=== PATIENT | female | born 1965 | race Caucasian/White ===

== ENCOUNTER 2017-05-19 00:23 | Inpatient (IN) | payer MEDICAID, OTHER ==
[~2017-05-19] VITALS: Ht 154.9 cm; Wt 60.0 kg
[2017-05-19 00:31] VITALS: Ht 154.9 cm; Wt 60.0 kg
--- NOTE | 2017-05-19 01:12 | ERA ---
ER Documentation Chief Complaint Date/Time DATE: 05/19/17 TIME: 01:11 Chief Complaint c/o itching, yellowing of sclera, dark urine, abd pain x months. HPI The patient is a 52-year-old female, presenting to the ER because of pruritus more than 6 months, yellowish eyes more than 4 weeks, constipation more than 3 weeks, abdominal pain more than 1 month and painful urination and dark urine for the last 6 months intermittently. She had not seen a physician, denies night sweats, weight loss, neck pain, chest pain. She does not smoke nor drink Past medical history: None Past surgical history left breast lumpectomy ROS All systems reviewed and are negative except as per history of present illness. Medications Home Meds No Active Prescriptions or Reported Meds Allergies Allergies: Coded Allergies: No Known Allergy (Unverified , 05/19/17) Physical Exam Vitals Vital Signs Date Time Temp Pulse Resp B/P Pulse Ox O2 Delivery O2 Flow Rate FiO2 05/19/17 05:56 88 19 121/67 100 Room Air 05/19/17 04:29 82 19 113/67 100 Room Air 05/19/17 01:22 98.4 89 19 159/89 100 Room Air 05/19/17 00:31 98.4 94 18 169/77 98 Physical Exam Const: No acute distress.Jaundice Head: Atraumatic. Eyes: Icteric Conjunctiva. ENT: Normal External Ears, Nose and Mouth. Neck: Full range of motion. No meningismus. Resp: Clear to auscultation bilaterally. Cardio: Regular rate and rhythm. Abd: Soft, non distended, normal bowel sounds, Diffuse abdominal tenderness, more tenderness at the right upper quadrant Skin: No petechiae or rashes. Back: No midline or flank tenderness. Ext: No cyanosis, or edema. Neur: Awake and alert. No focal deficit Psych: Normal Mood and Affect. Result Diagram: 05/19/17 0110 05/19/17 0110 Results 24 hrs Laboratory Tests Test 05/19/17 01:10 05/19/17 01:51 White Blood Count 11.610^3/ul Red Blood Count 4.7010^6/ul Hemoglobin 14.0g/dl Hematocrit 41.2% Mean Corpuscular Volume 87.7fl Mean Corpuscular Hemoglobin 29.8pg Mean Corpuscular Hemoglobin Concent 34.0g/dl Red Cell Distribution Width 14.5% Platelet Count 23036^3/UL Mean Platelet Volume 11.0fl Neutrophils % 65.0% Lymphocytes % 23.5% Monocytes % 9.1% Eosinophils % 1.6% Basophils % 0.4% Nucleated Red Blood Cells % 0.0/100WBC Neutrophils # 7.510^3/ul Lymphocytes # 2.710^3/ul Monocytes # 1.110^3/ul Eosinophils # 0.210^3/ul Basophils # 0.110^3/ul Nucleated Red Blood Cells # 0.010^3/ul Sodium Level 139mmol/L Potassium Level 3.5mmol/L Chloride Level 101mmol/L Carbon Dioxide Level 29mmol/L Anion Gap 13 Blood Urea Nitrogen 11mg/dl Creatinine 0.63mg/dl Glucose Level 121mg/dl Calcium Level 9.5mg/dl Total Bilirubin 7.5mg/dl Direct Bilirubin 5.50mg/dl Indirect Bilirubin 2.0mg/dl Aspartate Amino Transf (AST/SGOT) 67IU/L Alanine Aminotransferase (ALT/SGPT) 130IU/L Alkaline Phosphatase 907IU/L Total Protein 7.7g/dl Albumin 3.9g/dl Globulin 3.80g/dl Albumin/Globulin Ratio 1.02 Lipase 142U/L Bedside Urine pH (LAB) 6.5 Bedside Urine Protein (LAB) Negative Bedside Urine Glucose (UA) 0.1% Bedside Urine Ketones (LAB) Negative Bedside Urine Blood Negative Bedside Urine Nitrite (LAB) Positive Bedside Urine Leukocyte Esterase (L Negative Current Medications Medications (Trade) Dose Ordered Sig/Christy Route PRN Reason Start Time Stop Time Status Last Admin Dose Admin Morphine Sulfate (morphine) 2 mg ONCE ONCE IV 05/19/17 02:00 05/19/17 02:02 DC 05/19/17 02:03 Ondansetron HCl 4 mg 4 mg ONCE STAT IV 05/19/17 01:59 05/19/17 02:02 DC 05/19/17 02:03 Piperacillin Sod/ Tazobactam Sod (Zosyn 3.375gm/ 100 ml (Pmx)) 100 ml @ 200 mls/hr ONCE ONCE IVPB 05/19/17 03:30 05/19/17 03:59 DC 05/19/17 04:18 Procedures/MDM [place] [address] Radiology Main Line: [phone] DIAGNOSTIC IMAGING REPORT Patient: PABLITO MOSS : 1965 Age: 52 Sex: F MR #: [id number] DOS: 05/19/17 0159 Ordering MD: KARRI FORTE MD Location: E/R Room/Bed: PROCEDURE: US abdomen limited right upper quadrant. CLINICAL INDICATION: Abdominal pain TECHNIQUE: Multiple real-time images were acquired of the patient's right upper quadrant of the abdomen utilizing a high resolution transducer. COMPARISON: CT abdomen and pelvis without contrast of 05/19/2017 FINDINGS: The gallbladder appears contracted which limits evaluation. No definite gallstones are identified within the gallbladder. There is the appearance of diffuse gallbladder wall thickening which could be secondary to contraction. The common bile duct measures 2.6 mm in maximal dimension. No free fluid is identified. No definite abnormality is seen in the pancreas. There is the appearance of marked intrahepatic biliary dilatation greater in the left lobe. The length of the right lobe of the liver equals 15.3 cm, within normal limits. There is hepatopedal main portal venous flow. The right kidney measures 10.6 cm in length and is unremarkable. IMPRESSION: Marked intrahepatic biliary dilatation greater in the left lobe. Contracted gallbladder. Appearance of diffuse gallbladder wall thickening which could be secondary to contraction. Please see above. RPTAT: HJES .Manish Garcia MD, MD Date Time Electronically viewed and signed by .Manish Garcia MD, MD on 05/19/2017 03:35 .S/ CC: KARRI FORTE MD [place] [id number] Radiology Main Line: [phone] DIAGNOSTIC IMAGING REPORT Patient: PABLITO MOSS : 1965 Age: 52 Sex: F MR #: [id number] DOS: 05/19/17 0202 Ordering MD: KARRI FORTE MD Location: E/R Room/Bed: PROCEDURE: CT Abdomen and Pelvis without contrast. CLINICAL INDICATION: Abdominal pain, jaundice, hyperbilirubinemia TECHNIQUE: CT scan of the abdomen and pelvis without contrast was performed on a multidetector high-resolution CT scanner. The patient was scanned without intravenous contrast. Coronal and sagittal reformatted images were obtained from the axial source images. Images were reviewed on a high-resolution PACS workstation. The total exam CTDI equals 9.43 mGy and the total exam DLP equals 519.81 mGy-cm. One or more the following dose reduction techniques were utilized: Automated exposure control, adjustment of the mA and / or kV according to patient's size, or use of iterative reconstruction technique. COMPARISON: Right upper quadrant abdominal ultrasound of 05/19/2017 FINDINGS: Mild dependent atelectasis in posterior lower lungs. No pneumoperitoneum is seen. Very small umbilical hernia containing fat only. Marked intrahepatic biliary dilatation greater in the left lobe. Evaluation of the liver is limited without intravenous contrast. There is the suggestion of approximate 3.3 x 2.7 cm hypoattenuating mass in the balaji hepatis region suspicious for malignancy. There is the appearance of likely enlarged periportal lymph node measuring approximately 1.6 cm short axis suspicious for metastasis. There is an approximate 1 cm short axis left periaortic retroperitoneal lymph node with smaller additional left periaortic retroperitoneal lymph nodes. There is an approximate 1 cm short axis left common iliac lymph node. The gallbladder is contracted. No definite dilatation of the extrahepatic bile duct is seen. No definite abnormality of the pancreas is seen. No abnormality is seen in the spleen, adrenals or kidneys. No abdominal aortic aneurysm is seen. No ascites is seen. No abnormality of the bladder is seen. No definite abnormality of the uterus or adnexal regions is seen on CT. No definite abnormality of the colon is seen. There is an unremarkable appendix. No significantly dilated small bowel loops are seen. Small scattered likely bone islands. Degenerative changes in lumbar spine. IMPRESSION: Marked intrahepatic biliary dilatation greater in the left lobe. Evaluation of the liver is limited without intravenous contrast. There is the suggestion of approximate 3.3 x 2.7 cm hypoattenuating mass in the balaji hepatis region suspicious for malignancy. There is the appearance of likely enlarged periportal lymph node measuring approximately 1.6 cm short axis suspicious for metastasis. There is an approximate 1 cm short axis left periaortic retroperitoneal lymph node with smaller additional left periaortic retroperitoneal lymph nodes. There is an approximate 1 cm short axis left common iliac lymph node. These are nonspecific. Contracted gallbladder. Please see above. Discussed with Dr. Forte at 03:48 a.m. on 05/19/2017. RPTAT: HJES .Manish Garcia MD, MD Date Time Electronically viewed and signed by .Manish Garcia MD, MD on 05/19/2017 03:51 .S/ CC: KARRI FORTE MD MEDICAL MAKING DECISION: The patient is a 52-year-old female, presenting with acute jaundice, acute liver mass concerning for hepatic malignancy, acute cystitis. She was treated withZosyn IV, morphine 2 mg IV for pain, Zofran formula IV for nausea with good response The differential diagnoses considered include but are not limited to hepatic malignancy, CBD obstruction, choledocholithiasis, Cholangiocarcinoma, cholangitis, cholelithiasis, cholecystitis, cystitis, pancreatitis, hepatitis, gastritis, peptic ulcer disease, gastric ulcer, appendicitis, diverticulitis, cholangitis, choledocholithiasis, partial small bowel obstruction. Departure Diagnosis: Primary Impression: Jaundice Additional Impressions: Liver mass UTI (urinary tract infection) Condition: Stable Comments I discussed the findings with the patient. I discussed the patient with the on- call hospitalist Dr. Villalobos who was made aware of the lab, the treatment, the patient condition. The patient is admitted to [facility] The patient's blood pressure was elevated (>120/80) but appears stable without evidence of hypertension emergency or urgency. The patient was counseled about the risks of hypertension and urged to pursue outpatient monitoring and therapy within a week with their primary care physician. KARRI FORTE MD May 19, 2017 01:12
[2017-05-19 01:40] LABS: BASOPHIL # 0.1 10^3/ul (0.0-0.1); BASOPHILS % 0.4 % (0.0-2.0); EOSINOPHILS # 0.2 10^3/ul (0.0-0.5); EOSINOPHILS % 1.6 % (0.0-7.0); HEMATOCRIT 41.2 % (37.0-47.0); LYMPHOCYTES # 2.7 10^3/ul (0.8-2.9); LYMPHOCYTES % 23.5 % (15.0-51.0); MEAN CORPUSCULAR HEMOGLOBIN 29.8 pg (29.0-33.0); MEAN CORPUSCULAR VOLUME 87.7 fl (82.0-101.0); MONOCYTE # 1.1 10^3/ul (0.3-0.9); MONOCYTES % 9.1 % (0.0-11.0); NEUTROPHIL # 7.5 10^3/ul (1.6-7.5); PLATELET COUNT 377 10^3/UL (140-415); RED CELL DISTRIBUTION WIDTH 14.5 % (11.5-14.5); WHITE BLOOD COUNT 11.6 10^3/ul (4.8-10.8)
[2017-05-19 01:44] LABS: URINE BLOOD (Dip) POC Negative (NEGATIVE)
[2017-05-19] MEDS ORDERED: ONDANSETRON 4 MG INJ IV STA (01:59)
[2017-05-19] MEDS ORDERED: morphine 2 MG INJ IV ONE (02:00)
[2017-05-19 02:02] LABS: ALBUMIN 3.9 g/dl (3.3-4.9); ALBUMIN/GLOBULIN RATIO 1.02; BILIRUBIN,DIRECT 5.5 mg/dl (0.00-0.20); BILIRUBIN,TOTAL 7.5 mg/dl (0.2-1.3); CALCIUM 9.5 mg/dl (8.4-10.2); CREATININE 0.63 mg/dl (0.44-1.00); POTASSIUM 3.5 mmol/L (3.5-5.1); TOTAL PROTEIN 7.7 g/dl (6.1-8.1)
[2017-05-19] MEDS ORDERED: PIPER-TAZO 3.375 GM IV (PMX) 100 ML IVPB ONE (03:30)
--- NOTE | 2017-05-19 03:36 | RADRPT ---
PROCEDURE: US abdomen limited right upper quadrant. CLINICAL INDICATION: Abdominal pain TECHNIQUE: Multiple real-time images were acquired of the patient's right upper quadrant of the ab domen utilizing a high resolution transducer. COMPARISON: CT abdomen and pelvis without contrast of 05/19/2017 FINDINGS: The gallbladder appears contracted which limits evaluation. No definite gallstones are identified wi thin the gallbladder. There is the appearance of diffuse gallbladder wall thickening which could be secondary to contracti on. The common bile duct measures 2.6 mm in maximal dimension. No free fluid is identified. No definite abnormality is seen in the pancreas. There is the appearanc e of marked intrahepatic biliary dilatation greater in the left lobe. The length of the right lobe o f the liver equals 15.3 cm, within normal limits. There is hepatopedal main portal venous flow. The right kidney measures 10.6 cm in length and is unremarkable. IMPRESSION: Marked intrahepatic biliary dilatation greater in the left lobe. Contracted gallbladder. Appearance of diffuse gallbladder wall thickening which could be secondary to contraction. Please see above. RPTAT: HJES .Manish Garcia MD, MD Date Time Electronically viewed and signed by .Manish Garcia MD, on 05/19/2017 03:35 .S/
--- NOTE | 2017-05-19 03:51 | RADRPT ---
PROCEDURE: CT Abdomen and Pelvis without contrast. CLINICAL INDICATION: Abdominal pain, jaundice, hyperbilirubinemia TECHNIQUE: CT scan of the abdomen and pelvis without contrast was performed on a multidetector hig h-resolution CT scanner. The patient was scanned without intravenous contrast. Coronal and sagittal reformatted images were obtained from the axial source images. Images were reviewed on a high-resol [employer] PACS workstation. The total exam CTDI equals 9.43 mGy and the total exam DLP equals 519.81 mGy -cm. One or more the following dose reduction techniques were utilized: Automated exposure control, adjus tment of the mA and / or kV according to patient's size, or use of iterative reconstruction techniqu e. COMPARISON: Right upper quadrant abdominal ultrasound of 05/19/2017 FINDINGS: Mild dependent atelectasis in posterior lower lungs. No pneumoperitoneum is seen. Very small umbilic al hernia containing fat only. Marked intrahepatic biliary dilatation greater in the left lobe. Eval uation of the liver is limited without intravenous contrast. There is the suggestion of approximate 3.3 x 2.7 cm hypoattenuating mass in the balaji hepatis region suspicious for malignancy. There is th e appearance of likely enlarged periportal lymph node measuring approximately 1.6 cm short axis susp icious for metastasis. There is an approximate 1 cm short axis left periaortic retroperitoneal lymph node with smaller additional left periaortic retroperitoneal lymph nodes. There is an approximate 1 cm short axis left common iliac lymph node. The gallbladder is contracted. No definite dilatation o f the extrahepatic bile duct is seen. No definite abnormality of the pancreas is seen. No abnormalit y is seen in the spleen, adrenals or kidneys. No abdominal aortic aneurysm is seen. No ascites is seen. No abnormality of the bladder is seen. No definite abnormality of the uterus or adnexal region s is seen on CT. No definite abnormality of the colon is seen. There is an unremarkable appendix. No significantly dilated small bowel loops are seen. Small scattered likely bone islands. Degenerative changes in lumbar spine. IMPRESSION: Marked intrahepatic biliary dilatation greater in the left lobe. Evaluation of the liver is limited without intravenous contrast. There is the suggestion of approximate 3.3 x 2.7 cm hypoattenuating ma ss in the balaji hepatis region suspicious for malignancy. There is the appearance of likely enlarged periportal lymph node measuring approximately 1.6 cm short axis suspicious for metastasis. There is an approximate 1 cm short axis left periaortic retroperitoneal lymph node with smaller additional l eft periaortic retroperitoneal lymph nodes. There is an approximate 1 cm short axis left common qian c lymph node. These are nonspecific. Contracted gallbladder. Please see above. Discussed with Dr. Juana swenson at 03:48 a.m. on 05/19/2017. RPTAT: HJES .Manish Garcia MD, MD Date Time Electronically viewed and signed by .Manish Garcia MD, on 05/19/2017 03:51 .S/
--- NOTE | 2017-05-19 07:32 | HP ---
Date/Time of Note Date/Time of Note DATE: 05/19/17 TIME: 07:22 Assessment/Plan VTE Prophylaxis VTE Prophylaxis Intervention: SCD's Assessment/Plan Assessment/Plan 1. Liver mass with enlarged lymph nodes, suspicious for malignancy/metastasis -will place a GI and oncology consult, as well as hepatobiliary surgery consult -will talk to oncology and also radiology to see best approach to perform a biopsy 2. Abnormal liver enzymes, jaundice -See #1 HPI/ROS Admit Date/Time Admit Date/Time Hx of Present Illness The patient is a 52-year-old female with a history of dyslipidemia who presented to the ER coming of abdominal pain, yellowish eyes dark urine and itching. Her symptoms started over 6 months ago with dark urine. About a month or so ago, she started noticing itching, abdominal pain, yellowish eyes and constipation. For the having slightly decreased appetite but denied weight loss. He also denied fever, chills, chest pain, shortness of breath. CT abdomen/pelvis done in the ER showed Marked intrahepatic biliary dilatation greater in the left lobe, 3.3 x 2.7 cm hypoattenuating mass in the balaji hepatis region suspicious for malignancy. Also enlarged lymph nodes, suspicious for metastasis. Labs shows elevated transaminases, as well as total bilirubin of 7.5 and alk phos of about 900. . PMH/Family/Social Social History Smoking Status: Never smoker Exam/Review of Systems Vital Signs Vitals Vital Signs Date Time Temp Pulse Resp B/P Pulse Ox O2 Delivery O2 Flow Rate FiO2 05/19/17 06:43 98.5 70 16 111/64 100 Room Air Labs Result Diagram: 05/19/1710905/19/17109 JOAN WARREN MD May 19, 2017 07:32
[2017-05-19] MEDS ORDERED: DIPHENHYDRAMINE 50 MG INJ IV ONE (08:30)
--- NOTE | 2017-05-19 11:40 | CONS ---
Date/Time of Note Date/Time of Note DATE: 05/19/17 TIME: 11:37 Assessment/Plan Assessment/Plan Additional Assessment/Plan Dear Dr. Vitale: Thank you very much for involving me in the care of this very pleasant lady and her wonderful family. I have done a preliminary review of the available data. I do not see an indication for acute surgical intervention and I have ordered needed workup that included a pancreas protocol triple phase CT scan of the abdomen and pelvis, tumor marker checks and other laboratory checks for a complete hepatobiliary evaluation. I will plan on seeing the patient upon completion of the above workup. Recommend admission to the hospital and agree with your current plan of consulting oncology as well as gastroenterology. Please do not hesitate to call with any questions. Much appreciate the consultation. Consultation Date/Type/Reason Admit Date/Time Social History Smoking Status: Never smoker Exam/Review of Systems Vital Signs Vitals Vital Signs Date Time Temp Pulse Resp B/P Pulse Ox O2 Delivery O2 Flow Rate FiO2 05/19/17 10:42 98.3 82 18 114/77 100 Room Air Results Result Diagram: 05/19/17 0110 05/19/17 0110 Results 24 hrs Laboratory Tests Test 05/19/17 01:10 05/19/17 01:51 White Blood Count 11.6 H Red Blood Count 4.70 Hemoglobin 14.0 Hematocrit 41.2 Mean Corpuscular Volume 87.7 Mean Corpuscular Hemoglobin 29.8 Mean Corpuscular Hemoglobin Concent 34.0 Red Cell Distribution Width 14.5 Platelet Count 377 Mean Platelet Volume 11.0 H Neutrophils % 65.0 Lymphocytes % 23.5 Monocytes % 9.1 Eosinophils % 1.6 Basophils % 0.4 Nucleated Red Blood Cells % 0.0 Neutrophils # 7.5 Lymphocytes # 2.7 Monocytes # 1.1 H Eosinophils # 0.2 Basophils # 0.1 Nucleated Red Blood Cells # 0.0 Sodium Level 139 Potassium Level 3.5 Chloride Level 101 Carbon Dioxide Level 29 Anion Gap 13 Blood Urea Nitrogen 11 Creatinine 0.63 Glucose Level 121 Calcium Level 9.5 Total Bilirubin 7.5 H Direct Bilirubin 5.50 H Indirect Bilirubin 2.0 H Aspartate Amino Transf (AST/SGOT) 67 H Alanine Aminotransferase (ALT/SGPT) 130 H Alkaline Phosphatase 907 H Total Protein 7.7 Albumin 3.9 Globulin 3.80 H Albumin/Globulin Ratio 1.02 Lipase 142 Bedside Urine pH (LAB) 6.5 Bedside Urine Protein (LAB) Negative Bedside Urine Glucose (UA) 0.1% H Bedside Urine Ketones (LAB) Negative Bedside Urine Blood Negative Bedside Urine Nitrite (LAB) Positive H Bedside Urine Leukocyte Esterase (L Negative ABBY ROMAN M.D. May 19, 2017 11:40
[2017-05-19 15:07] VITALS: TEMP 98.3
[2017-05-19 15:29] VITALS: BP 122/70; RESP 16
[2017-05-19] MEDS ORDERED: DIPHENHYDRAMINE 25 MG CAP PO PRN (16:30)
[2017-05-19] MEDS ORDERED: morphine 2 MG INJ IV PRN (16:30)
--- NOTE | 2017-05-19 16:50 | CONS ---
Date/Time of Note Date/Time of Note DATE: 05/19/17 TIME: 16:42 Assessment/Plan Assessment/Plan Chief Complaint/Hosp Course PAINLESS JAUNDICE ASSOCIATED WITH Liver mass with enlarged lymph nodes, suspicious for malignancy R/O NEOPLASIA pancreas protocol triple phase CT scan of the abdomen and pelvis WITH CONTRAST - ORDERED BY DR KOO tumor markers, INCL AFP check coags, HEPATITIS PANEL plan BX- AFTER REVIEW CT AP WITH IV CONTRAST GI EVAL Abnormal liver enzymes, jaundice- 2 TO ABOVE DYSLIPIDEMIA Problems: Consultation Date/Type/Reason Admit Date/Time 05/19/17 Date of Consultation: May 19, 2017 Type of Consultation: [facility] Reason for Consultation LIVER MASS Referring Provider: JOAN WARREN MD Hx of Present Illness The patient is a 52-year-old female with a history of dyslipidemia who presented to the ER coming of abdominal pain, yellowish eyes dark urine and itching. Her symptoms started over 6 months ago with dark urine. About a month or so ago, she started noticing itching, abdominal pain, yellowish eyes and constipation. For the having slightly decreased appetite but denied weight loss. He also denied fever, chills, chest pain, shortness of breath. CT abdomen/pelvis done in the ER showed Marked intrahepatic biliary dilatation greater in the left lobe, 3.3 x 2.7 cm hypoattenuating mass in the balaji hepatis region suspicious for malignancy. Also enlarged lymph nodes, suspicious for metastasis. Labs shows elevated transaminases, as well as total bilirubin of 7.5 and alk phos of about 900. . PMH/Family/Social Social History Smoking Status: Never smoker Social History Smoking Status: Never smoker Exam/Review of Systems Vital Signs Vitals Vital Signs Date Time Temp Pulse Resp B/P Pulse Ox O2 Delivery O2 Flow Rate FiO2 05/19/17 15:29 97.9 80 16 122/70 96 05/19/17 15:07 Room Air Exam Const: No acute distress.+ Jaundice Head: Atraumatic. Eyes: Icteric Conjunctiva. ENT: Normal External Ears, Nose and Mouth. Neck: Full range of motion. No meningismus. Resp: Clear to auscultation bilaterally. Cardio: Regular rate and rhythm. Abd: Soft, non distended, normal bowel sounds, Diffuse abdominal tenderness, more tenderness at the right upper quadrant Skin: No petechiae or rashes. Back: No midline or flank tenderness. Ext: No cyanosis, or edema. Neur: Awake and alert. No focal deficit Psych: Normal Mood and Affect. NO PATH LN- ERIC Results Result Diagram: 05/19/17 0110 05/19/17 0110 Results 24 hrs Laboratory Tests Test 05/19/17 01:10 05/19/17 01:51 White Blood Count 11.6 H Red Blood Count 4.70 Hemoglobin 14.0 Hematocrit 41.2 Mean Corpuscular Volume 87.7 Mean Corpuscular Hemoglobin 29.8 Mean Corpuscular Hemoglobin Concent 34.0 Red Cell Distribution Width 14.5 Platelet Count 377 Mean Platelet Volume 11.0 H Neutrophils % 65.0 Lymphocytes % 23.5 Monocytes % 9.1 Eosinophils % 1.6 Basophils % 0.4 Nucleated Red Blood Cells % 0.0 Neutrophils # 7.5 Lymphocytes # 2.7 Monocytes # 1.1 H Eosinophils # 0.2 Basophils # 0.1 Nucleated Red Blood Cells # 0.0 Sodium Level 139 Potassium Level 3.5 Chloride Level 101 Carbon Dioxide Level 29 Anion Gap 13 Blood Urea Nitrogen 11 Creatinine 0.63 Glucose Level 121 Calcium Level 9.5 Total Bilirubin 7.5 H Direct Bilirubin 5.50 H Indirect Bilirubin 2.0 H Aspartate Amino Transf (AST/SGOT) 67 H Alanine Aminotransferase (ALT/SGPT) 130 H Alkaline Phosphatase 907 H Total Protein 7.7 Albumin 3.9 Globulin 3.80 H Albumin/Globulin Ratio 1.02 Lipase 142 Bedside Urine pH (LAB) 6.5 Bedside Urine Protein (LAB) Negative Bedside Urine Glucose (UA) 0.1% H Bedside Urine Ketones (LAB) Negative Bedside Urine Blood Negative Bedside Urine Nitrite (LAB) Positive H Bedside Urine Leukocyte Esterase (L Negative Medications Medications Current Medications Diphenhydramine HCl (Benadryl) 25 mg Q6H PRN PO ITCHING; Start 05/19/17 at 16: 30 Morphine Sulfate (morphine) 2 mg Q4H PRN IV PAIN; Start 05/19/17 at 16:30 Acetaminophen/ Hydrocodone Bitart ([place] (5/325)) 1 tab Q4H PRN PO PAIN; Start 05/19/17 at 16:30 Ondansetron HCl (Zofran Inj) 4 mg Q6H PRN IV NAUSEA AND/OR VOMITING; Start at 16:30 Procedures Procedures [place] [address] Radiology Main Line: [phone] DIAGNOSTIC IMAGING REPORT Patient: PABILTO MOSS : 1965 Age: 52 Sex: F MR #: [id number] DOS: 05/19/17 0159 Ordering MD: KARRI FORTE MD Location: E/R Room/Bed: PROCEDURE: US abdomen limited right upper quadrant. CLINICAL INDICATION: Abdominal pain TECHNIQUE: Multiple real-time images were acquired of the patient's right upper quadrant of the abdomen utilizing a high resolution transducer. COMPARISON: CT abdomen and pelvis without contrast of 05/19/2017 FINDINGS: The gallbladder appears contracted which limits evaluation. No definite gallstones are identified within the gallbladder. There is the appearance of diffuse gallbladder wall thickening which could be secondary to contraction. The common bile duct measures 2.6 mm in maximal dimension. No free fluid is identified. No definite abnormality is seen in the pancreas. There is the appearance of marked intrahepatic biliary dilatation greater in the left lobe. The length of the right lobe of the liver equals 15.3 cm, within normal limits. There is hepatopedal main portal venous flow. The right kidney measures 10.6 cm in length and is unremarkable. IMPRESSION: Marked intrahepatic biliary dilatation greater in the left lobe. Contracted gallbladder. Appearance of diffuse gallbladder wall thickening which could be secondary to contraction. Please see above. RPTAT: HJES .Manish Garcia MD, MD Date Time Electronically viewed and signed by .Manish Garcia MD, on 05/19/2017 03:35 .S/ CC: KARRI FORTE MD [place] [address] Radiology Main Line: [phone] DIAGNOSTIC IMAGING REPORT Patient: PABLITO MOSS : 1965 Age: 52 Sex: F MR #: [id number] DOS: 05/19/17 0202 Ordering MD: KARRI FORTE MD Location: E/R Room/Bed: PROCEDURE: CT Abdomen and Pelvis without contrast. CLINICAL INDICATION: Abdominal pain, jaundice, hyperbilirubinemia TECHNIQUE: CT scan of the abdomen and pelvis without contrast was performed on a multidetector high-resolution CT scanner. The patient was scanned without intravenous contrast. Coronal and sagittal reformatted images were obtained from the axial source images. Images were reviewed on a high-resolution PACS workstation. The total exam CTDI equals 9.43 mGy and the total exam DLP equals 519.81 mGy-cm. One or more the following dose reduction techniques were utilized: Automated exposure control, adjustment of the mA and / or kV according to patient's size, or use of iterative reconstruction technique. COMPARISON: Right upper quadrant abdominal ultrasound of 05/19/2017 FINDINGS: Mild dependent atelectasis in posterior lower lungs. No pneumoperitoneum is seen. Very small umbilical hernia containing fat only. Marked intrahepatic biliary dilatation greater in the left lobe. Evaluation of the liver is limited without intravenous contrast. There is the suggestion of approximate 3.3 x 2.7 cm hypoattenuating mass in the balaji hepatis region suspicious for malignancy. There is the appearance of likely enlarged periportal lymph node measuring approximately 1.6 cm short axis suspicious for metastasis. There is an approximate 1 cm short axis left periaortic retroperitoneal lymph node with smaller additional left periaortic retroperitoneal lymph nodes. There is an approximate 1 cm short axis left common iliac lymph node. The gallbladder is contracted. No definite dilatation of the extrahepatic bile duct is seen. No definite abnormality of the pancreas is seen. No abnormality is seen in the spleen, adrenals or kidneys. No abdominal aortic aneurysm is seen. No ascites is seen. No abnormality of the bladder is seen. No definite abnormality of the uterus or adnexal regions is seen on CT. No definite abnormality of the colon is seen. There is an unremarkable appendix. No significantly dilated small bowel loops are seen. Small scattered likely bone islands. Degenerative changes in lumbar spine. IMPRESSION: Marked intrahepatic biliary dilatation greater in the left lobe. Evaluation of the liver is limited without intravenous contrast. There is the suggestion of approximate 3.3 x 2.7 cm hypoattenuating mass in the blaaji hepatis region suspicious for malignancy. There is the appearance of likely enlarged periportal lymph node measuring approximately 1.6 cm short axis suspicious for metastasis. There is an approximate 1 cm short axis left periaortic retroperitoneal lymph node with smaller additional left periaortic retroperitoneal lymph nodes. There is an approximate 1 cm short axis left common iliac lymph node. These are nonspecific. Contracted gallbladder. Please see above. Discussed with Dr. Forte at 03:48 a.m. on 05/19/2017. RPTAT: HJES .Manish Garcia MD, MD Date Time Electronically viewed and signed by .Manish Garcia MD, MD on 05/19/2017 03:51 .S/ CC: KARRI FORTE MD, VERA M MD May 19, 2017 16:50
--- NOTE | 2017-05-19 17:02 | CONS ---
Date/Time of Note Date/Time of Note DATE: 05/19/17 TIME: 16:45 Assessment/Plan Assessment/Plan Additional Assessment/Plan Assessment * Jaundice/pruritus Obstructive vs non obstructive T/C malignancy * Intrahepatic dilatation with suspicious mass balaji hepatis by CT scan Plan * will await CT wit pancreatic protocol * control itchiness * hepatitis profile /tumor markers * case discussed with DR Dalal * Further orders will depend on clinical course Consultation Date/Type/Reason Admit Date/Time Date of Consultation: May 19, 2017 Type of Consultation: Gastroenterology Reason for Consultation Jaundice /liver mass Referring Provider: HERMAN MCNULTY Hx of Present Illness 52 year old female presented in the emergency room because of itchiness and jaundice.Present condition started 7 months ago a progressive itchiness with associated jaundice.Family claimed to have consulted several physician diagnosed as having Hepatitis A .Condition persisted until 3 months ago,she noted changes in color of stool,Stool is angelica in color .Patient denies any nausea ,fever ,vomiting nor abdominal pain but claims weight loss of 10%.It is aslo associated with progressive darkening color of urine.Family also noted icteric sclera hence patient was brought to emergency room.CBC showed leukocytosis,hemoglobin 14,hematocrit 41.0,total bilirubin 7.5,direct bilirubin 5.5,AST 67,[id number] ,alkaline phosphatase 917.CT scan abdomen Marked intrahepatic biliary dilatation greater in the left lobe. Evaluation of the liver is limited without intravenous contrast. There is the suggestion of approximate 3.3 x 2.7 cm hypoattenuating mass in the balaji hepatis region suspicious for malignancy. There is the appearance of likely enlarged periportal lymph node measuring approximately 1.6 cm short axis suspicious for metastasis. There is an approximate 1 cm short axis left periaortic retroperitoneal lymph node with smaller additional left periaortic retroperitoneal lymph nodes. There is an approximate 1 cm short axis left common iliac lymph node. These are nonspecific. Contracted gallbladder. I have discussed the patient in the family regarding her illnesses . Constitutional: improved, no complaints ENT: no complaints Respiratory: no complaints Cardiovascular: no complaints Gastrointestinal: no complaints Genitourinary: no complaints Musculoskeletal: no complaints Skin: other (jaundice), pruritis Neurologic: no complaints Endocrine: no complaints Lymphatic: no complaints Psychological: nl mood/affect, no complaints Immunologic: no complaints Past Medical History Medical History: high cholesterol Past Surgical History Past Surgical Hx: other ( section) Family History Significant Family History: no pertinent family hx Social History Alcohol Use: none Smoking Status: Never smoker Drug Use: none Exam/Review of Systems Vital Signs Vitals Vital Signs Date Time Temp Pulse Resp B/P Pulse Ox O2 Delivery O2 Flow Rate FiO2 05/19/17 15:29 97.9 80 16 122/70 96 05/19/17 15:07 Room Air Results Result Diagram: 05/19/17 0110 05/19/17 0110 Results 24 hrs Laboratory Tests Test 05/19/17 01:10 05/19/17 01:51 White Blood Count 11.6 H Red Blood Count 4.70 Hemoglobin 14.0 Hematocrit 41.2 Mean Corpuscular Volume 87.7 Mean Corpuscular Hemoglobin 29.8 Mean Corpuscular Hemoglobin Concent 34.0 Red Cell Distribution Width 14.5 Platelet Count 377 Mean Platelet Volume 11.0 H Neutrophils % 65.0 Lymphocytes % 23.5 Monocytes % 9.1 Eosinophils % 1.6 Basophils % 0.4 Nucleated Red Blood Cells % 0.0 Neutrophils # 7.5 Lymphocytes # 2.7 Monocytes # 1.1 H Eosinophils # 0.2 Basophils # 0.1 Nucleated Red Blood Cells # 0.0 Sodium Level 139 Potassium Level 3.5 Chloride Level 101 Carbon Dioxide Level 29 Anion Gap 13 Blood Urea Nitrogen 11 Creatinine 0.63 Glucose Level 121 Calcium Level 9.5 Total Bilirubin 7.5 H Direct Bilirubin 5.50 H Indirect Bilirubin 2.0 H Aspartate Amino Transf (AST/SGOT) 67 H Alanine Aminotransferase (ALT/SGPT) 130 H Alkaline Phosphatase 907 H Total Protein 7.7 Albumin 3.9 Globulin 3.80 H Albumin/Globulin Ratio 1.02 Lipase 142 Bedside Urine pH (LAB) 6.5 Bedside Urine Protein (LAB) Negative Bedside Urine Glucose (UA) 0.1% H Bedside Urine Ketones (LAB) Negative Bedside Urine Blood Negative Bedside Urine Nitrite (LAB) Positive H Bedside Urine Leukocyte Esterase (L Negative Medications Medications Current Medications Diphenhydramine HCl (Benadryl) 25 mg Q6H PRN PO ITCHING; Start 05/19/17 at 16: 30 Morphine Sulfate (morphine) 2 mg Q4H PRN IV PAIN; Start 05/19/17 at 16:30 Acetaminophen/ Hydrocodone Bitart ([place] (5/325)) 1 tab Q4H PRN PO PAIN; Start 05/19/17 at 16:30 Ondansetron HCl (Zofran Inj) 4 mg Q6H PRN IV NAUSEA AND/OR VOMITING; Start at 16:30 YUE BLACK NP May 19, 2017 16:57
[2017-05-19 18:18] LABS: INR 0.86; PROTIME 11.7 Sec (12.2-14.2); PT RATIO 0.9
[2017-05-19 18:19] LABS: PARTIAL THROMBOPLASTIN TIME 25.7 Sec (25.0-35.0)
[2017-05-19] MEDS ORDERED: IOHEXOL 14.3 MG(I)/ML (ADULT) BTL PO ONE (22:00)
[2017-05-20 02:37] VITALS: BP 113/67; RESP 20
[2017-05-20 06:08] LABS: HAAIG REFLEX REFLEX FILED
[2017-05-20 06:19] LABS: BASOPHILS % 0.4 % (0.0-2.0); EOSINOPHILS # 0.2 10^3/ul (0.0-0.5); EOSINOPHILS % 1.8 % (0.0-7.0); HEMATOCRIT 39.6 % (37.0-47.0); HEMOGLOBIN 13.4 g/dl (12.0-16.0); LYMPHOCYTES % 18.7 % (15.0-51.0); MEAN CORPUSCULAR HEMOGLOBIN 29.4 pg (29.0-33.0); MEAN CORPUSCULAR HGB CONC 33.8 g/dl (32.0-37.0); MEAN CORPUSCULAR VOLUME 86.8 fl (82.0-101.0); MEAN PLATELET VOLUME 11.4 fl (7.4-10.4); MONOCYTES % 9.3 % (0.0-11.0); NEUTROPHIL # 7.2 10^3/ul (1.6-7.5); NEUTROPHILS % 69.2 % (39.0-77.0); PLATELET COUNT 328 10^3/UL (140-415); RED BLOOD COUNT 4.56 10^6/ul (4.20-5.40); RED CELL DISTRIBUTION WIDTH 14.7 % (11.5-14.5); WHITE BLOOD COUNT 10.4 10^3/ul (4.8-10.8)
[2017-05-20 06:34] LABS: INR 0.91; PROTIME 12.3 Sec (12.2-14.2)
[2017-05-20 06:35] LABS: PARTIAL THROMBOPLASTIN TIME 26.5 Sec (25.0-35.0)
[2017-05-20 06:48] LABS: ALBUMIN 3.4 g/dl (3.3-4.9); BILIRUBIN,DIRECT 5.5 mg/dl (0.00-0.20); BILIRUBIN,INDIRECT 1.6 mg/dl (0-1.1); BILIRUBIN,TOTAL 7.1 mg/dl (0.2-1.3); CALCIUM 9.3 mg/dl (8.4-10.2); CREATININE 0.66 mg/dl (0.44-1.00); POTASSIUM 3.6 mmol/L (3.5-5.1); TOTAL PROTEIN 6.8 g/dl (6.1-8.1)
[2017-05-20 07:33] LABS: CALCIUM 9.4 mg/dl (8.4-10.2); MAGNESIUM 2.4 mg/dl (1.7-2.5); PHOSPHORUS 3.8 mg/dl (2.5-4.9)
[2017-05-20 07:41] VITALS: BP 120/80; RESP 20
[2017-05-20 07:45] LABS: HEPATITIS B CORE ANTIBODY NEGATIVE (NEGATIVE)
[2017-05-20 08:11] LABS: CANCER ANTIGEN 125 13.3 U/ml (0.0-35.0)
[2017-05-20] MEDS ORDERED: IOHEXOL 300MG/ML 150 ML BTL ONE (10:18)
[2017-05-20] MEDS ORDERED: SOD CHLORIDE 0.9% 100 ML ONE (10:18)
[2017-05-20] MEDS ORDERED: IOHEXOL 100 ML ONE (11:34)
[2017-05-20] MEDS ORDERED: HEPARIN 5,000 UNIT/0.5 ML VIAL SC SCH (12:30)
[2017-05-20] MEDS ORDERED: TRIMETHOBENZAMIDE 100 MG/ML VIAL IM PRN (12:30)
--- NOTE | 2017-05-20 12:34 | PN ---
Date/Time of Note Date/Time of Note DATE: 05/20/17 TIME: 12:27 Assessment/Plan VTE Prophylaxis VTE Prophylaxis Intervention: heparin Lines/Catheters IV C[facility]ter Type [facility] Peripheral IV Urinary Cath still in place: No Assessment/Plan Chief Complaint/Hosp Course Assessment/Plan: 52-year-old female with a history of dyslipidemia who presented to the ER coming of abdominal pain, yellowish eyes dark urine and itching with findings of liver mass suspicious for malignancy on imaging studies. 1. Liver mass with enlarged lymph nodes, suspicious for malignancy/metastasis. CA-19-9 is also greater than 9000. -Follow-up triple phase CT abdomen pelvis study to further evaluate hepatobiliary structures, and follow-up GI and oncology consult, as well as hepatobiliary surgery consult recommendation -She may also need a biopsy -we will try to discuss with [employer] consultant teams -Continue pain control medications and antiemetics, continue to monitor liver function tests. -Continue Benadryl as needed itching symptoms. 2. Abnormal liver enzymes, jaundice-elevations of both total and direct bilirubins. -See #1 3. GI ppx -H2 regan Problems: Subjective 24 Hr Interval Summary Free Text/Dictation Patient seen by GI, hepatobiliary surgery, and hematology oncology teams. Exam/Review of Systems Vital Signs Vitals Vital Signs Date Time Temp Pulse Resp B/P Pulse Ox O2 Delivery O2 Flow Rate FiO2 05/20/17 07:41 97.4 78 20 120/80 100 05/19/17 15:07 Room Air Intake and Output 05/19/17 05/19/17 05/20/17 15:00 23:00 07:00 Intake Total 960 ml Balance 960 ml Results Result Diagram: 05/20/17 0527 05/20/17 0527 Results 24 hrs Laboratory Tests Test 05/19/17 17:39 05/20/17 05:27 Prothrombin Time 11.7 L 12.3 Prothrombin Time Ratio 0.9 1.0 INR International Normalized Ratio 0.86 0.91 Activated Partial Thromboplast Time 25.7 26.5 Alpha Fetoprotein 1.66 1.74 White Blood Count 10.4 Red Blood Count 4.56 Hemoglobin 13.4 Hematocrit 39.6 Mean Corpuscular Volume 86.8 Mean Corpuscular Hemoglobin 29.4 Mean Corpuscular Hemoglobin Concent 33.8 Red Cell Distribution Width 14.7 H Platelet Count 328 Mean Platelet Volume 11.4 H Neutrophils % 69.2 Lymphocytes % 18.7 Monocytes % 9.3 Eosinophils % 1.8 Basophils % 0.4 Nucleated Red Blood Cells % 0.0 Neutrophils # 7.2 Lymphocytes # 2.0 Monocytes # 1.0 H Eosinophils # 0.2 Basophils # 0.0 Nucleated Red Blood Cells # 0.0 Sodium Level 138 Potassium Level 3.6 Chloride Level 103 Carbon Dioxide Level 30 Anion Gap 9 Blood Urea Nitrogen 9 Creatinine 0.66 Glucose Level 98 Lactic Acid Level 1.0 Calcium Level 9.3 Phosphorus Level 3.8 Magnesium Level 2.4 Total Bilirubin 7.1 H Direct Bilirubin 5.50 H Indirect Bilirubin 1.6 H Aspartate Amino Transf (AST/SGOT) 61 H Alanine Aminotransferase (ALT/SGPT) 105 H Alkaline Phosphatase 814 H Total Protein 6.8 Albumin 3.4 Globulin 3.40 H Albumin/Globulin Ratio 1.00 Amylase Level 69 Lipase 230 Carcinoembryonic Antigen 4.0 CA 19-9 Antigen 9330.0 H CA 125 Antigen 13.3 Hepatitis B Surface Antigen NEGATIVE Hepatitis B Core Total Antibody NEGATIVE Hepatitis C Antibody NEGATIVE Medications Medications Current Medications Diphenhydramine HCl (Benadryl) 25 mg Q6H PRN PO ITCHING; Start 05/19/17 at 16: 30 Morphine Sulfate (morphine) 2 mg Q4H PRN IV PAIN; Start 05/19/17 at 16:30 Acetaminophen/ Hydrocodone Bitart ([place] (5/325)) 1 tab Q4H PRN PO PAIN; Start 05/19/17 at 16:30 Ondansetron HCl (Zofran Inj) 4 mg Q6H PRN IV NAUSEA AND/OR VOMITING; Start at 16:30 HERMAN MCNULTY May 20, 2017 12:34
[2017-05-20 13:04] VITALS: BP 122/79; RESP 20
--- NOTE | 2017-05-20 13:18 | CONS ---
Date/Time of Note Date/Time of Note DATE: 05/20/17 TIME: 13:18 Assessment/Plan Assessment/Plan Additional Assessment/Plan [facility] INPATIENT CONSULTATION NOTE DATE OF SERVICE: 05/20/2017 PLACE OF SERVICE: [facility], sixth floor ASSESSMENT AND PLAN: A very-pleasant but unfortunate 52-year-old lady without significant other major comorbidities, presenting with a central hilar cholangiocarcinoma which unfortunately involves the first and perhaps even the second branches of both the left and right biliary systems, not amenable to surgical resection. There is still many interventions that can be done to improve the patient's quality of life as well as perhaps quantity of life. These include stenting of the biliary system, hopefully internally, to allow bile duct obstruction to resolve. They are also available options for local therapy to the liver in the form of transarterial chemoembolization (TACE), possible radioembolization, and potential for systemic chemotherapy. I explained all of this to the patient, her and her son and answered all of their questions. Patient and family appear to understand and agreed with plans. With above assessment, I've recommended the followin. Agree with hospitalization 2. Multidisciplinary tumor board discussion and multidisciplinary care 3. Gastroenterology evaluation with attempts at internal stenting the left and right biliary systems with metallic stents (much appreciate Dr. Dalal's excellent care) 4. Possible need for liver biopsy if biopsy is not possible endoscopically and if tissue diagnosis is still needed 5. Social work and case management to please get involved with the patient and family quickly and review the several possibly present socioeconomic barriers and assist with both inpatient as well as rather involved outpatient management that is needed to treat this disease process 6. Would also benefit from supportive care consultation 7. Much appreciate ongoing involvement of Dr. Parikh from an oncology standpoint Thank you very much for having me involved in the care of this very pleasant patient and wonderful family. If you have any questions, please feel free to contact me at [phone]. Nature of presenting problem: High severity Please note that, given the extensive number of diagnoses or management options , the extensive amount and/or complexity of data needed to be reviewed, and high risk of complications and/or morbidity or mortality, this qualifies as high complexity type of decision-making. Disclaimer: Inadvertent spelling and grammatical errors are likely due to EHR/ dictation software use and do not reflect on the quality of delivered patient care. Also, please note that the electronic time recorded on this node does not necessarily reflect the actual time of the visit. Updated clinical summary: A very-pleasant but unfortunate 52-year-old lady without significant other major comorbidities, presenting with a central hilar cholangiocarcinoma which unfortunately involves the first and perhaps even the second branches of both the left and right biliary systems, not amenable to surgical resection. Comorbidities: 1. BMI 25 2. Status post left breast biopsy 3. 4. Hypercholesterolemia CONSULTATION REQUESTED BY: Óscar Branch MD Dear Dr. Branch: Thank you very much for the opportunity to get involved in the care of this very pleasant lady in her wonderful family. HISTORY OF PRESENT ILLNESS: The patient is a very pleasant and otherwise seemingly healthy 52-year-old lady without significant comorbidities with the exception of perhaps BMI 25, presenting with 6 month history of progressive worsening of her clinical situation with jaundice which is for the most part painless, significant itching, difficulties with her bowel movements including constipation and change in color of the stool, darkening of her urine, and approximately 10 pound weight loss. She was admitted to [facility] and was found to have a mass in her liver on a CT scan which was done after an ultrasound. Her liver function and injury parameters were also significantly abnormal. I was kindly asked to consult regarding management of the above findings. Prior to seeing her, I had ordered a liver dedicated CT scan which unfortunately shows a large mass, approximately 4 cm in greatest dimension in the central hilar portion with bile duct obstruction of the intrahepatic biliary system involving the radiculitis that are going to essentially all of the segments and involvement of the first and second branches of the right and left biliary systems. Patient herself did not have any other major complaints during my visit. ALLERGIES: NO KNOWN DRUG ALLERGIES MEDICATIONS Documented in the electronic records and reviewed by me. Please see the electronic records for details, as well as details for inpatient medications which were also reviewed by me. SOCIAL HISTORY: The patient lives with family.-Tob;-ETOH;-IVDU FAMILY HISTORY: There are no significant medical, surgical or oncologic issues in the family as reported by the patient or reflected in the chart. REVIEW OF SYSTEMS: Other than mentioned above, there were no other pertinent positives or pertinent negatives in an otherwise complete 14 point review of systems. PHYSICAL EXAMINATION GENERAL: The patient appears to be a very pleasant lady of descent lying in bed, appearing stated age, and otherwise in no acute distress. BMI: 25 VITAL SIGNS: AVSS (please also see auto important data if available as well as the electronic records) HEENT: Normocephalic and atraumatic. Extraocular muscles and hearing are grossly intact bilaterally and symmetrically. Sclerae are nonicteric. Oral cavity is clear; oral mucosa appear to be pink and moist. Dentition: fair. NECK: Supple. There is no lymphadenopathy or JVD. There is no submental, submandibular or supraclavicular lymphadenopathy. CHEST: Rises symmetrically with each breath; patient is breathing comfortably. There are no audible wheezes, rales or rhonchi on the gross exam. HEART: Pulse is regular and palpable on the right wrist. Capillary refill is normal. Carotid pulses are palpable bilaterally and symmetrically in the neck. EXTREMITIES: Lower extremities contain no pitting edema around the ankles bilaterally and symmetrically. ABDOMEN: Abdomen is soft, nontender and nondistended. No evidence of ascites, organomegaly, caput medusae, engorged subcutaneous veins, or other abnormalities. There are no peritoneal signs or guarding. SKIN: Appears to be mildly jaundiced and feels warm to touch. NEUROLOGIC: Awake, alert, and follows commands appropriately. LABORATORY DATA: See below IMAGING: See electronic chart. Please note that I've personally reviewed all pertinent available images and I agree in general with their overall reported findings. CT scan abdomen and pelvis noncontrast [facility] 05/19/2017 IMPRESSION: Marked intrahepatic biliary dilatation greater in the left lobe. Evaluation of the liver is limited without intravenous contrast. There is the suggestion of approximate 3.3 x 2.7 cm hypoattenuating mass in the balaji hepatis region suspicious for malignancy. There is the appearance of likely enlarged periportal lymph node measuring approximately 1.6 cm short axis suspicious for metastasis. There is an approximate 1 cm short axis left periaortic retroperitoneal lymph node with smaller additional left periaortic retroperitoneal lymph nodes. There is an approximate 1 cm short axis left common iliac lymph node. These are nonspecific. Contracted gallbladder. Please see above. Discussed with Dr. Gary at 03:48 a.m. on 05/19/2017. Consultation Date/Type/Reason Admit Date/Time Constitutional: improved, no complaints ENT: no complaints Respiratory: no complaints Cardiovascular: no complaints Gastrointestinal: no complaints Genitourinary: no complaints Musculoskeletal: no complaints Skin: other (jaundice), pruritis Neurologic: no complaints Endocrine: no complaints Lymphatic: no complaints Psychological: nl mood/affect, no complaints Immunologic: no complaints Past Medical History Medical History: high cholesterol Past Surgical History Past Surgical Hx: other ( section) Social History Alcohol Use: none Smoking Status: Never smoker Drug Use: none Exam/Review of Systems Vital Signs Vitals Vital Signs Date Time Temp Pulse Resp B/P Pulse Ox O2 Delivery O2 Flow Rate FiO2 05/20/17 13:04 97.4 91 20 122/79 100 05/19/17 15:07 Room Air Intake and Output 05/19/17 05/19/17 05/20/17 15:00 23:00 07:00 Intake Total 960 ml Balance 960 ml Results Result Diagram: 05/20/17 0527 05/20/17 0527 Results 24 hrs Laboratory Tests Test 05/19/17 17:39 05/20/17 05:27 Prothrombin Time 11.7 L 12.3 Prothrombin Time Ratio 0.9 1.0 INR International Normalized Ratio 0.86 0.91 Activated Partial Thromboplast Time 25.7 26.5 Alpha Fetoprotein 1.66 1.74 White Blood Count 10.4 Red Blood Count 4.56 Hemoglobin 13.4 Hematocrit 39.6 Mean Corpuscular Volume 86.8 Mean Corpuscular Hemoglobin 29.4 Mean Corpuscular Hemoglobin Concent 33.8 Red Cell Distribution Width 14.7 H Platelet Count 328 Mean Platelet Volume 11.4 H Neutrophils % 69.2 Lymphocytes % 18.7 Monocytes % 9.3 Eosinophils % 1.8 Basophils % 0.4 Nucleated Red Blood Cells % 0.0 Neutrophils # 7.2 Lymphocytes # 2.0 Monocytes # 1.0 H Eosinophils # 0.2 Basophils # 0.0 Nucleated Red Blood Cells # 0.0 Sodium Level 138 Potassium Level 3.6 Chloride Level 103 Carbon Dioxide Level 30 Anion Gap 9 Blood Urea Nitrogen 9 Creatinine 0.66 Glucose Level 98 Lactic Acid Level 1.0 Calcium Level 9.3 Phosphorus Level 3.8 Magnesium Level 2.4 Total Bilirubin 7.1 H Direct Bilirubin 5.50 H Indirect Bilirubin 1.6 H Aspartate Amino Transf (AST/SGOT) 61 H Alanine Aminotransferase (ALT/SGPT) 105 H Alkaline Phosphatase 814 H Total Protein 6.8 Albumin 3.4 Globulin 3.40 H Albumin/Globulin Ratio 1.00 Amylase Level 69 Lipase 230 Carcinoembryonic Antigen 4.0 CA 19-9 Antigen 9330.0 H CA 125 Antigen 13.3 Hepatitis B Surface Antigen NEGATIVE Hepatitis B Core Total Antibody NEGATIVE Hepatitis C Antibody NEGATIVE Medications Medications Current Medications Diphenhydramine HCl (Benadryl) 25 mg Q6H PRN PO ITCHING; Start 05/19/17 at 16: 30 Morphine Sulfate (morphine) 2 mg Q4H PRN IV PAIN; Start 05/19/17 at 16:30 Acetaminophen/ Hydrocodone Bitart ([place] (5/325)) 1 tab Q4H PRN PO PAIN; Start 05/19/17 at 16:30 Ondansetron HCl (Zofran Inj) 4 mg Q6H PRN IV NAUSEA AND/OR VOMITING; Start at 16:30 Famotidine (Pepcid) 20 mg DAILY PO ; Start 05/20/17 at 12:30 Trimethobenzamide HCl (Tigan) 200 mg Q6H PRN IM NAUSEA AND/OR VOMITING; Start 05/20/17 at 12:30 Enoxaparin Sodium (Lovenox) 40 mg DAILY SC ; Start 05/20/17 at 13:00 ABBY ROMAN M.D. May 20, 2017 13:18
[2017-05-20] MEDS: FAMOTIDINE 20 MG TAB PO SCH (13:51)
[2017-05-20] MEDS: ENOXAPARIN 40 MG/0.4 ML SYG SC SCH (14:08)
--- NOTE | 2017-05-20 18:00 | PN ---
Date/Time of Note Date/Time of Note DATE: 05/20/17 TIME: 17:58 Assessment/Plan VTE Prophylaxis VTE Prophylaxis Intervention: SCD's Lines/Catheters IV [facility]ter Type (from [facility]): Peripheral IV Urinary Cath still in place: No Assessment/Plan Assessment/Plan Assessment * Jaundice/pruritus Obstructive vs non obstructive T/C malignancy * Intrahepatic dilatation with suspicious mass balaji hepatis by CT scan Plan * will await CT wit pancreatic protocol * control itchiness * hepatitis profile /tumor markers * case discussed with DR Dalal * Further orders will depend on clinical course Subjective 24 Hr Interval Summary Free Text/Dictation * Course reviewed with Rn * Patient seen and examined * No untoward incident overnight Exam/Review of Systems Vital Signs Vitals Vital Signs Date Time Temp Pulse Resp B/P Pulse Ox O2 Delivery O2 Flow Rate FiO2 05/20/17 13:04 97.4 91 20 122/79 100 05/19/17 15:07 Room Air Intake and Output 05/19/17 05/19/17 05/20/17 15:00 23:00 07:00 Intake Total 960 ml Balance 960 ml Exam Constitutional: alert, oriented Neck: non-tender, supple Respiratory: clear to auscultation, normal air movement Cardiovascular: nl pulses, regular rate and rhythm Gastrointestinal: non-tender, soft Musculoskeletal: nl extremities to inspection Extremities: normal pulses Neurological: nl speech, nl strength Skin: nl turgor Lymph: nl lymph nodes Results Result Diagram: 05/20/17 0527 05/20/17 0527 Results 24 hrs Laboratory Tests Test 05/20/17 05:27 White Blood Count 10.4 Red Blood Count 4.56 Hemoglobin 13.4 Hematocrit 39.6 Mean Corpuscular Volume 86.8 Mean Corpuscular Hemoglobin 29.4 Mean Corpuscular Hemoglobin Concent 33.8 Red Cell Distribution Width 14.7 H Platelet Count 328 Mean Platelet Volume 11.4 H Neutrophils % 69.2 Lymphocytes % 18.7 Monocytes % 9.3 Eosinophils % 1.8 Basophils % 0.4 Nucleated Red Blood Cells % 0.0 Neutrophils # 7.2 Lymphocytes # 2.0 Monocytes # 1.0 H Eosinophils # 0.2 Basophils # 0.0 Nucleated Red Blood Cells # 0.0 Prothrombin Time 12.3 Prothrombin Time Ratio 1.0 INR International Normalized Ratio 0.91 Activated Partial Thromboplast Time 26.5 Sodium Level 138 Potassium Level 3.6 Chloride Level 103 Carbon Dioxide Level 30 Anion Gap 9 Blood Urea Nitrogen 9 Creatinine 0.66 Glucose Level 98 Lactic Acid Level 1.0 Calcium Level 9.3 Phosphorus Level 3.8 Magnesium Level 2.4 Total Bilirubin 7.1 H Direct Bilirubin 5.50 H Indirect Bilirubin 1.6 H Aspartate Amino Transf (AST/SGOT) 61 H Alanine Aminotransferase (ALT/SGPT) 105 H Alkaline Phosphatase 814 H Total Protein 6.8 Albumin 3.4 Globulin 3.40 H Albumin/Globulin Ratio 1.00 Amylase Level 69 Lipase 230 Alpha Fetoprotein 1.74 Carcinoembryonic Antigen 4.0 CA 19-9 Antigen 9330.0 H CA 125 Antigen 13.3 Hepatitis B Surface Antigen NEGATIVE Hepatitis B Core Total Antibody NEGATIVE Hepatitis C Antibody NEGATIVE Medications Medications Current Medications Diphenhydramine HCl (Benadryl) 25 mg Q6H PRN PO ITCHING; Start 05/19/17 at 16: 30 Morphine Sulfate (morphine) 2 mg Q4H PRN IV PAIN; Start 05/19/17 at 16:30 Acetaminophen/ Hydrocodone Bitart ([place] (5/325)) 1 tab Q4H PRN PO PAIN; Start 05/19/17 at 16:30 Ondansetron HCl (Zofran Inj) 4 mg Q6H PRN IV NAUSEA AND/OR VOMITING; Start at 16:30 Famotidine (Pepcid) 20 mg DAILY PO Last administered on 05/20/17 13:51; Admin Dose 20 MG; Start 05/20/17 at 12:30 Trimethobenzamide HCl (Tigan) 200 mg Q6H PRN IM NAUSEA AND/OR VOMITING; Start 05/20/17 at 12:30 Enoxaparin Sodium (Lovenox) 40 mg DAILY SC Last administered on 05/20/17 14:08 ; Admin Dose 40 MG; Start 05/20/17 at 13:00 YUE BLACK NP May 20, 2017 18:00
--- NOTE | 2017-05-20 19:08 | CONS ---
Date/Time of Note Date/Time of Note DATE: 05/20/17 TIME: 19:07 Assessment/Plan Assessment/Plan Chief Complaint/Hosp Course PAINLESS JAUNDICE ASSOCIATED WITH Liver mass with enlarged lymph nodes, suspicious for malignancy R/O NEOPLASIA pancreas protocol triple phase CT scan of the abdomen and pelvis WITH CONTRAST - ORDERED BY DR KOO CA -9- 1930 AFP- P coag N, HEPATITIS PANEL- NEG plan BX- AFTER REVIEW CT AP WITH IV CONTRAST GI EVAL- P Abnormal liver enzymes, jaundice- 2 TO ABOVE DYSLIPIDEMIA Problems: Consultation Date/Type/Reason Admit Date/Time May 19, 2017 at 04:18 Initial Consult Date 05/19/17 [facility] Referring Provider: HERMAN MCNULTY 24 HR Interval Summary Free Text/Dictation LL NOTED + ITCHING Exam/Review of Systems Vital Signs Vitals Vital Signs Date Time Temp Pulse Resp B/P Pulse Ox O2 Delivery O2 Flow Rate FiO2 05/20/17 13:04 97.4 91 20 122/79 100 05/19/17 15:07 Room Air Intake and Output 05/19/17 05/19/17 05/20/17 15:00 23:00 07:00 Intake Total 960 ml Balance 960 ml Exam Const: No acute distress.+ Jaundice Head: Atraumatic. Eyes: Icteric Conjunctiva. ENT: Normal External Ears, Nose and Mouth. Neck: Full range of motion. No meningismus. Resp: Clear to auscultation bilaterally. Cardio: Regular rate and rhythm. Abd: Soft, non distended, normal bowel sounds, Diffuse abdominal tenderness, more tenderness at the right upper quadrant Skin: No petechiae or rashes. Back: No midline or flank tenderness. Ext: No cyanosis, or edema. Neur: Awake and alert. No focal deficit Psych: Normal Mood and Affect. NO PATH LN- ERIC Results Result Diagram: 05/20/17 0527 05/20/17 0527 Results 24 hrs Laboratory Tests Test 05/20/17 05:27 White Blood Count 10.4 Red Blood Count 4.56 Hemoglobin 13.4 Hematocrit 39.6 Mean Corpuscular Volume 86.8 Mean Corpuscular Hemoglobin 29.4 Mean Corpuscular Hemoglobin Concent 33.8 Red Cell Distribution Width 14.7 H Platelet Count 328 Mean Platelet Volume 11.4 H Neutrophils % 69.2 Lymphocytes % 18.7 Monocytes % 9.3 Eosinophils % 1.8 Basophils % 0.4 Nucleated Red Blood Cells % 0.0 Neutrophils # 7.2 Lymphocytes # 2.0 Monocytes # 1.0 H Eosinophils # 0.2 Basophils # 0.0 Nucleated Red Blood Cells # 0.0 Prothrombin Time 12.3 Prothrombin Time Ratio 1.0 INR International Normalized Ratio 0.91 Activated Partial Thromboplast Time 26.5 Sodium Level 138 Potassium Level 3.6 Chloride Level 103 Carbon Dioxide Level 30 Anion Gap 9 Blood Urea Nitrogen 9 Creatinine 0.66 Glucose Level 98 Lactic Acid Level 1.0 Calcium Level 9.3 Phosphorus Level 3.8 Magnesium Level 2.4 Total Bilirubin 7.1 H Direct Bilirubin 5.50 H Indirect Bilirubin 1.6 H Aspartate Amino Transf (AST/SGOT) 61 H Alanine Aminotransferase (ALT/SGPT) 105 H Alkaline Phosphatase 814 H Total Protein 6.8 Albumin 3.4 Globulin 3.40 H Albumin/Globulin Ratio 1.00 Amylase Level 69 Lipase 230 Alpha Fetoprotein 1.74 Carcinoembryonic Antigen 4.0 CA 19-9 Antigen 9330.0 H CA 125 Antigen 13.3 Hepatitis B Surface Antigen NEGATIVE Hepatitis B Core Total Antibody NEGATIVE Hepatitis C Antibody NEGATIVE Medications Medications Current Medications Diphenhydramine HCl (Benadryl) 25 mg Q6H PRN PO ITCHING; Start 05/19/17 at 16: 30 Morphine Sulfate (morphine) 2 mg Q4H PRN IV PAIN; Start 05/19/17 at 16:30 Acetaminophen/ Hydrocodone Bitart ([place] (5/325)) 1 tab Q4H PRN PO PAIN; Start 05/19/17 at 16:30 Ondansetron HCl (Zofran Inj) 4 mg Q6H PRN IV NAUSEA AND/OR VOMITING; Start at 16:30 Famotidine (Pepcid) 20 mg DAILY PO Last administered on 05/20/17 13:51; Admin Dose 20 MG; Start 05/20/17 at 12:30 Trimethobenzamide HCl (Tigan) 200 mg Q6H PRN IM NAUSEA AND/OR VOMITING; Start 05/20/17 at 12:30 Enoxaparin Sodium (Lovenox) 40 mg DAILY SC Last administered on 05/20/17 14:08 ; Admin Dose 40 MG; Start 9/16/17 at 13:00 SONA WEEKS MD May 20, 2017 19:08
[2017-05-20 20:00] VITALS: BP 124/72; RESP 18
[2017-05-21 02:30] VITALS: BP 112/64; RESP 20
[2017-05-21 05:40] LABS: BASOPHILS % 0.4 % (0.0-2.0); EOSINOPHILS # 0.1 10^3/ul (0.0-0.5); EOSINOPHILS % 1.3 % (0.0-7.0); HEMATOCRIT 40.4 % (37.0-47.0); HEMOGLOBIN 13.8 g/dl (12.0-16.0); LYMPHOCYTES # 1.9 10^3/ul (0.8-2.9); LYMPHOCYTES % 19.9 % (15.0-51.0); MEAN CORPUSCULAR HEMOGLOBIN 29.3 pg (29.0-33.0); MEAN CORPUSCULAR HGB CONC 34.2 g/dl (32.0-37.0); MEAN CORPUSCULAR VOLUME 85.8 fl (82.0-101.0); MEAN PLATELET VOLUME 11.6 fl (7.4-10.4); MONOCYTE # 1.1 10^3/ul (0.3-0.9); MONOCYTES % 10.8 % (0.0-11.0); NEUTROPHIL # 6.6 10^3/ul (1.6-7.5); NEUTROPHILS % 67.2 % (39.0-77.0); PLATELET COUNT 324 10^3/UL (140-415); RED BLOOD COUNT 4.71 10^6/ul (4.20-5.40); RED CELL DISTRIBUTION WIDTH 14.9 % (11.5-14.5); WHITE BLOOD COUNT 9.8 10^3/ul (4.8-10.8)
[2017-05-21 06:03] LABS: MAGNESIUM 2.3 mg/dl (1.7-2.5); PHOSPHORUS 4.6 mg/dl (2.5-4.9)
[2017-05-21 06:21] LABS: CALCIUM 9.4 mg/dl (8.4-10.2); CREATININE 0.63 mg/dl (0.44-1.00); POTASSIUM 3.3 mmol/L (3.5-5.1)
[2017-05-21 07:55] VITALS: BP 117/66; RESP 18
[2017-05-21] MEDS: FAMOTIDINE 20 MG TAB PO SCH (08:43)
[2017-05-21] MEDS: ENOXAPARIN 40 MG/0.4 ML SYG SC SCH (08:51)
[2017-05-21] MEDS ORDERED: POTASSIUM CHLORIDE (SR) 20 MEQ TAB PO STA (10:01)
--- NOTE | 2017-05-21 10:10 | PN ---
Date/Time of Note Date/Time of Note DATE: 05/21/17 TIME: 10:08 Assessment/Plan VTE Prophylaxis VTE Prophylaxis Intervention: LMWH Lines/Catheters IV Catheter Type (from [facility]): [place] Urinary Cath still in place: No Assessment/Plan Chief Complaint/Hosp Course Assessment/Plan: 52-year-old female with a history of dyslipidemia who presented to the ER coming of abdominal pain, yellowish eyes dark urine and itching with findings of liver mass suspicious for malignancy on imaging studies. 1. Liver mass with enlarged lymph nodes, suspicious for malignancy/metastasis. CA-19-9 is also greater than 9000. -Follow-up triple phase CT abdomen pelvis study to further evaluate hepatobiliary structures, and follow-up GI and oncology consult, as well as hepatobiliary surgery consult recommendations -Considering biopsy as well, and patient may be going for CBD stent by GI team in the next 1-2 days -Continue pain control medications and antiemetics, continue to monitor liver function tests. -Continue Benadryl as needed itching symptoms. 2. Abnormal liver enzymes, jaundice-elevations of both total and direct bilirubins. -See #1 3. GI ppx -H2 regan Problems: Subjective 24 Hr Interval Summary Free Text/Dictation Patient had triple phase CT scan performed yesterday, results still pending. Still complaining of itchiness symptoms. Also having some constipation. Exam/Review of Systems Vital Signs Vitals Vital Signs Date Time Temp Pulse Resp B/P Pulse Ox O2 Delivery O2 Flow Rate FiO2 05/21/17 07:55 98.9 84 18 117/66 98 05/19/17 15:07 Room Air Intake and Output 05/20/17 05/20/17 05/21/17 15:00 23:00 07:00 Intake Total 660 ml 240 ml Output Total 0 ml Balance 660 ml 240 ml Exam Const: Lying in bed, family members at the bedside, no acute distress Head: Atraumatic. Eyes: Icteric Conjunctiva. ENT: Normal External Ears, Nose and Mouth. Neck: Full range of motion. No meningismus. Resp: Clear to auscultation bilaterally. Cardio: Regular rate and rhythm. Abd: Soft, non distended, normal bowel sounds, positive abdominal tenderness, more tenderness at the right upper quadrant Ext: No cyanosis, or edema. Neur: Awake and alert. No focal deficit Results Result Diagram: 05/21/17 0448 05/21/17 0451 Results 24 hrs Laboratory Tests Test 05/21/17 04:48 05/21/17 04:51 White Blood Count 9.8 Red Blood Count 4.71 Hemoglobin 13.8 Hematocrit 40.4 Mean Corpuscular Volume 85.8 Mean Corpuscular Hemoglobin 29.3 Mean Corpuscular Hemoglobin Concent 34.2 Red Cell Distribution Width 14.9 H Platelet Count 324 Mean Platelet Volume 11.6 H Neutrophils % 67.2 Lymphocytes % 19.9 Monocytes % 10.8 Eosinophils % 1.3 Basophils % 0.4 Nucleated Red Blood Cells % 0.0 Neutrophils # 6.6 Lymphocytes # 1.9 Monocytes # 1.1 H Eosinophils # 0.1 Basophils # 0.0 Nucleated Red Blood Cells # 0.0 Sodium Level 140 Potassium Level 3.3 L Chloride Level 103 Carbon Dioxide Level 29 Anion Gap 11 Blood Urea Nitrogen 8 Creatinine 0.63 Glucose Level 114 Calcium Level 9.4 Phosphorus Level 4.6 Magnesium Level 2.3 Medications Medications Current Medications Diphenhydramine HCl (Benadryl) 25 mg Q6H PRN PO ITCHING; Start 05/19/17 at 16: 30 Morphine Sulfate (morphine) 2 mg Q4H PRN IV PAIN; Start 05/19/17 at 16:30 Acetaminophen/ Hydrocodone Bitart ([place] (5/325)) 1 tab Q4H PRN PO PAIN; Start 05/19/17 at 16:30 Ondansetron HCl (Zofran Inj) 4 mg Q6H PRN IV NAUSEA AND/OR VOMITING; Start at 16:30 Famotidine (Pepcid) 20 mg DAILY PO Last administered on 05/21/17 08:43; Admin Dose 20 MG; Start 05/20/17 at 12:30 Trimethobenzamide HCl (Tigan) 200 mg Q6H PRN IM NAUSEA AND/OR VOMITING; Start 05/20/17 at 12:30 Enoxaparin Sodium (Lovenox) 40 mg DAILY SC Last administered on 05/21/17 08:51 ; Admin Dose 40 MG; Start 05/20/17 at 13:00 Polyethylene Glycol (Miralax) 17 gm DAILY PO ; Start 05/21/17 at 10:30; Status HERMAN VELAZQUEZ May 21, 2017 10:10
--- NOTE | 2017-05-21 10:30 | CONS ---
Date/Time of Note Date/Time of Note DATE: 05/21/17 TIME: 10:28 Assessment/Plan Assessment/Plan Chief Complaint/Hosp Course PAINLESS JAUNDICE ASSOCIATED WITH Liver mass with enlarged lymph nodes, suspicious for malignancy R/O NEOPLASIA pancreas protocol triple phase CT scan of the abdomen and pelvis WITH CONTRAST - ORDERED BY DR KOO CA 19-9- 1930 AFP- P coag N, HEPATITIS PANEL- NEG GI EVAL- P WILL TRY TO DO THE BX DURING STENT PLACEMENT FAMILY CONFERENCE CONDUCTED Abnormal liver enzymes, jaundice- 2 TO ABOVE DYSLIPIDEMIA Problems: Consultation Date/Type/Reason Admit Date/Time May 19, 2017 at 04:18 Initial Consult Date 05/19/17 [facility] Referring Provider: HERMAN MCNULTY 24 HR Interval Summary Free Text/Dictation ALL NOTED NO NEW EVENTS + ITCHING + FAMILY CONFERENCE RE DX, TREATMENT OPTIONS Exam/Review of Systems Vital Signs Vitals Vital Signs Date Time Temp Pulse Resp B/P Pulse Ox O2 Delivery O2 Flow Rate FiO2 05/21/17 07:55 98.9 84 18 117/66 98 05/19/17 15:07 Room Air Intake and Output 05/20/17 05/20/17 05/21/17 15:00 23:00 07:00 Intake Total 660 ml 240 ml Output Total 0 ml Balance 660 ml 240 ml Exam Const: No acute distress.+ Jaundice Head: Atraumatic. Eyes: Icteric Conjunctiva. ENT: Normal External Ears, Nose and Mouth. Neck: Full range of motion. No meningismus. Resp: Clear to auscultation bilaterally. Cardio: Regular rate and rhythm. Abd: Soft, non distended, normal bowel sounds, Diffuse abdominal tenderness, more tenderness at the right upper quadrant Skin: No petechiae or rashes. Back: No midline or flank tenderness. Ext: No cyanosis, or edema. Neur: Awake and alert. No focal deficit Psych: Normal Mood and Affect. NO PATH LN- ERIC Results Result Diagram: 05/21/17 0448 05/21/17 0451 Results 24 hrs Laboratory Tests Test 05/21/17 04:48 05/21/17 04:51 White Blood Count 9.8 Red Blood Count 4.71 Hemoglobin 13.8 Hematocrit 40.4 Mean Corpuscular Volume 85.8 Mean Corpuscular Hemoglobin 29.3 Mean Corpuscular Hemoglobin Concent 34.2 Red Cell Distribution Width 14.9 H Platelet Count 324 Mean Platelet Volume 11.6 H Neutrophils % 67.2 Lymphocytes % 19.9 Monocytes % 10.8 Eosinophils % 1.3 Basophils % 0.4 Nucleated Red Blood Cells % 0.0 Neutrophils # 6.6 Lymphocytes # 1.9 Monocytes # 1.1 H Eosinophils # 0.1 Basophils # 0.0 Nucleated Red Blood Cells # 0.0 Sodium Level 140 Potassium Level 3.3 L Chloride Level 103 Carbon Dioxide Level 29 Anion Gap 11 Blood Urea Nitrogen 8 Creatinine 0.63 Glucose Level 114 Calcium Level 9.4 Phosphorus Level 4.6 Magnesium Level 2.3 Medications Medications Current Medications Diphenhydramine HCl (Benadryl) 25 mg Q6H PRN PO ITCHING; Start 05/19/17 at 16: 30 Morphine Sulfate (morphine) 2 mg Q4H PRN IV PAIN; Start 05/19/17 at 16:30 Acetaminophen/ Hydrocodone Bitart ([place] (5/325)) 1 tab Q4H PRN PO PAIN; Start 05/19/17 at 16:30 Ondansetron HCl (Zofran Inj) 4 mg Q6H PRN IV NAUSEA AND/OR VOMITING; Start at 16:30 Famotidine (Pepcid) 20 mg DAILY PO Last administered on 05/21/17 08:43; Admin Dose 20 MG; Start 05/20/17 at 12:30 Trimethobenzamide HCl (Tigan) 200 mg Q6H PRN IM NAUSEA AND/OR VOMITING; Start 05/20/17 at 12:30 Enoxaparin Sodium (Lovenox) 40 mg DAILY SC Last administered on 05/21/17 08:51 ; Admin Dose 40 MG; Start 05/20/17 at 13:00 Polyethylene Glycol (Miralax) 17 gm DAILY PO ; Start 05/21/17 at 10:30 Hydroxyzine HCl (Atarax) 50 mg Q6H PRN PO ITCHING; Start 05/21/17 at 10:30 Ciprofloxacin (Cipro) 250 mg BID@,18 PO ; Start 05/21/17 at 11:00; Stop at 10:59 SONA WEEKS MD May 21, 2017 10:30
[2017-05-21] MEDS: POLYETHYLENE GLYCOL 17 GM PACKET PO SCH (10:40)
[2017-05-21 10:41] LABS: ALBUMIN 3.5 g/dl (3.3-4.9); BILIRUBIN,DIRECT 7.5 mg/dl (0.00-0.20); BILIRUBIN,INDIRECT 2.4 mg/dl (0-1.1); BILIRUBIN,TOTAL 9.9 mg/dl (0.2-1.3); TOTAL PROTEIN 6.7 g/dl (6.1-8.1)
[2017-05-21] MEDS: CIPROFLOXACIN 250 MG TAB PO SCH ×2 (10:41→20:19)
[2017-05-21 13:31] VITALS: BP 111/61; RESP 20
--- NOTE | 2017-05-21 15:49 | RADRPT ---
PROCEDURE: CT Abdomen and Pelvis with and without contrast: Liver Protocol. CLINICAL INDICATION: Liver mass. TECHNIQUE: Volumetric acquisition of the abdomen and pelvis was performed before and following the administration of intravenous contrast and reformatted in the axial, sagittal, and coronal planes. Protocol: Four-phase liver protocol: unenhanced, arterial, portal venous, and delayed. IV contrast: 100 cc of Omnipaque 300. Radiation dose: CTDIvol (mGy) = 7.0, 7.8, 7.9; total DLP mGy-cm = 788. One or more of the following radiation dose techniques were used: -Automated exposure control. -Adjust of the mA and/or kV according to patient size. -Use of iterative reconstruction technque. COMPARISON: None. FINDINGS: There is a poorly defined hypovascular mass occupying the left medial lobe of the liver with extensi on into the caudate, measuring up to 4.4 cm. There is severe upstream left greater than right intrah epatic bile duct dilatation. There is abnormal mural thickening and hyperenhancement of the proximal dilated extrahepatic biliary system. The mid and distal segments of the common bile duct are normal in caliber. There is filling defect identified within the intrahepatic portion of the IVC. Gallbladder is contracted with nonspecific mural thickening. There are multiple small but abnormal appearing retroperitoneal lymph nodes, consistent with partha d isease. Pancreas, adrenal glands, kidneys, and spleen are unremarkable. No abnormal bowel wall thickening or dilatation. There is a simple cyst measuring up to 2.1 cm and the left ovary. Included lung bases are clear. IMPRESSION: Poorly defined hypovascular mass occupying the left medial lobe of the liver and caudate lobe with u pstream severe left greater intrahepatic bile duct dilatation, highly suspicious for cholangiocarcin juventino. Filling defect identified in intrahepatic portal vein, concerning for tumor thrombus. Metastatic retroperitoneal lymphadenopathy. RPTAT: EE .Kevin Moran MD, MD Date Time Electronically viewed and signed by .Kevin Moran MD, MD on 05/21/2017 15:54 .C/
[2017-05-21 19:57] VITALS: BP 132/72; RESP 20
[2017-05-21] MEDS: hydrOXYzine HCL 25 MG TAB PO PRN (20:19)
[2017-05-22 02:03] VITALS: BP 135/60; RESP 20
[2017-05-22] MEDS: hydrOXYzine HCL 25 MG TAB PO PRN ×2 (06:14→19:42)
[2017-05-22] MEDS: CIPROFLOXACIN 250 MG TAB PO SCH ×2 (06:14→18:07)
[2017-05-22 06:19] LABS: BASOPHILS % 0.4 % (0.0-2.0); EOSINOPHILS # 0.2 10^3/ul (0.0-0.5); HEMATOCRIT 38.1 % (37.0-47.0); HEMOGLOBIN 13.3 g/dl (12.0-16.0); LYMPHOCYTES # 1.9 10^3/ul (0.8-2.9); LYMPHOCYTES % 20.3 % (15.0-51.0); MEAN CORPUSCULAR HEMOGLOBIN 30.2 pg (29.0-33.0); MEAN CORPUSCULAR HGB CONC 34.9 g/dl (32.0-37.0); MEAN CORPUSCULAR VOLUME 86.6 fl (82.0-101.0); MEAN PLATELET VOLUME 11.4 fl (7.4-10.4); MONOCYTE # 1.1 10^3/ul (0.3-0.9); MONOCYTES % 11.2 % (0.0-11.0); NEUTROPHIL # 6.1 10^3/ul (1.6-7.5); NEUTROPHILS % 65.5 % (39.0-77.0); PLATELET COUNT 315 10^3/UL (140-415); RED CELL DISTRIBUTION WIDTH 15.5 % (11.5-14.5); WHITE BLOOD COUNT 9.3 10^3/ul (4.8-10.8)
[2017-05-22 06:32] LABS: ALBUMIN 3.3 g/dl (3.3-4.9); BILIRUBIN,DIRECT 10.1 mg/dl (0.00-0.20); BILIRUBIN,INDIRECT 1.9 mg/dl (0-1.1); TOTAL PROTEIN 6.9 g/dl (6.1-8.1)
[2017-05-22 06:50] LABS: CALCIUM 9.6 mg/dl (8.4-10.2); CREATININE 0.61 mg/dl (0.44-1.00); POTASSIUM 4.2 mmol/L (3.5-5.1)
[2017-05-22 07:46] VITALS: BP 107/54; RESP 20
[2017-05-22] MEDS: FAMOTIDINE 20 MG TAB PO SCH (08:44)
[2017-05-22] MEDS: POLYETHYLENE GLYCOL 17 GM PACKET PO SCH (08:44)
[2017-05-22] MEDS: ENOXAPARIN 40 MG/0.4 ML SYG SC SCH (09:20)
--- NOTE | 2017-05-22 14:23 | PN ---
Date/Time of Note Date/Time of Note DATE: 05/22/17 TIME: 14:21 Assessment/Plan VTE Prophylaxis VTE Prophylaxis Intervention: SCD's Lines/Catheters [facility] Saline Lock Urinary Cath still in place: No Assessment/Plan Chief Complaint/Hosp Course Assessment/Plan: 52-year-old female with a history of dyslipidemia who presented to the ER coming of abdominal pain, yellowish eyes dark urine and itching with findings of liver mass suspicious for malignancy on imaging studies. 1. Liver mass with enlarged lymph nodes, suspicious for malignancy/metastasis. CA-19-9 is also greater than 9000. -Follow-up triple phase CT abdomen pelvis study to further evaluate hepatobiliary structures, and follow-up GI and oncology consult, - hepatobiliary surgery consult is been obtained -Considering biopsy as well, and patient may be going for CBD stent by GI team in the next 1-2 days -Continue pain control medications and antiemetics, continue to monitor liver function tests. -Continue Benadryl as needed itching symptoms. 2. Abnormal liver enzymes, jaundice-elevations of both total and direct bilirubins. -See #1 3. GI ppx -H2 regan Problems: Subjective 24 Hr Interval Summary Free Text/Dictation Patient denies of any chest pain or shortness of breath Tolerating full liquid diet Denies of abdominal discomfort at this time Exam/Review of Systems Vital Signs Vitals Vital Signs Date Time Temp Pulse Resp B/P Pulse Ox O2 Delivery O2 Flow Rate FiO2 05/22/17 07:46 97.5 86 20 107/54 98 05/19/17 15:07 Room Air Intake and Output 05/21/17 05/21/17 05/22/17 15:00 23:00 07:00 Intake Total 480 ml Balance 480 ml Exam General: The patient is well-developed, Not in acute distress. HEENT: icteric / jaundice , normocephalic. The pupils are equal and round . Neck: Supple with full range of motion. Chest: Normal expansion of the thorax during inspiration Lungs: Clear to auscultation bilaterally Heart: Normal S1-S2, Regular rhythm and rate. Abdomen: Soft , nontender, nondistended , bowel sounds are present. Extremities: Normal to inspection, no edema no cyanosis Neurologic: Normal mental status,The patient is awake, alert and oriented . Results Result Diagram: 05/22/17 0541 05/22/17 0541 Results 24 hrs Laboratory Tests Test 05/22/17 05:41 White Blood Count 9.3 Red Blood Count 4.40 Hemoglobin 13.3 Hematocrit 38.1 Mean Corpuscular Volume 86.6 Mean Corpuscular Hemoglobin 30.2 Mean Corpuscular Hemoglobin Concent 34.9 Red Cell Distribution Width 15.5 H Platelet Count 315 Mean Platelet Volume 11.4 H Neutrophils % 65.5 Lymphocytes % 20.3 Monocytes % 11.2 H Eosinophils % 2.0 Basophils % 0.4 Nucleated Red Blood Cells % 0.0 Neutrophils # 6.1 Lymphocytes # 1.9 Monocytes # 1.1 H Eosinophils # 0.2 Basophils # 0.0 Nucleated Red Blood Cells # 0.0 Sodium Level 139 Potassium Level 4.2 Chloride Level 105 Carbon Dioxide Level 27 Anion Gap 11 Blood Urea Nitrogen 7 Creatinine 0.61 Glucose Level 90 Calcium Level 9.6 Total Bilirubin 12.0 H Direct Bilirubin 10.10 H Indirect Bilirubin 1.9 H Aspartate Amino Transf (AST/SGOT) 55 H Alanine Aminotransferase (ALT/SGPT) 78 H Alkaline Phosphatase 784 H Total Protein 6.9 Albumin 3.3 Medications Medications Current Medications Diphenhydramine HCl (Benadryl) 25 mg Q6H PRN PO ITCHING; Start 05/19/17 at 16: 30 Morphine Sulfate (morphine) 2 mg Q4H PRN IV PAIN; Start 05/19/17 at 16:30 Acetaminophen/ Hydrocodone Bitart ([place] (5/325)) 1 tab Q4H PRN PO PAIN; Start 05/19/17 at 16:30 Ondansetron HCl (Zofran Inj) 4 mg Q6H PRN IV NAUSEA AND/OR VOMITING; Start at 16:30 Famotidine (Pepcid) 20 mg DAILY PO Last administered on 05/22/17 08:44; Admin Dose 20 MG; Start 05/20/17 at 12:30 Trimethobenzamide HCl (Tigan) 200 mg Q6H PRN IM NAUSEA AND/OR VOMITING; Start 05/20/17 at 12:30 Enoxaparin Sodium (Lovenox) 40 mg DAILY SC Last administered on 05/22/17 09:20 ; Admin Dose 40 MG; Start 05/20/17 at 13:00 Polyethylene Glycol (Miralax) 17 gm DAILY PO Last administered on 05/22/17 08: 44; Admin Dose 17 GM; Start 05/21/17 at 10:30 Hydroxyzine HCl (Atarax) 50 mg Q6H PRN PO ITCHING Last administered on 06:14; Admin Dose 50 MG; Start 05/21/17 at 10:30 Ciprofloxacin (Cipro) 250 mg BID@ PO Last administered on 05/22/17 06:14 ; Admin Dose 250 MG; Start 05/21/17 at 11:00; Stop 05/24/17 at 10:59 MICH ROTH MD May 22, 2017 14:23
--- NOTE | 2017-05-22 16:15 | PN ---
Date/Time of Note Date/Time of Note DATE: 05/22/17 TIME: 16:14 Assessment/Plan Lines/Catheters IV Catheter Type (from [facility]): Saline Lock [place] in Place (from [facility]): No Assessment/Plan Assessment/Plan [facility] Progress Note Date of Service: 05/22/2017 Place of service: [facility] [address] Today's Assessment & Plan: Overall stable and doing relatively well. Abdomen remains benign. No indication for acute surgical intervention. I explained all of this to the patient and her friend in the room and answered all of their questions. Patient and family appear to understand and agreed with plans. Previous assessment that applies today: A very-pleasant but unfortunate 52-year-old lady without significant other major comorbidities, presenting with a central hilar cholangiocarcinoma which unfortunately involves the first and perhaps even the second order branches of both the left and right biliary systems, not amenable to surgical resection. There is still many interventions that can be done to improve the patient's quality of life as well as perhaps quantity of life. These include stenting of the biliary system, hopefully internally, to allow bile duct obstruction to resolve. They are also available options for local therapy to the liver in the form of transarterial chemoembolization (TACE), possible radioembolization, and potential for systemic chemotherapy. With above assessment, I've recommended the followin. Agree with hospitalization 2. Multidisciplinary tumor board discussion and multidisciplinary care 3. Gastroenterology evaluation with attempts at internal stenting the left and right biliary systems with metallic stents (much appreciate Dr. Dalal's excellent care) 4. Possible need for liver biopsy if biopsy is not possible endoscopically and if tissue diagnosis is still needed 5. Social work and case management to please get involved with the patient and family quickly and review the several possibly present socioeconomic barriers and assist with both inpatient as well as rather involved outpatient management that is needed to treat this disease process 6. Would also benefit from supportive care consultation 7. Much appreciate ongoing involvement of Dr. Parikh from an oncology standpoint Thank you very much for having me involved in the care of this very pleasant patient and wonderful family. If you have any questions, please feel free to contact me at [phone]. Nature of presenting problem: High severity Please note that, given the extensive number of diagnoses or management options , the extensive amount and/or complexity of data needed to be reviewed, and high risk of complications and/or morbidity or mortality, this qualifies as high complexity type of decision-making. Disclaimer: Inadvertent spelling and grammatical errors are likely due to EHR/ dictation software use and do not reflect on the quality of delivered patient care. Also, please note that the electronic time recorded on this node does not necessarily reflect the actual time of the visit. Updated clinical summary: A very-pleasant but unfortunate 52-year-old lady without significant other major comorbidities, presenting with a central hilar cholangiocarcinoma which unfortunately involves the first and perhaps even the second branches of both the left and right biliary systems, not amenable to surgical resection. Comorbidities: 1. BMI 25 2. Status post left breast biopsy 3. 4. Hypercholesterolemia Subjective: No major events or complaints; no major abd pain and under control with medications; no n/v/d; no sob or cp; + flatus; + BM and normal; + activity Objective: Vitals: See below I's & O's: See below Exam: GENERAL: On exam, the patient was lying in bed and appeared to be comfortable and in no acute distress. ABDOMEN: Soft, nontender and nondistended. There are no peritoneal signs or guarding. SKIN: Skin appears to be pink and feels warm to touch. NEUROLOGIC: Patient is awake, alert, and follows commands appropriately. Labs: See below Exam/Review of Systems Vital Signs Vitals Vital Signs Date Time Temp Pulse Resp B/P Pulse Ox O2 Delivery O2 Flow Rate FiO2 05/22/17 07:46 97.5 86 20 107/54 98 05/19/17 15:07 Room Air Intake and Output 05/21/17 05/21/17 05/22/17 15:00 23:00 07:00 Intake Total 480 ml Balance 480 ml Results Result Diagram: 05/22/17 0541 05/22/17 0541 ABBY ROMAN M.D. May 22, 2017 16:15
[2017-05-22] MEDS ORDERED: INDOMETHACIN 50 MG SUPP PR ONE (18:30)
--- NOTE | 2017-05-22 19:05 | PN ---
Date/Time of Note Date/Time of Note DATE: 05/22/17 TIME: 19:00 Assessment/Plan VTE Prophylaxis VTE Prophylaxis Intervention: SCD's Lines/Catheters IV Catheter Type (from [facility]): Saline Lock Urinary Cath still in place: No Assessment/Plan Chief Complaint/Hosp Course Assessment: * Obstructive jaundice * Rule out cholangiocarcinoma versus primary liver tumor Plan: * ERCP plus Spyglass cholangioscopy with targeted biopsies and possible stent placement. The procedure was explained to the patient in detail including risks , benefits and alternatives she is agreeable to proceed. Subjective: Course reviewed with nursing staff Patient interviewed and examined All labs, imaging and other results reviewed The patient appears comfortable and reports minimal discomfort Plan for ERCP plus Spyglass plus stenting was discussed in detail with the patient including risks, benefits and alternatives. She appears to comprehend and is agreeable to proceed Procedure is tentatively scheduled tomorrow 05/23/2017 at 5:30 PM Exam: General: well developed, well nourished, alert and oriented x3 , in no acute distress Skin: Jaundiced. No lesions, no stigmata chronic liver disease, no evidence of bleeding diathesis Lymphatic: No palpable lymphadenopathy HEENT: No lesions Cardiovascular: Heart: Regular rate and rhhthm, no murmurs, gallops or rubs. Peripheral pulses present within normal limits, no cyanosis, clubbing or edemas. No pulsatile abdominal mass Respiratory: Lungs clear to auscultation and percussion, no wheezing, no rubs Gastrointestinal and Liver: Abdomen: Soft, mild epigastric tenderness, non- distended, no hernias, no masses, thyromegaly, no ascites, no guarding, no rebound tenderness, normoactive bowel sounds. Extremities: No cyanosis, clubbing, or edema. Diagnostic Studies: Available data and images were reviewed personally. See reports. Significant results and findings are addressed here or in the assessment and plan. Problems: Exam/Review of Systems Vital Signs Vitals Vital Signs Date Time Temp Pulse Resp B/P Pulse Ox O2 Delivery O2 Flow Rate FiO2 05/22/17 07:46 97.5 86 20 107/54 98 05/19/17 15:07 Room Air Intake and Output 05/21/17 05/21/17 05/22/17 15:00 23:00 07:00 Intake Total 480 ml Balance 480 ml Results Result Diagram: 05/22/17 0541 05/22/17 0541 Results 24 hrs Laboratory Tests Test 05/22/17 05:41 White Blood Count 9.3 Red Blood Count 4.40 Hemoglobin 13.3 Hematocrit 38.1 Mean Corpuscular Volume 86.6 Mean Corpuscular Hemoglobin 30.2 Mean Corpuscular Hemoglobin Concent 34.9 Red Cell Distribution Width 15.5 H Platelet Count 315 Mean Platelet Volume 11.4 H Neutrophils % 65.5 Lymphocytes % 20.3 Monocytes % 11.2 H Eosinophils % 2.0 Basophils % 0.4 Nucleated Red Blood Cells % 0.0 Neutrophils # 6.1 Lymphocytes # 1.9 Monocytes # 1.1 H Eosinophils # 0.2 Basophils # 0.0 Nucleated Red Blood Cells # 0.0 Sodium Level 139 Potassium Level 4.2 Chloride Level 105 Carbon Dioxide Level 27 Anion Gap 11 Blood Urea Nitrogen 7 Creatinine 0.61 Glucose Level 90 Calcium Level 9.6 Total Bilirubin 12.0 H Direct Bilirubin 10.10 H Indirect Bilirubin 1.9 H Aspartate Amino Transf (AST/SGOT) 55 H Alanine Aminotransferase (ALT/SGPT) 78 H Alkaline Phosphatase 784 H Total Protein 6.9 Albumin 3.3 Medications Medications Current Medications Diphenhydramine HCl (Benadryl) 25 mg Q6H PRN PO ITCHING; Start 05/19/17 at 16: 30 Morphine Sulfate (morphine) 2 mg Q4H PRN IV PAIN; Start 05/19/17 at 16:30 Acetaminophen/ Hydrocodone Bitart ([place] (5/325)) 1 tab Q4H PRN PO PAIN; Start 05/19/17 at 16:30 Ondansetron HCl (Zofran Inj) 4 mg Q6H PRN IV NAUSEA AND/OR VOMITING; Start at 16:30 Famotidine (Pepcid) 20 mg DAILY PO Last administered on 05/22/17 08:44; Admin Dose 20 MG; Start 05/20/17 at 12:30 Trimethobenzamide HCl (Tigan) 200 mg Q6H PRN IM NAUSEA AND/OR VOMITING; Start 05/20/17 at 12:30 Enoxaparin Sodium (Lovenox) 40 mg DAILY SC Last administered on 05/22/17 09:20 ; Admin Dose 40 MG; Start 05/20/17 at 13:00 Polyethylene Glycol (Miralax) 17 gm DAILY PO Last administered on 05/22/17 08: 44; Admin Dose 17 GM; Start 05/21/17 at 10:30 Hydroxyzine HCl (Atarax) 50 mg Q6H PRN PO ITCHING Last administered on 06:14; Admin Dose 50 MG; Start 05/21/17 at 10:30 Ciprofloxacin (Cipro) 250 mg BID@18 PO Last administered on 05/22/17 18:07 ; Admin Dose 250 MG; Start 05/21/17 at 11:00; Stop 05/24/17 at 10:59 RODERICK JACKSON MD May 22, 2017 19:05
[2017-05-22 19:51] VITALS: BP 137/63; RESP 20
--- NOTE | 2017-05-22 21:57 | CONS ---
Date/Time of Note Date/Time of Note DATE: 05/22/17 TIME: 21:54 Assessment/Plan Assessment/Plan Chief Complaint/Hosp Course PAINLESS JAUNDICE ASSOCIATED WITH Liver mass with enlarged lymph nodes, suspicious for malignancy R/O NEOPLASIA pancreas protocol triple phase CT scan of the abdomen and pelvis WITH CONTRAST - Poorly defined hypovascular mass occupying the left medial lobe of the liver and caudate lobe with upstream severe left greater intrahepatic bile duct dilatation, highly suspicious for cholangiocarcinoma. Filling defect identified in intrahepatic portal vein, concerning for tumor thrombus. Metastatic retroperitoneal lymphadenopathy. CA 19-9- 1930 AFP- P coag N, HEPATITIS PANEL- NEG GI EVAL- ERCP plus Spyglass cholangioscopy with targeted biopsies and possible stent placement. WILL TRY TO DO THE BX DURING STENT PLACEMENT FAMILY CONFERENCE CONDUCTED Abnormal liver enzymes, jaundice- 2 TO ABOVE DYSLIPIDEMIA Problems: Consultation Date/Type/Reason Admit Date/Time May 19, 2017 at 04:18 Initial Consult Date 05/19/17 [facility] Referring Provider: HERMAN MCNULTY 24 HR Interval Summary Free Text/Dictation ALL NOTED SEEN BY GI Exam/Review of Systems Vital Signs Vitals Vital Signs Date Time Temp Pulse Resp B/P Pulse Ox O2 Delivery O2 Flow Rate FiO2 05/22/17 19:51 98.2 83 20 137/63 98 05/19/17 15:07 Room Air Intake and Output 05/21/17 05/21/17 05/22/17 15:00 23:00 07:00 Intake Total 480 ml Balance 480 ml Exam Const: No acute distress.+ Jaundice Head: Atraumatic. Eyes: Icteric Conjunctiva. ENT: Normal External Ears, Nose and Mouth. Neck: Full range of motion. No meningismus. Resp: Clear to auscultation bilaterally. Cardio: Regular rate and rhythm. Abd: Soft, non distended, normal bowel sounds, Diffuse abdominal tenderness, more tenderness at the right upper quadrant Skin: No petechiae or rashes. Back: No midline or flank tenderness. Ext: No cyanosis, or edema. Neur: Awake and alert. No focal deficit Psych: Normal Mood and Affect. NO PATH LN- ERIC Results Result Diagram: 05/22/17 0541 05/22/17 0541 Results 24 hrs Laboratory Tests Test 05/22/17 05:41 White Blood Count 9.3 Red Blood Count 4.40 Hemoglobin 13.3 Hematocrit 38.1 Mean Corpuscular Volume 86.6 Mean Corpuscular Hemoglobin 30.2 Mean Corpuscular Hemoglobin Concent 34.9 Red Cell Distribution Width 15.5 H Platelet Count 315 Mean Platelet Volume 11.4 H Neutrophils % 65.5 Lymphocytes % 20.3 Monocytes % 11.2 H Eosinophils % 2.0 Basophils % 0.4 Nucleated Red Blood Cells % 0.0 Neutrophils # 6.1 Lymphocytes # 1.9 Monocytes # 1.1 H Eosinophils # 0.2 Basophils # 0.0 Nucleated Red Blood Cells # 0.0 Sodium Level 139 Potassium Level 4.2 Chloride Level 105 Carbon Dioxide Level 27 Anion Gap 11 Blood Urea Nitrogen 7 Creatinine 0.61 Glucose Level 90 Calcium Level 9.6 Total Bilirubin 12.0 H Direct Bilirubin 10.10 H Indirect Bilirubin 1.9 H Aspartate Amino Transf (AST/SGOT) 55 H Alanine Aminotransferase (ALT/SGPT) 78 H Alkaline Phosphatase 784 H Total Protein 6.9 Albumin 3.3 Medications Medications Current Medications Diphenhydramine HCl (Benadryl) 25 mg Q6H PRN PO ITCHING; Start 05/19/17 at 16: 30 Morphine Sulfate (morphine) 2 mg Q4H PRN IV PAIN; Start 05/19/17 at 16:30 Acetaminophen/ Hydrocodone Bitart ([place] (5/325)) 1 tab Q4H PRN PO PAIN; Start 05/19/17 at 16:30 Ondansetron HCl (Zofran Inj) 4 mg Q6H PRN IV NAUSEA AND/OR VOMITING; Start at 16:30 Famotidine (Pepcid) 20 mg DAILY PO Last administered on 05/22/17 08:44; Admin Dose 20 MG; Start 05/20/17 at 12:30 Trimethobenzamide HCl (Tigan) 200 mg Q6H PRN IM NAUSEA AND/OR VOMITING; Start 05/20/17 at 12:30 Enoxaparin Sodium (Lovenox) 40 mg DAILY SC Last administered on 05/22/17 09:20 ; Admin Dose 40 MG; Start 05/20/17 at 13:00 Polyethylene Glycol (Miralax) 17 gm DAILY PO Last administered on 05/22/17 08: 44; Admin Dose 17 GM; Start 05/21/17 at 10:30 Hydroxyzine HCl (Atarax) 50 mg Q6H PRN PO ITCHING Last administered on t 19:42; Admin Dose 50 MG; Start 05/21/17 at 10:30 Ciprofloxacin (Cipro) 250 mg BID@06,18 PO Last administered on 05/22/17t 18:07 ; Admin Dose 250 MG; Start 05/21/17 at 11:00; Stop 05/24/17 at 10:59 Procedures Procedures [place] [address] Radiology Main Line: [phone] DIAGNOSTIC IMAGING REPORT Patient: PABLITO MOSS : 1965 Age: 52 Sex: F MR #: [id number] DOS: 05/20/17 0000 Ordering MD: ABBY ROMAN M.D. [place] [facility] [place] [facility]: CT Abdomen and Pelvis with and without contrast: Liver Protocol. CLINICAL INDICATION: Liver mass. TECHNIQUE: Volumetric acquisition of the abdomen and pelvis was performed before and following the administration of intravenous contrast and reformatted in the axial, sagittal, and coronal planes. Protocol: Four-phase liver protocol: unenhanced, arterial, portal venous, and delayed. IV contrast: 100 cc of Omnipaque 300. Radiation dose: CTDIvol (mGy) = 7.0, 7.8, 7.9; total DLP mGy-cm = 788. One or more of the following radiation dose techniques were used: -Automated exposure control. -Adjust of the mA and/or kV according to patient size. -Use of iterative reconstruction technque. COMPARISON: None. FINDINGS: There is a poorly defined hypovascular mass occupying the left medial lobe of the liver with extension into the caudate, measuring up to 4.4 cm. There is severe upstream left greater than right intrahepatic bile duct dilatation. There is abnormal mural thickening and hyperenhancement of the proximal dilated extrahepatic biliary system. The mid and distal segments of the common bile duct are normal in caliber. There is filling defect identified within the intrahepatic portion of the IVC. Gallbladder is contracted with nonspecific mural thickening. There are multiple small but abnormal appearing retroperitoneal lymph nodes, consistent with partha disease. Pancreas, adrenal glands, kidneys, and spleen are unremarkable. No abnormal bowel wall thickening or dilatation. There is a simple cyst measuring up to 2.1 cm and the left ovary. Included lung bases are clear. IMPRESSION: Poorly defined hypovascular mass occupying the left medial lobe of the liver and caudate lobe with upstream severe left greater intrahepatic bile duct dilatation, highly suspicious for cholangiocarcinoma. Filling defect identified in intrahepatic portal vein, concerning for tumor thrombus. Metastatic retroperitoneal lymphadenopathy. RPTAT: EE .Kevin Moran MD, MD Date Time Electronically viewed and signed by .Kevin Moran MD, on 05/21/2017 15:54 .C/ CC: ABBY ROMAN M.D., VERA M MD May 22, 2017 21:57
[2017-05-23] VITALS (13 sets, daily range): BP systolic 116–149; BP diastolic 60–84; PULSE 96–116; RESP 18–28
[2017-05-23] MEDS: hydrOXYzine HCL 25 MG TAB PO PRN ×2 (02:16→10:08)
[2017-05-23] MEDS: CIPROFLOXACIN 250 MG TAB PO SCH ×2 (05:59→18:00)
[2017-05-23 06:20] LABS: BASOPHILS % 0.4 % (0.0-2.0); EOSINOPHILS # 0.2 10^3/ul (0.0-0.5); EOSINOPHILS % 2.2 % (0.0-7.0); HEMATOCRIT 36.3 % (37.0-47.0); HEMOGLOBIN 12.6 g/dl (12.0-16.0); LYMPHOCYTES # 1.7 10^3/ul (0.8-2.9); LYMPHOCYTES % 21.6 % (15.0-51.0); MEAN CORPUSCULAR HEMOGLOBIN 29.9 pg (29.0-33.0); MEAN CORPUSCULAR HGB CONC 34.7 g/dl (32.0-37.0); MEAN CORPUSCULAR VOLUME 86.2 fl (82.0-101.0); MEAN PLATELET VOLUME 11.5 fl (7.4-10.4); MONOCYTES % 12.4 % (0.0-11.0); NEUTROPHIL # 4.9 10^3/ul (1.6-7.5); NEUTROPHILS % 62.8 % (39.0-77.0); PLATELET COUNT 324 10^3/UL (140-415); RED BLOOD COUNT 4.21 10^6/ul (4.20-5.40); RED CELL DISTRIBUTION WIDTH 15.9 % (11.5-14.5); WHITE BLOOD COUNT 7.8 10^3/ul (4.8-10.8)
[2017-05-23 07:00] LABS: CALCIUM 9.5 mg/dl (8.4-10.2); CREATININE 0.63 mg/dl (0.44-1.00); POTASSIUM 3.4 mmol/L (3.5-5.1)
[2017-05-23] MEDS: FAMOTIDINE 20 MG TAB PO SCH (09:27)
[2017-05-23] MEDS: POLYETHYLENE GLYCOL 17 GM PACKET PO SCH (09:27)
[2017-05-23] MEDS: ENOXAPARIN 40 MG/0.4 ML SYG SC SCH (09:29)
--- NOTE | 2017-05-23 15:05 | PN ---
Date/Time of Note Date/Time of Note DATE: 05/23/17 TIME: 15:02 Assessment/Plan VTE Prophylaxis VTE Prophylaxis Intervention: SCD's Lines/Catheters IV [facility] [place] Urinary Cath still in place: No Assessment/Plan Chief Complaint/Hosp Course Assessment/Plan: 52-year-old female with a history of dyslipidemia who presented to the ER coming of abdominal pain, yellowish eyes dark urine and itching with findings of liver mass suspicious for malignancy on imaging studies. 1. Liver mass with enlarged lymph nodes, suspicious for malignancy/metastasis. CA-19-9 is also greater than 9000. -Follow-up triple phase CT abdomen pelvis study to further evaluate hepatobiliary structures, and follow-up GI and oncology consult, - hepatobiliary surgery consult is been obtained - Mission Coordinator has been consulted for ERCP and possible stent placement today -Considering biopsy as per hepatobiliary surgeon -Continue pain control medications and antiemetics, continue to monitor liver function tests. -Continue Benadryl as needed itching symptoms. 2. Abnormal liver enzymes, jaundice-elevations of both total and direct bilirubins. -See #1 3. GI ppx -H2 regan Problems: Subjective 24 Hr Interval Summary Free Text/Dictation No acute changes Patient denies of any abdominal discomfort N.p.o. secondary to upcoming procedure Exam/Review of Systems Vital Signs Vitals Vital Signs Date Time Temp Pulse Resp B/P Pulse Ox O2 Delivery O2 Flow Rate FiO2 05/23/17 13:38 98.1 96 20 131/76 98 05/19/17 15:07 Room Air Intake and Output 05/22/17 05/22/17 05/23/17 15:00 23:00 07:00 Intake Total 800 ml Balance 800 ml Exam General: The patient is well-developed, Not in acute distress. HEENT: Jaundiced, normocephalic. The pupils are equal and round . Neck: Supple with full range of motion. Chest: Normal expansion of the thorax during inspiration Lungs: Clear to auscultation bilaterally Heart: Normal S1-S2, Regular rhythm and rate. Abdomen: Soft , nontender, nondistended , bowel sounds are present. Extremities: Normal to inspection, no edema no cyanosis Neurologic: Normal mental status,The patient is awake, alert and oriented . Results Result Diagram: 05/23/17 0523 05/23/17 0552 Results 24 hrs Laboratory Tests Test 05/23/17 05:23 White Blood Count 7.8 Red Blood Count 4.21 Hemoglobin 12.6 Hematocrit 36.3 L Mean Corpuscular Volume 86.2 Mean Corpuscular Hemoglobin 29.9 Mean Corpuscular Hemoglobin Concent 34.7 Red Cell Distribution Width 15.9 H Platelet Count 324 Mean Platelet Volume 11.5 H Neutrophils % 62.8 Lymphocytes % 21.6 Monocytes % 12.4 H Eosinophils % 2.2 Basophils % 0.4 Nucleated Red Blood Cells % 0.0 Neutrophils # 4.9 Lymphocytes # 1.7 Monocytes # 1.0 H Eosinophils # 0.2 Basophils # 0.0 Nucleated Red Blood Cells # 0.0 Sodium Level 139 Potassium Level 3.4 L Chloride Level 105 Carbon Dioxide Level 27 Anion Gap 10 Blood Urea Nitrogen 6 L Creatinine 0.63 Glucose Level 87 Calcium Level 9.5 Medications Medications Current Medications Diphenhydramine HCl (Benadryl) 25 mg Q6H PRN PO ITCHING; Start 05/19/17 at 16: 30 Morphine Sulfate (morphine) 2 mg Q4H PRN IV PAIN; Start 05/19/17 at 16:30 Acetaminophen/ Hydrocodone Bitart ([place] (5/325)) 1 tab Q4H PRN PO PAIN; Start 05/19/17 at 16:30 Ondansetron HCl (Zofran Inj) 4 mg Q6H PRN IV NAUSEA AND/OR VOMITING; Start at 16:30 Famotidine (Pepcid) 20 mg DAILY PO Last administered on 05/23/17 09:27; Admin Dose 20 MG; Start 05/20/17 at 12:30 Trimethobenzamide HCl (Tigan) 200 mg Q6H PRN IM NAUSEA AND/OR VOMITING; Start 05/20/17 at 12:30 Enoxaparin Sodium (Lovenox) 40 mg DAILY SC Last administered on 05/23/17 09:29 ; Admin Dose 40 MG; Start 05/20/17 at 13:00 Polyethylene Glycol (Miralax) 17 gm DAILY PO Last administered on 05/23/17 09: 27; Admin Dose 17 GM; Start 05/21/17 at 10:30 Hydroxyzine HCl (Atarax) 50 mg Q6H PRN PO ITCHING Last administered on 9/19/ 17at 10:08; Admin Dose 50 MG; Start 05/21/17 at 10:30 Ciprofloxacin (Cipro) 250 mg BID@06,18 PO Last administered on 05/23/17 05:59 ; Admin Dose 250 MG; Start 05/21/17 at 11:00; Stop 05/24/17 at 10:59 MICH ROTH MD May 23, 2017 15:05
[2017-05-23] MEDS ORDERED: MIDAZOLAM 1 MG/ML 2 ML INJ ONE (19:02)
[2017-05-23] MEDS ORDERED: FENTAnyl 50 MCG/ML VIAL ONE (19:02)
[2017-05-23] MEDS ORDERED: IOHEXOL 300MG/ML 30 ML BTL ONE (19:53)
[2017-05-23] MEDS ORDERED: ONDANSETRON 4 MG INJ ONE (20:21)
[2017-05-23] MEDS ORDERED: METOCLOPRAMIDE 10 MG INJ ONE (20:21)
[2017-05-23] MEDS ORDERED: GLYCOPYRROLATE 0.4 MG INJ ONE (20:21)
[2017-05-23] MEDS ORDERED: NEOSTIGMINE 3 MG/3 ML SYRINGE ONE (20:21)
[2017-05-23] MEDS ORDERED: LIDOCAINE 2% (SDV) 5 ML INJ ONE (20:21)
[2017-05-23] MEDS ORDERED: ROCURONIUM 50 MG INJ ONE (20:21)
[2017-05-23] MEDS ORDERED: PROPOFOL 20 ML ONE (20:21)
[2017-05-23] MEDS ORDERED: CEFAZOLIN 1 GM INJ ONE (20:23)
--- NOTE | 2017-05-23 20:41 | OPPN ---
Date/Time of Note Date/Time of Note DATE: 05/23/17 TIME: 20:30 Proc Note GI Procedure Date 05/23/17 Pre-procedure Diagnosis * Biliary obstruction * Suspect cholangiocarcinoma Post-procedure Diagnosis Assessment: * Post access and standard sphincterotomy * High high-grade obstruction at the level of the bifurcation * Post balloon dilatation of area of narrowing with [place] 8 mm balloon * Cholangioscopy with evidence of neoplastic infiltration consistent with cholangiocarcinoma multiple direct targeted biopsies obtained * Post placement of a [place] 10 x 9 cm stent with adequate drainage Plan: * Close observation * Clear liquid diet only if pain-free * Monitor liver function test * Review pathology * Once malignancy confirm Wallstent placement Procedure Performed: ERCP (Plus sphincterotomy plus balloon dilatation plus Spyglass cholangioscopy plus biopsies plus stent placement) Surgeon see signature line Respiratory Care Technician none Anesthesia Type: general Anesthesiologist: KAPIL CAAL MD Tourniquet Time none EBL none Transfusion required none Biopsy 1: Biliary bifurcation/rule out cholangiocarcinoma Grafts/Implants [place] 10, 9 cm plastic biliary stent Tubes/Drains none Complication(s) none Pt Condition post procedure: stable Disposition: PACU Indications: other (biliary obstruction) Procedure Description After informed consent, with the patient/relatives understanding the procedure, its indications, potential risks and complications, including but not limited to : allergic reaction, bleeding, perforation or infection, and after all pertinent questions were answered to the patients satisfaction, the patient/ relatives signed witnessed informed consent. Following this, premedication was administered slowly IV push under careful cardiovascular and respiratory monitoring with pulse oximetry, automatic blood pressure, and pinion sorter. Once the sedative effect was achieved the patient was place in the prone position in the radiology special procedures suite; the side viewing panendoscope was introduced and advanced under visual control. Careful examination of the upper gastrointestinal tract, both on insertion as well as withdrawal of the instrument disclosed the following findings: Esophagus: The mucosa of the entire appears within normal limits. There is no evidence of esophagitis, varices, neoplasm or stricture. No Hiatal Hernia identified. Stomach: Upon entrance to the stomach air was insufflated, the gastric lino distended normally, the mucosa of the fundus, body and antrum of the stomach was carefully examined both head-on and on retroflexion, and shows no abnormalities. There is no evidence of gastritis, ulcers, or neoplasm. Pylorus: The pylorus appears patent and within normal limits, with no evidence of gastric outlet obstruction. Duodenum: The duodenal mucosa was carefully examined in the duodenal bulb as well as the second portion of the duodenum and appears unremarkable with no evidence of duodenitis, ulcer or neoplasm. Ampulla of vater: The ampulla of Vater was identified and carefully examined appearing within normal limits. Cannulation was extremely difficult with multiple attempts resulting cannulation of the pancreatic duct with a guidewire. We avoided contrast injection into the pancreatic duct. After multiple attempts of selective catheterization free cannulation fail we left a guidewire in the pancreatic duct and attempted double wire cannulation this was also unsuccessful at this point at precut sphincterotomy was performed with extreme care and with this we were able to enter the common bile duct. Sphincterotomy was then extended in a normal fashion. Following this Following this cannulation was accomplished with the following fluoroscopic findings: Pancreatogram: Avoided purposely Cholangiogram: a cholangiogram was obtained showing high-grade narrowing in the common hepatic duct and affecting the bifurcation with dilatation of both intrahepatic biliary systems.At this point cane 8 mm balloon was utilized to dilate the area of narrowing. Following this the Spyglass catheter was introduced and advanced into the area of beyond the bifurcation. Cholangioscopy was then performed the area of the bifurcation in the proximal common hepatic duct shows extreme irregularity and ruddiness consistent with cholangiocarcinoma multiple biopsies were obtained. Following this a guidewire was advanced again into the intrahepatic ducts in the Spyglass was retrieved. [place] 10, 9 cm plastic biliary stent was then deployed without difficulty and with excellent drainage. The instrument was then withdrawn the patient tolerated the procedure well and was transfer out of the endoscopy suite awake, and in good condition to continue to recover under observation. Copies To: CC: RODERICK JACKSON MD, MORDO MD May 23, 2017 20:41
[2017-05-23] MEDS ORDERED: LABETALOL HCL 20MG INJ IV PRN (21:00)
[2017-05-23] MEDS ORDERED: SOD CHLORIDE 0.9% 500 ML IV ONE (21:00)
--- NOTE | 2017-05-23 22:35 | CONS ---
Date/Time of Note Date/Time of Note DATE: 05/23/17 TIME: 22:31 Assessment/Plan Assessment/Plan Chief Complaint/Hosp Course PAINLESS JAUNDICE ASSOCIATED WITH Liver mass with enlarged lymph nodes, suspicious for malignancy R/O NEOPLASIA pancreas protocol triple phase CT scan of the abdomen and pelvis WITH CONTRAST - Poorly defined hypovascular mass occupying the left medial lobe of the liver and caudate lobe with upstream severe left greater intrahepatic bile duct dilatation, highly suspicious for cholangiocarcinoma. Filling defect identified in intrahepatic portal vein, concerning for tumor thrombus. Metastatic retroperitoneal lymphadenopathy. CA 19-9- 1930 AFP- P coag N, HEPATITIS PANEL- NEG GI EVAL- ERCP plus Spyglass cholangioscopy with targeted biopsies and possible stent placement. Post balloon dilatation, Cholangioscopy with evidence of neoplastic infiltration consistent with cholangiocarcinoma multiple direct targeted biopsies obtained Post placement of a [place] 10 x 9 cm stent with adequate drainage PATH -P Abnormal liver enzymes, jaundice- 2 TO ABOVE DYSLIPIDEMIA Problems: Consultation Date/Type/Reason Admit Date/Time May 19, 2017 at 04:18 Initial Consult Date 05/19/17 Type of Consultation: [facility] Referring Provider: HERMAN MCNULTY 24 HR Interval Summary Free Text/Dictation ALL NOTED Exam/Review of Systems Vital Signs Vitals Vital Signs Date Time Temp Pulse Resp B/P Pulse Ox O2 Delivery O2 Flow Rate FiO2 05/23/17 21:57 98.7 95 20 142/84 99 05/23/17 21:15 Room Air Intake and Output 05/22/17 05/22/17 05/23/17 14:59 22:59 06:59 Intake Total 800 ml Balance 800 ml Exam General: The patient is well-developed, Not in acute distress. HEENT: Jaundiced, normocephalic. The pupils are equal and round . Neck: Supple with full range of motion. Chest: Normal expansion of the thorax during inspiration Lungs: Clear to auscultation bilaterally Heart: Normal S1-S2, Regular rhythm and rate. Abdomen: Soft , nontender, nondistended , bowel sounds are present. Extremities: Normal to inspection, no edema no cyanosis Neurologic: Normal mental status,The patient is awake, alert and oriented . Results Result Diagram: 05/23/17 0523 05/23/17 0523 Results 24 hrs Laboratory Tests Test 05/23/17 05:23 White Blood Count 7.8 Red Blood Count 4.21 Hemoglobin 12.6 Hematocrit 36.3 L Mean Corpuscular Volume 86.2 Mean Corpuscular Hemoglobin 29.9 Mean Corpuscular Hemoglobin Concent 34.7 Red Cell Distribution Width 15.9 H Platelet Count 324 Mean Platelet Volume 11.5 H Neutrophils % 62.8 Lymphocytes % 21.6 Monocytes % 12.4 H Eosinophils % 2.2 Basophils % 0.4 Nucleated Red Blood Cells % 0.0 Neutrophils # 4.9 Lymphocytes # 1.7 Monocytes # 1.0 H Eosinophils # 0.2 Basophils # 0.0 Nucleated Red Blood Cells # 0.0 Sodium Level 139 Potassium Level 3.4 L Chloride Level 105 Carbon Dioxide Level 27 Anion Gap 10 Blood Urea Nitrogen 6 L Creatinine 0.63 Glucose Level 87 Calcium Level 9.5 Medications Medications Current Medications Diphenhydramine HCl (Benadryl) 25 mg Q6H PRN PO ITCHING; Start 05/19/17 at 16: 30 Morphine Sulfate (morphine) 2 mg Q4H PRN IV PAIN Last administered on 21:59; Admin Dose 2 MG; Start 05/19/17 at 16:30 Acetaminophen/ Hydrocodone Bitart ([place] (5/325)) 1 tab Q4H PRN PO PAIN; Start 05/19/17 at 16:30 Ondansetron HCl (Zofran Inj) 4 mg Q6H PRN IV NAUSEA AND/OR VOMITING; Start at 16:30 Famotidine (Pepcid) 20 mg DAILY PO Last administered on 05/23/17 09:27; Admin Dose 20 MG; Start 05/20/17 at 12:30 Trimethobenzamide HCl (Tigan) 200 mg Q6H PRN IM NAUSEA AND/OR VOMITING; Start 05/20/17 at 12:30 Enoxaparin Sodium (Lovenox) 40 mg DAILY SC Last administered on 05/23/17 09:29 ; Admin Dose 40 MG; Start 05/20/17 at 13:00; Status Future hold Polyethylene Glycol (Miralax) 17 gm DAILY PO Last administered on 05/23/17 09: 27; Admin Dose 17 GM; Start 05/21/17 at 10:30 Hydroxyzine HCl (Atarax) 50 mg Q6H PRN PO ITCHING Last administered on 10:08; Admin Dose 50 MG; Start 05/21/17 at 10:30 Ciprofloxacin (Cipro) 250 mg BID@06,18 PO Last administered on 05/23/17t 05:59 ; Admin Dose 250 MG; Start 05/21/17 at 11:00; Stop 05/24/17 at 10:59 SONA WEEKS MD May 23, 2017 22:34
[2017-05-24 01:36] VITALS: BP 108/60; RESP 20
[2017-05-24] MEDS: CIPROFLOXACIN 250 MG TAB PO SCH (05:38)
[2017-05-24 05:48] LABS: BASOPHILS % 0.3 % (0.0-2.0); EOSINOPHILS # 0.1 10^3/ul (0.0-0.5); EOSINOPHILS % 0.6 % (0.0-7.0); HEMATOCRIT 35.4 % (37.0-47.0); HEMOGLOBIN 12.2 g/dl (12.0-16.0); LYMPHOCYTES # 1.7 10^3/ul (0.8-2.9); LYMPHOCYTES % 15.8 % (15.0-51.0); MEAN CORPUSCULAR HEMOGLOBIN 29.2 pg (29.0-33.0); MEAN CORPUSCULAR HGB CONC 34.5 g/dl (32.0-37.0); MEAN CORPUSCULAR VOLUME 84.7 fl (82.0-101.0); MEAN PLATELET VOLUME 11.2 fl (7.4-10.4); MONOCYTES % 9.4 % (0.0-11.0); NEUTROPHIL # 7.7 10^3/ul (1.6-7.5); NEUTROPHILS % 73.4 % (39.0-77.0); PLATELET COUNT 279 10^3/UL (140-415); RED BLOOD COUNT 4.18 10^6/ul (4.20-5.40); RED CELL DISTRIBUTION WIDTH 16.4 % (11.5-14.5); WHITE BLOOD COUNT 10.4 10^3/ul (4.8-10.8)
[2017-05-24 06:12] LABS: ALBUMIN 3.2 g/dl (3.3-4.9); BILIRUBIN,INDIRECT 2.1 mg/dl (0-1.1); TOTAL PROTEIN 6.4 g/dl (6.1-8.1)
[2017-05-24 06:20] LABS: CREATININE 0.65 mg/dl (0.44-1.00); POTASSIUM 3.4 mmol/L (3.5-5.1)
[2017-05-24 06:21] LABS: BILIRUBIN,DIRECT 15.7 mg/dl (0.00-0.20); BILIRUBIN,TOTAL 17.8 mg/dl (0.2-1.3)
[2017-05-24 07:48] VITALS: BP 108/56; RESP 17
--- NOTE | 2017-05-24 08:05 | RADRPT ---
PROCEDURE: X-ray fluoroscopy guidance CLINICAL INDICATION: Abdominal pain, ERCP, fluoroscopic guidance TECHNIQUE: Fluoroscopic guidance was utilized for an intraoperative procedure. COMPARISON: None available FINDINGS: Fluoroscopic guidance was utilized for and intraoperative procedure. 351.6 seconds of fluoroscopy ti me was utilized for the procedure. 5 x-ray images were obtained during the procedure in progress. Fi nal images demonstrate a common bile duct stent in grossly appropriate location. IMPRESSION: X-ray fluoroscopic guidance utilized for intraoperative procedure. Common bile duct stent in grossly appropriate location. Please see procedure note for details. RPTAT: AA .Garry Cruz MD, Date Time Electronically viewed and signed by .Garry Cruz MD, MD on 05/24/2017 08:04 .P/
[2017-05-24] MEDS: FAMOTIDINE 20 MG TAB PO SCH (08:55)
[2017-05-24] MEDS: POLYETHYLENE GLYCOL 17 GM PACKET PO SCH (08:55)
[2017-05-24] MEDS: hydrOXYzine HCL 25 MG TAB PO PRN ×2 (12:33→20:38)
--- NOTE | 2017-05-24 12:53 | PN ---
Date/Time of Note Date/Time of Note DATE: 05/24/17 TIME: 12:51 Assessment/Plan VTE Prophylaxis VTE Prophylaxis Intervention: SCD's Lines/Catheters IV [facility] Saline Lock Urinary Cath still in place: No Assessment/Plan Chief Complaint/Hosp Course Assessment/Plan: 52-year-old female with a history of dyslipidemia who presented to the ER coming of abdominal pain, yellowish eyes dark urine and itching with findings of liver mass suspicious for malignancy on imaging studies. 1. Liver mass with enlarged lymph nodes, suspicious for malignancy/metastasis. CA-19-9 is also greater than 9000. -Follow-up triple phase CT abdomen pelvis study to further evaluate hepatobiliary structures, and follow-up GI and oncology consult, - hepatobiliary surgery consult is been obtained - [place] [place] has been consulted -Status post ERCP and stent placement and biopsy, follow-up results of the biopsy -Status post biopsy via ERCP -Continue pain control medications and antiemetics, continue to monitor liver function tests. -Continue Benadryl as needed itching symptoms. 2. Abnormal liver enzymes, jaundice-elevations of both total and direct bilirubins. -See #1 3. GI ppx -H2 regan Problems: Subjective 24 Hr Interval Summary Free Text/Dictation Status post ERCP on 05/23/2017 Patient denies of any chest pain or shortness of breath On clear liquid diet Exam/Review of Systems Vital Signs Vitals Vital Signs Date Time Temp Pulse Resp B/P Pulse Ox O2 Delivery O2 Flow Rate FiO2 05/24/17 07:48 97.7 94 17 108/56 98 05/23/17 21:15 Room Air Intake and Output 05/23/17 05/23/17 05/24/17 15:00 23:00 07:00 Intake Total 600 ml Balance 600 ml Exam General: The patient is lying the bed comfortably, Not in acute distress. HEENT: Jaundice / Icteric , normocephalic. The pupils are equal and round . Neck: Supple with full range of motion. Chest: Normal expansion of the thorax during inspiration Lungs: Clear to auscultation bilaterally Heart: Normal S1-S2, Regular rhythm and rate. Abdomen: Soft , nontender, nondistended , bowel sounds are present. Extremities: Normal to inspection, no edema no cyanosis Neurologic: Normal mental status,The patient is awake, alert and oriented . Results Result Diagram: 05/24/17 0523 05/24/17 0522 Results 24 hrs Laboratory Tests Test 05/24/17 05:22 05/24/17 05:23 Sodium Level 137 Potassium Level 3.4 L Chloride Level 105 Carbon Dioxide Level 22 Anion Gap 13 Blood Urea Nitrogen 10 Creatinine 0.65 Glucose Level 101 Calcium Level 9.0 Total Bilirubin 17.8 #H Direct Bilirubin 15.70 #*H Indirect Bilirubin 2.1 H Aspartate Amino Transf (AST/SGOT) 60 H Alanine Aminotransferase (ALT/SGPT) 68 Alkaline Phosphatase 704 H Total Protein 6.4 Albumin 3.2 L White Blood Count 10.4 # Red Blood Count 4.18 L Hemoglobin 12.2 Hematocrit 35.4 L Mean Corpuscular Volume 84.7 Mean Corpuscular Hemoglobin 29.2 Mean Corpuscular Hemoglobin Concent 34.5 Red Cell Distribution Width 16.4 H Platelet Count 279 Mean Platelet Volume 11.2 H Neutrophils % 73.4 Lymphocytes % 15.8 Monocytes % 9.4 Eosinophils % 0.6 Basophils % 0.3 Nucleated Red Blood Cells % 0.0 Neutrophils # 7.7 H Lymphocytes # 1.7 Monocytes # 1.0 H Eosinophils # 0.1 Basophils # 0.0 Nucleated Red Blood Cells # 0.0 Medications Medications Current Medications Diphenhydramine HCl (Benadryl) 25 mg Q6H PRN PO ITCHING; Start 05/19/17 at 16: 30 Morphine Sulfate (morphine) 2 mg Q4H PRN IV PAIN Last administered on 21:59; Admin Dose 2 MG; Start 05/19/17 at 16:30 Acetaminophen/ Hydrocodone Bitart ([place] (5/325)) 1 tab Q4H PRN PO PAIN; Start 05/19/17 at 16:30 Ondansetron HCl (Zofran Inj) 4 mg Q6H PRN IV NAUSEA AND/OR VOMITING; Start at 16:30 Famotidine (Pepcid) 20 mg DAILY PO Last administered on 05/24/17 08:55; Admin Dose 20 MG; Start 05/20/17 at 12:30 Trimethobenzamide HCl (Tigan) 200 mg Q6H PRN IM NAUSEA AND/OR VOMITING; Start 05/20/17 at 12:30 Enoxaparin Sodium (Lovenox) 40 mg DAILY SC Last administered on 05/23/17 09:29 ; Admin Dose 40 MG; Start 05/20/17 at 13:00; Status Future hold Polyethylene Glycol (Miralax) 17 gm DAILY PO Last administered on 05/24/17 08: 55; Admin Dose 17 GM; Start 05/21/17 at 10:30 Hydroxyzine HCl (Atarax) 50 mg Q6H PRN PO ITCHING Last administered on 12:33; Admin Dose 50 MG; Start 05/21/17 at 10:30 MICH ROTH MD May 24, 2017 12:53
--- NOTE | 2017-05-24 13:05 | CONS ---
Date/Time of Note Date/Time of Note DATE: 05/24/17 TIME: 13:04 Assessment/Plan Assessment/Plan Chief Complaint/Hosp Course PAINLESS JAUNDICE ASSOCIATED WITH Liver mass with enlarged lymph nodes, suspicious for malignancy R/O NEOPLASIA pancreas protocol triple phase CT scan of the abdomen and pelvis WITH CONTRAST - Poorly defined hypovascular mass occupying the left medial lobe of the liver and caudate lobe with upstream severe left greater intrahepatic bile duct dilatation, highly suspicious for cholangiocarcinoma. Filling defect identified in intrahepatic portal vein, concerning for tumor thrombus. Metastatic retroperitoneal lymphadenopathy. CA 19-9- 1930 AFP- P coag N, HEPATITIS PANEL- NEG GI EVAL- ERCP plus Spyglass cholangioscopy with targeted biopsies and possible stent placement. Post balloon dilatation, Cholangioscopy with evidence of neoplastic infiltration consistent with cholangiocarcinoma multiple direct targeted biopsies obtained Post placement of a [place] 10 x 9 cm stent with adequate drainage PATH -P Abnormal liver enzymes, jaundice- 2 TO ABOVE DYSLIPIDEMIA Problems: Consultation Date/Type/Reason Admit Date/Time May 19, 2017 at 04:18 Initial Consult Date 05/19/17 Type of Consultation: [facility] Referring Provider: HERMAN MCNULTY 24 HR Interval Summary Free Text/Dictation all noted Status post biopsy via ERCP path- P Exam/Review of Systems Vital Signs Vitals Vital Signs Date Time Temp Pulse Resp B/P Pulse Ox O2 Delivery O2 Flow Rate FiO2 05/24/17 07:48 97.7 94 17 108/56 98 05/23/17 21:15 Room Air Intake and Output 05/23/17 05/23/17 05/24/17 15:00 23:00 07:00 Intake Total 600 ml Balance 600 ml Exam Const: No acute distress.+ Jaundice Head: Atraumatic. Eyes: Icteric Conjunctiva. ENT: Normal External Ears, Nose and Mouth. Neck: Full range of motion. No meningismus. Resp: Clear to auscultation bilaterally. Cardio: Regular rate and rhythm. Abd: Soft, non distended, normal bowel sounds, Diffuse abdominal tenderness, more tenderness at the right upper quadrant Skin: No petechiae or rashes. Back: No midline or flank tenderness. Ext: No cyanosis, or edema. Neur: Awake and alert. No focal deficit Psych: Normal Mood and Affect. NO PATH LN- ERIC Results Result Diagram: 05/24/17 0523 05/24/17 0522 Results 24 hrs Laboratory Tests Test 05/24/17 05:22 05/24/17 05:23 Sodium Level 137 Potassium Level 3.4 L Chloride Level 105 Carbon Dioxide Level 22 Anion Gap 13 Blood Urea Nitrogen 10 Creatinine 0.65 Glucose Level 101 Calcium Level 9.0 Total Bilirubin 17.8 #H Direct Bilirubin 15.70 #*H Indirect Bilirubin 2.1 H Aspartate Amino Transf (AST/SGOT) 60 H Alanine Aminotransferase (ALT/SGPT) 68 Alkaline Phosphatase 704 H Total Protein 6.4 Albumin 3.2 L White Blood Count 10.4 # Red Blood Count 4.18 L Hemoglobin 12.2 Hematocrit 35.4 L Mean Corpuscular Volume 84.7 Mean Corpuscular Hemoglobin 29.2 Mean Corpuscular Hemoglobin Concent 34.5 Red Cell Distribution Width 16.4 H Platelet Count 279 Mean Platelet Volume 11.2 H Neutrophils % 73.4 Lymphocytes % 15.8 Monocytes % 9.4 Eosinophils % 0.6 Basophils % 0.3 Nucleated Red Blood Cells % 0.0 Neutrophils # 7.7 H Lymphocytes # 1.7 Monocytes # 1.0 H Eosinophils # 0.1 Basophils # 0.0 Nucleated Red Blood Cells # 0.0 Medications Medications Current Medications Diphenhydramine HCl (Benadryl) 25 mg Q6H PRN PO ITCHING; Start 05/19/17 at 16: 30 Morphine Sulfate (morphine) 2 mg Q4H PRN IV PAIN Last administered on 21:59; Admin Dose 2 MG; Start 05/19/17 at 16:30 Acetaminophen/ Hydrocodone Bitart ([place] (5/325)) 1 tab Q4H PRN PO PAIN; Start 05/19/17 at 16:30 Ondansetron HCl (Zofran Inj) 4 mg Q6H PRN IV NAUSEA AND/OR VOMITING; Start at 16:30 Famotidine (Pepcid) 20 mg DAILY PO Last administered on 05/24/17 08:55; Admin Dose 20 MG; Start 05/20/17 at 12:30 Trimethobenzamide HCl (Tigan) 200 mg Q6H PRN IM NAUSEA AND/OR VOMITING; Start 05/20/17 at 12:30 Enoxaparin Sodium (Lovenox) 40 mg DAILY SC Last administered on 05/23/17 09:29 ; Admin Dose 40 MG; Start 05/20/17 at 13:00; Status Future hold Polyethylene Glycol (Miralax) 17 gm DAILY PO Last administered on 05/24/17 08: 55; Admin Dose 17 GM; Start 05/21/17 at 10:30 Hydroxyzine HCl (Atarax) 50 mg Q6H PRN PO ITCHING Last administered on 12:33; Admin Dose 50 MG; Start 05/21/17 at 10:30 SONA WEEKS MD May 24, 2017 13:05
[2017-05-24 14:35] VITALS: BP 126/60; RESP 18
--- NOTE | 2017-05-24 15:13 | PN ---
Date/Time of Note Date/Time of Note DATE: 05/24/17 TIME: 15:08 Assessment/Plan VTE Prophylaxis VTE Prophylaxis Intervention: SCD's Lines/Catheters IV [facility] Saline Lock Urinary Cath still in place: No Assessment/Plan Assessment/Plan Assessment * T/C cholangiocarcinoma ERCP Post access and standard sphincterotomy * High high-grade obstruction at the level of the bifurcation * Post balloon dilatation of area of narrowing with [place] 8 mm balloon * Cholangioscopy with evidence of neoplastic infiltration consistent with cholangiocarcinoma multiple direct targeted biopsies obtained * Post placement of a [place] 10 x 9 cm stent with adequate drainage Plan * will await biopsy results * progress diet * continue present management * case discussed with Dr Dalal * further orders will depend on clinical course Subjective 24 Hr Interval Summary Free Text/Dictation * Course reviewed with RN * Patient seen and examined * ERCP Post access and standard sphincterotomy * High high-grade obstruction at the level of the bifurcation * Post balloon dilatation of area of narrowing with Hurricane 8 mm balloon * Cholangioscopy with evidence of neoplastic infiltration consistent with cholangiocarcinoma multiple direct targeted biopsies obtained * Post placement of a [place] 10 x 9 cm stent with adequate drainage * no untoward events overnight Exam/Review of Systems Vital Signs Vitals Vital Signs Date Time Temp Pulse Resp B/P Pulse Ox O2 Delivery O2 Flow Rate FiO2 05/24/17 14:35 97.8 71 18 126/60 99 05/23/17 21:15 Room Air Intake and Output 05/23/17 05/23/17 05/24/17 15:00 23:00 07:00 Intake Total 600 ml Balance 600 ml Exam Constitutional: alert, oriented Eyes: icteric, nl conjunctiva Neck: non-tender, supple Respiratory: clear to auscultation, normal air movement Cardiovascular: nl pulses, regular rate and rhythm Gastrointestinal: non-tender, soft Musculoskeletal: nl extremities to inspection Extremities: normal pulses Neurological: nl speech Skin: nl turgor Results Result Diagram: 05/24/1752205/24/17 0522 Results 24 hrs Laboratory Tests Test 05/24/17 05:22 05/24/17 05:23 Sodium Level 137 Potassium Level 3.4 L Chloride Level 105 Carbon Dioxide Level 22 Anion Gap 13 Blood Urea Nitrogen 10 Creatinine 0.65 Glucose Level 101 Calcium Level 9.0 Total Bilirubin 17.8 #H Direct Bilirubin 15.70 #*H Indirect Bilirubin 2.1 H Aspartate Amino Transf (AST/SGOT) 60 H Alanine Aminotransferase (ALT/SGPT) 68 Alkaline Phosphatase 704 H Total Protein 6.4 Albumin 3.2 L White Blood Count 10.4 # Red Blood Count 4.18 L Hemoglobin 12.2 Hematocrit 35.4 L Mean Corpuscular Volume 84.7 Mean Corpuscular Hemoglobin 29.2 Mean Corpuscular Hemoglobin Concent 34.5 Red Cell Distribution Width 16.4 H Platelet Count 279 Mean Platelet Volume 11.2 H Neutrophils % 73.4 Lymphocytes % 15.8 Monocytes % 9.4 Eosinophils % 0.6 Basophils % 0.3 Nucleated Red Blood Cells % 0.0 Neutrophils # 7.7 H Lymphocytes # 1.7 Monocytes # 1.0 H Eosinophils # 0.1 Basophils # 0.0 Nucleated Red Blood Cells # 0.0 Medications Medications Current Medications Diphenhydramine HCl (Benadryl) 25 mg Q6H PRN PO ITCHING; Start 05/19/17 at 16: 30 Morphine Sulfate (morphine) 2 mg Q4H PRN IV PAIN Last administered on 21:59; Admin Dose 2 MG; Start 05/19/17 at 16:30 Acetaminophen/ Hydrocodone Bitart ([place] (5/325)) 1 tab Q4H PRN PO PAIN; Start 05/19/17 at 16:30 Ondansetron HCl (Zofran Inj) 4 mg Q6H PRN IV NAUSEA AND/OR VOMITING; Start at 16:30 Famotidine (Pepcid) 20 mg DAILY PO Last administered on 05/24/17 08:55; Admin Dose 20 MG; Start 05/20/17 at 12:30 Trimethobenzamide HCl (Tigan) 200 mg Q6H PRN IM NAUSEA AND/OR VOMITING; Start 05/20/17 at 12:30 Enoxaparin Sodium (Lovenox) 40 mg DAILY SC Last administered on 05/23/17 09:29 ; Admin Dose 40 MG; Start 05/20/17 at 13:00; Status Future hold Polyethylene Glycol (Miralax) 17 gm DAILY PO Last administered on 05/24/17 08: 55; Admin Dose 17 GM; Start 05/21/17 at 10:30 Hydroxyzine HCl (Atarax) 50 mg Q6H PRN PO ITCHING Last administered on t 12:33; Admin Dose 50 MG; Start 05/21/17 at 10:30 YUE BLACK NP May 24, 2017 15:13
[2017-05-24 20:00] VITALS: BP 132/69; RESP 20
[2017-05-24] MEDS: HYDROCODONE/APAP (5/325) TAB PO PRN (20:38)
[2017-05-25 02:12] VITALS: BP 120/72; PULSE 79; RESP 18
[2017-05-25 05:45] LABS: BASOPHILS % 0.3 % (0.0-2.0); EOSINOPHILS # 0.2 10^3/ul (0.0-0.5); EOSINOPHILS % 1.9 % (0.0-7.0); HEMATOCRIT 36.2 % (37.0-47.0); HEMOGLOBIN 12.8 g/dl (12.0-16.0); LYMPHOCYTES % 21.9 % (15.0-51.0); MEAN CORPUSCULAR HEMOGLOBIN 29.8 pg (29.0-33.0); MEAN CORPUSCULAR HGB CONC 35.4 g/dl (32.0-37.0); MEAN CORPUSCULAR VOLUME 84.2 fl (82.0-101.0); MEAN PLATELET VOLUME 11.2 fl (7.4-10.4); MONOCYTES % 10.8 % (0.0-11.0); NEUTROPHIL # 5.9 10^3/ul (1.6-7.5); NEUTROPHILS % 64.6 % (39.0-77.0); PLATELET COUNT 323 10^3/UL (140-415); RED CELL DISTRIBUTION WIDTH 16.8 % (11.5-14.5); WHITE BLOOD COUNT 9.2 10^3/ul (4.8-10.8)
[2017-05-25 06:36] LABS: ALBUMIN 3.2 g/dl (3.3-4.9); BILIRUBIN,DIRECT 14.7 mg/dl (0.00-0.20); BILIRUBIN,INDIRECT 2.3 mg/dl (0-1.1); TOTAL PROTEIN 6.6 g/dl (6.1-8.1)
[2017-05-25] MEDS: hydrOXYzine HCL 25 MG TAB PO PRN ×3 (06:39→21:30)
[2017-05-25 06:43] LABS: CALCIUM 9.1 mg/dl (8.4-10.2); CREATININE 0.63 mg/dl (0.44-1.00); POTASSIUM 3.2 mmol/L (3.5-5.1)
[2017-05-25 08:35] VITALS: BP 115/76; RESP 18
[2017-05-25 08:47] VITALS: BP 107/68; PULSE 92; RESP 18
[2017-05-25] MEDS: FAMOTIDINE 20 MG TAB PO SCH (08:48)
[2017-05-25] MEDS: POLYETHYLENE GLYCOL 17 GM PACKET PO SCH (08:48)
[2017-05-25] MEDS: ENOXAPARIN 40 MG/0.4 ML SYG SC SCH (08:55)
[2017-05-25] MEDS ORDERED: POTASSIUM CHLORIDE (SR) 20 MEQ TAB PO STA (13:40)
--- NOTE | 2017-05-25 13:46 | PN ---
Date/Time of Note Date/Time of Note DATE: 05/25/17 TIME: 13:35 Assessment/Plan VTE Prophylaxis VTE Prophylaxis Intervention: LMWH Lines/Catheters IV [facility] (from [facility] Saline Lock Urinary Cath still in place: No Assessment/Plan Assessment/Plan 1. Liver mass with enlarged lymph nodes, suspicious for malignancy/metastasis. CA-19-9 is also greater than 9000, biopsy through ERCP no malignancy, GI and oncology for further approach to make pathological diagnosis 2. Obstructive jaundice, s/p ERCP and stent placement and biopsy on 05/23/2017 3. DVT prophylaxis: lovenox Subjective 24 Hr Interval Summary Free Text/Dictation no pain Exam/Review of Systems Vital Signs Vitals Vital Signs Date Time Temp Pulse Resp B/P Pulse Ox O2 Delivery O2 Flow Rate FiO2 05/25/17 08:47 97.5 92 18 107/68 96 Room Air Intake and Output 05/24/17 05/24/17 05/25/17 15:00 23:00 07:00 Intake Total 800 ml 2280 ml 360 ml Balance 800 ml 2280 ml 360 ml Exam Constitutional: alert, oriented, well developed Psych: nl mood/affect, no complaints Head: atraumatic, normocephalic Eyes: EOMI, PERRL, nl lids ENMT: nl external ears & nose, nl lips & teeth, nl nasal mucosa & septum Neck: non-tender, supple Respiratory: clear to auscultation, normal air movement, No congested cough, No crackles/rales, No diminished breath sounds, No intercostal retraction, No labored breathing, No other, No respirations, No tactile fremitus, No wheezing Cardiovascular: nl pulses, regular rate and rhythm, No S3, No S4, No bruits, No diastolic murmur, No edema, No gallop, No irregular rhythm, No jugular venous distention (JVD), No murmurs/extra sounds, No other, No rub, No systolic murmur Gastrointestinal: nl liver, spleen, non-tender, soft Musculoskeletal: nl extremities to inspection Extremities: normal pulses, No calf tenderness, No clubbing, No cyanosis, No edema, No other, No palpable cord, No pitting pedal edema, No tenderness Neurological: NUTRITION SERVICES AIDE II-XII intact, nl mental status, nl speech, nl strength Skin: nl turgor Lymph: nl lymph nodes Results Result Diagram: 05/25/17 0505 05/25/17 0505 Results 24 hrs Laboratory Tests Test 05/25/17 05:05 White Blood Count 9.2 Red Blood Count 4.30 Hemoglobin 12.8 Hematocrit 36.2 L Mean Corpuscular Volume 84.2 Mean Corpuscular Hemoglobin 29.8 Mean Corpuscular Hemoglobin Concent 35.4 Red Cell Distribution Width 16.8 H Platelet Count 323 Mean Platelet Volume 11.2 H Neutrophils % 64.6 Lymphocytes % 21.9 Monocytes % 10.8 Eosinophils % 1.9 Basophils % 0.3 Nucleated Red Blood Cells % 0.0 Neutrophils # 5.9 Lymphocytes # 2.0 Monocytes # 1.0 H Eosinophils # 0.2 Basophils # 0.0 Nucleated Red Blood Cells # 0.0 Sodium Level 140 Potassium Level 3.2 L Chloride Level 104 Carbon Dioxide Level 28 Anion Gap 11 Blood Urea Nitrogen 11 Creatinine 0.63 Glucose Level 100 Calcium Level 9.1 Total Bilirubin 17.0 H Direct Bilirubin 14.70 H Indirect Bilirubin 2.3 H Aspartate Amino Transf (AST/SGOT) 50 H Alanine Aminotransferase (ALT/SGPT) 60 Alkaline Phosphatase 715 H Total Protein 6.6 Albumin 3.2 L Medications Medications Current Medications Diphenhydramine HCl (Benadryl) 25 mg Q6H PRN PO ITCHING; Start 05/19/17 at 16: 30 Morphine Sulfate (morphine) 2 mg Q4H PRN IV PAIN Last administered on 21:59; Admin Dose 2 MG; Start 05/19/17 at 16:30 Acetaminophen/ Hydrocodone Bitart ([place] (5/325)) 1 tab Q4H PRN PO PAIN Last administered on 05/24/17 20:38; Admin Dose 1 TAB; Start 05/19/17 at 16:30 Ondansetron HCl (Zofran Inj) 4 mg Q6H PRN IV NAUSEA AND/OR VOMITING; Start at 16:30 Famotidine (Pepcid) 20 mg DAILY PO Last administered on 05/25/17 08:48; Admin Dose 20 MG; Start 05/20/17 at 12:30 Trimethobenzamide HCl (Tigan) 200 mg Q6H PRN IM NAUSEA AND/OR VOMITING; Start 05/20/17 at 12:30 Enoxaparin Sodium (Lovenox) 40 mg DAILY SC Last administered on 05/25/17 08:55 ; Admin Dose 40 MG; Start 05/20/17 at 13:00; Status Future hold Polyethylene Glycol (Miralax) 17 gm DAILY PO Last administered on 05/25/17 08: 48; Admin Dose 17 GM; Start 05/21/17 at 10:30 Hydroxyzine HCl (Atarax) 50 mg Q6H PRN PO ITCHING Last administered on 13:18; Admin Dose 50 MG; Start 05/21/17 at 10:30 FIFI CARROLL MD May 25, 2017 13:45
[2017-05-25 20:06] VITALS: BP 133/68; RESP 18
--- NOTE | 2017-05-25 22:27 | CONS ---
Date/Time of Note Date/Time of Note DATE: 05/25/17 TIME: 22:26 Assessment/Plan Assessment/Plan Chief Complaint/Hosp Course PAINLESS JAUNDICE ASSOCIATED WITH Liver mass with enlarged lymph nodes, suspicious for malignancy R/O NEOPLASIA pancreas protocol triple phase CT scan of the abdomen and pelvis WITH CONTRAST - Poorly defined hypovascular mass occupying the left medial lobe of the liver and caudate lobe with upstream severe left greater intrahepatic bile duct dilatation, highly suspicious for cholangiocarcinoma. Filling defect identified in intrahepatic portal vein, concerning for tumor thrombus. Metastatic retroperitoneal lymphadenopathy. CA 19-9- 1930 AFP- P coag N, HEPATITIS PANEL- NEG GI EVAL- ERCP plus Spyglass cholangioscopy with targeted biopsies and possible stent placement. Post balloon dilatation, Cholangioscopy with evidence of neoplastic infiltration consistent with cholangiocarcinoma multiple direct targeted biopsies obtained Post placement of a [place] 10 x 9 cm stent with adequate drainage PATH -P Abnormal liver enzymes, jaundice- 2 TO ABOVE DYSLIPIDEMIA Problems: Consultation Date/Type/Reason Admit Date/Time May 19, 2017 at 04:18 Initial Consult Date 05/19/17 Type of Consultation: [facility] Referring Provider: HERMAN MCNULTY 24 HR Interval Summary Free Text/Dictation all noted no new events Exam/Review of Systems Vital Signs Vitals Vital Signs Date Time Temp Pulse Resp B/P Pulse Ox O2 Delivery O2 Flow Rate FiO2 05/25/17 20:06 97.9 82 18 133/68 98 05/25/17 08:47 Room Air Intake and Output 05/24/17 05/24/17 05/25/17 15:00 23:00 07:00 Intake Total 800 ml 2280 ml 360 ml Balance 800 ml 2280 ml 360 ml Exam Const: No acute distress.+ Jaundice Head: Atraumatic. Eyes: Icteric Conjunctiva. ENT: Normal External Ears, Nose and Mouth. Neck: Full range of motion. No meningismus. Resp: Clear to auscultation bilaterally. Cardio: Regular rate and rhythm. Abd: Soft, non distended, normal bowel sounds, Diffuse abdominal tenderness, more tenderness at the right upper quadrant Skin: No petechiae or rashes. Back: No midline or flank tenderness. Ext: No cyanosis, or edema. Neur: Awake and alert. No focal deficit Psych: Normal Mood and Affect. NO PATH LN- ERCI Results Result Diagram: 05/25/17 0505 05/25/17 0505 Results 24 hrs Laboratory Tests Test 05/25/17 05:05 White Blood Count 9.2 Red Blood Count 4.30 Hemoglobin 12.8 Hematocrit 36.2 L Mean Corpuscular Volume 84.2 Mean Corpuscular Hemoglobin 29.8 Mean Corpuscular Hemoglobin Concent 35.4 Red Cell Distribution Width 16.8 H Platelet Count 323 Mean Platelet Volume 11.2 H Neutrophils % 64.6 Lymphocytes % 21.9 Monocytes % 10.8 Eosinophils % 1.9 Basophils % 0.3 Nucleated Red Blood Cells % 0.0 Neutrophils # 5.9 Lymphocytes # 2.0 Monocytes # 1.0 H Eosinophils # 0.2 Basophils # 0.0 Nucleated Red Blood Cells # 0.0 Sodium Level 140 Potassium Level 3.2 L Chloride Level 104 Carbon Dioxide Level 28 Anion Gap 11 Blood Urea Nitrogen 11 Creatinine 0.63 Glucose Level 100 Calcium Level 9.1 Total Bilirubin 17.0 H Direct Bilirubin 14.70 H Indirect Bilirubin 2.3 H Aspartate Amino Transf (AST/SGOT) 50 H Alanine Aminotransferase (ALT/SGPT) 60 Alkaline Phosphatase 715 H Total Protein 6.6 Albumin 3.2 L Medications Medications Current Medications Diphenhydramine HCl (Benadryl) 25 mg Q6H PRN PO ITCHING; Start 05/19/17 at 16: 30 Morphine Sulfate (morphine) 2 mg Q4H PRN IV PAIN Last administered on 21:59; Admin Dose 2 MG; Start 05/19/17 at 16:30 Acetaminophen/ Hydrocodone Bitart ([place] (5/325)) 1 tab Q4H PRN PO PAIN Last administered on 05/24/17 20:38; Admin Dose 1 TAB; Start 05/19/17 at 16:30 Ondansetron HCl (Zofran Inj) 4 mg Q6H PRN IV NAUSEA AND/OR VOMITING; Start at 16:30 Famotidine (Pepcid) 20 mg DAILY PO Last administered on 05/25/17 08:48; Admin Dose 20 MG; Start 05/20/17 at 12:30 Trimethobenzamide HCl (Tigan) 200 mg Q6H PRN IM NAUSEA AND/OR VOMITING; Start 05/20/17 at 12:30 Enoxaparin Sodium (Lovenox) 40 mg DAILY SC Last administered on 05/25/17 08:55 ; Admin Dose 40 MG; Start 05/20/17 at 13:00; Status Future hold Polyethylene Glycol (Miralax) 17 gm DAILY PO Last administered on 05/25/17 08: 48; Admin Dose 17 GM; Start 05/21/17 at 10:30 Hydroxyzine HCl (Atarax) 50 mg Q6H PRN PO ITCHING Last administered on 21:30; Admin Dose 50 MG; Start 05/21/17 at 10:30 SONA WEEKS MD May 25, 2017 22:27
[2017-05-26 01:35] VITALS: BP 120/60; RESP 20
[2017-05-26] MEDS: hydrOXYzine HCL 25 MG TAB PO PRN ×2 (03:55→19:32)
[2017-05-26 06:54] LABS: ALBUMIN 3.2 g/dl (3.3-4.9); ALBUMIN/GLOBULIN RATIO 0.88; CALCIUM 8.9 mg/dl (8.4-10.2); CREATININE 0.6 mg/dl (0.44-1.00); POTASSIUM 3.6 mmol/L (3.5-5.1); TOTAL PROTEIN 6.8 g/dl (6.1-8.1)
[2017-05-26 08:07] VITALS: BP 124/65; RESP 16
[2017-05-26 08:44] LABS: BILIRUBIN,DIRECT 14.4 mg/dl (0.00-0.20); BILIRUBIN,INDIRECT 2.2 mg/dl (0-1.1); BILIRUBIN,TOTAL 16.6 mg/dl (0.2-1.3)
[2017-05-26] MEDS: POLYETHYLENE GLYCOL 17 GM PACKET PO SCH (09:39)
[2017-05-26] MEDS: FAMOTIDINE 20 MG TAB PO SCH (09:39)
[2017-05-26] MEDS: ENOXAPARIN 40 MG/0.4 ML SYG SC SCH (09:49)
--- NOTE | 2017-05-26 13:29 | PN ---
Date/Time of Note Date/Time of Note DATE: 05/26/17 TIME: 13:24 Assessment/Plan VTE Prophylaxis VTE Prophylaxis Intervention: LMWH Lines/Catheters IV [facility] (from [facility]): Saline Lock Urinary Cath still in place: No Assessment/Plan Assessment/Plan 1. Liver mass with enlarged lymph nodes, suspicious for malignancy/metastasis. CA-19-9 is also greater than 9000, biopsy through ERCP no malignancy, Follow up with oncology for further plan 2. Obstructive jaundice, s/p ERCP and stent placement and biopsy on 05/23/2017, persistent jaundice, follow up with GI 3. Generalized itching, obstructive jaundice related, should improve with CBC stent 4. DVT prophylaxis: lovenox Exam/Review of Systems Vital Signs Vitals Vital Signs Date Time Temp Pulse Resp B/P Pulse Ox O2 Delivery O2 Flow Rate FiO2 05/26/17 08:07 98.2 83 16 124/65 99 05/25/17 08:47 Room Air Exam Constitutional: alert, oriented, well developed Psych: nl mood/affect, no complaints Head: atraumatic, normocephalic Eyes: PERRL ENMT: nl external ears & nose, nl lips & teeth, nl nasal mucosa & septum Neck: non-tender, supple Respiratory: clear to auscultation, normal air movement, No congested cough, No crackles/rales, No diminished breath sounds, No intercostal retraction, No labored breathing, No other, No respirations, No tactile fremitus, No wheezing Cardiovascular: nl pulses, regular rate and rhythm, No S3, No S4, No bruits, No diastolic murmur, No edema, No gallop, No irregular rhythm, No jugular venous distention (JVD), No murmurs/extra sounds, No other, No rub, No systolic murmur Gastrointestinal: nl liver, spleen, non-tender, soft Musculoskeletal: nl extremities to inspection Extremities: normal pulses, No calf tenderness, No clubbing, No cyanosis, No edema, No other, No palpable cord, No pitting pedal edema, No tenderness Neurological: HRIS SPECIALIST II-XII intact, nl mental status, nl speech, nl strength Skin: other (jaundice) Lymph: nl lymph nodes Results Result Diagram: 05/25/17 0505 05/26/17 0512 Results 24 hrs Laboratory Tests Test 05/26/17 05:12 Sodium Level 137 Potassium Level 3.6 Chloride Level 104 Carbon Dioxide Level 28 Anion Gap 9 Blood Urea Nitrogen 9 Creatinine 0.60 Glucose Level 83 Calcium Level 8.9 Total Bilirubin 16.6 H Direct Bilirubin 14.40 H Indirect Bilirubin 2.2 H Aspartate Amino Transf (AST/SGOT) 50 H Alanine Aminotransferase (ALT/SGPT) 53 Alkaline Phosphatase 677 H Total Protein 6.8 Albumin 3.2 L Globulin 3.60 H Albumin/Globulin Ratio 0.88 Medications Medications Current Medications Diphenhydramine HCl (Benadryl) 25 mg Q6H PRN PO ITCHING; Start 05/19/17 at 16: 30 Morphine Sulfate (morphine) 2 mg Q4H PRN IV PAIN Last administered on 21:59; Admin Dose 2 MG; Start 05/19/17 at 16:30 Acetaminophen/ Hydrocodone Bitart ([place] (5/325)) 1 tab Q4H PRN PO PAIN Last administered on 05/24/17 20:38; Admin Dose 1 TAB; Start 05/19/17 at 16:30 Ondansetron HCl (Zofran Inj) 4 mg Q6H PRN IV NAUSEA AND/OR VOMITING; Start at 16:30 Famotidine (Pepcid) 20 mg DAILY PO Last administered on 05/26/17 09:39; Admin Dose 20 MG; Start 05/20/17 at 12:30 Trimethobenzamide HCl (Tigan) 200 mg Q6H PRN IM NAUSEA AND/OR VOMITING; Start 05/20/17 at 12:30 Enoxaparin Sodium (Lovenox) 40 mg DAILY SC Last administered on 05/26/17 09:49 ; Admin Dose 40 MG; Start 05/20/17 at 13:00; Status Future hold Polyethylene Glycol (Miralax) 17 gm DAILY PO Last administered on 05/26/17 09: 39; Admin Dose 17 GM; Start 05/21/17 at 10:30 Hydroxyzine HCl (Atarax) 50 mg Q6H PRN PO ITCHING Last administered on 03:55; Admin Dose 50 MG; Start 05/21/17 at 10:30 FIFI CARROLL MD May 26, 2017 13:28
[2017-05-26 14:00] VITALS: BP 125/65; RESP 16
--- NOTE | 2017-05-26 15:16 | PN ---
Date/Time of Note Date/Time of Note DATE: 05/26/17 TIME: 15:12 Assessment/Plan VTE Prophylaxis VTE Prophylaxis Intervention: SCD's Lines/Catheters IV [facility] Type [facility]from [facility] Saline Lock Urinary Cath still in place: No Assessment/Plan Assessment/Plan Assessment * T/C cholangiocarcinoma ERCP Post access and standard sphincterotomy High high-grade obstruction at the level of the bifurcation Post balloon dilatation of area of narrowing with Hurricane 8 mm balloon Cholangioscopy with evidence of neoplastic infiltration consistent with cholangiocarcinoma multiple direct targeted biopsies obtained Post placement of a [place] 10 x 9 cm stent with adequate drainage Biopsy result negative for malignancy Plan * Ultrasound guided biopsy of liver mass * progress diet * continue present management * case discussed with Dr Dalal * further orders will depend on clinical course Subjective 24 Hr Interval Summary Free Text/Dictation * course reviewed * Patient seen and examined * No untoward events overnight * Bifurcation biopsy Biliary bifurcation, biopsy: -- Minute fragment of ductal mucosa showing crush artifact. -- No evidence of dysplasia or malignancy. Exam/Review of Systems Vital Signs Vitals Vital Signs Date Time Temp Pulse Resp B/P Pulse Ox O2 Delivery O2 Flow Rate FiO2 05/26/17 14:00 97.9 92 16 125/65 95 05/25/17 08:47 Room Air Exam Constitutional: alert, oriented Psych: no complaints Eyes: nl conjunctiva Neck: non-tender, supple Respiratory: clear to auscultation, normal air movement Cardiovascular: nl pulses, regular rate and rhythm Gastrointestinal: nl liver, spleen, non-tender, soft Musculoskeletal: nl extremities to inspection, nl gait and stance Extremities: normal pulses Neurological: nl speech, nl strength Skin: No rash or lesions Results Result Diagram: 05/25/17 0505 05/26/17 0512 Results 24 hrs Laboratory Tests Test 05/26/17 05:12 Sodium Level 137 Potassium Level 3.6 Chloride Level 104 Carbon Dioxide Level 28 Anion Gap 9 Blood Urea Nitrogen 9 Creatinine 0.60 Glucose Level 83 Calcium Level 8.9 Total Bilirubin 16.6 H Direct Bilirubin 14.40 H Indirect Bilirubin 2.2 H Aspartate Amino Transf (AST/SGOT) 50 H Alanine Aminotransferase (ALT/SGPT) 53 Alkaline Phosphatase 677 H Total Protein 6.8 Albumin 3.2 L Globulin 3.60 H Albumin/Globulin Ratio 0.88 Medications Medications Current Medications Diphenhydramine HCl (Benadryl) 25 mg Q6H PRN PO ITCHING; Start 05/19/17 at 16: 30 Morphine Sulfate (morphine) 2 mg Q4H PRN IV PAIN Last administered on 21:59; Admin Dose 2 MG; Start 05/19/17 at 16:30 Acetaminophen/ Hydrocodone Bitart ([place] (5/325)) 1 tab Q4H PRN PO PAIN Last administered on 05/24/17 20:38; Admin Dose 1 TAB; Start 05/19/17 at 16:30 Ondansetron HCl (Zofran Inj) 4 mg Q6H PRN IV NAUSEA AND/OR VOMITING; Start at 16:30 Famotidine (Pepcid) 20 mg DAILY PO Last administered on 05/26/17 09:39; Admin Dose 20 MG; Start 05/20/17 at 12:30 Trimethobenzamide HCl (Tigan) 200 mg Q6H PRN IM NAUSEA AND/OR VOMITING; Start 05/20/17 at 12:30 Enoxaparin Sodium (Lovenox) 40 mg DAILY SC Last administered on 05/26/17 09:49 ; Admin Dose 40 MG; Start 05/20/17 at 13:00; Status Future hold Polyethylene Glycol (Miralax) 17 gm DAILY PO Last administered on 05/26/17 09: 39; Admin Dose 17 GM; Start 05/21/17 at 10:30 Hydroxyzine HCl (Atarax) 50 mg Q6H PRN PO ITCHING Last administered on 03:55; Admin Dose 50 MG; Start 05/21/17 at 10:30 YUE BLACK NP May 26, 2017 15:16
--- NOTE | 2017-05-26 17:44 | PN ---
Date/Time of Note Date/Time of Note DATE: 05/26/17 TIME: 17:27 Assessment/Plan Lines/Catheters IV Catheter Type (from [facility]): Saline Lock [place] in Place (from [facility]): No Assessment/Plan Assessment/Plan [facility] Progress Note Date of Service: 05/26/2017 Place of service: [facility] Today's Assessment & Plan: Overall stable and very slowly improving after placement of plastic stent in the biliary system. Abdomen remains benign. No indication for acute surgical intervention. I had a discussion with Dr. Dalal over the phone and we both agreed that we should follow the patient over the weekend and expedite the plans of obtaining appropriate metallic stents to be hopefully placed in the patient early next week. Since the biopsy results have come back negative, we will also likely have to do a percutaneous biopsy of this region versus repeat attempt at endoscopic biopsy which can be done at the time of placement of metallic stents. Please note that the patient is significantly ill and is not eligible for discharge until her bilirubin level drops significantly and until risk of cholangitis has been adequately managed with in-house care. I explained all of this to the patient and her friend in the room and answered all of their questions. Patient and family appear to understand and agreed with plans. I also discussed the same issues over the phone extensively with the patient's son and answered number of questions. Patient's son appeared to understand and agreed with plans. I also gave the son my phone number so that if there are any further questions, they can ask me at any time. Previous assessment that applies today: A very-pleasant but unfortunate 52-year-old lady without significant other major comorbidities, presenting with a central hilar cholangiocarcinoma which unfortunately involves the first and perhaps even the second order branches of both the left and right biliary systems, not amenable to surgical resection. There is still many interventions that can be done to improve the patient's quality of life as well as perhaps quantity of life. These include stenting of the biliary system, hopefully internally, to allow bile duct obstruction to resolve. They are also available options for local therapy to the liver in the form of transarterial chemoembolization (TACE), possible radioembolization, and potential for systemic chemotherapy. With above assessment, I've recommended the followin. Continue in-house care 2. Continue plans for multidisciplinary tumor board discussion and continue multidisciplinary care 3. Cont. with attempts at internal stenting with metallic stents (much appreciate Dr. Dalal's excellent care) 4. Possible need for percutaneous liver biopsy if repeat attempt at endoscopic biopsy is not possible at the time of metallic stent placement and if tissue diagnosis is still needed 5. Social work and case management to please get involved with the patient and family quickly and review the several possibly present socioeconomic barriers and assist with both inpatient as well as rather involved outpatient management that is needed to treat this disease process 6. Would also benefit from supportive care consultation 7. Much appreciate ongoing involvement of Dr. Parikh from an oncology standpoint Thank you very much for having me involved in the care of this very pleasant patient and wonderful family. If you have any questions, please feel free to contact me at [phone]. Nature of presenting problem: High severity Please note that, given the extensive number of diagnoses or management options , the extensive amount and/or complexity of data needed to be reviewed, and high risk of complications and/or morbidity or mortality, this qualifies as high complexity type of decision-making. Disclaimer: Inadvertent spelling and grammatical errors are likely due to EHR/ dictation software use and do not reflect on the quality of delivered patient care. Also, please note that the electronic time recorded on this node does not necessarily reflect the actual time of the visit. Updated clinical summary: A very-pleasant but unfortunate 52-year-old lady without significant other major comorbidities, presenting with a central hilar cholangiocarcinoma which unfortunately involves the first and perhaps even the second branches of both the left and right biliary systems, not amenable to surgical resection. Comorbidities: 1. BMI 25 2. Status post left breast biopsy 3. 4. Hypercholesterolemia Subjective: No major events or complaints; no major abd pain and under control with medications; no n/v/d; no sob or cp; + flatus; + BM and normal; + activity Objective: Vitals: See below I's & O's: See below Exam: GENERAL: On exam, the patient was lying in bed and appeared to be comfortable and in no acute distress. ABDOMEN: Soft, nontender and nondistended. There are no peritoneal signs or guarding. SKIN: Skin appears to be pink and feels warm to touch. NEUROLOGIC: Patient is awake, alert, and follows commands appropriately. Labs: See below Exam/Review of Systems Vital Signs Vitals Vital Signs Date Time Temp Pulse Resp B/P Pulse Ox O2 Delivery O2 Flow Rate FiO2 05/26/17 14:00 97.9 92 16 125/65 95 05/25/17 08:47 Room Air Results Result Diagram: 05/25/17 0505 05/26/17 0512 ABBY ROMAN M.D. May 26, 2017 17:43
[2017-05-26 20:44] VITALS: BP 139/85; RESP 18
[2017-05-26 20:55] VITALS: PULSE 89
--- NOTE | 2017-05-26 23:34 | CONS ---
Date/Time of Note Date/Time of Note DATE: 05/26/17 TIME: 23:34 Assessment/Plan Assessment/Plan Chief Complaint/Hosp Course PAINLESS JAUNDICE ASSOCIATED WITH Liver mass with enlarged lymph nodes, suspicious for malignancy R/O NEOPLASIA pancreas protocol triple phase CT scan of the abdomen and pelvis WITH CONTRAST - Poorly defined hypovascular mass occupying the left medial lobe of the liver and caudate lobe with upstream severe left greater intrahepatic bile duct dilatation, highly suspicious for cholangiocarcinoma. Filling defect identified in intrahepatic portal vein, concerning for tumor thrombus. Metastatic retroperitoneal lymphadenopathy. CA 19-9- 1930 AFP- P coag N, HEPATITIS PANEL- NEG GI EVAL- ERCP plus Spyglass cholangioscopy with targeted biopsies and possible stent placement. Post balloon dilatation, Cholangioscopy with evidence of neoplastic infiltration consistent with cholangiocarcinoma multiple direct targeted biopsies obtained Post placement of a [place] 10 x 9 cm stent with adequate drainage PATH -P Abnormal liver enzymes, jaundice- 2 TO ABOVE DYSLIPIDEMIA Problems: Consultation Date/Type/Reason Admit Date/Time May 19, 2017 at 04:18 Initial Consult Date 05/19/17 Type of Consultation: [facility] Referring Provider: HERMAN MCNULTY 24 HR Interval Summary Free Text/Dictation ALL NOTED Exam/Review of Systems Vital Signs Vitals Vital Signs Date Time Temp Pulse Resp B/P Pulse Ox O2 Delivery O2 Flow Rate FiO2 05/26/17 20:44 98.6 117 18 139/85 99 05/25/17 08:47 Room Air Exam Const: No acute distress.+ Jaundice Head: Atraumatic. Eyes: Icteric Conjunctiva. ENT: Normal External Ears, Nose and Mouth. Neck: Full range of motion. No meningismus. Resp: Clear to auscultation bilaterally. Cardio: Regular rate and rhythm. Abd: Soft, non distended, normal bowel sounds, Diffuse abdominal tenderness, more tenderness at the right upper quadrant Skin: No petechiae or rashes. Back: No midline or flank tenderness. Ext: No cyanosis, or edema. Neur: Awake and alert. No focal deficit Psych: Normal Mood and Affect. NO PATH LN- ERIC Results Result Diagram: 05/25/17 0505 05/26/17 0512 Results 24 hrs Laboratory Tests Test 05/26/17 05:12 Sodium Level 137 Potassium Level 3.6 Chloride Level 104 Carbon Dioxide Level 28 Anion Gap 9 Blood Urea Nitrogen 9 Creatinine 0.60 Glucose Level 83 Calcium Level 8.9 Total Bilirubin 16.6 H Direct Bilirubin 14.40 H Indirect Bilirubin 2.2 H Aspartate Amino Transf (AST/SGOT) 50 H Alanine Aminotransferase (ALT/SGPT) 53 Alkaline Phosphatase 677 H Total Protein 6.8 Albumin 3.2 L Globulin 3.60 H Albumin/Globulin Ratio 0.88 Medications Medications Current Medications Diphenhydramine HCl (Benadryl) 25 mg Q6H PRN PO ITCHING; Start 05/19/17 at 16: 30 Morphine Sulfate (morphine) 2 mg Q4H PRN IV PAIN Last administered on 21:59; Admin Dose 2 MG; Start 05/19/17 at 16:30 Acetaminophen/ Hydrocodone Bitart ([place] (5/325)) 1 tab Q4H PRN PO PAIN Last administered on 05/24/17 20:38; Admin Dose 1 TAB; Start 05/19/17 at 16:30 Ondansetron HCl (Zofran Inj) 4 mg Q6H PRN IV NAUSEA AND/OR VOMITING; Start at 16:30 Famotidine (Pepcid) 20 mg DAILY PO Last administered on 05/26/17 09:39; Admin Dose 20 MG; Start 05/20/17 at 12:30 Trimethobenzamide HCl (Tigan) 200 mg Q6H PRN IM NAUSEA AND/OR VOMITING; Start 05/20/17 at 12:30 Enoxaparin Sodium (Lovenox) 40 mg DAILY SC Last administered on 05/26/17 09:49 ; Admin Dose 40 MG; Start 05/20/17 at 13:00; Status Future hold Polyethylene Glycol (Miralax) 17 gm DAILY PO Last administered on 05/26/17 09: 39; Admin Dose 17 GM; Start 05/21/17 at 10:30 Hydroxyzine HCl (Atarax) 50 mg Q6H PRN PO ITCHING Last administered on 19:32; Admin Dose 50 MG; Start 05/21/17 at 10:30 SONA WEEKS MD May 26, 2017 23:34
[2017-05-27 01:17] VITALS: BP 103/56; RESP 18
[2017-05-27] MEDS: hydrOXYzine HCL 25 MG TAB PO PRN ×4 (01:29→20:26)
[2017-05-27 06:18] LABS: ALBUMIN 3.4 g/dl (3.3-4.9); ALBUMIN/GLOBULIN RATIO 0.85; BILIRUBIN,DIRECT 13.7 mg/dl (0.00-0.20); BILIRUBIN,INDIRECT 2.2 mg/dl (0-1.1); BILIRUBIN,TOTAL 15.9 mg/dl (0.2-1.3); CALCIUM 8.8 mg/dl (8.4-10.2); CREATININE 0.55 mg/dl (0.44-1.00); POTASSIUM 3.9 mmol/L (3.5-5.1); TOTAL PROTEIN 7.4 g/dl (6.1-8.1)
[2017-05-27 08:27] VITALS: BP 109/57; RESP 18
[2017-05-27] MEDS: FAMOTIDINE 20 MG TAB PO SCH (08:58)
[2017-05-27] MEDS: POLYETHYLENE GLYCOL 17 GM PACKET PO SCH (08:58)
[2017-05-27] MEDS: ENOXAPARIN 40 MG/0.4 ML SYG SC SCH (09:18)
--- NOTE | 2017-05-27 12:14 | PN ---
Date/Time of Note Date/Time of Note DATE: 05/27/17 TIME: 12:14 Assessment/Plan VTE Prophylaxis VTE Prophylaxis Intervention: SCD's Lines/Catheters IV Catheter Type (from [facility]): Saline Lock Urinary Cath still in place: No Assessment/Plan Chief Complaint/Hosp Course Assessment: * Obstructive jaundice * Cholangiocarcinoma by cholangioscopy however path negative Plan: * Liver biopsy Subjective: Course reviewed with nursing staff Patient interviewed and examined All labs, imaging and other results reviewed The patient appears comfortable and reports minimal discomfort Awaiting liver biopsy, once malignancy proven will proceed with Wallstent Exam: General: well developed, well nourished, alert and oriented x3 , in no acute distress Skin: Jaundiced. No lesions, no stigmata chronic liver disease, no evidence of bleeding diathesis Lymphatic: No palpable lymphadenopathy HEENT: No lesions Cardiovascular: Heart: Regular rate and rhhthm, no murmurs, gallops or rubs. Peripheral pulses present within normal limits, no cyanosis, clubbing or edemas. No pulsatile abdominal mass Respiratory: Lungs clear to auscultation and percussion, no wheezing, no rubs Gastrointestinal and Liver: Abdomen: Soft, mild epigastric tenderness, non- distended, no hernias, no masses, thyromegaly, no ascites, no guarding, no rebound tenderness, normoactive bowel sounds. Extremities: No cyanosis, clubbing, or edema. Diagnostic Studies: Available data and images were reviewed personally. See reports. Significant results and findings are addressed here or in the assessment and plan. Problems: Exam/Review of Systems Vital Signs Vitals Vital Signs Date Time Temp Pulse Resp B/P Pulse Ox O2 Delivery O2 Flow Rate FiO2 05/27/17 08:27 97.3 92 18 109/57 96 05/25/17 08:47 Room Air Intake and Output 05/26/17 05/26/17 05/27/17 15:00 23:00 07:00 Intake Total 1640 ml 100 ml Balance 1640 ml 100 ml Results Result Diagram: 05/25/17 0505 05/27/17 0457 Results 24 hrs Laboratory Tests Test 05/27/17 04:57 Sodium Level 138 Potassium Level 3.9 Chloride Level 105 Carbon Dioxide Level 26 Anion Gap 11 Blood Urea Nitrogen 9 Creatinine 0.55 Glucose Level 99 Calcium Level 8.8 Total Bilirubin 15.9 H Direct Bilirubin 13.70 H Indirect Bilirubin 2.2 H Aspartate Amino Transf (AST/SGOT) 48 H Alanine Aminotransferase (ALT/SGPT) 50 Alkaline Phosphatase 684 H Total Protein 7.4 Albumin 3.4 Globulin 4.00 H Albumin/Globulin Ratio 0.85 Medications Medications Current Medications Diphenhydramine HCl (Benadryl) 25 mg Q6H PRN PO ITCHING; Start 05/19/17 at 16: 30 Morphine Sulfate (morphine) 2 mg Q4H PRN IV PAIN Last administered on 21:59; Admin Dose 2 MG; Start 05/19/17 at 16:30 Acetaminophen/ Hydrocodone Bitart ([place] (5/325)) 1 tab Q4H PRN PO PAIN Last administered on 05/24/17 20:38; Admin Dose 1 TAB; Start 05/19/17 at 16:30 Ondansetron HCl (Zofran Inj) 4 mg Q6H PRN IV NAUSEA AND/OR VOMITING; Start at 16:30 Famotidine (Pepcid) 20 mg DAILY PO Last administered on 05/27/17 08:58; Admin Dose 20 MG; Start 05/20/17 at 12:30 Trimethobenzamide HCl (Tigan) 200 mg Q6H PRN IM NAUSEA AND/OR VOMITING; Start 05/20/17 at 12:30 Enoxaparin Sodium (Lovenox) 40 mg DAILY SC Last administered on 05/27/17 09:18 ; Admin Dose 40 MG; Start 05/20/17 at 13:00; Status Future hold Polyethylene Glycol (Miralax) 17 gm DAILY PO Last administered on 05/27/17 08: 58; Admin Dose 17 GM; Start 05/21/17 at 10:30 Hydroxyzine HCl (Atarax) 50 mg Q6H PRN PO ITCHING Last administered on 07:21; Admin Dose 50 MG; Start 05/21/17 at 10:30 Docusate Sodium (Colace) 100 mg BID PO ; Start 05/27/17 at 12:30; Status UNV RODERICK JACKSON MD May 27, 2017 12:14 RODERICK JACKSON MD May 27, 2017 12:14
[2017-05-27] MEDS: DOCUSATE SODIUM 100 MG CAP PO SCH ×2 (13:23→20:26)
--- NOTE | 2017-05-27 15:02 | PN ---
Date/Time of Note Date/Time of Note DATE: 05/27/17 TIME: 14:58 Assessment/Plan VTE Prophylaxis VTE Prophylaxis Intervention: LMWH Lines/Catheters IV C[facility] Type (from [facility] [place] Urinary Cath still in place: No Assessment/Plan Assessment/Plan 1. Liver mass with enlarged lymph nodes, suspicious for malignancy/metastasis - GI on board and recommendations appreciated. Plans for ERCP plus Spyglass cholangioscopy with targeted biopsies and possible stent placement. - CA-19-9 is also greater than 9000, biopsy through ERCP shows no malignancy - Heme/Onc on board and recommendations appreciated - pancreas protocol triple phase CT scan of the abdomen and pelvis WITH CONTRAST - Poorly defined hypovascular mass occupying the left medial lobe of the liver and caudate lobe with upstream severe left greater intrahepatic bile duct dilatation, highly suspicious for cholangiocarcinoma. Filling defect identified in intrahepatic portal vein, concerning for tumor thrombus. Metastatic retroperitoneal lymphadenopathy. 2. Obstructive jaundice, s/p ERCP and stent placement and biopsy on 05/23/2017. - Patient has persistent jaundice - plans for ERCP with spyglass cholangioscopy 3. Generalized itching - improving Subjective 24 Hr Interval Summary Free Text/Dictation Patient states she is doing well but is c/o no BM for the past 2 days. She has been eating well and denies any nausea, vomiting, abdominal discomfort, chest pain, or shortness of breath. Exam/Review of Systems Vital Signs Vitals Vital Signs Date Time Temp Pulse Resp B/P Pulse Ox O2 Delivery O2 Flow Rate FiO2 05/27/17 08:27 97.3 92 18 109/57 96 05/25/17 08:47 Room Air Intake and Output 05/26/17 05/26/17 05/27/17 15:00 23:00 07:00 Intake Total 1640 ml 100 ml Balance 1640 ml 100 ml Exam General: NAD, awake and alert Skin: Jaundiced. No lesions, no evidence of petechiae HEENT: No lesions, scleral icterus CVS: Regular rate and rhythm, no murmurs, gallops or rubs. Lungs: Clear to auscultation, no wheezing, no rubs Abdomen: Soft, mild epigastric tenderness, non-distended, no masses, no ascites , no guarding, no rebound tenderness, normoactive bowel sounds. Extremities: No cyanosis, clubbing, or edema. Results Result Diagram: 05/25/17 0505 05/27/17 0457 Results 24 hrs Laboratory Tests Test 05/27/17 04:57 Sodium Level 138 Potassium Level 3.9 Chloride Level 105 Carbon Dioxide Level 26 Anion Gap 11 Blood Urea Nitrogen 9 Creatinine 0.55 Glucose Level 99 Calcium Level 8.8 Total Bilirubin 15.9 H Direct Bilirubin 13.70 H Indirect Bilirubin 2.2 H Aspartate Amino Transf (AST/SGOT) 48 H Alanine Aminotransferase (ALT/SGPT) 50 Alkaline Phosphatase 684 H Total Protein 7.4 Albumin 3.4 Globulin 4.00 H Albumin/Globulin Ratio 0.85 Medications Medications Current Medications Diphenhydramine HCl (Benadryl) 25 mg Q6H PRN PO ITCHING; Start 05/19/17 at 16: 30 Morphine Sulfate (morphine) 2 mg Q4H PRN IV PAIN Last administered on 21:59; Admin Dose 2 MG; Start 05/19/17 at 16:30 Acetaminophen/ Hydrocodone Bitart ([place] (5/325)) 1 tab Q4H PRN PO PAIN Last administered on 05/24/17 20:38; Admin Dose 1 TAB; Start 05/19/17 at 16:30 Ondansetron HCl (Zofran Inj) 4 mg Q6H PRN IV NAUSEA AND/OR VOMITING; Start at 16:30 Famotidine (Pepcid) 20 mg DAILY PO Last administered on 05/27/17 08:58; Admin Dose 20 MG; Start 05/20/17 at 12:30 Trimethobenzamide HCl (Tigan) 200 mg Q6H PRN IM NAUSEA AND/OR VOMITING; Start 05/20/17 at 12:30 Enoxaparin Sodium (Lovenox) 40 mg DAILY SC Last administered on 05/27/17 09:18 ; Admin Dose 40 MG; Start 05/20/17 at 13:00; Status Future hold Polyethylene Glycol (Miralax) 17 gm DAILY PO Last administered on 05/27/17 08: 58; Admin Dose 17 GM; Start 05/21/17 at 10:30 Hydroxyzine HCl (Atarax) 50 mg Q6H PRN PO ITCHING Last administered on 14:24; Admin Dose 50 MG; Start 05/21/17 at 10:30 Docusate Sodium (Colace) 100 mg BID PO Last administered on 05/27/17t 13:23; Admin Dose 100 MG; Start 05/27/17 at 12:30 BOO RUSSELL MD May 27, 2017 15:02
[2017-05-27 15:25] VITALS: BP 117/56; RESP 18
--- NOTE | 2017-05-27 19:02 | CONS ---
Date/Time of Note Date/Time of Note DATE: 05/27/17 TIME: 19:02 Assessment/Plan Assessment/Plan Chief Complaint/Hosp Course PAINLESS JAUNDICE ASSOCIATED WITH Liver mass with enlarged lymph nodes, suspicious for malignancy R/O NEOPLASIA pancreas protocol triple phase CT scan of the abdomen and pelvis WITH CONTRAST - Poorly defined hypovascular mass occupying the left medial lobe of the liver and caudate lobe with upstream severe left greater intrahepatic bile duct dilatation, highly suspicious for cholangiocarcinoma. Filling defect identified in intrahepatic portal vein, concerning for tumor thrombus. Metastatic retroperitoneal lymphadenopathy. CA 19-9- 1930 AFP- P coag N, HEPATITIS PANEL- NEG GI EVAL- ERCP plus Spyglass cholangioscopy with targeted biopsies and possible stent placement. Post balloon dilatation, Cholangioscopy with evidence of neoplastic infiltration consistent with cholangiocarcinoma multiple direct targeted biopsies obtained Post placement of a Tamazight 10 x 9 cm stent with adequate drainage PATH -Biliary bifurcation, biopsy: Minute fragment of ductal mucosa showing crush artifact. No evidence of dysplasia or malignancy. PLAN- LIVER BX Abnormal liver enzymes, jaundice- 2 TO ABOVE DYSLIPIDEMIA Problems: Consultation Date/Type/Reason Admit Date/Time May 19, 2017 at 04:18 Initial Consult Date 05/19/17 Type of Consultation: [facility] Referring Provider: HERMAN MCNULTY 24 HR Interval Summary Free Text/Dictation ALL NOTED PATH - NEG Exam/Review of Systems Vital Signs Vitals Vital Signs Date Time Temp Pulse Resp B/P Pulse Ox O2 Delivery O2 Flow Rate FiO2 05/27/17 15:25 98.7 88 18 117/56 96 05/25/17 08:47 Room Air Intake and Output 05/26/17 05/26/17 05/27/17 15:00 23:00 07:00 Intake Total 1640 ml 100 ml Balance 1640 ml 100 ml Exam Const: No acute distress.+ Jaundice Head: Atraumatic. Eyes: Icteric Conjunctiva. ENT: Normal External Ears, Nose and Mouth. Neck: Full range of motion. No meningismus. Resp: Clear to auscultation bilaterally. Cardio: Regular rate and rhythm. Abd: Soft, non distended, normal bowel sounds, Diffuse abdominal tenderness, more tenderness at the right upper quadrant Skin: No petechiae or rashes. Back: No midline or flank tenderness. Ext: No cyanosis, or edema. Neur: Awake and alert. No focal deficit Psych: Normal Mood and Affect. NO PATH LN- ERIC Results Result Diagram: 05/25/17 0505 05/27/17 0457 Results 24 hrs Laboratory Tests Test 05/27/17 04:57 Sodium Level 138 Potassium Level 3.9 Chloride Level 105 Carbon Dioxide Level 26 Anion Gap 11 Blood Urea Nitrogen 9 Creatinine 0.55 Glucose Level 99 Calcium Level 8.8 Total Bilirubin 15.9 H Direct Bilirubin 13.70 H Indirect Bilirubin 2.2 H Aspartate Amino Transf (AST/SGOT) 48 H Alanine Aminotransferase (ALT/SGPT) 50 Alkaline Phosphatase 684 H Total Protein 7.4 Albumin 3.4 Globulin 4.00 H Albumin/Globulin Ratio 0.85 Medications Medications Current Medications Diphenhydramine HCl (Benadryl) 25 mg Q6H PRN PO ITCHING; Start 05/19/17 at 16: 30 Morphine Sulfate (morphine) 2 mg Q4H PRN IV PAIN Last administered on 21:59; Admin Dose 2 MG; Start 05/19/17 at 16:30 Acetaminophen/ Hydrocodone Bitart ([place] (5/325)) 1 tab Q4H PRN PO PAIN Last administered on 05/24/17 20:38; Admin Dose 1 TAB; Start 05/19/17 at 16:30 Ondansetron HCl (Zofran Inj) 4 mg Q6H PRN IV NAUSEA AND/OR VOMITING; Start at 16:30 Famotidine (Pepcid) 20 mg DAILY PO Last administered on 05/27/17 08:58; Admin Dose 20 MG; Start 05/20/17 at 12:30 Trimethobenzamide HCl (Tigan) 200 mg Q6H PRN IM NAUSEA AND/OR VOMITING; Start 05/20/17 at 12:30 Enoxaparin Sodium (Lovenox) 40 mg DAILY SC Last administered on 05/27/17 09:18 ; Admin Dose 40 MG; Start 05/20/17 at 13:00; Status Future hold Polyethylene Glycol (Miralax) 17 gm DAILY PO Last administered on 05/27/17 08: 58; Admin Dose 17 GM; Start 05/21/17 at 10:30 Hydroxyzine HCl (Atarax) 50 mg Q6H PRN PO ITCHING Last administered on 14:24; Admin Dose 50 MG; Start 05/21/17 at 10:30 Docusate Sodium (Colace) 100 mg BID PO Last administered on 05/27/17t 13:23; Admin Dose 100 MG; Start 05/27/17 at 12:30 Procedures Procedures [facility] a [facility]-profit [facility] [address] [place] [address] ; Lab No: [id number] Date: 05/23/2017 SPECIMEN: Biliary bifurcation biopsy CLINICAL: Biliary obstruction; rule out cholangiocarcinoma GROSS EXAMINATION: Received in formalin are two minute fragments of zhao-goetz soft tissue that are each less than 0.1 cm in greatest dimension. Totally submitted in one cassette. MICROSCOPIC DIAGNOSIS: Biliary bifurcation, biopsy: -- Minute fragment of ductal mucosa showing crush artifact. -- No evidence of dysplasia or malignancy. MP/DARWIN/vinita/nickie Date of Service: 05/23/17; Date Received: 05/24/17 Dictated: 05/25/17; Transcribed: 05/25/17; Sent by Fax: 05/25/17 Jesi Pina M.D. Pathologist Electronically Signed 05/25/2017 GAYE WILKS M.D. 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
[2017-05-27 19:25] VITALS: BP 110/67; PULSE 88; RESP 17
[2017-05-28 02:00] VITALS: BP 111/54; PULSE 83; RESP 18
[2017-05-28] MEDS: hydrOXYzine HCL 25 MG TAB PO PRN ×4 (02:43→21:27)
[2017-05-28 06:22] LABS: BASOPHILS % 0.3 % (0.0-2.0); EOSINOPHILS # 0.2 10^3/ul (0.0-0.5); EOSINOPHILS % 2.4 % (0.0-7.0); HEMATOCRIT 35.8 % (37.0-47.0); HEMOGLOBIN 12.3 g/dl (12.0-16.0); LYMPHOCYTES # 1.7 10^3/ul (0.8-2.9); LYMPHOCYTES % 18.6 % (15.0-51.0); MEAN CORPUSCULAR HEMOGLOBIN 28.9 pg (29.0-33.0); MEAN CORPUSCULAR HGB CONC 34.4 g/dl (32.0-37.0); MEAN PLATELET VOLUME 11.6 fl (7.4-10.4); NEUTROPHIL # 6.1 10^3/ul (1.6-7.5); NEUTROPHILS % 67.1 % (39.0-77.0); PLATELET COUNT 306 10^3/UL (140-415); RED BLOOD COUNT 4.26 10^6/ul (4.20-5.40); RED CELL DISTRIBUTION WIDTH 17.7 % (11.5-14.5); WHITE BLOOD COUNT 9.1 10^3/ul (4.8-10.8)
[2017-05-28 06:57] LABS: ALBUMIN 3.3 g/dl (3.3-4.9); ALBUMIN/GLOBULIN RATIO 0.84; BILIRUBIN,INDIRECT 2.1 mg/dl (0-1.1); BILIRUBIN,TOTAL 15.1 mg/dl (0.2-1.3); CALCIUM 8.7 mg/dl (8.4-10.2); CREATININE 0.62 mg/dl (0.44-1.00); MAGNESIUM 2.1 mg/dl (1.7-2.5); POTASSIUM 3.5 mmol/L (3.5-5.1); TOTAL PROTEIN 7.2 g/dl (6.1-8.1)
[2017-05-28 07:58] VITALS: BP 106/72; RESP 18
[2017-05-28] MEDS: DOCUSATE SODIUM 100 MG CAP PO SCH ×2 (08:57→21:27)
[2017-05-28] MEDS: POLYETHYLENE GLYCOL 17 GM PACKET PO SCH (08:57)
[2017-05-28] MEDS: FAMOTIDINE 20 MG TAB PO SCH (08:57)
[2017-05-28] MEDS: ENOXAPARIN 40 MG/0.4 ML SYG SC SCH (09:12)
--- NOTE | 2017-05-28 12:28 | PN ---
Date/Time of Note Date/Time of Note DATE: 05/28/17 TIME: 12:24 Assessment/Plan VTE Prophylaxis VTE Prophylaxis Intervention: LMWH Lines/Catheters [facility] Peripheral IV Urinary Cath still in place: No Assessment/Plan Assessment/Plan 1. Liver mass with enlarged lymph nodes, suspicious for malignancy/metastasis - GI on board and recommendations appreciated. Plans for ERCP plus Spyglass cholangioscopy with targeted biopsies and possible stent placement as per GI, procedure explained to patient in details - CA-19-9 is also greater than 9000, biopsy though ERCP shows no malignancy - Heme/Onc on board and recommendations appreciated - pancreas protocol triple phase CT scan of the abdomen and pelvis WITH CONTRAST - Poorly defined hypovascular mass occupying the left medial lobe of the liver and caudate lobe with upstream severe left greater intrahepatic bile duct dilatation, highly suspicious for cholangiocarcinoma. Filling defect identified in intrahepatic portal vein, concerning for tumor thrombus. Metastatic retroperitoneal lymphadenopathy. 2. Obstructive jaundice, s/p ERCP and stent placement and biopsy on 05/23/2017. - Patient has persistent jaundice - plans for ERCP with spyglass cholangioscopy per GI - in plan for tomorrow 3. Generalized itching - improving Lovenox for DVT prophylaxis Subjective 24 Hr Interval Summary Free Text/Dictation no acute events, plan for ERCP plus Spyglass cholangioscopy with targeted biopsies and possible stent placement. Constitutional: no complaints Eyes: no complaints ENT: no complaints Respiratory: no complaints Cardiovascular: no complaints Gastrointestinal: nausea, pain Genitourinary: no complaints Musculoskeletal: no complaints Skin: no complaints Neurologic: no complaints Endocrine: no complaints Lymphatic: no complaints Psychological: no complaints Immunologic: no complaints Exam/Review of Systems Vital Signs Vitals Vital Signs Date Time Temp Pulse Resp B/P Pulse Ox O2 Delivery O2 Flow Rate FiO2 05/28/17 07:58 98.3 82 18 106/72 97 05/28/17 02:00 Room Air Intake and Output 05/27/17 05/27/17 05/28/17 15:00 23:00 07:00 Intake Total 1400 ml Balance 1400 ml Exam Constitutional: alert Psych: no complaints ENMT: nl external ears & nose Neck: non-tender, supple Respiratory: clear to auscultation, diminished breath sounds, normal air movement Cardiovascular: nl pulses, regular rate and rhythm Gastrointestinal: bowel sounds (present), soft, tender Musculoskeletal: muscle tone, muscle weakness, nl extremities to inspection, nl gait and stance Extremities: normal pulses Neurological: LUMBER TRIPPER II-XII intact, nl mental status, nl speech, nl strength Results Result Diagram: 05/28/1736 05/28/17 0536 Results 24 hrs Laboratory Tests Test 05/28/17 05:36 White Blood Count 9.1 Red Blood Count 4.26 Hemoglobin 12.3 Hematocrit 35.8 L Mean Corpuscular Volume 84.0 Mean Corpuscular Hemoglobin 28.9 L Mean Corpuscular Hemoglobin Concent 34.4 Red Cell Distribution Width 17.7 H Platelet Count 306 Mean Platelet Volume 11.6 H Neutrophils % 67.1 Lymphocytes % 18.6 Monocytes % 11.0 Eosinophils % 2.4 Basophils % 0.3 Nucleated Red Blood Cells % 0.0 Neutrophils # 6.1 Lymphocytes # 1.7 Monocytes # 1.0 H Eosinophils # 0.2 Basophils # 0.0 Nucleated Red Blood Cells # 0.0 Sodium Level 140 Potassium Level 3.5 Chloride Level 106 Carbon Dioxide Level 26 Anion Gap 12 Blood Urea Nitrogen 8 Creatinine 0.62 Glucose Level 109 Calcium Level 8.7 Magnesium Level 2.1 Total Bilirubin 15.1 H Direct Bilirubin 13.00 H Indirect Bilirubin 2.1 H Aspartate Amino Transf (AST/SGOT) 41 Alanine Aminotransferase (ALT/SGPT) 52 Alkaline Phosphatase 657 H Total Protein 7.2 Albumin 3.3 Globulin 3.90 H Albumin/Globulin Ratio 0.84 Medications Medications Current Medications Diphenhydramine HCl (Benadryl) 25 mg Q6H PRN PO ITCHING; Start 05/19/17 at 16: 30 Morphine Sulfate (morphine) 2 mg Q4H PRN IV PAIN Last administered on 21:59; Admin Dose 2 MG; Start 05/19/17 at 16:30 Acetaminophen/ Hydrocodone Bitart ([place] (5/325)) 1 tab Q4H PRN PO PAIN Last administered on 05/24/17 20:38; Admin Dose 1 TAB; Start 05/19/17 at 16:30 Ondansetron HCl (Zofran Inj) 4 mg Q6H PRN IV NAUSEA AND/OR VOMITING; Start at 16:30 Famotidine (Pepcid) 20 mg DAILY PO Last administered on 05/28/17 08:57; Admin Dose 20 MG; Start 05/20/17 at 12:30 Trimethobenzamide HCl (Tigan) 200 mg Q6H PRN IM NAUSEA AND/OR VOMITING; Start 05/20/17 at 12:30 Enoxaparin Sodium (Lovenox) 40 mg DAILY SC Last administered on 05/28/17 09:12 ; Admin Dose 40 MG; Start 05/20/17 at 13:00; Status Future hold Polyethylene Glycol (Miralax) 17 gm DAILY PO Last administered on 05/28/17 08: 57; Admin Dose 17 GM; Start 05/21/17 at 10:30 Hydroxyzine HCl (Atarax) 50 mg Q6H PRN PO ITCHING Last administered on 08:57; Admin Dose 50 MG; Start 05/21/17 at 10:30 Docusate Sodium (Colace) 100 mg BID PO Last administered on 05/28/17 08:57; Admin Dose 100 MG; Start 05/27/17 at 12:30 JEN GONZALEZ MD May 28, 2017 12:28
--- NOTE | 2017-05-28 14:19 | PN ---
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 No lesions, no stigmata chronic liver disease, no evidence of bleeding diathesis Lymphatic: No palpable lymphadenopathy HEENT: No lesions Cardiovascular: Heart: Regular rate and rhhthm, no murmurs, gallops or rubs. Peripheral pulses present within normal limits, no cyanosis, clubbing or edemas. No pulsatile abdominal mass Respiratory: Lungs clear to auscultation and percussion, no wheezing, no rubs Gastrointestinal and Liver: Abdomen: Soft, mild epigastric tenderness, non- distended, no hernias, no masses, thyromegaly, no ascites, no guarding, no rebound tenderness, normoactive bowel sounds. Extremities: No cyanosis, clubbing, or edema. Diagnostic Studies: Available data and images were reviewed personally. See reports. Significant results and findings are addressed here or in the assessment and plan. Problems: Exam/Review of Systems Vital Signs Vitals Vital Signs Date Time Temp Pulse Resp B/P Pulse Ox O2 Delivery O2 Flow Rate FiO2 05/28/17 07:58 98.3 82 18 106/72 97 05/28/17 02:00 Room Air Intake and Output 05/27/17 05/27/17 05/28/17 15:00 23:00 07:00 Intake Total 1400 ml Balance 1400 ml Results Result Diagram: 05/28/17 0536 05/28/17 0536 Results 24 hrs Laboratory Tests Test 05/28/17 05:36 White Blood Count 9.1 Red Blood Count 4.26 Hemoglobin 12.3 Hematocrit 35.8 L Mean Corpuscular Volume 84.0 Mean Corpuscular Hemoglobin 28.9 L Mean Corpuscular Hemoglobin Concent 34.4 Red Cell Distribution Width 17.7 H Platelet Count 306 Mean Platelet Volume 11.6 H Neutrophils % 67.1 Lymphocytes % 18.6 Monocytes % 11.0 Eosinophils % 2.4 Basophils % 0.3 Nucleated Red Blood Cells % 0.0 Neutrophils # 6.1 Lymphocytes # 1.7 Monocytes # 1.0 H Eosinophils # 0.2 Basophils # 0.0 Nucleated Red Blood Cells # 0.0 Sodium Level 140 Potassium Level 3.5 Chloride Level 106 Carbon Dioxide Level 26 Anion Gap 12 Blood Urea Nitrogen 8 Creatinine 0.62 Glucose Level 109 Calcium Level 8.7 Magnesium Level 2.1 Total Bilirubin 15.1 H Direct Bilirubin 13.00 H Indirect Bilirubin 2.1 H Aspartate Amino Transf (AST/SGOT) 41 Alanine Aminotransferase (ALT/SGPT) 52 Alkaline Phosphatase 657 H Total Protein 7.2 Albumin 3.3 Globulin 3.90 H Albumin/Globulin Ratio 0.84 Medications Medications Current Medications Diphenhydramine HCl (Benadryl) 25 mg Q6H PRN PO ITCHING; Start 05/19/17 at 16: 30 Morphine Sulfate (morphine) 2 mg Q4H PRN IV PAIN Last administered on 21:59; Admin Dose 2 MG; Start 05/19/17 at 16:30 Acetaminophen/ Hydrocodone Bitart ([place] (5/325)) 1 tab Q4H PRN PO PAIN Last administered on 05/24/17 20:38; Admin Dose 1 TAB; Start 05/19/17 at 16:30 Ondansetron HCl (Zofran Inj) 4 mg Q6H PRN IV NAUSEA AND/OR VOMITING; Start at 16:30 Famotidine (Pepcid) 20 mg DAILY PO Last administered on 05/28/17 08:57; Admin Dose 20 MG; Start 05/20/17 at 12:30 Trimethobenzamide HCl (Tigan) 200 mg Q6H PRN IM NAUSEA AND/OR VOMITING; Start 05/20/17 at 12:30 Enoxaparin Sodium (Lovenox) 40 mg DAILY SC Last administered on 05/28/17 09:12 ; Admin Dose 40 MG; Start 05/20/17 at 13:00; Status Future hold Polyethylene Glycol (Miralax) 17 gm DAILY PO Last administered on 05/28/17 08: 57; Admin Dose 17 GM; Start 05/21/17 at 10:30 Hydroxyzine HCl (Atarax) 50 mg Q6H PRN PO ITCHING Last administered on 08:57; Admin Dose 50 MG; Start 05/21/17 at 10:30 Docusate Sodium (Colace) 100 mg BID PO Last administered on 05/28/17 08:57; Admin Dose 100 MG; Start 05/27/17 at 12:30 RODERICK JACKSON MD May 28, 2017 14:19
[2017-05-28 14:50] VITALS: BP 112/66; RESP 18
--- NOTE | 2017-05-28 18:26 | CONS ---
Date/Time of Note Date/Time of Note DATE: 05/28/17 TIME: 18:26 Assessment/Plan Assessment/Plan Chief Complaint/Hosp Course PAINLESS JAUNDICE ASSOCIATED WITH Liver mass with enlarged lymph nodes, suspicious for malignancy R/O NEOPLASIA pancreas protocol triple phase CT scan of the abdomen and pelvis WITH CONTRAST - Poorly defined hypovascular mass occupying the left medial lobe of the liver and caudate lobe with upstream severe left greater intrahepatic bile duct dilatation, highly suspicious for cholangiocarcinoma. Filling defect identified in intrahepatic portal vein, concerning for tumor thrombus. Metastatic retroperitoneal lymphadenopathy. CA 19-9- 1930 AFP- P coag N, HEPATITIS PANEL- NEG GI EVAL- ERCP plus Spyglass cholangioscopy with targeted biopsies and possible stent placement. Post balloon dilatation, Cholangioscopy with evidence of neoplastic infiltration consistent with cholangiocarcinoma multiple direct targeted biopsies obtained Post placement of a [place] 10 x 9 cm stent with adequate drainage PATH -Biliary bifurcation, biopsy: Minute fragment of ductal mucosa showing crush artifact. No evidence of dysplasia or malignancy. PLAN- LIVER BX Abnormal liver enzymes, jaundice- 2 TO ABOVE DYSLIPIDEMIA Problems: Consultation Date/Type/Reason Admit Date/Time May 19, 2017 at 04:18 Initial Consult Date 05/19/17 Type of Consultation: [facility] Referring Provider: HERMAN MCNULTY 24 HR Interval Summary Free Text/Dictation ALL NOTED NO NEW EVENTS Exam/Review of Systems Vital Signs Vitals Vital Signs Date Time Temp Pulse Resp B/P Pulse Ox O2 Delivery O2 Flow Rate FiO2 05/28/17 14:50 98.1 94 18 112/66 100 05/28/17 02:00 Room Air Intake and Output 05/27/17 05/27/17 05/28/17 15:00 23:00 07:00 Intake Total 1400 ml Balance 1400 ml Exam Const: No acute distress.+ Jaundice Head: Atraumatic. Eyes: Icteric Conjunctiva. ENT: Normal External Ears, Nose and Mouth. Neck: Full range of motion. No meningismus. Resp: Clear to auscultation bilaterally. Cardio: Regular rate and rhythm. Abd: Soft, non distended, normal bowel sounds, Diffuse abdominal tenderness, more tenderness at the right upper quadrant Skin: No petechiae or rashes. Back: No midline or flank tenderness. Ext: No cyanosis, or edema. Neur: Awake and alert. No focal deficit Psych: Normal Mood and Affect. NO PATH LN- ERIC Results Result Diagram: 05/28/17 0536 05/28/17 0536 Results 24 hrs Laboratory Tests Test 05/28/17 05:36 White Blood Count 9.1 Red Blood Count 4.26 Hemoglobin 12.3 Hematocrit 35.8 L Mean Corpuscular Volume 84.0 Mean Corpuscular Hemoglobin 28.9 L Mean Corpuscular Hemoglobin Concent 34.4 Red Cell Distribution Width 17.7 H Platelet Count 306 Mean Platelet Volume 11.6 H Neutrophils % 67.1 Lymphocytes % 18.6 Monocytes % 11.0 Eosinophils % 2.4 Basophils % 0.3 Nucleated Red Blood Cells % 0.0 Neutrophils # 6.1 Lymphocytes # 1.7 Monocytes # 1.0 H Eosinophils # 0.2 Basophils # 0.0 Nucleated Red Blood Cells # 0.0 Sodium Level 140 Potassium Level 3.5 Chloride Level 106 Carbon Dioxide Level 26 Anion Gap 12 Blood Urea Nitrogen 8 Creatinine 0.62 Glucose Level 109 Calcium Level 8.7 Magnesium Level 2.1 Total Bilirubin 15.1 H Direct Bilirubin 13.00 H Indirect Bilirubin 2.1 H Aspartate Amino Transf (AST/SGOT) 41 Alanine Aminotransferase (ALT/SGPT) 52 Alkaline Phosphatase 657 H Total Protein 7.2 Albumin 3.3 Globulin 3.90 H Albumin/Globulin Ratio 0.84 Medications Medications Current Medications Diphenhydramine HCl (Benadryl) 25 mg Q6H PRN PO ITCHING; Start 05/19/17 at 16: 30 Morphine Sulfate (morphine) 2 mg Q4H PRN IV PAIN Last administered on 21:59; Admin Dose 2 MG; Start 05/19/17 at 16:30 Acetaminophen/ Hydrocodone Bitart ([place] (5/325)) 1 tab Q4H PRN PO PAIN Last administered on 05/24/17 20:38; Admin Dose 1 TAB; Start 05/19/17 at 16:30 Ondansetron HCl (Zofran Inj) 4 mg Q6H PRN IV NAUSEA AND/OR VOMITING; Start at 16:30 Famotidine (Pepcid) 20 mg DAILY PO Last administered on 05/28/17 08:57; Admin Dose 20 MG; Start 05/20/17 at 12:30 Trimethobenzamide HCl (Tigan) 200 mg Q6H PRN IM NAUSEA AND/OR VOMITING; Start 05/20/17 at 12:30 Enoxaparin Sodium (Lovenox) 40 mg DAILY SC Last administered on 05/28/17 09:12 ; Admin Dose 40 MG; Start 05/20/17 at 13:00; Status Future hold Polyethylene Glycol (Miralax) 17 gm DAILY PO Last administered on 05/28/17 08: 57; Admin Dose 17 GM; Start 05/21/17 at 10:30 Hydroxyzine HCl (Atarax) 50 mg Q6H PRN PO ITCHING Last administered on 15:00; Admin Dose 50 MG; Start 05/21/17 at 10:30 Docusate Sodium (Colace) 100 mg BID PO Last administered on 05/28/17 08:57; Admin Dose 100 MG; Start 05/27/17 at 12:30 Cholestyramine Resin (Questran) 1 pkt TID PO ; Start 05/28/17 at 21:00 SONA WEEKS MD May 28, 2017 18:26
[2017-05-28 19:26] VITALS: BP 115/58; RESP 20
[2017-05-28] MEDS: CHOLESTYRAMINE 4 GM PACKET PO SCH (21:27)
[2017-05-29 02:14] VITALS: BP 116/64; RESP 18
[2017-05-29] MEDS: hydrOXYzine HCL 25 MG TAB PO PRN ×4 (02:57→22:18)
[2017-05-29 05:58] LABS: BASOPHILS % 0.3 % (0.0-2.0); EOSINOPHILS # 0.2 10^3/ul (0.0-0.5); EOSINOPHILS % 2.3 % (0.0-7.0); HEMATOCRIT 36.3 % (37.0-47.0); HEMOGLOBIN 12.4 g/dl (12.0-16.0); LYMPHOCYTES # 2.2 10^3/ul (0.8-2.9); LYMPHOCYTES % 24.5 % (15.0-51.0); MEAN CORPUSCULAR HEMOGLOBIN 28.7 pg (29.0-33.0); MEAN CORPUSCULAR HGB CONC 34.2 g/dl (32.0-37.0); MEAN PLATELET VOLUME 11.9 fl (7.4-10.4); MONOCYTE # 0.9 10^3/ul (0.3-0.9); MONOCYTES % 10.1 % (0.0-11.0); NEUTROPHIL # 5.6 10^3/ul (1.6-7.5); NEUTROPHILS % 62.1 % (39.0-77.0); PLATELET COUNT 250 10^3/UL (140-415); RED BLOOD COUNT 4.32 10^6/ul (4.20-5.40); RED CELL DISTRIBUTION WIDTH 17.8 % (11.5-14.5)
[2017-05-29 06:15] LABS: INR 0.89; PT RATIO 0.9
[2017-05-29 06:16] LABS: PARTIAL THROMBOPLASTIN TIME 25.4 Sec (25.0-35.0)
[2017-05-29 06:25] LABS: ALBUMIN 3.2 g/dl (3.3-4.9); ALBUMIN/GLOBULIN RATIO 0.78; BILIRUBIN,DIRECT 10.1 mg/dl (0.00-0.20); BILIRUBIN,TOTAL 12.1 mg/dl (0.2-1.3); CALCIUM 9.4 mg/dl (8.4-10.2); CREATININE 0.64 mg/dl (0.44-1.00); POTASSIUM 3.7 mmol/L (3.5-5.1); TOTAL PROTEIN 7.3 g/dl (6.1-8.1)
[2017-05-29 07:46] VITALS: BP 116/59; RESP 16
[2017-05-29] MEDS: CHOLESTYRAMINE 4 GM PACKET PO SCH ×3 (08:53→20:34)
[2017-05-29] MEDS: DOCUSATE SODIUM 100 MG CAP PO SCH ×2 (08:53→20:34)
[2017-05-29] MEDS: FAMOTIDINE 20 MG TAB PO SCH (08:53)
[2017-05-29] MEDS: POLYETHYLENE GLYCOL 17 GM PACKET PO SCH (08:53)
[2017-05-29] MEDS: ENOXAPARIN 40 MG/0.4 ML SYG SC SCH (09:04)
--- NOTE | 2017-05-29 09:38 | PN ---
Date/Time of Note Date/Time of Note DATE: 05/29/17 TIME: 09:38 Assessment/Plan VTE Prophylaxis VTE Prophylaxis Intervention: ambulation Lines/Catheters IV C[facility] Type (from [facility]): Peripheral IV Urinary Cath still in place: No Assessment/Plan Chief Complaint/Hosp Course 52-year-old female with no significant past medical history, presented with abdominal pain, yellowish eyes dark urine and itching X 6 months duration. 1. 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 Not amenable to surgical resection per [facility]. 05/23/2017: CT Abdomen and Pelvis with and without contrast: Liver Protocol. Poorly defined hypovascular mass occupying the left medial lobe of the liver and caudate lobe with upstream severe left greater intrahepatic bile duct dilatation, highly suspicious for cholangiocarcinoma. Filling defect identified in intrahepatic portal vein, concerning for tumor thrombus. Metastatic retroperitoneal lymphadenopathy. PLAN: -Status post ERCP with plastic stent placed. Biopsy though ERCP shows no malignancy -Plan for ERCP plus Spyglass cholangioscopy with targeted endoscopic biopsies and possible metallic stent placement.If endoscopic biopsy not possible, needs percutaneous liver biopsy. -In regards to CT finding of Filling defect identified in intrahepatic portal vein, concerning for tumor thrombus, following measures will be taken: -Patient with benign abdomen/no symptoms of intestinal infarction. However, a PVT may be clinically silent. Hence, obtain a repeat CT abdomen and pelvis with contrast enhancement to confirm the evidence of possible thrombus and extension of the clot if any. Will consider vascular involvement for anticoagulation if indicated to prevent any extension of the clot and to allow for recannulization to prevent intestinal infarction and portal hypertension. -Obtain 2 sets of blood cultures as there can be chances of septic thrombus although patient is currently asymptomatic. -GI /Heme/Onco/HB surgery on board and recommendations appreciated -Supportive care, consider Palliative care once malignancy is confirmed. 2. Obstructive jaundice with hyperbilirubinemia secondary to #1. -Trending down LFTs and bilirubin. Lovenox for DVT prophylaxis Plan: Patient is being followed up by multiple specialists. Follow-up with consultants recommendations. Patient was seen in collaboration with . Problems: Subjective 24 Hr Interval Summary Free Text/Dictation Patient ambulating in room. Denies any abdominal discomfort. She has been having generalized itching. Exam/Review of Systems Vital Signs Vitals Vital Signs Date Time Temp Pulse Resp B/P Pulse Ox O2 Delivery O2 Flow Rate FiO2 05/29/17 07:46 97.8 81 16 116/59 100 05/28/17 02:00 Room Air Intake and Output 05/28/17 05/28/17 05/29/17 15:00 23:00 07:00 Intake Total 2080 ml 1600 ml Balance 2080 ml 1600 ml Exam General: Well developed,adequately built, not in any acute distress . HEENT: Normocephalic, Atraumatic, No laceration or hematoma; Eyes: PEERL, Icteric sclera Neck: Supple without any lymphadenopathy, nontender, no JVD, no carotid bruits, trachea midline, no thyromegaly Cardiac: S1, S2 auscultated, regular rhythm and rate, no mumurs or gallop Pulmonary: Normal respiratory effort. Chest clear to auscultation bilaterally, no adventitious breath sounds GI: Abdomen normal to inspection. Soft, non tender, non- distended, no masses, no rebound tenderness or guarding. Bowel sounds active on all four quadrants Genitourinary: Deferred Extremities: No cyanosis, clubbing, or edema. Pulses [2+] bilaterally. Full ROM on all four extremities. No focal weakness appreciated. Neurologic: Alert to person, place, time, and situation. Affect appropriate, intact sensation. Skin: +Jaundiced. Clean,dry, and intact. No ecchymosis, no rashes, or lesions Results Result Diagram: 05/29/1752005/29/17520 Results 24 hrs Laboratory Tests Test 05/29/17 05:21 White Blood Count 9.0 Red Blood Count 4.32 Hemoglobin 12.4 Hematocrit 36.3 L Mean Corpuscular Volume 84.0 Mean Corpuscular Hemoglobin 28.7 L Mean Corpuscular Hemoglobin Concent 34.2 Red Cell Distribution Width 17.8 H Platelet Count 250 Mean Platelet Volume 11.9 H Neutrophils % 62.1 Lymphocytes % 24.5 Monocytes % 10.1 Eosinophils % 2.3 Basophils % 0.3 Nucleated Red Blood Cells % 0.0 Neutrophils # 5.6 Lymphocytes # 2.2 Monocytes # 0.9 Eosinophils # 0.2 Basophils # 0.0 Nucleated Red Blood Cells # 0.0 Prothrombin Time 12.0 L Prothrombin Time Ratio 0.9 INR International Normalized Ratio 0.89 Activated Partial Thromboplast Time 25.4 Sodium Level 138 Potassium Level 3.7 Chloride Level 107 Carbon Dioxide Level 26 Anion Gap 9 Blood Urea Nitrogen 9 Creatinine 0.64 Glucose Level 91 Calcium Level 9.4 Total Bilirubin 12.1 H Direct Bilirubin 10.10 H Indirect Bilirubin 2.0 H Aspartate Amino Transf (AST/SGOT) 40 Alanine Aminotransferase (ALT/SGPT) 51 Alkaline Phosphatase 622 H Total Protein 7.3 Albumin 3.2 L Globulin 4.10 H Albumin/Globulin Ratio 0.78 Medications Medications Current Medications Diphenhydramine HCl (Benadryl) 25 mg Q6H PRN PO ITCHING; Start 05/19/17 at 16: 30 Morphine Sulfate (morphine) 2 mg Q4H PRN IV PAIN Last administered on 21:59; Admin Dose 2 MG; Start 05/19/17 at 16:30 Acetaminophen/ Hydrocodone Bitart (Gueydan (5/325)) 1 tab Q4H PRN PO PAIN Last administered on 05/24/17 20:38; Admin Dose 1 TAB; Start 05/19/17 at 16:30 Ondansetron HCl (Zofran Inj) 4 mg Q6H PRN IV NAUSEA AND/OR VOMITING; Start at 16:30 Famotidine (Pepcid) 20 mg DAILY PO Last administered on 05/29/17 08:53; Admin Dose 20 MG; Start 05/20/17 at 12:30 Trimethobenzamide HCl (Tigan) 200 mg Q6H PRN IM NAUSEA AND/OR VOMITING; Start 05/20/17 at 12:30 Enoxaparin Sodium (Lovenox) 40 mg DAILY SC Last administered on 05/29/17 09:04 ; Admin Dose 40 MG; Start 05/20/17 at 13:00; Status Future hold Polyethylene Glycol (Miralax) 17 gm DAILY PO Last administered on 05/29/17 08: 53; Admin Dose 17 GM; Start 05/21/17 at 10:30 Hydroxyzine HCl (Atarax) 50 mg Q6H PRN PO ITCHING Last administered on 08:53; Admin Dose 50 MG; Start 05/21/17 at 10:30 Docusate Sodium (Colace) 100 mg BID PO Last administered on 05/29/17 08:53; Admin Dose 100 MG; Start 05/27/17 at 12:30 Cholestyramine Resin (Questran) 1 pkt TID PO Last administered on 05/29/17t 08: 53; Admin Dose 1 PKT; Start 05/28/17 at 21:00 RUPESH BANEGAS NP May 29, 2017 09:38
[2017-05-29] MEDS ORDERED: SOD CHLORIDE 0.9% 100 ML ONE (10:40)
[2017-05-29] MEDS ORDERED: IOHEXOL 300MG/ML 150 ML BTL ONE (10:40)
[2017-05-29 14:00] VITALS: BP 123/80; RESP 16
--- NOTE | 2017-05-29 15:11 | PN ---
Date/Time of Note Date/Time of Note DATE: 05/29/17 TIME: 14:55 Assessment/Plan Lines/Catheters IV Catheter Type (from [facility]): Peripheral IV Neville in Place (from [facility]): No Assessment/Plan Assessment/Plan [facility] Progress Note Date of Service: 05/29/2017 Place of service: [facility] [address] Today's Assessment & Plan: Overall stable and very slowly improving after placement of plastic stent in the biliary system. Abdomen remains benign. LFT's coming down. No indication for acute surgical intervention. Awaiting CBD metallic stent placement. Patient does not need to be fully anticoagulated, but a baby aspirin per day may be indicated. With further drop in patient's LFTs and hopefully with stenting of the common bile duct with metallic stents, the patient may be eligible to discharge home and have further workup and treatment as an outpatient. Patient will also need percutaneous biopsy of this lesion if biopsies at the time of metallic stent placement are still negative for malignancy. Discussed with patient and her and answered all questions. Please also note that over the weekend, I had a long discussion with patient' s other son over the phone and discuss all of the above in detail and answered all of his multiple questions as well. He appeared to understand and agreed with plans. Previous assessment that applies today: A very-pleasant but unfortunate 52-year-old lady without significant other major comorbidities, presenting with a central hilar cholangiocarcinoma which unfortunately involves the first and perhaps even the second order branches of both the left and right biliary systems, not amenable to surgical resection. There is still many interventions that can be done to improve the patient's quality of life as well as perhaps quantity of life. These include stenting of the biliary system, hopefully internally, to allow bile duct obstruction to resolve. They are also available options for local therapy to the liver in the form of transarterial chemoembolization (TACE), possible radioembolization, and potential for systemic chemotherapy. With above assessment, I've recommended the followin. Continue in-house care 2. Continue plans for multidisciplinary tumor board discussion and continue multidisciplinary care 3. Cont. with attempts at internal stenting with metallic stents (much appreciate Dr. Dalal's excellent care) 4. Possible need for percutaneous liver biopsy if repeat attempt at endoscopic biopsy is not possible at the time of metallic stent placement and if tissue diagnosis is still needed 5. Social work and case management to please get involved with the patient and family quickly and review the several possibly present socioeconomic barriers and assist with both inpatient as well as rather involved outpatient management that is needed to treat this disease process 6. Would also benefit from supportive care consultation 7. Much appreciate ongoing involvement of Dr. Parikh from an oncology standpoint Thank you very much for having me involved in the care of this very pleasant patient and wonderful family. If you have any questions, please feel free to contact me at [phone]. Nature of presenting problem: High severity Please note that, given the extensive number of diagnoses or management options , the extensive amount and/or complexity of data needed to be reviewed, and high risk of complications and/or morbidity or mortality, this qualifies as high complexity type of decision-making. Disclaimer: Inadvertent spelling and grammatical errors are likely due to EHR/ dictation software use and do not reflect on the quality of delivered patient care. Also, please note that the electronic time recorded on this node does not necessarily reflect the actual time of the visit. Updated clinical summary: A very-pleasant but unfortunate 52-year-old lady without significant other major comorbidities, presenting with a central hilar cholangiocarcinoma which unfortunately involves the first and perhaps even the second branches of both the left and right biliary systems, not amenable to surgical resection. Comorbidities: 1. BMI 25 2. Status post left breast biopsy 3. 4. Hypercholesterolemia Subjective: No major events or complaints; no major abd pain and under control with medications; no n/v/d; no sob or cp; + flatus; + BM and normal; + activity Objective: Vitals: See below I's & O's: See below Exam: GENERAL: On exam, the patient was standing up and appeared to be comfortable and in no acute distress. Eyes appear jaundiced. ABDOMEN: Soft, nontender and nondistended. There are no peritoneal signs or guarding. SKIN: Skin appears to be pink with a hint of yellow and feels warm to touch. NEUROLOGIC: Patient is awake, alert, and follows commands appropriately. Labs: See below Exam/Review of Systems Vital Signs Vitals Vital Signs Date Time Temp Pulse Resp B/P Pulse Ox O2 Delivery O2 Flow Rate FiO2 05/29/17 07:46 97.8 81 16 116/59 100 05/28/17 02:00 Room Air Intake and Output 05/28/17 05/28/17 05/29/17 15:00 23:00 07:00 Intake Total 2080 ml 1600 ml Balance 2080 ml 1600 ml Results Result Diagram: 05/29/17 0521 05/29/17 0521 ABBY ROMAN M.D. May 29, 2017 15:11
--- NOTE | 2017-05-29 15:27 | RADRPT ---
PROCEDURE: CT Abdomen and Pelvis with and without contrast with multiphase liver imaging protocol. CLINICAL INDICATION: Liver mass. Portal vein thrombosis. TECHNIQUE: Four phase CT scan of the abdomen and pelvis with and without contrast was performed on a multidetector high-resolution CT scanner. Precontrast, arterial phase, portal venous phase, and equilibrium phase imaging was performed. The patient was scanned both before and following the unco mplicated intravenous administration of 125 cc of Omnipaque-300 and high flow rate injection of 5 cc per second. Coronal and sagittal reformatted images were obtained from the axial source images. Im ages were reviewed on a high-resolution PACS workstation. The total exam CTDI equals 7.07, 6.53, 6.6 1, and 6.22 mGy and the total exam DLP equals 1017.47 mGy-cm. One or more of the following dose reduction techniques were used: Automated exposure control. Adjustment of the mA and/or kV according to patient size. Use of iterative reconstruction technique. COMPARISON: CT abdomen and pelvis 05/20/2017 FINDINGS: CT liver: The liver is well visualized and well evaluated. Redemonstrated is an ill-defined hypovascular centr al mass measuring 4.8 x 5.2 cm on coronal reformat images centered in the medial left hepatic lobe extends into the caudate lobe, and right anterior hepatic lobe. The mass demonstrates peripheral art erial enhancement and delayed central enhancement on equilibrium phase highly concerning for cholang iocarcinoma. The mass encases the proximal aspect of the left portal vein with severe luminal narrow ing. Distal aspect of the left portal vein is patent. The mass infiltrates into the hepatic IVC best seen on portal venous phase on image 4-23. The mass abuts the inferior aspect of the central middle hepatic vein. There has been interval placement of a biliary stent which extends from the right ant erior sectoral ducts into the ampulla with improvement of the biliary ductal dilatation in the right anterior hepatic lobe. There is persistent marked biliary ductal dilatation in the left hepatic lobe. Right posterior biliary tree is also slightly dilated. CT abdomen: The lung bases are clear. The heart size is normal, without pericardial thickening or effusion. The spleen is normal in size and homogeneous in density. The stomach is partially collapsed, but is gr ossly unremarkable. The pancreas as visualized is normal. The gallbladder is semi contracted. bili stephanie tree are unremarkable and there is no evidence for biliary dilatation. The adrenal glands are s ymmetric and normal. The kidneys are symmetrically unremarkable as well. No renal calculus or obst ructive uropathy or mass lesion is seen. The aorta is of normal caliber. Multiple retroperitoneal lymphadenopathy is again noted measures up to 1.2 cm The bowel and mesentery, as visualized, are equally unremarkable. CT pelvis: The small bowel loops situated within the pelvis are unremarkable. The pelvic organs are normal. T he pelvic sidewalls and inguinal regions are clear. The sigmoid colon and rectum are unremarkable. No mass, lymphadenopathy, or free fluid is seen. No acute inflammation is seen. No osteolytic or o steoblastic lesion is detected. IMPRESSION: 1. Ill-defined hypovascular central mass measuring 4.8 x 5.2 cm centered in the medial left hepatic lobe extending into the caudate and right anterior hepatic lobe concerning for cholangiocarcinoma. 2. Encasement of the proximal aspect of the left portal vein with severe luminal narrowing. Patent more peripheral left portal vein and segmental portal vein branches. 3. Infiltration into the hepatic IVC. Abutment of the inferior aspect of the middle hepatic vein. 4. Interval placement of a biliary stent draining the right anterior sectoral ducts. Marked intrahe patic biliary ductal dilatation in the left hepatic lobe and posterior right hepatic lobe. 5. Retroperitoneal lymphadenopathy. RPTAT: BB .Coy Torre MD, Date Time Electronically viewed and signed by .Coy Torre MD, on 05/29/2017 15:27 .O/
[2017-05-29 19:22] VITALS: BP 126/69; RESP 20
--- NOTE | 2017-05-29 20:40 | HP ---
DATE OF ADMISSION: 05/19/2017 HISTORY OF PRESENT ILLNESS: Ms. Hussein is a 52-year-old female who has been admitted to [facility] secondary to jaundice, abdominal pain, dark urine and itching. It seems that the patient has been developing dark urine over the past 6 months and subsequently has been worked up for what appears to be an intrahepatic biliary dilatation in the left lobe of 4.8 x 5.2- cm medial left hepatic lobe mass that extends to the caudate and the right anterior hepatic lobe, for possible suggestion of cholangiocarcinoma. Further, it seems that the mass has been encasing the proximal aspect of the left portal vein, with severe luminal narrowing. Further, the intrahepatic portal vein seems to have some tumor thrombus. At the moment, patient denies shortness of breath, chest pain, nausea, vomiting, fever, or chills. Patient does have some abdominal pain. She is jaundiced. REVIEW OF SYSTEMS: A 14-point review performed, negative, except what was mentioned in the HPI. PAST MEDICAL HISTORY: Entails hepatic mass. PAST SURGICAL HISTORY: None reported. FAMILY HISTORY: Positive for diabetes and hypertension. SOCIAL HISTORY: Denies tobacco, alcohol or illicit drug use. PHYSICAL EXAMINATION: GENERAL APPEARANCE: Alert, oriented x3. HEENT: Normocephalic, atraumatic. Scleral icterus and jaundice. Mucosa moist. NECK: Supple. No carotid bruit. LUNGS: Clear to auscultation bilaterally. No crackles. CARDIOVASCULAR: S1, S2 present. No murmurs. ABDOMEN: Soft, nontender, nondistended. Bowel sounds positive. LOWER EXTREMITIES: Palpable femoral pulse. Palpable pedal pulse. Motor and sensory intact. Capillary refill 2-3 seconds. ASSESSMENT AND PLAN: 1. Cholangiocarcinoma: It seems the patient may have encasement of the portal vein, with suggestion of possible thrombus. At the moment, no immediate surgical intervention is indicated. If there is a high suspicion of thrombus, per our discussion with our Multidisciplinary Team (Oncology and Hepatobiliary Service), would recommend for the patient to undergo anticoagulation. However, this area seems to be ill- defined, and it is not fully clear as to the extent of the thrombus. 2. Would likely recommend for a followup CT triple-phase in the next week or two to further delineate the findings. 3. Discussed findings, plan and management with the patient and family at the bedside, and they understand. Thank you for allowing us to partake in the care of your patient. Please call with any questions. Dictated By: Uli Carcamo MD /clarisa/shey /Document#: [id number]
--- NOTE | 2017-05-29 21:57 | CONS ---
Date/Time of Note Date/Time of Note DATE: 05/29/17 TIME: 21:54 Assessment/Plan Assessment/Plan Chief Complaint/Hosp Course PAINLESS JAUNDICE ASSOCIATED WITH Liver mass with enlarged lymph nodes, suspicious for malignancy R/O NEOPLASIA pancreas protocol triple phase CT scan of the abdomen and pelvis WITH CONTRAST - Poorly defined hypovascular mass occupying the left medial lobe of the liver and caudate lobe with upstream severe left greater intrahepatic bile duct dilatation, highly suspicious for cholangiocarcinoma. Filling defect identified in intrahepatic portal vein, concerning for tumor thrombus. Metastatic retroperitoneal lymphadenopathy. CA 19-9- 1930 AFP- P coag N, HEPATITIS PANEL- NEG GI EVAL- ERCP plus Spyglass cholangioscopy with targeted biopsies and possible stent placement. Post balloon dilatation, Cholangioscopy with evidence of neoplastic infiltration consistent with cholangiocarcinoma multiple direct targeted biopsies obtained Post placement of a Faroese 10 x 9 cm stent with adequate drainage PATH -Biliary bifurcation, biopsy: Minute fragment of ductal mucosa showing crush artifact. No evidence of dysplasia or malignancy. PLAN- Plan for ERCP plus Spyglass cholangioscopy with targeted endoscopic biopsies and possible metallic stent placement.If endoscopic biopsy not possible, needs percutaneous liver biopsy. Abnormal liver enzymes, jaundice- 2 TO ABOVE DYSLIPIDEMIA Problems: Consultation Date/Type/Reason Admit Date/Time May 19, 2017 at 04:18 Initial Consult Date 05/19/17 Type of Consultation: [facility] Referring Provider: HERMAN MCNULTY 24 HR Interval Summary Free Text/Dictation ALL NOTED Plan for ERCP plus Spyglass cholangioscopy with targeted endoscopic biopsies and possible metallic stent placement.If endoscopic biopsy not possible, needs percutaneous liver biopsy. Exam/Review of Systems Vital Signs Vitals Vital Signs Date Time Temp Pulse Resp B/P Pulse Ox O2 Delivery O2 Flow Rate FiO2 05/29/17 19:22 98.2 86 20 126/69 100 05/28/17 02:00 Room Air Intake and Output 05/28/17 05/28/17 05/29/17 14:59 22:59 06:59 Intake Total 2080 ml 1600 ml Balance 2080 ml 1600 ml Exam Const: No acute distress.+ Jaundice Head: Atraumatic. Eyes: Icteric Conjunctiva. ENT: Normal External Ears, Nose and Mouth. Neck: Full range of motion. No meningismus. Resp: Clear to auscultation bilaterally. Cardio: Regular rate and rhythm. Abd: Soft, non distended, normal bowel sounds, Diffuse abdominal tenderness, more tenderness at the right upper quadrant Skin: No petechiae or rashes. Back: No midline or flank tenderness. Ext: No cyanosis, or edema. Neur: Awake and alert. No focal deficit Psych: Normal Mood and Affect. NO PATH LN- ERIC Results Result Diagram: 05/29/1752005/29/17520 Results 24 hrs Laboratory Tests Test 05/29/17 05:21 White Blood Count 9.0 Red Blood Count 4.32 Hemoglobin 12.4 Hematocrit 36.3 L Mean Corpuscular Volume 84.0 Mean Corpuscular Hemoglobin 28.7 L Mean Corpuscular Hemoglobin Concent 34.2 Red Cell Distribution Width 17.8 H Platelet Count 250 Mean Platelet Volume 11.9 H Neutrophils % 62.1 Lymphocytes % 24.5 Monocytes % 10.1 Eosinophils % 2.3 Basophils % 0.3 Nucleated Red Blood Cells % 0.0 Neutrophils # 5.6 Lymphocytes # 2.2 Monocytes # 0.9 Eosinophils # 0.2 Basophils # 0.0 Nucleated Red Blood Cells # 0.0 Prothrombin Time 12.0 L Prothrombin Time Ratio 0.9 INR International Normalized Ratio 0.89 Activated Partial Thromboplast Time 25.4 Sodium Level 138 Potassium Level 3.7 Chloride Level 107 Carbon Dioxide Level 26 Anion Gap 9 Blood Urea Nitrogen 9 Creatinine 0.64 Glucose Level 91 Calcium Level 9.4 Total Bilirubin 12.1 H Direct Bilirubin 10.10 H Indirect Bilirubin 2.0 H Aspartate Amino Transf (AST/SGOT) 40 Alanine Aminotransferase (ALT/SGPT) 51 Alkaline Phosphatase 622 H Total Protein 7.3 Albumin 3.2 L Globulin 4.10 H Albumin/Globulin Ratio 0.78 Medications Medications Current Medications Diphenhydramine HCl (Benadryl) 25 mg Q6H PRN PO ITCHING; Start 05/19/17 at 16: 30 Morphine Sulfate (morphine) 2 mg Q4H PRN IV PAIN Last administered on 21:59; Admin Dose 2 MG; Start 05/19/17 at 16:30 Acetaminophen/ Hydrocodone Bitart (Shiro (5/325)) 1 tab Q4H PRN PO PAIN Last administered on 05/24/17 20:38; Admin Dose 1 TAB; Start 05/19/17 at 16:30 Ondansetron HCl (Zofran Inj) 4 mg Q6H PRN IV NAUSEA AND/OR VOMITING; Start at 16:30 Famotidine (Pepcid) 20 mg DAILY PO Last administered on 05/29/17 08:53; Admin Dose 20 MG; Start 05/20/17 at 12:30 Trimethobenzamide HCl (Tigan) 200 mg Q6H PRN IM NAUSEA AND/OR VOMITING; Start 05/20/17 at 12:30 Enoxaparin Sodium (Lovenox) 40 mg DAILY SC Last administered on 05/29/17 09:04 ; Admin Dose 40 MG; Start 05/20/17 at 13:00; Status Future hold Polyethylene Glycol (Miralax) 17 gm DAILY PO Last administered on 05/29/17 08: 53; Admin Dose 17 GM; Start 05/21/17 at 10:30 Hydroxyzine HCl (Atarax) 50 mg Q6H PRN PO ITCHING Last administered on 16:44; Admin Dose 50 MG; Start 05/21/17 at 10:30 Docusate Sodium (Colace) 100 mg BID PO Last administered on 05/29/17 20:34; Admin Dose 100 MG; Start 05/27/17 at 12:30 Cholestyramine Resin (Questran) 1 pkt TID PO Last administered on 05/29/17 20: 34; Admin Dose 1 PKT; Start 05/28/17 at 21:00 SONA WEEKS MD May 29, 2017 21:57
[2017-05-30 02:03] VITALS: BP 126/58; RESP 18
[2017-05-30] MEDS: hydrOXYzine HCL 25 MG TAB PO PRN ×2 (03:41→19:13)
[2017-05-30 07:22] VITALS: BP 110/62; RESP 16
[2017-05-30] MEDS: POLYETHYLENE GLYCOL 17 GM PACKET PO SCH (09:35)
[2017-05-30] MEDS: DOCUSATE SODIUM 100 MG CAP PO SCH ×2 (09:35→21:56)
[2017-05-30] MEDS: FAMOTIDINE 20 MG TAB PO SCH (09:35)
[2017-05-30] MEDS: CHOLESTYRAMINE 4 GM PACKET PO SCH ×3 (09:35→21:56)
[2017-05-30] MEDS: URSODIOL 300 MG CAP PO SCH ×2 (09:35→21:56)
[2017-05-30] MEDS: ENOXAPARIN 40 MG/0.4 ML SYG SC SCH (09:36)
--- NOTE | 2017-05-30 09:48 | PN ---
Date/Time of Note Date/Time of Note DATE: 05/30/17 TIME: 09:37 Assessment/Plan VTE Prophylaxis VTE Prophylaxis Intervention: LMWH Lines/Catheters IV [facility] Saline Lock Urinary Cath still in place: No Assessment/Plan Chief Complaint/Hosp Course 52-year-old female with no significant past medical history, presented with abdominal pain, yellowish eyes dark urine and itching X 6 months duration. 1. 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 Not amenable to surgical resection per hepatobiliary surgery specialists & associates. 05/23/2017: CT Abdomen and Pelvis with and without contrast: Liver Protocol. Poorly defined hypovascular mass occupying the left medial lobe of the liver and caudate lobe with upstream severe left greater intrahepatic bile duct dilatation, highly suspicious for cholangiocarcinoma. Filling defect identified in intrahepatic portal vein, concerning for tumor thrombus Metastatic retroperitoneal lymphadenopathy. PLAN: -Status post ERCP with plastic stent placed. Biopsy though ERCP shows no malignancy -Plan for ERCP plus Spyglass cholangioscopy with targeted endoscopic biopsies and possible metallic stent placement.If endoscopic biopsy not possible, needs percutaneous liver biopsy. -Appreciate vascular input and recommend for a followup CT triple-phase in 2 weeks. Currently no indication for anticoagulation as suspicion for a thrombus is not high at this time. Would hold off to aspirin secondary to abnormal liver function. -GI /Heme/Onco/HB surgery on board and recommendations appreciated -Supportive care, consider Palliative care once malignancy is confirmed. 2. Obstructive jaundice with hyperbilirubinemia secondary to #1. -Trending down LFTs and bilirubin. Lovenox for DVT prophylaxis Plan: Patient is being followed up by multiple specialists. Pending ERCP with stent placement by GI colleagues. Follow-up with consultants recommendations. Patient was seen in collaboration with . Problems: Subjective 24 Hr Interval Summary Free Text/Dictation Patient has been having generalized itching and ursodiol has been started overnight with improvement in symptoms. Exam/Review of Systems Vital Signs Vitals Vital Signs Date Time Temp Pulse Resp B/P Pulse Ox O2 Delivery O2 Flow Rate FiO2 05/30/17 07:22 97.7 89 16 110/62 99 05/28/17 02:00 Room Air Intake and Output 05/29/17 05/29/17 05/30/17 15:00 23:00 07:00 Intake Total 1820 ml 800 ml Balance 1820 ml 800 ml Exam General: Well developed,adequately built, not in any acute distress . HEENT: Normocephalic, Atraumatic, No laceration or hematoma; Eyes: PEERL, Icteric sclera Neck: Supple without any lymphadenopathy, nontender, no JVD, no carotid bruits, trachea midline, no thyromegaly Cardiac: S1, S2 auscultated, regular rhythm and rate, no mumurs or gallop Pulmonary: Normal respiratory effort. Chest clear to auscultation bilaterally, no adventitious breath sounds GI: Abdomen normal to inspection. Soft, non tender, non- distended, no masses, no rebound tenderness or guarding. Bowel sounds active on all four quadrants Genitourinary: Deferred Extremities: No cyanosis, clubbing, or edema. Pulses [2+] bilaterally. Full ROM on all four extremities. No focal weakness appreciated. Neurologic: Alert to person, place, time, and situation. Affect appropriate, intact sensation. Skin: +Jaundiced. Clean,dry, and intact. No ecchymosis, no rashes, or lesions Results Result Diagram: 05/29/1752005/29/17520 Medications Medications Current Medications Morphine Sulfate (morphine) 2 mg Q4H PRN IV PAIN Last administered on 21:59; Admin Dose 2 MG; Start 05/19/17 at 16:30 Acetaminophen/ Hydrocodone Bitart ([place] (5/325)) 1 tab Q4H PRN PO PAIN Last administered on 05/24/17 20:38; Admin Dose 1 TAB; Start 05/19/17 at 16:30 Ondansetron HCl (Zofran Inj) 4 mg Q6H PRN IV NAUSEA AND/OR VOMITING; Start at 16:30 Famotidine (Pepcid) 20 mg DAILY PO Last administered on 05/29/17 08:53; Admin Dose 20 MG; Start 05/20/17 at 12:30 Trimethobenzamide HCl (Tigan) 200 mg Q6H PRN IM NAUSEA AND/OR VOMITING; Start 05/20/17 at 12:30 Enoxaparin Sodium (Lovenox) 40 mg DAILY SC Last administered on 05/29/17 09:04 ; Admin Dose 40 MG; Start 05/20/17 at 13:00; Status Future hold Polyethylene Glycol (Miralax) 17 gm DAILY PO Last administered on 05/29/17 08: 53; Admin Dose 17 GM; Start 05/21/17 at 10:30 Hydroxyzine HCl (Atarax) 50 mg Q6H PRN PO ITCHING Last administered on 03:41; Admin Dose 50 MG; Start 05/21/17 at 10:30 Docusate Sodium (Colace) 100 mg BID PO Last administered on 05/29/17 20:34; Admin Dose 100 MG; Start 05/27/17 at 12:30 Cholestyramine Resin (Questran) 1 pkt TID PO Last administered on 05/29/17 20: 34; Admin Dose 1 PKT; Start 05/28/17 at 21:00 Ursodiol (Actigall) 300 mg BID PO ; Start 05/30/17 at 09:00 RUPESH BANEGAS NP May 30, 2017 09:47
[2017-05-30 13:41] VITALS: BP 109/78; RESP 18
--- NOTE | 2017-05-30 19:05 | PN ---
Date/Time of Note Date/Time of Note DATE: 05/30/17 TIME: 19:03 Assessment/Plan VTE Prophylaxis VTE Prophylaxis Intervention: SCD's Lines/Catheters IV C[facility] Type (from [facility]): Saline Lock Urinary Cath still in place: No Assessment/Plan Assessment/Plan Assessment: * Obstructive jaundice * Cholangiocarcinoma by cholangioscopy however path negative * Current stent not accomplishing adequate decompression Plan: * Liver biopsy * Add Questran for pruritus * case discussed with DR Dalal * Further orders will depend on clinical course Subjective 24 Hr Interval Summary Free Text/Dictation * course reviewed * patient seen and examined * no untoward events overnight Exam/Review of Systems Vital Signs Vitals Vital Signs Date Time Temp Pulse Resp B/P Pulse Ox O2 Delivery O2 Flow Rate FiO2 05/30/17 13:41 98.1 105 18 109/78 99 05/28/17 02:00 Room Air Intake and Output 05/29/17 05/29/17 05/30/17 15:00 23:00 07:00 Intake Total 1820 ml 800 ml Balance 1820 ml 800 ml Exam Constitutional: alert, oriented Eyes: icteric Neck: non-tender, supple Respiratory: clear to auscultation, normal air movement Cardiovascular: nl pulses, regular rate and rhythm Gastrointestinal: non-tender, soft Musculoskeletal: nl extremities to inspection Extremities: normal pulses Neurological: nl mental status Results Result Diagram: 05/29/1752005/29/17520 Medications Medications Current Medications Morphine Sulfate (morphine) 2 mg Q4H PRN IV PAIN Last administered on 21:59; Admin Dose 2 MG; Start 05/19/17 at 16:30 Acetaminophen/ Hydrocodone Bitart ([place] (5/325)) 1 tab Q4H PRN PO PAIN Last administered on 05/24/17 20:38; Admin Dose 1 TAB; Start 05/19/17 at 16:30 Ondansetron HCl (Zofran Inj) 4 mg Q6H PRN IV NAUSEA AND/OR VOMITING; Start at 16:30 Famotidine (Pepcid) 20 mg DAILY PO Last administered on 05/30/17 09:35; Admin Dose 20 MG; Start 05/20/17 at 12:30 Trimethobenzamide HCl (Tigan) 200 mg Q6H PRN IM NAUSEA AND/OR VOMITING; Start 05/20/17 at 12:30 Enoxaparin Sodium (Lovenox) 40 mg DAILY SC Last administered on 05/30/17 09:36 ; Admin Dose 40 MG; Start 05/20/17 at 13:00; Status Future hold Polyethylene Glycol (Miralax) 17 gm DAILY PO Last administered on 05/30/17 09: 35; Admin Dose 17 GM; Start 05/21/17 at 10:30 Hydroxyzine HCl (Atarax) 50 mg Q6H PRN PO ITCHING Last administered on 03:41; Admin Dose 50 MG; Start 05/21/17 at 10:30 Docusate Sodium (Colace) 100 mg BID PO Last administered on 05/30/17 09:35; Admin Dose 100 MG; Start 05/27/17 at 12:30 Cholestyramine Resin (Questran) 1 pkt TID PO Last administered on 05/30/17 15: 16; Admin Dose 1 PKT; Start 05/28/17 at 21:00 Ursodiol (Actigall) 300 mg BID PO Last administered on 05/30/17 09:35; Admin Dose 300 MG; Start 05/30/17 at 09:00 YUE BLACK NP May 30, 2017 19:05
[2017-05-30 19:28] VITALS: BP 135/64; RESP 20
[2017-05-30] MEDS ORDERED: ZOLPIDEM 5 MG TAB PO PRN (23:00)
--- NOTE | 2017-05-31 00:16 | CONS ---
Date/Time of Note Date/Time of Note DATE: 05/31/17 TIME: 00:15 Assessment/Plan Assessment/Plan Chief Complaint/Hosp Course PAINLESS JAUNDICE ASSOCIATED WITH Liver mass with enlarged lymph nodes, suspicious for malignancy R/O NEOPLASIA pancreas protocol triple phase CT scan of the abdomen and pelvis WITH CONTRAST - Poorly defined hypovascular mass occupying the left medial lobe of the liver and caudate lobe with upstream severe left greater intrahepatic bile duct dilatation, highly suspicious for cholangiocarcinoma. Filling defect identified in intrahepatic portal vein, concerning for tumor thrombus. Metastatic retroperitoneal lymphadenopathy. CA 19-9- 1930 AFP- P coag N, HEPATITIS PANEL- NEG GI EVAL- ERCP plus Spyglass cholangioscopy with targeted biopsies and possible stent placement. Post balloon dilatation, Cholangioscopy with evidence of neoplastic infiltration consistent with cholangiocarcinoma multiple direct targeted biopsies obtained Post placement of a Welsh 10 x 9 cm stent with adequate drainage PATH -Biliary bifurcation, biopsy: Minute fragment of ductal mucosa showing crush artifact. No evidence of dysplasia or malignancy. PLAN- percutaneous liver biopsy. Abnormal liver enzymes, jaundice- 2 TO ABOVE DYSLIPIDEMIA Problems: Consultation Date/Type/Reason Admit Date/Time May 19, 2017 at 04:18 Initial Consult Date 05/19/17 Type of Consultation: [facility] Referring Provider: HERMAN MCNULTY 24 HR Interval Summary Free Text/Dictation ALL NOTED D/W RN AND IM SERVICE Exam/Review of Systems Vital Signs Vitals Vital Signs Date Time Temp Pulse Resp B/P Pulse Ox O2 Delivery O2 Flow Rate FiO2 05/30/17 19:28 98.1 87 20 135/64 100 05/28/17 02:00 Room Air Intake and Output 05/30/17 05/30/17 05/31/17 15:00 23:00 07:00 Intake Total 1700 ml Balance 1700 ml Exam Const: No acute distress.+ Jaundice Head: Atraumatic. Eyes: Icteric Conjunctiva. ENT: Normal External Ears, Nose and Mouth. Neck: Full range of motion. No meningismus. Resp: Clear to auscultation bilaterally. Cardio: Regular rate and rhythm. Abd: Soft, non distended, normal bowel sounds, Diffuse abdominal tenderness, more tenderness at the right upper quadrant Skin: No petechiae or rashes. Back: No midline or flank tenderness. Ext: No cyanosis, or edema. Neur: Awake and alert. No focal deficit Psych: Normal Mood and Affect. NO PATH LN- ERIC Results Result Diagram: 05/29/1752005/29/17520 Medications Medications Current Medications Morphine Sulfate (morphine) 2 mg Q4H PRN IV PAIN Last administered on 21:59; Admin Dose 2 MG; Start 05/19/17 at 16:30 Acetaminophen/ Hydrocodone Bitart ([place] (5/325)) 1 tab Q4H PRN PO PAIN Last administered on 05/24/17 20:38; Admin Dose 1 TAB; Start 05/19/17 at 16:30 Ondansetron HCl (Zofran Inj) 4 mg Q6H PRN IV NAUSEA AND/OR VOMITING; Start at 16:30 Famotidine (Pepcid) 20 mg DAILY PO Last administered on 05/30/17 09:35; Admin Dose 20 MG; Start 05/20/17 at 12:30 Trimethobenzamide HCl (Tigan) 200 mg Q6H PRN IM NAUSEA AND/OR VOMITING; Start 05/20/17 at 12:30 Enoxaparin Sodium (Lovenox) 40 mg DAILY SC Last administered on 05/30/17 09:36 ; Admin Dose 40 MG; Start 05/20/17 at 13:00; Status Future hold Polyethylene Glycol (Miralax) 17 gm DAILY PO Last administered on 05/30/17 09: 35; Admin Dose 17 GM; Start 05/21/17 at 10:30 Hydroxyzine HCl (Atarax) 50 mg Q6H PRN PO ITCHING Last administered on 19:13; Admin Dose 50 MG; Start 05/21/17 at 10:30 Docusate Sodium (Colace) 100 mg BID PO Last administered on 05/30/17 21:56; Admin Dose 100 MG; Start 05/27/17 at 12:30 Cholestyramine Resin (Questran) 1 pkt TID PO Last administered on 05/30/17 21: 56; Admin Dose 1 PKT; Start 05/28/17 at 21:00 Ursodiol (Actigall) 300 mg BID PO Last administered on 05/30/17 21:56; Admin Dose 300 MG; Start 05/30/17 at 09:00 Zolpidem Tartrate (Ambien) 10 mg HS PRN PO INSOMNIA Last administered on t 23:05; Admin Dose 10 MG; Start 05/30/17 at 23:00 SONA WEEKS MD May 31, 2017 00:16
[2017-05-31 06:08] LABS: BASOPHIL # 0.1 10^3/ul (0.0-0.1); BASOPHILS % 0.5 % (0.0-2.0); EOSINOPHILS # 0.3 10^3/ul (0.0-0.5); EOSINOPHILS % 2.2 % (0.0-7.0); HEMATOCRIT 34.5 % (37.0-47.0); HEMOGLOBIN 11.7 g/dl (12.0-16.0); LYMPHOCYTES # 1.9 10^3/ul (0.8-2.9); LYMPHOCYTES % 16.2 % (15.0-51.0); MEAN CORPUSCULAR HEMOGLOBIN 28.5 pg (29.0-33.0); MEAN CORPUSCULAR HGB CONC 33.9 g/dl (32.0-37.0); MEAN CORPUSCULAR VOLUME 83.9 fl (82.0-101.0); MEAN PLATELET VOLUME 11.3 fl (7.4-10.4); MONOCYTE # 1.2 10^3/ul (0.3-0.9); NEUTROPHIL # 8.2 10^3/ul (1.6-7.5); NEUTROPHILS % 70.4 % (39.0-77.0); PLATELET COUNT 286 10^3/UL (140-415); RED BLOOD COUNT 4.11 10^6/ul (4.20-5.40); RED CELL DISTRIBUTION WIDTH 17.2 % (11.5-14.5); WHITE BLOOD COUNT 11.7 10^3/ul (4.8-10.8)
[2017-05-31 06:35] LABS: INR 0.96; PARTIAL THROMBOPLASTIN TIME 29.1 Sec (25.0-35.0); PROTIME 12.8 Sec (12.2-14.2)
[2017-05-31 06:53] LABS: ALBUMIN 3.1 g/dl (3.3-4.9); ALBUMIN/GLOBULIN RATIO 0.75; BILIRUBIN,DIRECT 7.8 mg/dl (0.00-0.20); BILIRUBIN,TOTAL 9.8 mg/dl (0.2-1.3); CALCIUM 9.5 mg/dl (8.4-10.2); CREATININE 0.58 mg/dl (0.44-1.00); POTASSIUM 3.9 mmol/L (3.5-5.1); TOTAL PROTEIN 7.2 g/dl (6.1-8.1)
[2017-05-31 07:26] VITALS: BP 111/66; RESP 16
[2017-05-31] MEDS: hydrOXYzine HCL 25 MG TAB PO PRN ×3 (08:43→20:12)
[2017-05-31] MEDS: FAMOTIDINE 20 MG TAB PO SCH (11:03)
[2017-05-31] MEDS: POLYETHYLENE GLYCOL 17 GM PACKET PO SCH (11:03)
[2017-05-31] MEDS: CHOLESTYRAMINE 4 GM PACKET PO SCH ×3 (11:03→20:12)
[2017-05-31] MEDS: URSODIOL 300 MG CAP PO SCH ×2 (11:03→20:11)
[2017-05-31] MEDS: DOCUSATE SODIUM 100 MG CAP PO SCH ×2 (11:03→20:11)
--- NOTE | 2017-05-31 11:03 | PN ---
Date/Time of Note Date/Time of Note DATE: 05/31/17 TIME: 10:59 Assessment/Plan VTE Prophylaxis VTE Prophylaxis Intervention: ambulation Lines/Catheters IV Catheter Type (from [facility] [place]): Saline Lock Urinary Cath still in place: No Assessment/Plan Chief Complaint/Hosp Course 52-year-old female with no significant past medical history, presented with abdominal pain, yellowish eyes dark urine and itching X 6 months duration. 1. 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 Not amenable to surgical resection per hepatobiliary surgery specialists & associates. 05/23/2017: CT Abdomen and Pelvis with and without contrast: Liver Protocol. Poorly defined hypovascular mass occupying the left medial lobe of the liver and caudate lobe with upstream severe left greater intrahepatic bile duct dilatation, highly suspicious for cholangiocarcinoma. Filling defect identified in intrahepatic portal vein, concerning for tumor thrombus Metastatic retroperitoneal lymphadenopathy. PLAN: -Status post ERCP with plastic stent placed. Biopsy though ERCP shows no malignancy -Status post Spyglass cholangioscopy-as per , cannot put CBD metallic stent until malignancy proven. CT-guided needle biopsy was ordered by heme/ oncology and per IR, area of biopsy is not accessible. At this time, we will follow recommendations from hepatobiliary surgery/GI/heme/electronics detail draftsperson specialities regarding further diagnostic/treatment modalities. -Appreciate vascular input and recommend for a followup CT triple-phase in 2 weeks. Currently no indication for anticoagulation as suspicion for a thrombus is not high at this time. -Supportive care, consider Palliative care once malignancy is confirmed. 2. Obstructive jaundice with hyperbilirubinemia secondary to #1. -Trending down LFTs and bilirubin. Lovenox for DVT prophylaxis Plan: Patient is being followed up by multiple specialists. Follow-up with consultants recommendations. Patient was seen in collaboration with . Problems: Subjective 24 Hr Interval Summary Free Text/Dictation Doing well. No acute overnight episodes. Exam/Review of Systems Vital Signs Vitals Vital Signs Date Time Temp Pulse Resp B/P Pulse Ox O2 Delivery O2 Flow Rate FiO2 05/31/17 07:26 98.2 101 16 111/66 98 05/28/17 02:00 Room Air Intake and Output 05/30/17 05/30/17 05/31/17 15:00 23:00 07:00 Intake Total 1700 ml 400 ml Balance 1700 ml 400 ml Exam General: Well developed,adequately built, not in any acute distress . HEENT: Normocephalic, Atraumatic, No laceration or hematoma; Eyes: PEERL, Icteric sclera Neck: Supple without any lymphadenopathy, nontender, no JVD, no carotid bruits, trachea midline, no thyromegaly Cardiac: S1, S2 auscultated, regular rhythm and rate, no mumurs or gallop Pulmonary: Normal respiratory effort. Chest clear to auscultation bilaterally, no adventitious breath sounds GI: Abdomen normal to inspection. Soft, non tender, non- distended, no masses, no rebound tenderness or guarding. Bowel sounds active on all four quadrants Genitourinary: Deferred Extremities: No cyanosis, clubbing, or edema. Pulses [2+] bilaterally. Full ROM on all four extremities. No focal weakness appreciated. Neurologic: Alert to person, place, time, and situation. Affect appropriate, intact sensation. Skin: +Jaundiced. Clean,dry, and intact. No ecchymosis, no rashes, or lesions Results Result Diagram: 05/31/17 0556 05/31/17 0556 Results 24 hrs Laboratory Tests Test 05/31/17 05:55 05/31/17 05:56 Prothrombin Time 12.8 Prothrombin Time Ratio 1.0 INR International Normalized Ratio 0.96 Activated Partial Thromboplast Time 29.1 White Blood Count 11.7 #H Red Blood Count 4.11 L Hemoglobin 11.7 L Hematocrit 34.5 L Mean Corpuscular Volume 83.9 Mean Corpuscular Hemoglobin 28.5 L Mean Corpuscular Hemoglobin Concent 33.9 Red Cell Distribution Width 17.2 H Platelet Count 286 Mean Platelet Volume 11.3 H Neutrophils % 70.4 Lymphocytes % 16.2 Monocytes % 10.0 Eosinophils % 2.2 Basophils % 0.5 Nucleated Red Blood Cells % 0.0 Neutrophils # 8.2 H Lymphocytes # 1.9 Monocytes # 1.2 H Eosinophils # 0.3 Basophils # 0.1 Nucleated Red Blood Cells # 0.0 Sodium Level 135 Potassium Level 3.9 Chloride Level 107 Carbon Dioxide Level 22 Anion Gap 10 Blood Urea Nitrogen 7 Creatinine 0.58 Glucose Level 111 Calcium Level 9.5 Total Bilirubin 9.8 H Direct Bilirubin 7.80 H Indirect Bilirubin 2.0 H Aspartate Amino Transf (AST/SGOT) 60 H Alanine Aminotransferase (ALT/SGPT) 44 Alkaline Phosphatase 631 H Total Protein 7.2 Albumin 3.1 L Globulin 4.10 H Albumin/Globulin Ratio 0.75 Medications Medications Current Medications Morphine Sulfate (morphine) 2 mg Q4H PRN IV PAIN Last administered on 21:59; Admin Dose 2 MG; Start 05/19/17 at 16:30 Acetaminophen/ Hydrocodone Bitart ([place] (5/325)) 1 tab Q4H PRN PO PAIN Last administered on 05/24/17 20:38; Admin Dose 1 TAB; Start 05/19/17 at 16:30 Ondansetron HCl (Zofran Inj) 4 mg Q6H PRN IV NAUSEA AND/OR VOMITING; Start at 16:30 Famotidine (Pepcid) 20 mg DAILY PO Last administered on 05/30/17 09:35; Admin Dose 20 MG; Start 05/20/17 at 12:30 Trimethobenzamide HCl (Tigan) 200 mg Q6H PRN IM NAUSEA AND/OR VOMITING; Start 05/20/17 at 12:30 Enoxaparin Sodium (Lovenox) 40 mg DAILY SC Last administered on 05/30/17 09:36 ; Admin Dose 40 MG; Start 05/20/17 at 13:00; Status Future hold Polyethylene Glycol (Miralax) 17 gm DAILY PO Last administered on 05/30/17 09: 35; Admin Dose 17 GM; Start 05/21/17 at 10:30 Hydroxyzine HCl (Atarax) 50 mg Q6H PRN PO ITCHING Last administered on 08:43; Admin Dose 50 MG; Start 05/21/17 at 10:30 Docusate Sodium (Colace) 100 mg BID PO Last administered on 05/30/17 21:56; Admin Dose 100 MG; Start 05/27/17 at 12:30 Cholestyramine Resin (Questran) 1 pkt TID PO Last administered on 05/30/17 21: 56; Admin Dose 1 PKT; Start 05/28/17 at 21:00 Ursodiol (Actigall) 300 mg BID PO Last administered on 05/30/17 21:56; Admin Dose 300 MG; Start 05/30/17 at 09:00 Zolpidem Tartrate (Ambien) 10 mg HS PRN PO INSOMNIA Last administered on t 23:05; Admin Dose 10 MG; Start 05/30/17 at 23:00 RUPESH BANEGAS NP May 31, 2017 11:03
[2017-05-31] MEDS: ENOXAPARIN 40 MG/0.4 ML SYG SC SCH (11:04)
[2017-05-31 14:10] VITALS: BP 102/55; RESP 16
--- NOTE | 2017-05-31 14:33 | PN ---
Date/Time of Note Date/Time of Note DATE: 05/31/17 TIME: 14:31 Assessment/Plan VTE Prophylaxis VTE Prophylaxis Intervention: SCD's Lines/Catheters IV [facility] Type (from [facility] Saline Lock Urinary Cath still in place: No Assessment/Plan Assessment/Plan ssessment: * Obstructive jaundice * Cholangiocarcinoma by cholangioscopy however path negative * Current stent not accomplishing adequate decompression Plan: * Liver biopsy * Add Questran for pruritus * case discussed with DR Dalal * Further orders will depend on clinical course Subjective 24 Hr Interval Summary Free Text/Dictation * course reviewed * patient seen and examined * no untoward events Exam/Review of Systems Vital Signs Vitals Vital Signs Date Time Temp Pulse Resp B/P Pulse Ox O2 Delivery O2 Flow Rate FiO2 05/31/17 14:10 98.7 105 16 102/55 100 05/28/17 02:00 Room Air Intake and Output 05/30/17 05/30/17 05/31/17 15:00 23:00 07:00 Intake Total 1700 ml 400 ml Balance 1700 ml 400 ml Exam Constitutional: alert, oriented Eyes: icteric Neck: non-tender, supple Respiratory: clear to auscultation, normal air movement Cardiovascular: nl pulses, regular rate and rhythm Musculoskeletal: nl extremities to inspection, nl gait and stance Extremities: normal pulses Neurological: nl speech Skin: nl turgor, No rash or lesions Lymph: nl lymph nodes Results Result Diagram: 05/31/17 0556 05/31/17 0556 Results 24 hrs Laboratory Tests Test 05/31/17 05:55 05/31/17 05:56 Prothrombin Time 12.8 Prothrombin Time Ratio 1.0 INR International Normalized Ratio 0.96 Activated Partial Thromboplast Time 29.1 White Blood Count 11.7 #H Red Blood Count 4.11 L Hemoglobin 11.7 L Hematocrit 34.5 L Mean Corpuscular Volume 83.9 Mean Corpuscular Hemoglobin 28.5 L Mean Corpuscular Hemoglobin Concent 33.9 Red Cell Distribution Width 17.2 H Platelet Count 286 Mean Platelet Volume 11.3 H Neutrophils % 70.4 Lymphocytes % 16.2 Monocytes % 10.0 Eosinophils % 2.2 Basophils % 0.5 Nucleated Red Blood Cells % 0.0 Neutrophils # 8.2 H Lymphocytes # 1.9 Monocytes # 1.2 H Eosinophils # 0.3 Basophils # 0.1 Nucleated Red Blood Cells # 0.0 Sodium Level 135 Potassium Level 3.9 Chloride Level 107 Carbon Dioxide Level 22 Anion Gap 10 Blood Urea Nitrogen 7 Creatinine 0.58 Glucose Level 111 Calcium Level 9.5 Total Bilirubin 9.8 H Direct Bilirubin 7.80 H Indirect Bilirubin 2.0 H Aspartate Amino Transf (AST/SGOT) 60 H Alanine Aminotransferase (ALT/SGPT) 44 Alkaline Phosphatase 631 H Total Protein 7.2 Albumin 3.1 L Globulin 4.10 H Albumin/Globulin Ratio 0.75 Medications Medications Current Medications Morphine Sulfate (morphine) 2 mg Q4H PRN IV PAIN Last administered on 21:59; Admin Dose 2 MG; Start 05/19/17 at 16:30 Acetaminophen/ Hydrocodone Bitart ([place] (5/325)) 1 tab Q4H PRN PO PAIN Last administered on 05/24/17 20:38; Admin Dose 1 TAB; Start 05/19/17 at 16:30 Ondansetron HCl (Zofran Inj) 4 mg Q6H PRN IV NAUSEA AND/OR VOMITING; Start at 16:30 Famotidine (Pepcid) 20 mg DAILY PO Last administered on 05/31/17 11:03; Admin Dose 20 MG; Start 05/20/17 at 12:30 Trimethobenzamide HCl (Tigan) 200 mg Q6H PRN IM NAUSEA AND/OR VOMITING; Start 05/20/17 at 12:30 Enoxaparin Sodium (Lovenox) 40 mg DAILY SC Last administered on 05/31/17 11:04 ; Admin Dose 40 MG; Start 05/20/17 at 13:00; Status Future hold Polyethylene Glycol (Miralax) 17 gm DAILY PO Last administered on 05/31/17 11: 03; Admin Dose 17 GM; Start 05/21/17 at 10:30 Hydroxyzine HCl (Atarax) 50 mg Q6H PRN PO ITCHING Last administered on 08:43; Admin Dose 50 MG; Start 05/21/17 at 10:30 Docusate Sodium (Colace) 100 mg BID PO Last administered on 05/31/17 11:03; Admin Dose 100 MG; Start 05/27/17 at 12:30 Cholestyramine Resin (Questran) 1 pkt TID PO Last administered on 05/31/17 11: 03; Admin Dose 1 PKT; Start 05/28/17 at 21:00 Ursodiol (Actigall) 300 mg BID PO Last administered on 05/31/17 11:03; Admin Dose 300 MG; Start 05/30/17 at 09:00 Zolpidem Tartrate (Ambien) 10 mg HS PRN PO INSOMNIA Last administered on 23:05; Admin Dose 10 MG; Start 05/30/17 at 23:00 YUE BLACK NP May 31, 2017 14:33
--- NOTE | 2017-05-31 18:22 | CONS ---
Date/Time of Note Date/Time of Note DATE: 05/31/17 TIME: 18:19 Assessment/Plan Assessment/Plan Chief Complaint/Hosp Course PAINLESS JAUNDICE ASSOCIATED WITH Liver mass with enlarged lymph nodes, suspicious for malignancy R/O NEOPLASIA pancreas protocol triple phase CT scan of the abdomen and pelvis WITH CONTRAST - Poorly defined hypovascular mass occupying the left medial lobe of the liver and caudate lobe with upstream severe left greater intrahepatic bile duct dilatation, highly suspicious for cholangiocarcinoma. Filling defect identified in intrahepatic portal vein, concerning for tumor thrombus. Metastatic retroperitoneal lymphadenopathy. CA 19-9- 1930 AFP- P coag N, HEPATITIS PANEL- NEG GI EVAL- ERCP plus Spyglass cholangioscopy with targeted biopsies and possible stent placement. Post balloon dilatation, Cholangioscopy with evidence of neoplastic infiltration consistent with cholangiocarcinoma multiple direct targeted biopsies obtained Post placement of a Japanese 10 x 9 cm stent with adequate drainage PATH -Biliary bifurcation, biopsy: Minute fragment of ductal mucosa showing crush artifact. No evidence of dysplasia or malignancy. PLAN- UNABLE TO DO liver biopsy. ( too close to major vessels - per DR CAMACHO) d/w DR KIM WILL AWAIT SURGICAL DECISION Abnormal liver enzymes, jaundice- 2 TO ABOVE DYSLIPIDEMIA Problems: Consultation Date/Type/Reason Admit Date/Time May 19, 2017 at 04:18 Initial Consult Date 05/19/17 Type of Consultation: [facility] Referring Provider: HERMAN MCNULTY 24 HR Interval Summary Free Text/Dictation ALL NOTED D/W DR CAMACHO- area is not accessible FOR biopsy D /W DR GOMEZ Exam/Review of Systems Vital Signs Vitals Vital Signs Date Time Temp Pulse Resp B/P Pulse Ox O2 Delivery O2 Flow Rate FiO2 05/31/17 14:10 98.7 105 16 102/55 100 05/28/17 02:00 Room Air Intake and Output 05/30/17 05/30/17 05/31/17 15:00 23:00 07:00 Intake Total 1700 ml 400 ml Balance 1700 ml 400 ml Exam Const: No acute distress.+ Jaundice Head: Atraumatic. Eyes: Icteric Conjunctiva. ENT: Normal External Ears, Nose and Mouth. Neck: Full range of motion. No meningismus. Resp: Clear to auscultation bilaterally. Cardio: Regular rate and rhythm. Abd: Soft, non distended, normal bowel sounds, Diffuse abdominal tenderness, more tenderness at the right upper quadrant Skin: No petechiae or rashes. Back: No midline or flank tenderness. Ext: No cyanosis, or edema. Neur: Awake and alert. No focal deficit Psych: Normal Mood and Affect. NO PATH LN- ERIC Results Result Diagram: 05/31/17 0556 05/31/17 0556 Results 24 hrs Laboratory Tests Test 05/31/17 05:55 05/31/17 05:56 Prothrombin Time 12.8 Prothrombin Time Ratio 1.0 INR International Normalized Ratio 0.96 Activated Partial Thromboplast Time 29.1 White Blood Count 11.7 #H Red Blood Count 4.11 L Hemoglobin 11.7 L Hematocrit 34.5 L Mean Corpuscular Volume 83.9 Mean Corpuscular Hemoglobin 28.5 L Mean Corpuscular Hemoglobin Concent 33.9 Red Cell Distribution Width 17.2 H Platelet Count 286 Mean Platelet Volume 11.3 H Neutrophils % 70.4 Lymphocytes % 16.2 Monocytes % 10.0 Eosinophils % 2.2 Basophils % 0.5 Nucleated Red Blood Cells % 0.0 Neutrophils # 8.2 H Lymphocytes # 1.9 Monocytes # 1.2 H Eosinophils # 0.3 Basophils # 0.1 Nucleated Red Blood Cells # 0.0 Sodium Level 135 Potassium Level 3.9 Chloride Level 107 Carbon Dioxide Level 22 Anion Gap 10 Blood Urea Nitrogen 7 Creatinine 0.58 Glucose Level 111 Calcium Level 9.5 Total Bilirubin 9.8 H Direct Bilirubin 7.80 H Indirect Bilirubin 2.0 H Aspartate Amino Transf (AST/SGOT) 60 H Alanine Aminotransferase (ALT/SGPT) 44 Alkaline Phosphatase 631 H Total Protein 7.2 Albumin 3.1 L Globulin 4.10 H Albumin/Globulin Ratio 0.75 Medications Medications Current Medications Morphine Sulfate (morphine) 2 mg Q4H PRN IV PAIN Last administered on 21:59; Admin Dose 2 MG; Start 05/19/17 at 16:30 Acetaminophen/ Hydrocodone Bitart ([place] (5/325)) 1 tab Q4H PRN PO PAIN Last administered on 05/24/17 20:38; Admin Dose 1 TAB; Start 05/19/17 at 16:30 Ondansetron HCl (Zofran Inj) 4 mg Q6H PRN IV NAUSEA AND/OR VOMITING; Start at 16:30 Famotidine (Pepcid) 20 mg DAILY PO Last administered on 05/31/17 11:03; Admin Dose 20 MG; Start 05/20/17 at 12:30 Trimethobenzamide HCl (Tigan) 200 mg Q6H PRN IM NAUSEA AND/OR VOMITING; Start 05/20/17 at 12:30 Enoxaparin Sodium (Lovenox) 40 mg DAILY SC Last administered on 05/31/17 11:04 ; Admin Dose 40 MG; Start 05/20/17 at 13:00; Status Future hold Polyethylene Glycol (Miralax) 17 gm DAILY PO Last administered on 05/31/17 11: 03; Admin Dose 17 GM; Start 05/21/17 at 10:30 Hydroxyzine HCl (Atarax) 50 mg Q6H PRN PO ITCHING Last administered on 15:10; Admin Dose 50 MG; Start 05/21/17 at 10:30 Docusate Sodium (Colace) 100 mg BID PO Last administered on 05/31/17 11:03; Admin Dose 100 MG; Start 05/27/17 at 12:30 Cholestyramine Resin (Questran) 1 pkt TID PO Last administered on 05/31/17 15: 11; Admin Dose 1 PKT; Start 05/28/17 at 21:00 Ursodiol (Actigall) 300 mg BID PO Last administered on 05/31/17 11:03; Admin Dose 300 MG; Start 05/30/17 at 09:00 Zolpidem Tartrate (Ambien) 10 mg HS PRN PO INSOMNIA Last administered on 23:05; Admin Dose 10 MG; Start 05/30/17 at 23:00 SNOA WEEKS MD May 31, 2017 18:22
[2017-06-01] MEDS: hydrOXYzine HCL 25 MG TAB PO PRN ×4 (01:28→22:36)
[2017-06-01 02:20] VITALS: BP 116/59; RESP 20
[2017-06-01 06:15] LABS: ALBUMIN 3.4 g/dl (3.3-4.9); ALBUMIN/GLOBULIN RATIO 0.87; BILIRUBIN,DIRECT 9.6 mg/dl (0.00-0.20); BILIRUBIN,INDIRECT 2.1 mg/dl (0-1.1); BILIRUBIN,TOTAL 11.7 mg/dl (0.2-1.3); CALCIUM 9.2 mg/dl (8.4-10.2); CREATININE 0.66 mg/dl (0.44-1.00); POTASSIUM 3.5 mmol/L (3.5-5.1); TOTAL PROTEIN 7.3 g/dl (6.1-8.1)
[2017-06-01 07:44] VITALS: BP 117/61; RESP 16
[2017-06-01] MEDS: ENOXAPARIN 40 MG/0.4 ML SYG SC SCH (09:00)
[2017-06-01] MEDS: DOCUSATE SODIUM 100 MG CAP PO SCH ×2 (09:22→20:18)
[2017-06-01] MEDS: FAMOTIDINE 20 MG TAB PO SCH (09:22)
[2017-06-01] MEDS: POLYETHYLENE GLYCOL 17 GM PACKET PO SCH (09:22)
[2017-06-01] MEDS: URSODIOL 300 MG CAP PO SCH ×2 (09:22→20:18)
[2017-06-01] MEDS: CHOLESTYRAMINE 4 GM PACKET PO SCH ×3 (09:22→20:18)
--- NOTE | 2017-06-01 11:32 | PN ---
Date/Time of Note Date/Time of Note DATE: 06/01/17 TIME: 11:29 Assessment/Plan VTE Prophylaxis VTE Prophylaxis Intervention: ambulation Lines/Catheters [facility] Saline Lock Urinary Cath still in place: No Assessment/Plan Chief Complaint/Hosp Course 52-year-old female with no significant past medical history, presented with abdominal pain, yellowish eyes dark urine and itching X 6 months duration. 1. 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 Not amenable to surgical resection per hepatobiliary surgery specialists & associates. 05/23/2017: CT Abdomen and Pelvis with and without contrast: Liver Protocol. Poorly defined hypovascular mass occupying the left medial lobe of the liver and caudate lobe with upstream severe left greater intrahepatic bile duct dilatation, highly suspicious for cholangiocarcinoma. Filling defect identified in intrahepatic portal vein, concerning for tumor thrombus Metastatic retroperitoneal lymphadenopathy. PLAN: -Status post ERCP with plastic stent placed. Biopsy though ERCP shows no malignancy -Status post Spyglass cholangioscopy-as per , cannot put CBD metallic stent until malignancy proven. CT-guided needle biopsy was ordered by heme/ oncology and per IR, area of biopsy is not accessible. At this time, we will follow recommendations from hepatobiliary surgery/GI/heme/talent acquisition director specialities regarding further diagnostic/treatment modalities. -Appreciate vascular input and recommend for a followup CT triple-phase in 2 weeks. Currently no indication for anticoagulation as suspicion for a thrombus is not high at this time. -Supportive care, consider Palliative care once malignancy is confirmed. 2. Obstructive jaundice with hyperbilirubinemia secondary to #1. Today bili trended up. -Trending down LFTs and bilirubin. Lovenox for DVT prophylaxis Plan: At this time, we are waiting from hematology/oncology standpoint regarding further testis to prove malignancy. Patient is being followed up by multiple specialists we will follow-up with the recommendations. Patient was seen in collaboration with . Problems: Subjective 24 Hr Interval Summary Free Text/Dictation Patient with no acute overnight episodes Exam/Review of Systems Vital Signs Vitals Vital Signs Date Time Temp Pulse Resp B/P Pulse Ox O2 Delivery O2 Flow Rate FiO2 06/01/17 07:44 98.7 97 16 117/61 100 Intake and Output 05/31/17 05/31/17 06/01/17 15:00 23:00 07:00 Intake Total 1440 ml Balance 1440 ml Exam General: Well developed,adequately built, not in any acute distress . HEENT: Normocephalic, Atraumatic, No laceration or hematoma; Eyes: PEERL, Icteric sclera Neck: Supple without any lymphadenopathy, nontender, no JVD, no carotid bruits, trachea midline, no thyromegaly Cardiac: S1, S2 auscultated, regular rhythm and rate, no mumurs or gallop Pulmonary: Normal respiratory effort. Chest clear to auscultation bilaterally, no adventitious breath sounds GI: Abdomen normal to inspection. Soft, non tender, non- distended, no masses, no rebound tenderness or guarding. Bowel sounds active on all four quadrants Genitourinary: Deferred Extremities: No cyanosis, clubbing, or edema. Pulses [2+] bilaterally. Full ROM on all four extremities. No focal weakness appreciated. Neurologic: Alert to person, place, time, and situation. Affect appropriate, intact sensation. Skin: +Jaundiced. Clean,dry, and intact. No ecchymosis, no rashes, or lesions Results Result Diagram: 05/31/17 0556 06/01/17 0514 Results 24 hrs Laboratory Tests Test 06/01/17 05:14 Sodium Level 138 Potassium Level 3.5 Chloride Level 106 Carbon Dioxide Level 26 Anion Gap 10 Blood Urea Nitrogen 7 Creatinine 0.66 Glucose Level 106 Calcium Level 9.2 Total Bilirubin 11.7 H Direct Bilirubin 9.60 H Indirect Bilirubin 2.1 H Aspartate Amino Transf (AST/SGOT) 48 H Alanine Aminotransferase (ALT/SGPT) 45 Alkaline Phosphatase 666 H Total Protein 7.3 Albumin 3.4 Globulin 3.90 H Albumin/Globulin Ratio 0.87 Medications Medications Current Medications Morphine Sulfate (morphine) 2 mg Q4H PRN IV PAIN Last administered on 21:59; Admin Dose 2 MG; Start 05/19/17 at 16:30 Acetaminophen/ Hydrocodone Bitart ([place] (5/325)) 1 tab Q4H PRN PO PAIN Last administered on 05/24/17 20:38; Admin Dose 1 TAB; Start 05/19/17 at 16:30 Ondansetron HCl (Zofran Inj) 4 mg Q6H PRN IV NAUSEA AND/OR VOMITING; Start at 16:30 Famotidine (Pepcid) 20 mg DAILY PO Last administered on 06/01/17 09:22; Admin Dose 20 MG; Start 05/20/17 at 12:30 Trimethobenzamide HCl (Tigan) 200 mg Q6H PRN IM NAUSEA AND/OR VOMITING; Start 05/20/17 at 12:30 Enoxaparin Sodium (Lovenox) 40 mg DAILY SC Last administered on 05/31/17 11:04 ; Admin Dose 40 MG; Start 05/20/17 at 13:00; Status Future hold Polyethylene Glycol (Miralax) 17 gm DAILY PO Last administered on 06/01/17 09: 22; Admin Dose 17 GM; Start 05/21/17 at 10:30 Hydroxyzine HCl (Atarax) 50 mg Q6H PRN PO ITCHING Last administered on 09:22; Admin Dose 50 MG; Start 05/21/17 at 10:30 Docusate Sodium (Colace) 100 mg BID PO Last administered on 06/01/17 09:22; Admin Dose 100 MG; Start 05/27/17 at 12:30 Cholestyramine Resin (Questran) 1 pkt TID PO Last administered on 06/01/17 09: 22; Admin Dose 1 PKT; Start 05/28/17 at 21:00 Ursodiol (Actigall) 300 mg BID PO Last administered on 06/01/17 09:22; Admin Dose 300 MG; Start 05/30/17 at 09:00 Zolpidem Tartrate (Ambien) 10 mg HS PRN PO INSOMNIA Last administered on 23:05; Admin Dose 10 MG; Start 05/30/17 at 23:00 RUPESH BANEGAS NP Jun 01, 2017 11:32
[2017-06-01 13:42] VITALS: BP 120/57; RESP 18
--- NOTE | 2017-06-01 17:13 | PN ---
Date/Time of Note Date/Time of Note DATE: 06/01/17 TIME: 17:12 Assessment/Plan VTE Prophylaxis VTE Prophylaxis Intervention: SCD's Lines/Catheters IV Catheter Type (from Nrs): Saline Lock Urinary Cath still in place: No Assessment/Plan Assessment/Plan Assessment: * Obstructive jaundice * Cholangiocarcinoma by cholangioscopy however path negative * Current stent not accomplishing adequate decompression Plan: * Liver biopsy * Add Questran for pruritus * case discussed with DR Dalal * Further orders will depend on clinical course Subjective 24 Hr Interval Summary Free Text/Dictation * Course reviewed * patient seen and examined * no untoward events overnight Exam/Review of Systems Vital Signs Vitals Vital Signs Date Time Temp Pulse Resp B/P Pulse Ox O2 Delivery O2 Flow Rate FiO2 06/01/17 13:42 98.6 94 18 120/57 100 Intake and Output 05/31/17 05/31/17 06/01/17 15:00 23:00 07:00 Intake Total 1440 ml Balance 1440 ml Exam Constitutional: alert Eyes: icteric Neck: non-tender, supple Respiratory: clear to auscultation, normal air movement Cardiovascular: nl pulses, regular rate and rhythm Gastrointestinal: non-tender, soft Musculoskeletal: nl extremities to inspection, nl gait and stance Extremities: normal pulses Neurological: nl mental status Results Result Diagram: 05/31/17 0556 06/01/17 0514 Results 24 hrs Laboratory Tests Test 06/01/17 05:14 Sodium Level 138 Potassium Level 3.5 Chloride Level 106 Carbon Dioxide Level 26 Anion Gap 10 Blood Urea Nitrogen 7 Creatinine 0.66 Glucose Level 106 Calcium Level 9.2 Total Bilirubin 11.7 H Direct Bilirubin 9.60 H Indirect Bilirubin 2.1 H Aspartate Amino Transf (AST/SGOT) 48 H Alanine Aminotransferase (ALT/SGPT) 45 Alkaline Phosphatase 666 H Total Protein 7.3 Albumin 3.4 Globulin 3.90 H Albumin/Globulin Ratio 0.87 Medications Medications Current Medications Morphine Sulfate (morphine) 2 mg Q4H PRN IV PAIN Last administered on 21:59; Admin Dose 2 MG; Start 05/19/17 at 16:30 Acetaminophen/ Hydrocodone Bitart ([place] (5/325)) 1 tab Q4H PRN PO PAIN Last administered on 05/24/17 20:38; Admin Dose 1 TAB; Start 05/19/17 at 16:30 Ondansetron HCl (Zofran Inj) 4 mg Q6H PRN IV NAUSEA AND/OR VOMITING; Start at 16:30 Famotidine (Pepcid) 20 mg DAILY PO Last administered on 06/01/17 09:22; Admin Dose 20 MG; Start 05/20/17 at 12:30 Trimethobenzamide HCl (Tigan) 200 mg Q6H PRN IM NAUSEA AND/OR VOMITING; Start 05/20/17 at 12:30 Enoxaparin Sodium (Lovenox) 40 mg DAILY SC Last administered on 05/31/17 11:04 ; Admin Dose 40 MG; Start 05/20/17 at 13:00; Status Future hold Polyethylene Glycol (Miralax) 17 gm DAILY PO Last administered on 06/01/17 09: 22; Admin Dose 17 GM; Start 05/21/17 at 10:30 Hydroxyzine HCl (Atarax) 50 mg Q6H PRN PO ITCHING Last administered on 16:23; Admin Dose 50 MG; Start 05/21/17 at 10:30 Docusate Sodium (Colace) 100 mg BID PO Last administered on 06/01/17 09:22; Admin Dose 100 MG; Start 05/27/17 at 12:30 Cholestyramine Resin (Questran) 1 pkt TID PO Last administered on 06/01/17 12: 53; Admin Dose 1 PKT; Start 05/28/17 at 21:00 Ursodiol (Actigall) 300 mg BID PO Last administered on 06/01/17 09:22; Admin Dose 300 MG; Start 05/30/17 at 09:00 Zolpidem Tartrate (Ambien) 10 mg HS PRN PO INSOMNIA Last administered on 23:05; Admin Dose 10 MG; Start 05/30/17 at 23:00 YUE BLACK NP Jun 01, 2017 17:13
--- NOTE | 2017-06-01 19:03 | CONS ---
Date/Time of Note Date/Time of Note DATE: 06/01/17 TIME: 19:01 Assessment/Plan Assessment/Plan Chief Complaint/Hosp Course PAINLESS JAUNDICE ASSOCIATED WITH Liver mass with enlarged lymph nodes, suspicious for malignancy R/O NEOPLASIA pancreas protocol triple phase CT scan of the abdomen and pelvis WITH CONTRAST - Poorly defined hypovascular mass occupying the left medial lobe of the liver and caudate lobe with upstream severe left greater intrahepatic bile duct dilatation, highly suspicious for cholangiocarcinoma. Filling defect identified in intrahepatic portal vein, concerning for tumor thrombus. Metastatic retroperitoneal lymphadenopathy. CA 19-9- 1930 AFP- P coag N, HEPATITIS PANEL- NEG GI EVAL- ERCP plus Spyglass cholangioscopy with targeted biopsies and possible stent placement. Post balloon dilatation, Cholangioscopy with evidence of neoplastic infiltration consistent with cholangiocarcinoma multiple direct targeted biopsies obtained Post placement of a Spanish 10 x 9 cm stent with adequate drainage PATH -Biliary bifurcation, biopsy: Minute fragment of ductal mucosa showing crush artifact. No evidence of dysplasia or malignancy. PLAN- UNABLE TO DO liver biopsy. ( too close to major vessels - per DR CAMACHO) RE- LAPAROSCOPIC BX Abnormal liver enzymes, jaundice- 2 TO ABOVE DYSLIPIDEMIA Problems: Consultation Date/Type/Reason Admit Date/Time May 19, 2017 at 04:18 Initial Consult Date 05/19/17 Type of Consultation: [facility] Referring Provider: HERMAN MCNULTY 24 HR Interval Summary Free Text/Dictation ALL NOTED D/W ALL MDs involved Exam/Review of Systems Vital Signs Vitals Vital Signs Date Time Temp Pulse Resp B/P Pulse Ox O2 Delivery O2 Flow Rate FiO2 06/01/17 13:42 98.6 94 18 120/57 100 Intake and Output 05/31/17 05/31/17 06/01/17 15:00 23:00 07:00 Intake Total 1440 ml Balance 1440 ml Exam Const: No acute distress.+ Jaundice Head: Atraumatic. Eyes: Icteric Conjunctiva. ENT: Normal External Ears, Nose and Mouth. Neck: Full range of motion. No meningismus. Resp: Clear to auscultation bilaterally. Cardio: Regular rate and rhythm. Abd: Soft, non distended, normal bowel sounds, Diffuse abdominal tenderness, more tenderness at the right upper quadrant Skin: No petechiae or rashes. Back: No midline or flank tenderness. Ext: No cyanosis, or edema. Neur: Awake and alert. No focal deficit Psych: Normal Mood and Affect. NO PATH LN- ERIC Results Result Diagram: 05/31/17 0556 06/01/17 0514 Results 24 hrs Laboratory Tests Test 06/01/17 05:14 Sodium Level 138 Potassium Level 3.5 Chloride Level 106 Carbon Dioxide Level 26 Anion Gap 10 Blood Urea Nitrogen 7 Creatinine 0.66 Glucose Level 106 Calcium Level 9.2 Total Bilirubin 11.7 H Direct Bilirubin 9.60 H Indirect Bilirubin 2.1 H Aspartate Amino Transf (AST/SGOT) 48 H Alanine Aminotransferase (ALT/SGPT) 45 Alkaline Phosphatase 666 H Total Protein 7.3 Albumin 3.4 Globulin 3.90 H Albumin/Globulin Ratio 0.87 Medications Medications Current Medications Morphine Sulfate (morphine) 2 mg Q4H PRN IV PAIN Last administered on 21:59; Admin Dose 2 MG; Start 05/19/17 at 16:30 Acetaminophen/ Hydrocodone Bitart ([place] (5/325)) 1 tab Q4H PRN PO PAIN Last administered on 05/24/17 20:38; Admin Dose 1 TAB; Start 05/19/17 at 16:30 Ondansetron HCl (Zofran Inj) 4 mg Q6H PRN IV NAUSEA AND/OR VOMITING; Start at 16:30 Famotidine (Pepcid) 20 mg DAILY PO Last administered on 06/01/17 09:22; Admin Dose 20 MG; Start 05/20/17 at 12:30 Trimethobenzamide HCl (Tigan) 200 mg Q6H PRN IM NAUSEA AND/OR VOMITING; Start 05/20/17 at 12:30 Enoxaparin Sodium (Lovenox) 40 mg DAILY SC Last administered on 05/31/17 11:04 ; Admin Dose 40 MG; Start 05/20/17 at 13:00; Status Future hold Polyethylene Glycol (Miralax) 17 gm DAILY PO Last administered on 06/01/17 09: 22; Admin Dose 17 GM; Start 05/21/17 at 10:30 Hydroxyzine HCl (Atarax) 50 mg Q6H PRN PO ITCHING Last administered on 16:23; Admin Dose 50 MG; Start 05/21/17 at 10:30 Docusate Sodium (Colace) 100 mg BID PO Last administered on 06/01/17 09:22; Admin Dose 100 MG; Start 05/27/17 at 12:30 Cholestyramine Resin (Questran) 1 pkt TID PO Last administered on 06/01/17 12: 53; Admin Dose 1 PKT; Start 05/28/17 at 21:00 Ursodiol (Actigall) 300 mg BID PO Last administered on 06/01/17 09:22; Admin Dose 300 MG; Start 05/30/17 at 09:00 Zolpidem Tartrate (Ambien) 10 mg HS PRN PO INSOMNIA Last administered on 23:05; Admin Dose 10 MG; Start 05/30/17 at 23:00 SONA WEEKS MD Jun 01, 2017 19:03
[2017-06-01 19:43] VITALS: BP 119/64; RESP 20
[2017-06-02 02:43] VITALS: BP 116/59; RESP 18
[2017-06-02] MEDS: hydrOXYzine HCL 25 MG TAB PO PRN ×3 (04:01→17:38)
[2017-06-02 06:06] LABS: ALBUMIN 3.2 g/dl (3.3-4.9); ALBUMIN/GLOBULIN RATIO 0.74; BILIRUBIN,DIRECT 7.7 mg/dl (0.00-0.20); BILIRUBIN,INDIRECT 1.6 mg/dl (0-1.1); BILIRUBIN,TOTAL 9.3 mg/dl (0.2-1.3); CALCIUM 9.2 mg/dl (8.4-10.2); CREATININE 0.59 mg/dl (0.44-1.00); POTASSIUM 3.5 mmol/L (3.5-5.1); TOTAL PROTEIN 7.5 g/dl (6.1-8.1)
[2017-06-02 07:40] VITALS: BP 103/58; RESP 16
[2017-06-02] MEDS: POLYETHYLENE GLYCOL 17 GM PACKET PO SCH (09:00)
[2017-06-02] MEDS: CHOLESTYRAMINE 4 GM PACKET PO SCH ×3 (09:00→21:40)
[2017-06-02] MEDS: URSODIOL 300 MG CAP PO SCH ×2 (09:00→21:40)
[2017-06-02] MEDS: DOCUSATE SODIUM 100 MG CAP PO SCH ×2 (09:01→21:40)
[2017-06-02] MEDS: FAMOTIDINE 20 MG TAB PO SCH (09:01)
[2017-06-02] MEDS: ENOXAPARIN 40 MG/0.4 ML SYG SC SCH (09:14)
--- NOTE | 2017-06-02 12:37 | PN ---
Date/Time of Note Date/Time of Note DATE: 06/02/17 TIME: 12:35 Assessment/Plan VTE Prophylaxis VTE Prophylaxis Intervention: ambulation Lines/Catheters IV [facility]ter Type (from [facility]): Saline Lock Urinary Cath still in place: No Assessment/Plan Chief Complaint/Hosp Course 52-year-old female with no significant past medical history, presented with abdominal pain, yellowish eyes dark urine and itching X 6 months duration. 1. 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 Not amenable to surgical resection per [facility]. 05/23/2017: CT Abdomen and Pelvis with and without contrast: Liver Protocol. Poorly defined hypovascular mass occupying the left medial lobe of the liver and caudate lobe with upstream severe left greater intrahepatic bile duct dilatation, highly suspicious for cholangiocarcinoma. Filling defect identified in intrahepatic portal vein, concerning for tumor thrombus Metastatic retroperitoneal lymphadenopathy. PLAN: -Status post ERCP with plastic stent placed. Biopsy though ERCP shows no malignancy -Status post Spyglass cholangioscopy-as per , cannot put CBD metallic stent until malignancy proven. Unable to perform CT-guided needle biopsy as area of biopsy is not accessible. Follow-up with surgery recommendation regarding hematology recommendation on laparoscopic biopsy. -Appreciate vascular input and recommend for a followup CT triple-phase in 2 weeks. Currently no indication for anticoagulation as suspicion for a thrombus is not high at this time. -Supportive care, consider Palliative care once malignancy is confirmed. -At this time, we will follow recommendations from hepatobiliary surgery/GI/heme /formulation technician specialities regarding further diagnostic/treatment modalities. 2. Obstructive jaundice with hyperbilirubinemia secondary to #1. Bili trended down. -Trending down LFTs and bilirubin. Lovenox for DVT prophylaxis Plan: As per oncology standpoint, patient would need laparoscopic biopsy to rule out malignancy. We will follow-up with surgery recommendation. Patient was seen in collaboration with . Problems: Subjective 24 Hr Interval Summary Free Text/Dictation Sitting up in chair. She denies abdominal pain, nausea, vomiting or other constitutional symptoms. Exam/Review of Systems Vital Signs Vitals Vital Signs Date Time Temp Pulse Resp B/P Pulse Ox O2 Delivery O2 Flow Rate FiO2 06/02/17 07:40 97.8 86 16 103/58 98 Intake and Output 06/01/17 06/01/17 06/02/17 15:00 23:00 07:00 Intake Total 242 ml 1440 ml Balance 242 ml 1440 ml Exam General: Well developed,adequately built, not in any acute distress . HEENT: Normocephalic, Atraumatic, No laceration or hematoma; Eyes: PEERL, Icteric sclera Neck: Supple without any lymphadenopathy, nontender, no JVD, no carotid bruits, trachea midline, no thyromegaly Cardiac: S1, S2 auscultated, regular rhythm and rate, no mumurs or gallop Pulmonary: Normal respiratory effort. Chest clear to auscultation bilaterally, no adventitious breath sounds GI: Abdomen normal to inspection. Soft, non tender, non- distended, no masses, no rebound tenderness or guarding. Bowel sounds active on all four quadrants Genitourinary: Deferred Extremities: No cyanosis, clubbing, or edema. Pulses [2+] bilaterally. Full ROM on all four extremities. No focal weakness appreciated. Neurologic: Alert to person, place, time, and situation. Affect appropriate, intact sensation. Skin: +Jaundiced. Clean,dry, and intact. No ecchymosis, no rashes, or lesions Results Result Diagram: 05/31/17 0556 06/02/17 0511 Results 24 hrs Laboratory Tests Test 06/02/17 05:11 Sodium Level 136 Potassium Level 3.5 Chloride Level 104 Carbon Dioxide Level 27 Anion Gap 9 Blood Urea Nitrogen 5 L Creatinine 0.59 Glucose Level 109 Calcium Level 9.2 Total Bilirubin 9.3 #H Direct Bilirubin 7.70 H Indirect Bilirubin 1.6 H Aspartate Amino Transf (AST/SGOT) 43 Alanine Aminotransferase (ALT/SGPT) 48 Alkaline Phosphatase 656 H Total Protein 7.5 Albumin 3.2 L Globulin 4.30 H Albumin/Globulin Ratio 0.74 Medications Medications Current Medications Morphine Sulfate (morphine) 2 mg Q4H PRN IV PAIN Last administered on 21:59; Admin Dose 2 MG; Start 05/19/17 at 16:30 Acetaminophen/ Hydrocodone Bitart ([place] (5/325)) 1 tab Q4H PRN PO PAIN Last administered on 05/24/17 20:38; Admin Dose 1 TAB; Start 05/19/17 at 16:30 Ondansetron HCl (Zofran Inj) 4 mg Q6H PRN IV NAUSEA AND/OR VOMITING; Start at 16:30 Famotidine (Pepcid) 20 mg DAILY PO Last administered on 06/02/17 09:01; Admin Dose 20 MG; Start 05/20/17 at 12:30 Trimethobenzamide HCl (Tigan) 200 mg Q6H PRN IM NAUSEA AND/OR VOMITING; Start 05/20/17 at 12:30 Enoxaparin Sodium (Lovenox) 40 mg DAILY SC Last administered on 06/02/17 09:14 ; Admin Dose 40 MG; Start 05/20/17 at 13:00; Status Future hold Polyethylene Glycol (Miralax) 17 gm DAILY PO Last administered on 06/02/17 09: 00; Admin Dose 17 GM; Start 05/21/17 at 10:30 Hydroxyzine HCl (Atarax) 50 mg Q6H PRN PO ITCHING Last administered on 11:05; Admin Dose 50 MG; Start 05/21/17 at 10:30 Docusate Sodium (Colace) 100 mg BID PO Last administered on 06/02/17 09:01; Admin Dose 100 MG; Start 05/27/17 at 12:30 Cholestyramine Resin (Questran) 1 pkt TID PO Last administered on 06/02/17 09: 00; Admin Dose 1 PKT; Start 05/28/17 at 21:00 Ursodiol (Actigall) 300 mg BID PO Last administered on 06/02/17 09:00; Admin Dose 300 MG; Start 05/30/17 at 09:00 Zolpidem Tartrate (Ambien) 10 mg HS PRN PO INSOMNIA Last administered on 23:05; Admin Dose 10 MG; Start 05/30/17 at 23:00 RUPESH BANEGAS NP Jun 02, 2017 12:37
[2017-06-02 14:00] VITALS: BP 97/57; RESP 18
--- NOTE | 2017-06-02 16:41 | PN ---
Date/Time of Note Date/Time of Note DATE: 06/02/17 TIME: 16:39 Assessment/Plan VTE Prophylaxis VTE Prophylaxis Intervention: SCD's Lines/Catheters [facility] Saline Lock Urinary Cath still in place: No Assessment/Plan Assessment/Plan Assessment: * Obstructive jaundice * Cholangiocarcinoma by cholangioscopy however path negative * Current stent not accomplishing adequate decompression Plan: * per suggestion of oncology ,laparoscopic biopsy is recommended * Add Questran for pruritus * case discussed with DR Dalal * Further orders will depend on clinical course Subjective 24 Hr Interval Summary Free Text/Dictation * Course reviwed * patient seen and examined * No untoward events overnight Exam/Review of Systems Vital Signs Vitals Vital Signs Date Time Temp Pulse Resp B/P Pulse Ox O2 Delivery O2 Flow Rate FiO2 06/02/17 14:00 97.9 93 18 97/57 100 Intake and Output 06/01/17 06/01/17 06/02/17 15:00 23:00 07:00 Intake Total 242 ml 1440 ml Balance 242 ml 1440 ml Exam Constitutional: alert, frail Head: normocephalic Neck: non-tender, supple Respiratory: clear to auscultation, normal air movement Cardiovascular: nl pulses, regular rate and rhythm Gastrointestinal: non-tender, soft Musculoskeletal: nl extremities to inspection, nl gait and stance Extremities: normal pulses Neurological: nl speech, nl strength Skin: nl turgor, No rash or lesions Lymph: nl lymph nodes Results Result Diagram: 05/31/17 0556 06/02/17 0511 Results 24 hrs Laboratory Tests Test 06/02/17 05:11 Sodium Level 136 Potassium Level 3.5 Chloride Level 104 Carbon Dioxide Level 27 Anion Gap 9 Blood Urea Nitrogen 5 L Creatinine 0.59 Glucose Level 109 Calcium Level 9.2 Total Bilirubin 9.3 #H Direct Bilirubin 7.70 H Indirect Bilirubin 1.6 H Aspartate Amino Transf (AST/SGOT) 43 Alanine Aminotransferase (ALT/SGPT) 48 Alkaline Phosphatase 656 H Total Protein 7.5 Albumin 3.2 L Globulin 4.30 H Albumin/Globulin Ratio 0.74 Medications Medications Current Medications Morphine Sulfate (morphine) 2 mg Q4H PRN IV PAIN Last administered on t 21:59; Admin Dose 2 MG; Start 05/19/17 at 16:30 Acetaminophen/ Hydrocodone Bitart ([place] (5/325)) 1 tab Q4H PRN PO PAIN Last administered on 05/24/17 20:38; Admin Dose 1 TAB; Start 05/19/17 at 16:30 Ondansetron HCl (Zofran Inj) 4 mg Q6H PRN IV NAUSEA AND/OR VOMITING; Start at 16:30 Famotidine (Pepcid) 20 mg DAILY PO Last administered on 06/02/17 09:01; Admin Dose 20 MG; Start 05/20/17 at 12:30 Trimethobenzamide HCl (Tigan) 200 mg Q6H PRN IM NAUSEA AND/OR VOMITING; Start 05/20/17 at 12:30 Enoxaparin Sodium (Lovenox) 40 mg DAILY SC Last administered on 06/02/17 09:14 ; Admin Dose 40 MG; Start 05/20/17 at 13:00; Status Future hold Polyethylene Glycol (Miralax) 17 gm DAILY PO Last administered on 06/02/17 09: 00; Admin Dose 17 GM; Start 05/21/17 at 10:30 Hydroxyzine HCl (Atarax) 50 mg Q6H PRN PO ITCHING Last administered on 11:05; Admin Dose 50 MG; Start 05/21/17 at 10:30 Docusate Sodium (Colace) 100 mg BID PO Last administered on 06/02/17 09:01; Admin Dose 100 MG; Start 05/27/17 at 12:30 Cholestyramine Resin (Questran) 1 pkt TID PO Last administered on 06/02/17 12: 54; Admin Dose 1 PKT; Start 05/28/17 at 21:00 Ursodiol (Actigall) 300 mg BID PO Last administered on 06/02/17 09:00; Admin Dose 300 MG; Start 05/30/17 at 09:00 Zolpidem Tartrate (Ambien) 10 mg HS PRN PO INSOMNIA Last administered on 23:05; Admin Dose 10 MG; Start 05/30/17 at 23:00 YUE BLACK NP Jun 02, 2017 16:41
--- NOTE | 2017-06-02 17:10 | PN ---
Date/Time of Note Date/Time of Note DATE: 06/02/17 TIME: 17:04 Assessment/Plan Lines/Catheters IV Catheter Type (from [facility]): Saline Lock [place] in Place (from [facility]): No Assessment/Plan Assessment/Plan [facility] Progress Note Date of Service: 06/02/2017 Place of service: [facility] [address] Today's Assessment & Plan: Overall stable and very slowly improving after placement of plastic stent in the biliary system. Abdomen remains benign. LFT's coming down slowly. No indication for acute surgical intervention. Discussed biopsy with Dr. Schroeder. No good safe window to do the procedure. I've considered surgical (laparoscopic) biopsy, but this also has risk and in my opinion, the risk does out weight the benefit since a negative biopsy will not change our management, and a positive biopsy will still lead to treatment. Extremely rare for this to be a lymphoma. Most likely cholangiocarcinoma and should be treated as such. My plan is TACE once her bilirubin is acceptable. She will likely also benefit from systemic chemotherapy in conjunction. Planning on getting our colleagues collective recommendations in an upcoming tumor board. Discussed all of the above with the patient, her and also left a message for her son (Solis) over the phone. Answered all questions. Patient and family appeared to understand and agreed with plans. Previous assessment that applies today: A very-pleasant but unfortunate 52-year-old lady without significant other major comorbidities, presenting with a central hilar cholangiocarcinoma which unfortunately involves the first and perhaps even the second order branches of both the left and right biliary systems, not amenable to surgical resection. There is still many interventions that can be done to improve the patient's quality of life as well as perhaps quantity of life. These include stenting of the biliary system, hopefully internally, to allow bile duct obstruction to resolve. They are also available options for local therapy to the liver in the form of transarterial chemoembolization (TACE), possible radioembolization, and potential for systemic chemotherapy. With above assessment, I've recommended the followin. Continue in-house care 2. Continue plans for multidisciplinary tumor board discussion and continue multidisciplinary care 3. Cont. with attempts at internal stenting with metallic stents (much appreciate Dr. Dalal's excellent care); if not possible, may consider additional plastic stent placement to expedite biliary drainage; possible need for PTC if above does not drop bili to a safe level for treatment 4. Social work and case management to please get involved with the patient and family quickly and review the several possibly present socioeconomic barriers and assist with both inpatient as well as rather involved outpatient management that is needed to treat this disease process 5. Would also benefit from supportive care consultation 6. Much appreciate ongoing involvement of Dr. Parikh from an oncology standpoint Thank you very much for having me involved in the care of this very pleasant patient and wonderful family. If you have any questions, please feel free to contact me at [phone]. Nature of presenting problem: High severity Please note that, given the extensive number of diagnoses or management options , the extensive amount and/or complexity of data needed to be reviewed, and high risk of complications and/or morbidity or mortality, this qualifies as high complexity type of decision-making. Disclaimer: Inadvertent spelling and grammatical errors are likely due to EHR/ dictation software use and do not reflect on the quality of delivered patient care. Also, please note that the electronic time recorded on this node does not necessarily reflect the actual time of the visit. Updated clinical summary: A very-pleasant but unfortunate 52-year-old lady without significant other major comorbidities, presenting with a central hilar cholangiocarcinoma which unfortunately involves the first and perhaps even the second branches of both the left and right biliary systems, not amenable to surgical resection. Comorbidities: 1. BMI 25 2. Status post left breast biopsy 3. 4. Hypercholesterolemia Subjective: No major events or complaints; no major abd pain and under control with medications; no n/v/d; no sob or cp; + flatus; + BM and normal; + activity Objective: Vitals: See below I's & O's: See below Exam: GENERAL: On exam, the patient was laying in bed and appeared to be comfortable and in no acute distress. Eyes appear jaundiced. ABDOMEN: Soft, nontender and nondistended. There are no peritoneal signs or guarding. SKIN: Skin appears to be pink with a hint of yellow and feels warm to touch. NEUROLOGIC: Patient is awake, alert, and follows commands appropriately. Labs: See below Exam/Review of Systems Vital Signs Vitals Vital Signs Date Time Temp Pulse Resp B/P Pulse Ox O2 Delivery O2 Flow Rate FiO2 06/02/17 14:00 97.9 93 18 97/57 100 Intake and Output 06/01/17 06/01/17 06/02/17 15:00 23:00 07:00 Intake Total 242 ml 1440 ml Balance 242 ml 1440 ml Results Result Diagram: 05/31/17 0556 06/02/17 0511 ABBY ROMAN M.D. Jun 02, 2017 17:10
--- NOTE | 2017-06-02 17:56 | CONS ---
Date/Time of Note Date/Time of Note DATE: 06/02/17 TIME: 17:56 Assessment/Plan Assessment/Plan Chief Complaint/Hosp Course PAINLESS JAUNDICE ASSOCIATED WITH Liver mass with enlarged lymph nodes, suspicious for malignancy R/O NEOPLASIA pancreas protocol triple phase CT scan of the abdomen and pelvis WITH CONTRAST - Poorly defined hypovascular mass occupying the left medial lobe of the liver and caudate lobe with upstream severe left greater intrahepatic bile duct dilatation, highly suspicious for cholangiocarcinoma. Filling defect identified in intrahepatic portal vein, concerning for tumor thrombus. Metastatic retroperitoneal lymphadenopathy. CA 19-9- 1930 AFP- P coag N, HEPATITIS PANEL- NEG GI EVAL- ERCP plus Spyglass cholangioscopy with targeted biopsies and possible stent placement. Post balloon dilatation, Cholangioscopy with evidence of neoplastic infiltration consistent with cholangiocarcinoma multiple direct targeted biopsies obtained Post placement of a Bengali 10 x 9 cm stent with adequate drainage PATH -Biliary bifurcation, biopsy: Minute fragment of ductal mucosa showing crush artifact. No evidence of dysplasia or malignancy. PLAN- UNABLE TO DO liver biopsy. ( too close to major vessels - per DR CAMACHO) RE- LAPAROSCOPIC BX Abnormal liver enzymes, jaundice- 2 TO ABOVE DYSLIPIDEMIA Problems: Consultation Date/Type/Reason Admit Date/Time May 19, 2017 at 04:18 Initial Consult Date 05/19/17 Type of Consultation: [facility] Referring Provider: HERMAN MCNULTY 24 HR Interval Summary Free Text/Dictation ALL NOTED NO NEW EVENTS Exam/Review of Systems Vital Signs Vitals Vital Signs Date Time Temp Pulse Resp B/P Pulse Ox O2 Delivery O2 Flow Rate FiO2 06/02/17 14:00 97.9 93 18 97/57 100 Intake and Output 06/01/17 06/01/17 06/02/17 15:00 23:00 07:00 Intake Total 242 ml 1440 ml Balance 242 ml 1440 ml Exam Const: No acute distress.+ Jaundice Head: Atraumatic. Eyes: Icteric Conjunctiva. ENT: Normal External Ears, Nose and Mouth. Neck: Full range of motion. No meningismus. Resp: Clear to auscultation bilaterally. Cardio: Regular rate and rhythm. Abd: Soft, non distended, normal bowel sounds, Diffuse abdominal tenderness, more tenderness at the right upper quadrant Skin: No petechiae or rashes. Back: No midline or flank tenderness. Ext: No cyanosis, or edema. Neur: Awake and alert. No focal deficit Psych: Normal Mood and Affect. NO PATH LN- ERIC Results Result Diagram: 05/31/17 0556 06/02/17 0511 Results 24 hrs Laboratory Tests Test 06/02/17 05:11 Sodium Level 136 Potassium Level 3.5 Chloride Level 104 Carbon Dioxide Level 27 Anion Gap 9 Blood Urea Nitrogen 5 L Creatinine 0.59 Glucose Level 109 Calcium Level 9.2 Total Bilirubin 9.3 #H Direct Bilirubin 7.70 H Indirect Bilirubin 1.6 H Aspartate Amino Transf (AST/SGOT) 43 Alanine Aminotransferase (ALT/SGPT) 48 Alkaline Phosphatase 656 H Total Protein 7.5 Albumin 3.2 L Globulin 4.30 H Albumin/Globulin Ratio 0.74 Medications Medications Current Medications Morphine Sulfate (morphine) 2 mg Q4H PRN IV PAIN Last administered on 21:59; Admin Dose 2 MG; Start 05/19/17 at 16:30 Acetaminophen/ Hydrocodone Bitart ([place] (5/325)) 1 tab Q4H PRN PO PAIN Last administered on 05/24/17 20:38; Admin Dose 1 TAB; Start 05/19/17 at 16:30 Ondansetron HCl (Zofran Inj) 4 mg Q6H PRN IV NAUSEA AND/OR VOMITING; Start at 16:30 Famotidine (Pepcid) 20 mg DAILY PO Last administered on 06/02/17 09:01; Admin Dose 20 MG; Start 05/20/17 at 12:30 Trimethobenzamide HCl (Tigan) 200 mg Q6H PRN IM NAUSEA AND/OR VOMITING; Start 05/20/17 at 12:30 Enoxaparin Sodium (Lovenox) 40 mg DAILY SC Last administered on 06/02/17 09:14 ; Admin Dose 40 MG; Start 05/20/17 at 13:00; Status Future hold Polyethylene Glycol (Miralax) 17 gm DAILY PO Last administered on 06/02/17 09: 00; Admin Dose 17 GM; Start 05/21/17 at 10:30 Hydroxyzine HCl (Atarax) 50 mg Q6H PRN PO ITCHING Last administered on 17:38; Admin Dose 50 MG; Start 05/21/17 at 10:30 Docusate Sodium (Colace) 100 mg BID PO Last administered on 06/02/17 09:01; Admin Dose 100 MG; Start 05/27/17 at 12:30 Cholestyramine Resin (Questran) 1 pkt TID PO Last administered on 06/02/17 12: 54; Admin Dose 1 PKT; Start 05/28/17 at 21:00 Ursodiol (Actigall) 300 mg BID PO Last administered on 06/02/17 09:00; Admin Dose 300 MG; Start 05/30/17 at 09:00 Zolpidem Tartrate (Ambien) 10 mg HS PRN PO INSOMNIA Last administered on 23:05; Admin Dose 10 MG; Start 05/30/17 at 23:00 SONA WEEKS MD Jun 02, 2017 17:56
[2017-06-02 19:30] VITALS: BP 109/59; RESP 20
[2017-06-03] MEDS: hydrOXYzine HCL 25 MG TAB PO PRN ×4 (00:23→18:12)
[2017-06-03 01:29] VITALS: BP 109/62; RESP 20
[2017-06-03 06:28] LABS: ALBUMIN 3.2 g/dl (3.3-4.9); ALBUMIN/GLOBULIN RATIO 0.88; BILIRUBIN,DIRECT 5.7 mg/dl (0.00-0.20); BILIRUBIN,INDIRECT 1.6 mg/dl (0-1.1); BILIRUBIN,TOTAL 7.3 mg/dl (0.2-1.3); CALCIUM 9.1 mg/dl (8.4-10.2); CREATININE 0.67 mg/dl (0.44-1.00); POTASSIUM 3.7 mmol/L (3.5-5.1); TOTAL PROTEIN 6.8 g/dl (6.1-8.1)
[2017-06-03 08:00] VITALS: BP 116/59; RESP 20
[2017-06-03] MEDS: POLYETHYLENE GLYCOL 17 GM PACKET PO SCH (08:18)
[2017-06-03] MEDS: CHOLESTYRAMINE 4 GM PACKET PO SCH ×3 (08:18→20:57)
[2017-06-03] MEDS: URSODIOL 300 MG CAP PO SCH ×2 (08:19→20:58)
[2017-06-03] MEDS: DOCUSATE SODIUM 100 MG CAP PO SCH ×2 (08:19→20:58)
[2017-06-03] MEDS: FAMOTIDINE 20 MG TAB PO SCH (08:19)
[2017-06-03] MEDS: ENOXAPARIN 40 MG/0.4 ML SYG SC SCH (08:39)
--- NOTE | 2017-06-03 10:59 | PN ---
Date/Time of Note Date/Time of Note DATE: 06/03/17 TIME: 10:54 Assessment/Plan VTE Prophylaxis VTE Prophylaxis Intervention: ambulation Lines/Catheters IV [facility]atheter Type (from [facility]): Saline Lock Urinary Cath still in place: No Assessment/Plan Chief Complaint/Hosp Course A/P: 52-year-old female with no significant past medical history, presented with abdominal pain, yellowish eyes dark urine and itching X 6 months duration. 1. 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 Not amenable to surgical resection per hepatobiliary surgery specialists & associates. 05/23/2017: CT Abdomen and Pelvis with and without contrast: Liver Protocol. Poorly defined hypovascular mass occupying the left medial lobe of the liver and caudate lobe with upstream severe left greater intrahepatic bile duct dilatation, highly suspicious for cholangiocarcinoma. Filling defect identified in intrahepatic portal vein, concerning for tumor thrombus Metastatic retroperitoneal lymphadenopathy. PLAN: -Status post ERCP with plastic stent placed. Biopsy though ERCP shows no malignancy -Status post Spyglass cholangioscopy-as per , cannot put CBD metallic stent until malignancy proven. Unable to perform CT-guided needle biopsy as area of biopsy is not accessible. Follow-up with surgery recommendation regarding hematology recommendation on laparoscopic biopsy. Per latest surgery recommendations, risks greater than reward for performing this kind of laparoscopic biopsy, so likely will be given to start TACE as well as chemotherapy once her bilirubin is acceptable. -Appreciate vascular input and recommend for a followup CT triple-phase in 2 weeks. Currently no indication for anticoagulation as suspicion for a thrombus is not high at this time. -Supportive care, consider Palliative care. -At this time, we will follow recommendations from hepatobiliary surgery/GI/heme /educational sign language interpreter specialities regarding further diagnostic/treatment modalities. 2. Obstructive jaundice with hyperbilirubinemia secondary to #1. Bili trended down. -Trending down LFTs and bilirubin. Lovenox for DVT prophylaxis Problems: Subjective 24 Hr Interval Summary Free Text/Dictation Seen by hepatobiliary surgery and hematology oncology teams yesterday. Tolerating diet. No acute events overnight. Exam/Review of Systems Vital Signs Vitals Vital Signs Date Time Temp Pulse Resp B/P Pulse Ox O2 Delivery O2 Flow Rate FiO2 06/03/17 08:00 98.8 82 20 116/59 96 Intake and Output 06/02/17 06/02/17 06/03/17 15:00 23:00 07:00 Intake Total 2840 ml 1000 ml Output Total 700 ml Balance 2840 ml 300 ml Exam General: Well developed,adequately built, not in any acute distress HEENT: Normocephalic, Atraumatic, No laceration or hematoma; Eyes: PEERL, Icteric sclera Neck: Supple without any lymphadenopathy, nontender, no JVD, no carotid bruits, trachea midline, no thyromegaly Cardiac: S1, S2 auscultated, regular rhythm and rate, no mumurs or gallop Pulmonary: Normal respiratory effort. Chest clear to auscultation bilaterally, no adventitious breath sounds GI: Abdomen normal to inspection. Soft, non tender, non- distended, no masses, no rebound tenderness or guarding. Bowel sounds active on all four quadrants Extremities: No cyanosis, clubbing, or edema. Pulses [2+] bilaterally. Full ROM on all four extremities. No focal weakness appreciated. Neurologic: Alert to person, place, time, and situation. Affect appropriate, intact sensation. Skin: +Jaundiced. Clean,dry, and intact. No ecchymosis, no rashes, or lesions Results Result Diagram: 05/31/17 0556 06/03/17 0500 Results 24 hrs Laboratory Tests Test 06/03/17 05:00 Sodium Level 140 Potassium Level 3.7 Chloride Level 108 Carbon Dioxide Level 26 Anion Gap 10 Blood Urea Nitrogen 5 L Creatinine 0.67 Glucose Level 100 Calcium Level 9.1 Total Bilirubin 7.3 #H Direct Bilirubin 5.70 H Indirect Bilirubin 1.6 H Aspartate Amino Transf (AST/SGOT) 45 Alanine Aminotransferase (ALT/SGPT) 53 Alkaline Phosphatase 561 H Total Protein 6.8 Albumin 3.2 L Globulin 3.60 H Albumin/Globulin Ratio 0.88 Medications Medications Current Medications Morphine Sulfate (morphine) 2 mg Q4H PRN IV PAIN Last administered on 21:59; Admin Dose 2 MG; Start 05/19/17 at 16:30 Acetaminophen/ Hydrocodone Bitart ([place] (5/325)) 1 tab Q4H PRN PO PAIN Last administered on 05/24/17 20:38; Admin Dose 1 TAB; Start 05/19/17 at 16:30 Ondansetron HCl (Zofran Inj) 4 mg Q6H PRN IV NAUSEA AND/OR VOMITING; Start at 16:30 Famotidine (Pepcid) 20 mg DAILY PO Last administered on 06/03/17 08:19; Admin Dose 20 MG; Start 05/20/17 at 12:30 Trimethobenzamide HCl (Tigan) 200 mg Q6H PRN IM NAUSEA AND/OR VOMITING; Start 05/20/17 at 12:30 Enoxaparin Sodium (Lovenox) 40 mg DAILY SC Last administered on 06/03/17 08:39 ; Admin Dose 40 MG; Start 05/20/17 at 13:00; Status Future hold Polyethylene Glycol (Miralax) 17 gm DAILY PO Last administered on 06/03/17 08: 18; Admin Dose 17 GM; Start 05/21/17 at 10:30 Hydroxyzine HCl (Atarax) 50 mg Q6H PRN PO ITCHING Last administered on 06:13; Admin Dose 50 MG; Start 05/21/17 at 10:30 Docusate Sodium (Colace) 100 mg BID PO Last administered on 06/03/17 08:19; Admin Dose 100 MG; Start 05/27/17 at 12:30 Cholestyramine Resin (Questran) 1 pkt TID PO Last administered on 06/03/17 08: 18; Admin Dose 1 PKT; Start 05/28/17 at 21:00 Ursodiol (Actigall) 300 mg BID PO Last administered on 06/03/17 08:19; Admin Dose 300 MG; Start 05/30/17 at 09:00 Zolpidem Tartrate (Ambien) 10 mg HS PRN PO INSOMNIA Last administered on 23:05; Admin Dose 10 MG; Start 05/30/17 at 23:00 HERMAN MCNULTY Jun 03, 2017 10:59
[2017-06-03 14:00] VITALS: BP 110/64; RESP 20
--- NOTE | 2017-06-03 17:03 | CONS ---
Date/Time of Note Date/Time of Note DATE: 06/03/17 TIME: 17:00 Assessment/Plan Assessment/Plan Chief Complaint/Hosp Course PAINLESS JAUNDICE ASSOCIATED WITH Liver mass with enlarged lymph nodes, suspicious for malignancy R/O NEOPLASIA pancreas protocol triple phase CT scan of the abdomen and pelvis WITH CONTRAST - Poorly defined hypovascular mass occupying the left medial lobe of the liver and caudate lobe with upstream severe left greater intrahepatic bile duct dilatation, highly suspicious for cholangiocarcinoma. Filling defect identified in intrahepatic portal vein, concerning for tumor thrombus. Metastatic retroperitoneal lymphadenopathy. CA 19-9- 1930 AFP- P coag N, HEPATITIS PANEL- NEG GI EVAL- ERCP plus Spyglass cholangioscopy with targeted biopsies and possible stent placement. Post balloon dilatation, Cholangioscopy with evidence of neoplastic infiltration consistent with cholangiocarcinoma multiple direct targeted biopsies obtained Post placement of a [place] 10 x 9 cm stent with adequate drainage PATH -Biliary bifurcation, biopsy: Minute fragment of ductal mucosa showing crush artifact. No evidence of dysplasia or malignancy. PLAN- UNABLE TO DO liver biopsy. ( too close to major vessels - per DR CAMACHO) RE- LAPAROSCOPIC BX, WITHOUT HISTOLOGICAL CONFORMATION WE CAN NOT PROCEED WITH TREATMENT OR METALLIC STENT PLACEMENT Abnormal liver enzymes, jaundice- 2 TO ABOVE DYSLIPIDEMIA Problems: Consultation Date/Type/Reason Admit Date/Time May 19, 2017 at 04:18 Initial Consult Date 05/19/17 Type of Consultation: [facility] Referring Provider: HERMAN MCNULTY 24 HR Interval Summary Free Text/Dictation ALL NOTED NO NEW EVENTS LFT- IMPROVING Exam/Review of Systems Vital Signs Vitals Vital Signs Date Time Temp Pulse Resp B/P Pulse Ox O2 Delivery O2 Flow Rate FiO2 06/03/17 14:00 98.6 80 20 110/64 96 Intake and Output 06/02/17 06/02/17 06/03/17 15:00 23:00 07:00 Intake Total 2840 ml 1000 ml Output Total 700 ml Balance 2840 ml 300 ml Exam Const: No acute distress.+ Jaundice Head: Atraumatic. Eyes: Icteric Conjunctiva. ENT: Normal External Ears, Nose and Mouth. Neck: Full range of motion. No meningismus. Resp: Clear to auscultation bilaterally. Cardio: Regular rate and rhythm. Abd: Soft, non distended, normal bowel sounds, Diffuse abdominal tenderness, more tenderness at the right upper quadrant Skin: No petechiae or rashes. Back: No midline or flank tenderness. Ext: No cyanosis, or edema. Neur: Awake and alert. No focal deficit Psych: Normal Mood and Affect. NO PATH LN- ERIC Results Result Diagram: 05/31/17 0556 06/03/17 0500 Results 24 hrs Laboratory Tests Test 06/03/17 05:00 Sodium Level 140 Potassium Level 3.7 Chloride Level 108 Carbon Dioxide Level 26 Anion Gap 10 Blood Urea Nitrogen 5 L Creatinine 0.67 Glucose Level 100 Calcium Level 9.1 Total Bilirubin 7.3 #H Direct Bilirubin 5.70 H Indirect Bilirubin 1.6 H Aspartate Amino Transf (AST/SGOT) 45 Alanine Aminotransferase (ALT/SGPT) 53 Alkaline Phosphatase 561 H Total Protein 6.8 Albumin 3.2 L Globulin 3.60 H Albumin/Globulin Ratio 0.88 Medications Medications Current Medications Morphine Sulfate (morphine) 2 mg Q4H PRN IV PAIN Last administered on 21:59; Admin Dose 2 MG; Start 05/19/17 at 16:30 Acetaminophen/ Hydrocodone Bitart ([place] (5/325)) 1 tab Q4H PRN PO PAIN Last administered on 05/24/17 20:38; Admin Dose 1 TAB; Start 05/19/17 at 16:30 Ondansetron HCl (Zofran Inj) 4 mg Q6H PRN IV NAUSEA AND/OR VOMITING; Start at 16:30 Famotidine (Pepcid) 20 mg DAILY PO Last administered on 06/03/17 08:19; Admin Dose 20 MG; Start 05/20/17 at 12:30 Trimethobenzamide HCl (Tigan) 200 mg Q6H PRN IM NAUSEA AND/OR VOMITING; Start 05/20/17 at 12:30 Enoxaparin Sodium (Lovenox) 40 mg DAILY SC Last administered on 06/03/17 08:39 ; Admin Dose 40 MG; Start 05/20/17 at 13:00; Status Future hold Polyethylene Glycol (Miralax) 17 gm DAILY PO Last administered on 06/03/17 08: 18; Admin Dose 17 GM; Start 05/21/17 at 10:30 Hydroxyzine HCl (Atarax) 50 mg Q6H PRN PO ITCHING Last administered on 12:33; Admin Dose 50 MG; Start 05/21/17 at 10:30 Docusate Sodium (Colace) 100 mg BID PO Last administered on 06/03/17 08:19; Admin Dose 100 MG; Start 05/27/17 at 12:30 Cholestyramine Resin (Questran) 1 pkt TID PO Last administered on 06/03/17 12: 33; Admin Dose 1 PKT; Start 05/28/17 at 21:00 Ursodiol (Actigall) 300 mg BID PO Last administered on 06/03/17 08:19; Admin Dose 300 MG; Start 05/30/17 at 09:00 Zolpidem Tartrate (Ambien) 10 mg HS PRN PO INSOMNIA Last administered on 23:05; Admin Dose 10 MG; Start 05/30/17 at 23:00 SONA WEEKS MD Jun 03, 2017 17:03
[2017-06-03 20:00] VITALS: BP 112/73; RESP 20
[2017-06-04] MEDS: hydrOXYzine HCL 25 MG TAB PO PRN ×4 (00:23→22:03)
[2017-06-04] MEDS: HYDROCODONE/APAP (5/325) TAB PO PRN (00:23)
[2017-06-04 02:00] VITALS: BP 105/60; RESP 20
[2017-06-04 07:03] LABS: BASOPHIL # 0.1 10^3/ul (0.0-0.1); BASOPHILS % 0.5 % (0.0-2.0); EOSINOPHILS # 0.3 10^3/ul (0.0-0.5); EOSINOPHILS % 3.2 % (0.0-7.0); HEMOGLOBIN 9.8 g/dl (12.0-16.0); LYMPHOCYTES # 2.2 10^3/ul (0.8-2.9); LYMPHOCYTES % 23.4 % (15.0-51.0); MEAN CORPUSCULAR HEMOGLOBIN 29.1 pg (29.0-33.0); MEAN CORPUSCULAR HGB CONC 32.7 g/dl (32.0-37.0); MEAN PLATELET VOLUME 11.1 fl (7.4-10.4); MONOCYTE # 1.1 10^3/ul (0.3-0.9); MONOCYTES % 12.1 % (0.0-11.0); NEUTROPHIL # 5.5 10^3/ul (1.6-7.5); NEUTROPHILS % 59.4 % (39.0-77.0); PLATELET COUNT 420 10^3/UL (140-415); RED BLOOD COUNT 3.37 10^6/ul (4.20-5.40); RED CELL DISTRIBUTION WIDTH 16.3 % (11.5-14.5); WHITE BLOOD COUNT 9.2 10^3/ul (4.8-10.8)
[2017-06-04 07:21] VITALS: BP 101/59; RESP 20
[2017-06-04 07:36] LABS: ALBUMIN 2.9 g/dl (3.3-4.9); ALBUMIN/GLOBULIN RATIO 0.76; BILIRUBIN,DIRECT 3.8 mg/dl (0.00-0.20); BILIRUBIN,INDIRECT 1.5 mg/dl (0-1.1); BILIRUBIN,TOTAL 5.3 mg/dl (0.2-1.3); CALCIUM 9.2 mg/dl (8.4-10.2); CREATININE 0.62 mg/dl (0.44-1.00); POTASSIUM 3.4 mmol/L (3.5-5.1); TOTAL PROTEIN 6.7 g/dl (6.1-8.1)
[2017-06-04 08:05] LABS: BILIRUBIN,DIRECT 3.8 mg/dl (0.00-0.20); BILIRUBIN,INDIRECT 1.5 mg/dl (0-1.1); BILIRUBIN,TOTAL 5.3 mg/dl (0.2-1.3); TOTAL PROTEIN 6.8 g/dl (6.1-8.1)
[2017-06-04] MEDS: DOCUSATE SODIUM 100 MG CAP PO SCH ×2 (08:39→20:13)
[2017-06-04] MEDS: FAMOTIDINE 20 MG TAB PO SCH (08:39)
[2017-06-04] MEDS: URSODIOL 300 MG CAP PO SCH ×2 (08:40→20:14)
[2017-06-04] MEDS: POLYETHYLENE GLYCOL 17 GM PACKET PO SCH (08:41)
[2017-06-04] MEDS: CHOLESTYRAMINE 4 GM PACKET PO SCH ×3 (08:41→20:13)
[2017-06-04] MEDS: ENOXAPARIN 40 MG/0.4 ML SYG SC SCH (08:47)
--- NOTE | 2017-06-04 09:57 | PN ---
Date/Time of Note Date/Time of Note DATE: 06/04/17 TIME: 09:54 Assessment/Plan VTE Prophylaxis VTE Prophylaxis Intervention: ambulation Lines/Catheters [facility] Saline Lock Urinary Cath still in place: No Assessment/Plan Chief Complaint/Hosp Course A/P: 52-year-old female with no significant past medical history, presented with abdominal pain, yellowish eyes dark urine and itching X 6 months duration. 1. 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 Not amenable to surgical resection per hepatobiliary surgery specialists & associates. Status post ERCP with plastic stent placed. Biopsy though ERCP shows no malignancy. Status post Spyglass cholangioscopy. 05/23/2017: CT Abdomen and Pelvis with and without contrast: Liver Protocol. Poorly defined hypovascular mass occupying the left medial lobe of the liver and caudate lobe with upstream severe left greater intrahepatic bile duct dilatation, highly suspicious for cholangiocarcinoma. Filling defect identified in intrahepatic portal vein, concerning for tumor thrombus Metastatic retroperitoneal lymphadenopathy. PLAN: - as per , cannot put CBD metallic stent until malignancy proven. Unable to perform CT-guided needle biopsy as area of biopsy is not accessible. Follow-up with surgery recommendation regarding hematology recommendation on laparoscopic biopsy. Per latest surgery recommendations 2 days ago, they feel risks greater than reward for performing this kind of laparoscopic biopsy, so likely will be given to start TACE as well as chemotherapy once her bilirubin is acceptable. -Appreciate vascular input and recommend for a followup CT triple-phase in 2 weeks. Currently no indication for anticoagulation as suspicion for a thrombus is not high at this time. -Supportive care, consider Palliative care. -At this time, we will follow recommendations from hepatobiliary surgery/GI/heme /unionmelt operator specialities regarding further diagnostic/treatment modalities. 2. Obstructive jaundice with hyperbilirubinemia secondary to #1. Bili trended down. - Monitor LFTs Lovenox for DVT prophylaxis Problems: Subjective 24 Hr Interval Summary Free Text/Dictation Patient seen by hematology oncology team yesterday. No acute events overnight. Exam/Review of Systems Vital Signs Vitals Vital Signs Date Time Temp Pulse Resp B/P Pulse Ox O2 Delivery O2 Flow Rate FiO2 06/04/17 07:21 98.0 76 20 101/59 99 Intake and Output 06/03/17 06/03/17 06/04/17 15:00 23:00 07:00 Intake Total 180 ml 1080 ml Output Total 1 ml Balance 179 ml 1080 ml Results Result Diagram: 06/04/17 0455 06/04/17 0455 Results 24 hrs Laboratory Tests Test 06/04/17 04:55 White Blood Count 9.2 # Red Blood Count 3.37 L Hemoglobin 9.8 L Hematocrit 30.0 L Mean Corpuscular Volume 89.0 Mean Corpuscular Hemoglobin 29.1 Mean Corpuscular Hemoglobin Concent 32.7 Red Cell Distribution Width 16.3 H Platelet Count 420 #H Mean Platelet Volume 11.1 H Neutrophils % 59.4 Lymphocytes % 23.4 Monocytes % 12.1 H Eosinophils % 3.2 Basophils % 0.5 Nucleated Red Blood Cells % 0.0 Neutrophils # 5.5 Lymphocytes # 2.2 Monocytes # 1.1 H Eosinophils # 0.3 Basophils # 0.1 Nucleated Red Blood Cells # 0.0 Sodium Level 136 Potassium Level 3.4 L Chloride Level 104 Carbon Dioxide Level 27 Anion Gap 8 Blood Urea Nitrogen 8 Creatinine 0.62 Glucose Level 82 Calcium Level 9.2 Total Bilirubin 5.3 H Direct Bilirubin 3.80 H Indirect Bilirubin 1.5 H Aspartate Amino Transf (AST/SGOT) 46 Alanine Aminotransferase (ALT/SGPT) 53 Alkaline Phosphatase 522 H Total Protein 6.7 Albumin 2.9 L Globulin 3.80 H Albumin/Globulin Ratio 0.76 Medications Medications Current Medications Morphine Sulfate (morphine) 2 mg Q4H PRN IV PAIN Last administered on 21:59; Admin Dose 2 MG; Start 05/19/17 at 16:30 Acetaminophen/ Hydrocodone Bitart ([place] (5/325)) 1 tab Q4H PRN PO PAIN Last administered on 06/04/17 00:23; Admin Dose 1 TAB; Start 05/19/17 at 16:30 Ondansetron HCl (Zofran Inj) 4 mg Q6H PRN IV NAUSEA AND/OR VOMITING; Start at 16:30 Famotidine (Pepcid) 20 mg DAILY PO Last administered on 06/04/17 08:39; Admin Dose 20 MG; Start 05/20/17 at 12:30 Trimethobenzamide HCl (Tigan) 200 mg Q6H PRN IM NAUSEA AND/OR VOMITING; Start 05/20/17 at 12:30 Enoxaparin Sodium (Lovenox) 40 mg DAILY SC Last administered on 06/04/17 08:47 ; Admin Dose 40 MG; Start 05/20/17 at 13:00; Status Future hold Polyethylene Glycol (Miralax) 17 gm DAILY PO Last administered on 06/04/17 08: 41; Admin Dose 17 GM; Start 05/21/17 at 10:30 Hydroxyzine HCl (Atarax) 50 mg Q6H PRN PO ITCHING Last administered on 08:38; Admin Dose 50 MG; Start 05/21/17 at 10:30 Docusate Sodium (Colace) 100 mg BID PO Last administered on 06/04/17 08:39; Admin Dose 100 MG; Start 05/27/17 at 12:30 Cholestyramine Resin (Questran) 1 pkt TID PO Last administered on 06/04/17 08: 41; Admin Dose 1 PKT; Start 05/28/17 at 21:00 Ursodiol (Actigall) 300 mg BID PO Last administered on 06/04/17 08:40; Admin Dose 300 MG; Start 05/30/17 at 09:00 Zolpidem Tartrate (Ambien) 10 mg HS PRN PO INSOMNIA Last administered on 23:05; Admin Dose 10 MG; Start 05/30/17 at 23:00 HERMAN MCNULTY Jun 04, 2017 09:57
--- NOTE | 2017-06-04 12:21 | PN ---
Date/Time of Note Date/Time of Note DATE: 06/04/17 TIME: 12:16 Assessment/Plan VTE Prophylaxis VTE Prophylaxis Intervention: SCD's Lines/Catheters [facility] Saline [facility] Urinary Cath still in place: No Assessment/Plan Chief Complaint/Hosp Course Assessment: * Obstructive jaundice * Cholangiocarcinoma by cholangioscopy however path negative * Lesion not accessible for guided IR but biopsy * Surgery considered high risk * Oncology will not treat without definitive diagnosis * Current stent accomplishing adequate decompression Plan: * Reevaluate options * May consider exchanging current stent which is small [place] 7 for possibly 2 [place] 10 long plastic stents, this may allow another opportunity to evaluate with cholangioscopy or at least brushing trying to secure a definitive diagnosis to proceed with adequate treatment Subjective: Course reviewed with nursing staff Patient interviewed and examined All labs, imaging and other results reviewed The patient appears comfortable and reports minimal discomfort Pruritus has improved, jaundice significantly improved I discussed the situation and different opinions and options with the patient and several members of her family Exam: General: well developed, well nourished, alert and oriented x3 , in no acute distress Skin: Less icteric, no lesions, no stigmata chronic liver disease, no evidence of bleeding diathesis Lymphatic: No palpable lymphadenopathy HEENT: No lesions Cardiovascular: Heart: Regular rate and rhhthm, no murmurs, gallops or rubs. Peripheral pulses present within normal limits, no cyanosis, clubbing or edemas. No pulsatile abdominal mass Respiratory: Lungs clear to auscultation and percussion, no wheezing, no rubs Gastrointestinal and Liver: Abdomen: Soft, non tender, non-distended, no hernias , no masses, no organomegaly, no ascites, no guarding, no rebound tenderness, normoactive bowel sounds. Extremities: No cyanosis, clubbing, or edema. [Neurologic: Cranial nerves II-XII intact, motor within normal limits, sensory within normal limits. Reflexes within normal limits.] [Psychiatric: Alert and oriented x3, mood/affect/judgment adequate] Diagnostic Studies: Available data and images were reviewed personally. See reports. Significant results and findings are addressed here or in the assessment and plan. Problems: Exam/Review of Systems Vital Signs Vitals Vital Signs Date Time Temp Pulse Resp B/P Pulse Ox O2 Delivery O2 Flow Rate FiO2 06/04/17 07:21 98.0 76 20 101/59 99 Intake and Output 9/30/17 9/30/17 10/1/17 15:00 23:00 07:00 Intake Total 180 ml 1080 ml Output Total 1 ml Balance 179 ml 1080 ml Results Result Diagram: 06/04/17 0455 06/04/17 0455 Results 24 hrs Laboratory Tests Test 06/04/17 04:55 White Blood Count 9.2 # Red Blood Count 3.37 L Hemoglobin 9.8 L Hematocrit 30.0 L Mean Corpuscular Volume 89.0 Mean Corpuscular Hemoglobin 29.1 Mean Corpuscular Hemoglobin Concent 32.7 Red Cell Distribution Width 16.3 H Platelet Count 420 #H Mean Platelet Volume 11.1 H Neutrophils % 59.4 Lymphocytes % 23.4 Monocytes % 12.1 H Eosinophils % 3.2 Basophils % 0.5 Nucleated Red Blood Cells % 0.0 Neutrophils # 5.5 Lymphocytes # 2.2 Monocytes # 1.1 H Eosinophils # 0.3 Basophils # 0.1 Nucleated Red Blood Cells # 0.0 Sodium Level 136 Potassium Level 3.4 L Chloride Level 104 Carbon Dioxide Level 27 Anion Gap 8 Blood Urea Nitrogen 8 Creatinine 0.62 Glucose Level 82 Calcium Level 9.2 Total Bilirubin 5.3 H Direct Bilirubin 3.80 H Indirect Bilirubin 1.5 H Aspartate Amino Transf (AST/SGOT) 46 Alanine Aminotransferase (ALT/SGPT) 53 Alkaline Phosphatase 522 H Total Protein 6.7 Albumin 2.9 L Globulin 3.80 H Albumin/Globulin Ratio 0.76 Medications Medications Current Medications Morphine Sulfate (morphine) 2 mg Q4H PRN IV PAIN Last administered on 21:59; Admin Dose 2 MG; Start 05/19/17 at 16:30 Acetaminophen/ Hydrocodone Bitart ([place] (5/325)) 1 tab Q4H PRN PO PAIN Last administered on 06/04/17 00:23; Admin Dose 1 TAB; Start 05/19/17 at 16:30 Ondansetron HCl (Zofran Inj) 4 mg Q6H PRN IV NAUSEA AND/OR VOMITING; Start at 16:30 Famotidine (Pepcid) 20 mg DAILY PO Last administered on 06/04/17 08:39; Admin Dose 20 MG; Start 05/20/17 at 12:30 Trimethobenzamide HCl (Tigan) 200 mg Q6H PRN IM NAUSEA AND/OR VOMITING; Start 05/20/17 at 12:30 Enoxaparin Sodium (Lovenox) 40 mg DAILY SC Last administered on 06/04/17 08:47 ; Admin Dose 40 MG; Start 05/20/17 at 13:00; Status Future hold Polyethylene Glycol (Miralax) 17 gm DAILY PO Last administered on 06/04/17 08: 41; Admin Dose 17 GM; Start 05/21/17 at 10:30 Hydroxyzine HCl (Atarax) 50 mg Q6H PRN PO ITCHING Last administered on 08:38; Admin Dose 50 MG; Start 05/21/17 at 10:30 Docusate Sodium (Colace) 100 mg BID PO Last administered on 06/04/17 08:39; Admin Dose 100 MG; Start 05/27/17 at 12:30 Cholestyramine Resin (Questran) 1 pkt TID PO Last administered on 06/04/17 08: 41; Admin Dose 1 PKT; Start 05/28/17 at 21:00 Ursodiol (Actigall) 300 mg BID PO Last administered on 06/04/17 08:40; Admin Dose 300 MG; Start 05/30/17 at 09:00 Zolpidem Tartrate (Ambien) 10 mg HS PRN PO INSOMNIA Last administered on 23:05; Admin Dose 10 MG; Start 05/30/17 at 23:00 RODERICK JACKSON MD Jun 04, 2017 12:21
[2017-06-04 12:59] VITALS: BP 121/70; RESP 20
--- NOTE | 2017-06-04 18:00 | CONS ---
Date/Time of Note Date/Time of Note DATE: 06/04/17 TIME: 17:59 Assessment/Plan Assessment/Plan Chief Complaint/Hosp Course PAINLESS JAUNDICE ASSOCIATED WITH Liver mass with enlarged lymph nodes, suspicious for malignancy R/O NEOPLASIA pancreas protocol triple phase CT scan of the abdomen and pelvis WITH CONTRAST - Poorly defined hypovascular mass occupying the left medial lobe of the liver and caudate lobe with upstream severe left greater intrahepatic bile duct dilatation, highly suspicious for cholangiocarcinoma. Filling defect identified in intrahepatic portal vein, concerning for tumor thrombus. Metastatic retroperitoneal lymphadenopathy. CA 19-9- 1930 AFP- P coag N, HEPATITIS PANEL- NEG GI EVAL- ERCP plus Spyglass cholangioscopy with targeted biopsies and possible stent placement. Post balloon dilatation, Cholangioscopy with evidence of neoplastic infiltration consistent with cholangiocarcinoma multiple direct targeted biopsies obtained Post placement of a K[place] 10 x 9 cm stent with adequate drainage PATH -Biliary bifurcation, biopsy: Minute fragment of ductal mucosa showing crush artifact. No evidence of dysplasia or malignancy. PLAN- UNABLE TO DO liver biopsy. ( too close to major vessels - per DR CAMACHO) RE- LAPAROSCOPIC BX, WITHOUT HISTOLOGICAL CONFORMATION WE CAN NOT PROCEED WITH TREATMENT OR METALLIC STENT PLACEMENT PER GI - May consider exchanging current stent which is small K[place] 7 for possibly 2 K[place] 10 long plastic stents, this may allow another opportunity to evaluate with cholangioscopy or at least brushing trying to secure a definitive diagnosis to proceed with adequate treatment Abnormal liver enzymes, jaundice- 2 TO ABOVE DYSLIPIDEMIA Problems: Consultation Date/Type/Reason Admit Date/Time May 19, 2017 at 04:18 Initial Consult Date 05/19/17 Type of Consultation: [facility] Referring Provider: HERMAN MCNULTY 24 HR Interval Summary Free Text/Dictation ALL NOTED NAD PER GI - May consider exchanging current stent which is small K[place] 7 for possibly 2 K[place]ili 10 long plastic stents, this may allow another opportunity to evaluate with cholangioscopy or at least brushing trying to secure a definitive diagnosis to proceed with adequate treatment Exam/Review of Systems Vital Signs Vitals Vital Signs Date Time Temp Pulse Resp B/P Pulse Ox O2 Delivery O2 Flow Rate FiO2 06/04/17 12:59 97.7 99 20 121/70 99 Intake and Output 06/03/17 06/03/17 06/04/17 15:00 23:00 07:00 Intake Total 180 ml 1080 ml Output Total 1 ml Balance 179 ml 1080 ml Exam Const: No acute distress.+ Jaundice Head: Atraumatic. Eyes: Icteric Conjunctiva. ENT: Normal External Ears, Nose and Mouth. Neck: Full range of motion. No meningismus. Resp: Clear to auscultation bilaterally. Cardio: Regular rate and rhythm. Abd: Soft, non distended, normal bowel sounds, Diffuse abdominal tenderness, more tenderness at the right upper quadrant Skin: No petechiae or rashes. Back: No midline or flank tenderness. Ext: No cyanosis, or edema. Neur: Awake and alert. No focal deficit Psych: Normal Mood and Affect. NO PATH LN- ERIC Results Result Diagram: 06/04/175 06/04/17 0455 Results 24 hrs Laboratory Tests Test 06/04/17 04:55 White Blood Count 9.2 # Red Blood Count 3.37 L Hemoglobin 9.8 L Hematocrit 30.0 L Mean Corpuscular Volume 89.0 Mean Corpuscular Hemoglobin 29.1 Mean Corpuscular Hemoglobin Concent 32.7 Red Cell Distribution Width 16.3 H Platelet Count 420 #H Mean Platelet Volume 11.1 H Neutrophils % 59.4 Lymphocytes % 23.4 Monocytes % 12.1 H Eosinophils % 3.2 Basophils % 0.5 Nucleated Red Blood Cells % 0.0 Neutrophils # 5.5 Lymphocytes # 2.2 Monocytes # 1.1 H Eosinophils # 0.3 Basophils # 0.1 Nucleated Red Blood Cells # 0.0 Sodium Level 136 Potassium Level 3.4 L Chloride Level 104 Carbon Dioxide Level 27 Anion Gap 8 Blood Urea Nitrogen 8 Creatinine 0.62 Glucose Level 82 Calcium Level 9.2 Total Bilirubin 5.3 H Direct Bilirubin 3.80 H Indirect Bilirubin 1.5 H Aspartate Amino Transf (AST/SGOT) 46 Alanine Aminotransferase (ALT/SGPT) 53 Alkaline Phosphatase 522 H Total Protein 6.7 Albumin 2.9 L Globulin 3.80 H Albumin/Globulin Ratio 0.76 Medications Medications Current Medications Morphine Sulfate (morphine) 2 mg Q4H PRN IV PAIN Last administered on 21:59; Admin Dose 2 MG; Start 05/19/17 at 16:30 Acetaminophen/ Hydrocodone Bitart ([place] (5/325)) 1 tab Q4H PRN PO PAIN Last administered on 06/04/17 00:23; Admin Dose 1 TAB; Start 05/19/17 at 16:30 Ondansetron HCl (Zofran Inj) 4 mg Q6H PRN IV NAUSEA AND/OR VOMITING; Start at 16:30 Famotidine (Pepcid) 20 mg DAILY PO Last administered on 06/04/17 08:39; Admin Dose 20 MG; Start 05/20/17 at 12:30 Trimethobenzamide HCl (Tigan) 200 mg Q6H PRN IM NAUSEA AND/OR VOMITING; Start 05/20/17 at 12:30 Enoxaparin Sodium (Lovenox) 40 mg DAILY SC Last administered on 06/04/17 08:47 ; Admin Dose 40 MG; Start 05/20/17 at 13:00; Status Future hold Polyethylene Glycol (Miralax) 17 gm DAILY PO Last administered on 06/04/17 08: 41; Admin Dose 17 GM; Start 05/21/17 at 10:30 Hydroxyzine HCl (Atarax) 50 mg Q6H PRN PO ITCHING Last administered on 14:48; Admin Dose 50 MG; Start 05/21/17 at 10:30 Docusate Sodium (Colace) 100 mg BID PO Last administered on 06/04/17 08:39; Admin Dose 100 MG; Start 05/27/17 at 12:30 Cholestyramine Resin (Questran) 1 pkt TID PO Last administered on 06/04/17 12: 51; Admin Dose 1 PKT; Start 05/28/17 at 21:00 Ursodiol (Actigall) 300 mg BID PO Last administered on 06/04/17 08:40; Admin Dose 300 MG; Start 05/30/17 at 09:00 Zolpidem Tartrate (Ambien) 10 mg HS PRN PO INSOMNIA Last administered on 23:05; Admin Dose 10 MG; Start 05/30/17 at 23:00 SONA WEEKS MD Jun 04, 2017 18:00
[2017-06-04 19:36] VITALS: BP 109/65; RESP 20
[2017-06-05 02:00] VITALS: BP 116/61; RESP 20
[2017-06-05] MEDS: hydrOXYzine HCL 25 MG TAB PO PRN ×3 (04:19→18:32)
[2017-06-05 06:22] LABS: BASOPHIL # 0.1 10^3/ul (0.0-0.1); BASOPHILS % 0.6 % (0.0-2.0); EOSINOPHILS # 0.3 10^3/ul (0.0-0.5); HEMATOCRIT 29.3 % (37.0-47.0); HEMOGLOBIN 9.7 g/dl (12.0-16.0); LYMPHOCYTES # 2.1 10^3/ul (0.8-2.9); LYMPHOCYTES % 21.3 % (15.0-51.0); MEAN CORPUSCULAR HEMOGLOBIN 29.8 pg (29.0-33.0); MEAN CORPUSCULAR HGB CONC 33.1 g/dl (32.0-37.0); MEAN CORPUSCULAR VOLUME 89.9 fl (82.0-101.0); MEAN PLATELET VOLUME 11.1 fl (7.4-10.4); MONOCYTE # 1.2 10^3/ul (0.3-0.9); NEUTROPHIL # 6.1 10^3/ul (1.6-7.5); NEUTROPHILS % 61.4 % (39.0-77.0); PLATELET COUNT 432 10^3/UL (140-415); RED BLOOD COUNT 3.26 10^6/ul (4.20-5.40); RED CELL DISTRIBUTION WIDTH 15.6 % (11.5-14.5); WHITE BLOOD COUNT 9.9 10^3/ul (4.8-10.8)
[2017-06-05 07:14] LABS: ALBUMIN 2.9 g/dl (3.3-4.9); BILIRUBIN,INDIRECT 1.3 mg/dl (0-1.1); BILIRUBIN,TOTAL 4.3 mg/dl (0.2-1.3); TOTAL PROTEIN 6.7 g/dl (6.1-8.1)
[2017-06-05 07:32] LABS: ALBUMIN/GLOBULIN RATIO 0.93; BILIRUBIN,DIRECT 3.3 mg/dl (0.00-0.20); BILIRUBIN,INDIRECT 1.5 mg/dl (0-1.1); BILIRUBIN,TOTAL 4.8 mg/dl (0.2-1.3); CALCIUM 9.2 mg/dl (8.4-10.2); CREATININE 0.61 mg/dl (0.44-1.00); TOTAL PROTEIN 6.2 g/dl (6.1-8.1)
[2017-06-05 08:04] VITALS: BP 99/58; RESP 20
[2017-06-05] MEDS: URSODIOL 300 MG CAP PO SCH ×2 (08:47→20:20)
[2017-06-05] MEDS: DOCUSATE SODIUM 100 MG CAP PO SCH ×2 (08:47→20:20)
[2017-06-05] MEDS: FAMOTIDINE 20 MG TAB PO SCH (08:47)
[2017-06-05] MEDS: POLYETHYLENE GLYCOL 17 GM PACKET PO SCH (08:47)
[2017-06-05] MEDS: CHOLESTYRAMINE 4 GM PACKET PO SCH ×3 (08:47→20:20)
[2017-06-05] MEDS: ENOXAPARIN 40 MG/0.4 ML SYG SC SCH (08:57)
--- NOTE | 2017-06-05 11:23 | PN ---
Date/Time of Note Date/Time of Note DATE: 06/05/17 TIME: 10:34 Assessment/Plan Lines/Catheters IV C[facility]ter Type (from [facility] Saline Lock [place] in Place (from [facility]): No Assessment/Plan Assessment/Plan Remote check: Bili and LFT's continuing to improve. Agree with stent exchange to larger caliber and attempt at internal biopsy. I will also discuss with IR. Chance of a safe percutaneous biopsy may be improved with decreased caliber of biliary tree. Exam/Review of Systems Vital Signs Vitals Vital Signs Date Time Temp Pulse Resp B/P Pulse Ox O2 Delivery O2 Flow Rate FiO2 06/05/17 08:04 98.9 81 20 99/58 97 Intake and Output 06/04/17 06/04/17 06/05/17 15:00 23:00 07:00 Intake Total 1680 ml 800 ml Balance 1680 ml 800 ml Results Result Diagram: 06/05/17 0518 06/05/17 0518 ABBY ROMAN M.D. Jun 05, 2017 10:36
--- NOTE | 2017-06-05 12:13 | PN ---
Date/Time of Note Date/Time of Note DATE: 06/05/17 TIME: 12:08 Assessment/Plan VTE Prophylaxis VTE Prophylaxis Intervention: SCD's Lines/Catheters IV [facility] Type (from [facility]): Saline Lock Urinary Cath still in place: No Assessment/Plan Assessment/Plan 52-year-old female with no significant past medical history, presented with abdominal pain, scleral icterus, found to have hyperbilirubinemia, and hepatic mass concerning for cholangiocarcinoma with possible tumor thrombus in intrahepatic portal vein. Bilis improving. #hepatic mass: gen surg on consult-->plan for possible IR guided v open biopsy this week if bilis continue to improve sp ERCP with stent placement #?portal vein thrombus? -repeat CT ordered per vascular rec # Obstructive jaundice with hyperbilirubinemia secondary to above. Bili trended down. - Monitor LFTs Lovenox for DVT prophylaxis Subjective 24 Hr Interval Summary Free Text/Dictation Pt reports she is eating ok. Not much abd pain. Exam/Review of Systems Vital Signs Vitals Vital Signs Date Time Temp Pulse Resp B/P Pulse Ox O2 Delivery O2 Flow Rate FiO2 06/05/17 08:04 98.9 81 20 99/58 97 Intake and Output 06/04/17 06/04/17 06/05/17 15:00 23:00 07:00 Intake Total 1680 ml 800 ml Balance 1680 ml 800 ml Exam +jaundice and scleral icterus abd soft no mrg lungs clear no edema labs noted, bilis improving Results Result Diagram: 06/05/1718 06/05/17 0518 Results 24 hrs Laboratory Tests Test 06/05/17 05:18 White Blood Count 9.9 Red Blood Count 3.26 L Hemoglobin 9.7 L Hematocrit 29.3 L Mean Corpuscular Volume 89.9 Mean Corpuscular Hemoglobin 29.8 Mean Corpuscular Hemoglobin Concent 33.1 Red Cell Distribution Width 15.6 H Platelet Count 432 H Mean Platelet Volume 11.1 H Neutrophils % 61.4 Lymphocytes % 21.3 Monocytes % 12.0 H Eosinophils % 3.0 Basophils % 0.6 Nucleated Red Blood Cells % 0.0 Neutrophils # 6.1 Lymphocytes # 2.1 Monocytes # 1.2 H Eosinophils # 0.3 Basophils # 0.1 Nucleated Red Blood Cells # 0.0 Sodium Level 137 Potassium Level 4.0 Chloride Level 105 Carbon Dioxide Level 27 Anion Gap 9 Blood Urea Nitrogen 9 Creatinine 0.61 Glucose Level 99 Calcium Level 9.2 Total Bilirubin 4.8 H Direct Bilirubin 3.30 H Indirect Bilirubin 1.5 H Aspartate Amino Transf (AST/SGOT) 47 H Alanine Aminotransferase (ALT/SGPT) 48 Alkaline Phosphatase 479 H Total Protein 6.2 Albumin 3.0 L Globulin 3.20 Albumin/Globulin Ratio 0.93 Medications Medications Current Medications Morphine Sulfate (morphine) 2 mg Q4H PRN IV PAIN Last administered on 21:59; Admin Dose 2 MG; Start 05/19/17 at 16:30 Acetaminophen/ Hydrocodone Bitart ([place] (5/325)) 1 tab Q4H PRN PO PAIN Last administered on 06/04/17 00:23; Admin Dose 1 TAB; Start 05/19/17 at 16:30 Ondansetron HCl (Zofran Inj) 4 mg Q6H PRN IV NAUSEA AND/OR VOMITING; Start at 16:30 Famotidine (Pepcid) 20 mg DAILY PO Last administered on 06/05/17 08:47; Admin Dose 20 MG; Start 05/20/17 at 12:30 Trimethobenzamide HCl (Tigan) 200 mg Q6H PRN IM NAUSEA AND/OR VOMITING; Start 05/20/17 at 12:30 Enoxaparin Sodium (Lovenox) 40 mg DAILY SC Last administered on 06/05/17 08:57 ; Admin Dose 40 MG; Start 05/20/17 at 13:00; Status Future hold Polyethylene Glycol (Miralax) 17 gm DAILY PO Last administered on 06/05/17 08: 47; Admin Dose 17 GM; Start 05/21/17 at 10:30 Hydroxyzine HCl (Atarax) 50 mg Q6H PRN PO ITCHING Last administered on 10:26; Admin Dose 50 MG; Start 05/21/17 at 10:30 Docusate Sodium (Colace) 100 mg BID PO Last administered on 06/05/17 08:47; Admin Dose 100 MG; Start 05/27/17 at 12:30 Cholestyramine Resin (Questran) 1 pkt TID PO Last administered on 06/05/17 08: 47; Admin Dose 1 PKT; Start 05/28/17 at 21:00 Ursodiol (Actigall) 300 mg BID PO Last administered on 06/05/17 08:47; Admin Dose 300 MG; Start 05/30/17 at 09:00 Zolpidem Tartrate (Ambien) 10 mg HS PRN PO INSOMNIA Last administered on 23:05; Admin Dose 10 MG; Start 05/30/17 at 23:00 AIMEE CRONIN MD Jun 05, 2017 12:12 AIMEE CRONIN MD Jun 05, 2017 12:12
[2017-06-05 13:07] VITALS: BP 119/61; RESP 20
--- NOTE | 2017-06-05 19:11 | CONS ---
Date/Time of Note Date/Time of Note DATE: 06/05/17 TIME: 19:10 Assessment/Plan Assessment/Plan Chief Complaint/Hosp Course PAINLESS JAUNDICE ASSOCIATED WITH Liver mass with enlarged lymph nodes, suspicious for malignancy R/O NEOPLASIA pancreas protocol triple phase CT scan of the abdomen and pelvis WITH CONTRAST - Poorly defined hypovascular mass occupying the left medial lobe of the liver and caudate lobe with upstream severe left greater intrahepatic bile duct dilatation, highly suspicious for cholangiocarcinoma. Filling defect identified in intrahepatic portal vein, concerning for tumor thrombus. Metastatic retroperitoneal lymphadenopathy. CA 19-9- 1930 AFP- P coag N, HEPATITIS PANEL- NEG GI EVAL- ERCP plus Spyglass cholangioscopy with targeted biopsies and possible stent placement. Post balloon dilatation, Cholangioscopy with evidence of neoplastic infiltration consistent with cholangiocarcinoma multiple direct targeted biopsies obtained Post placement of a Hungarian 10 x 9 cm stent with adequate drainage PATH -Biliary bifurcation, biopsy: Minute fragment of ductal mucosa showing crush artifact. No evidence of dysplasia or malignancy. PLAN- UNABLE TO DO liver biopsy. ( too close to major vessels - per DR CAMACHO) RE- LAPAROSCOPIC BX, WITHOUT HISTOLOGICAL CONFORMATION WE CAN NOT PROCEED WITH TREATMENT OR METALLIC STENT PLACEMENT PER GI - May consider exchanging current stent which is small Hungarian 7 for possibly 2 Hungarian 10 long plastic stents, this may allow another opportunity to evaluate with cholangioscopy or at least brushing trying to secure a definitive diagnosis to proceed with adequate treatment Abnormal liver enzymes, jaundice- 2 TO ABOVE DYSLIPIDEMIA Problems: Consultation Date/Type/Reason Admit Date/Time May 19, 2017 at 04:18 Initial Consult Date 05/19/17 Type of Consultation: [facility] Referring Provider: HERMAN MCNULTY 24 HR Interval Summary Free Text/Dictation all noted lft- improving pos stent replacement and rebx Exam/Review of Systems Vital Signs Vitals Vital Signs Date Time Temp Pulse Resp B/P Pulse Ox O2 Delivery O2 Flow Rate FiO2 06/05/17 13:07 97.6 82 20 119/61 100 Intake and Output 06/04/17 06/04/17 06/05/17 15:00 23:00 07:00 Intake Total 1680 ml 800 ml Balance 1680 ml 800 ml Exam Const: No acute distress.+ Jaundice Head: Atraumatic. Eyes: Icteric Conjunctiva. ENT: Normal External Ears, Nose and Mouth. Neck: Full range of motion. No meningismus. Resp: Clear to auscultation bilaterally. Cardio: Regular rate and rhythm. Abd: Soft, non distended, normal bowel sounds, Diffuse abdominal tenderness, more tenderness at the right upper quadrant Skin: No petechiae or rashes. Back: No midline or flank tenderness. Ext: No cyanosis, or edema. Neur: Awake and alert. No focal deficit Psych: Normal Mood and Affect. NO PATH LN- ERIC Results Result Diagram: 06/05/1718 06/05/1718 Results 24 hrs Laboratory Tests Test 06/05/17 05:18 White Blood Count 9.9 Red Blood Count 3.26 L Hemoglobin 9.7 L Hematocrit 29.3 L Mean Corpuscular Volume 89.9 Mean Corpuscular Hemoglobin 29.8 Mean Corpuscular Hemoglobin Concent 33.1 Red Cell Distribution Width 15.6 H Platelet Count 432 H Mean Platelet Volume 11.1 H Neutrophils % 61.4 Lymphocytes % 21.3 Monocytes % 12.0 H Eosinophils % 3.0 Basophils % 0.6 Nucleated Red Blood Cells % 0.0 Neutrophils # 6.1 Lymphocytes # 2.1 Monocytes # 1.2 H Eosinophils # 0.3 Basophils # 0.1 Nucleated Red Blood Cells # 0.0 Sodium Level 137 Potassium Level 4.0 Chloride Level 105 Carbon Dioxide Level 27 Anion Gap 9 Blood Urea Nitrogen 9 Creatinine 0.61 Glucose Level 99 Calcium Level 9.2 Total Bilirubin 4.8 H Direct Bilirubin 3.30 H Indirect Bilirubin 1.5 H Aspartate Amino Transf (AST/SGOT) 47 H Alanine Aminotransferase (ALT/SGPT) 48 Alkaline Phosphatase 479 H Total Protein 6.2 Albumin 3.0 L Globulin 3.20 Albumin/Globulin Ratio 0.93 Medications Medications Current Medications Morphine Sulfate (morphine) 2 mg Q4H PRN IV PAIN Last administered on 21:59; Admin Dose 2 MG; Start 05/19/17 at 16:30 Acetaminophen/ Hydrocodone Bitart ([place] (5/325)) 1 tab Q4H PRN PO PAIN Last administered on 06/04/17 00:23; Admin Dose 1 TAB; Start 05/19/17 at 16:30 Ondansetron HCl (Zofran Inj) 4 mg Q6H PRN IV NAUSEA AND/OR VOMITING; Start at 16:30 Famotidine (Pepcid) 20 mg DAILY PO Last administered on 06/05/17 08:47; Admin Dose 20 MG; Start 05/20/17 at 12:30 Trimethobenzamide HCl (Tigan) 200 mg Q6H PRN IM NAUSEA AND/OR VOMITING; Start 05/20/17 at 12:30 Enoxaparin Sodium (Lovenox) 40 mg DAILY SC Last administered on 06/05/17 08:57 ; Admin Dose 40 MG; Start 05/20/17 at 13:00; Status Future hold Polyethylene Glycol (Miralax) 17 gm DAILY PO Last administered on 06/05/17 08: 47; Admin Dose 17 GM; Start 05/21/17 at 10:30 Hydroxyzine HCl (Atarax) 50 mg Q6H PRN PO ITCHING Last administered on 18:32; Admin Dose 50 MG; Start 05/21/17 at 10:30 Docusate Sodium (Colace) 100 mg BID PO Last administered on 06/05/17 08:47; Admin Dose 100 MG; Start 05/27/17 at 12:30 Cholestyramine Resin (Questran) 1 pkt TID PO Last administered on 06/05/17 13: 45; Admin Dose 1 PKT; Start 05/28/17 at 21:00 Ursodiol (Actigall) 300 mg BID PO Last administered on 06/05/17 08:47; Admin Dose 300 MG; Start 05/30/17 at 09:00 Zolpidem Tartrate (Ambien) 10 mg HS PRN PO INSOMNIA Last administered on 23:05; Admin Dose 10 MG; Start 05/30/17 at 23:00 SONA WEEKS MD Jun 05, 2017 19:11
[2017-06-05 19:38] VITALS: BP 109/63; RESP 20
--- NOTE | 2017-06-05 19:47 | PN ---
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 * Lesion not accessible for guided IR but biopsy * Surgery considered high risk * Oncology will not treat without definitive diagnosis * Current stent accomplishing adequate decompression Plan: * Reevaluate options * May consider exchanging current stent which is small German 7 for possibly 2 German 10 long plastic stents, this may allow another opportunity to evaluate with cholangioscopy or at least brushing trying to secure a definitive diagnosis to proceed with adequate treatment Subjective: Course reviewed with nursing staff Patient interviewed and examined All labs, imaging and other results reviewed The patient appears comfortable and reports minimal discomfort Bilirubin continues to drop I discussed the situation and different opinions and options with the patient and several members of her family Exam: General: well developed, well nourished, alert and oriented x3 , in no acute distress Skin: Less icteric, no lesions, no stigmata chronic liver disease, no evidence of bleeding diathesis Lymphatic: No palpable lymphadenopathy HEENT: No lesions Cardiovascular: Heart: Regular rate and rhhthm, no murmurs, gallops or rubs. Peripheral pulses present within normal limits, no cyanosis, clubbing or edemas. No pulsatile abdominal mass Respiratory: Lungs clear to auscultation and percussion, no wheezing, no rubs Gastrointestinal and Liver: Abdomen: Soft, non tender, non-distended, no hernias , no masses, no organomegaly, no ascites, no guarding, no rebound tenderness, normoactive bowel sounds. Extremities: No cyanosis, clubbing, or edema. [Neurologic: Cranial nerves II-XII intact, motor within normal limits, sensory within normal limits. Reflexes within normal limits.] [Psychiatric: Alert and oriented x3, mood/affect/judgment adequate] Diagnostic Studies: Available data and images were reviewed personally. See reports. Significant results and findings are addressed here or in the assessment and plan. Problems: Exam/Review of Systems Vital Signs Vitals Vital Signs Date Time Temp Pulse Resp B/P Pulse Ox O2 Delivery O2 Flow Rate FiO2 06/05/17 19:38 98.0 93 20 109/63 99 Intake and Output 06/04/17 06/04/17 06/05/17 15:00 23:00 07:00 Intake Total 1680 ml 800 ml Balance 1680 ml 800 ml Results Result Diagram: 06/05/17 0518 06/05/17 0518 Results 24 hrs Laboratory Tests Test 06/05/17 05:18 White Blood Count 9.9 Red Blood Count 3.26 L Hemoglobin 9.7 L Hematocrit 29.3 L Mean Corpuscular Volume 89.9 Mean Corpuscular Hemoglobin 29.8 Mean Corpuscular Hemoglobin Concent 33.1 Red Cell Distribution Width 15.6 H Platelet Count 432 H Mean Platelet Volume 11.1 H Neutrophils % 61.4 Lymphocytes % 21.3 Monocytes % 12.0 H Eosinophils % 3.0 Basophils % 0.6 Nucleated Red Blood Cells % 0.0 Neutrophils # 6.1 Lymphocytes # 2.1 Monocytes # 1.2 H Eosinophils # 0.3 Basophils # 0.1 Nucleated Red Blood Cells # 0.0 Sodium Level 137 Potassium Level 4.0 Chloride Level 105 Carbon Dioxide Level 27 Anion Gap 9 Blood Urea Nitrogen 9 Creatinine 0.61 Glucose Level 99 Calcium Level 9.2 Total Bilirubin 4.8 H Direct Bilirubin 3.30 H Indirect Bilirubin 1.5 H Aspartate Amino Transf (AST/SGOT) 47 H Alanine Aminotransferase (ALT/SGPT) 48 Alkaline Phosphatase 479 H Total Protein 6.2 Albumin 3.0 L Globulin 3.20 Albumin/Globulin Ratio 0.93 Medications Medications Current Medications Morphine Sulfate (morphine) 2 mg Q4H PRN IV PAIN Last administered on 21:59; Admin Dose 2 MG; Start 05/19/17 at 16:30 Acetaminophen/ Hydrocodone Bitart ([place] (5/325)) 1 tab Q4H PRN PO PAIN Last administered on 06/04/17 00:23; Admin Dose 1 TAB; Start 05/19/17 at 16:30 Ondansetron HCl (Zofran Inj) 4 mg Q6H PRN IV NAUSEA AND/OR VOMITING; Start at 16:30 Famotidine (Pepcid) 20 mg DAILY PO Last administered on 06/05/17 08:47; Admin Dose 20 MG; Start 05/20/17 at 12:30 Trimethobenzamide HCl (Tigan) 200 mg Q6H PRN IM NAUSEA AND/OR VOMITING; Start 05/20/17 at 12:30 Enoxaparin Sodium (Lovenox) 40 mg DAILY SC Last administered on 06/05/17 08:57 ; Admin Dose 40 MG; Start 05/20/17 at 13:00; Status Future hold Polyethylene Glycol (Miralax) 17 gm DAILY PO Last administered on 06/05/17 08: 47; Admin Dose 17 GM; Start 05/21/17 at 10:30 Hydroxyzine HCl (Atarax) 50 mg Q6H PRN PO ITCHING Last administered on 18:32; Admin Dose 50 MG; Start 05/21/17 at 10:30 Docusate Sodium (Colace) 100 mg BID PO Last administered on 06/05/17 08:47; Admin Dose 100 MG; Start 05/27/17 at 12:30 Cholestyramine Resin (Questran) 1 pkt TID PO Last administered on 06/05/17 13: 45; Admin Dose 1 PKT; Start 05/28/17 at 21:00 Ursodiol (Actigall) 300 mg BID PO Last administered on 06/05/17 08:47; Admin Dose 300 MG; Start 05/30/17 at 09:00 Zolpidem Tartrate (Ambien) 10 mg HS PRN PO INSOMNIA Last administered on 23:05; Admin Dose 10 MG; Start 05/30/17 at 23:00 RODERICK JACKSON MD Jun 05, 2017 19:47
[2017-06-06] MEDS: hydrOXYzine HCL 25 MG TAB PO PRN ×4 (00:42→21:10)
[2017-06-06 02:00] VITALS: BP_SYST 124; BP_SYST 96; BP_DIAS 60; BP_DIAS 79; RESP 20
[2017-06-06 06:12] LABS: BASOPHIL # 0.1 10^3/ul (0.0-0.1); BASOPHILS % 0.5 % (0.0-2.0); EOSINOPHILS # 0.2 10^3/ul (0.0-0.5); EOSINOPHILS % 1.7 % (0.0-7.0); HEMATOCRIT 31.9 % (37.0-47.0); HEMOGLOBIN 10.3 g/dl (12.0-16.0); LYMPHOCYTES # 2.3 10^3/ul (0.8-2.9); LYMPHOCYTES % 15.5 % (15.0-51.0); MEAN CORPUSCULAR HEMOGLOBIN 29.4 pg (29.0-33.0); MEAN CORPUSCULAR HGB CONC 32.3 g/dl (32.0-37.0); MEAN CORPUSCULAR VOLUME 91.1 fl (82.0-101.0); MEAN PLATELET VOLUME 10.8 fl (7.4-10.4); MONOCYTES % 7.2 % (0.0-11.0); NEUTROPHIL # 10.7 10^3/ul (1.6-7.5); NEUTROPHILS % 73.6 % (39.0-77.0); PLATELET COUNT 493 10^3/UL (140-415); RED CELL DISTRIBUTION WIDTH 15.1 % (11.5-14.5); WHITE BLOOD COUNT 14.5 10^3/ul (4.8-10.8)
[2017-06-06 07:20] VITALS: BP 104/59; RESP 20
[2017-06-06] MEDS: URSODIOL 300 MG CAP PO SCH ×2 (09:37→20:37)
[2017-06-06] MEDS: DOCUSATE SODIUM 100 MG CAP PO SCH ×2 (09:37→20:37)
[2017-06-06] MEDS: FAMOTIDINE 20 MG TAB PO SCH (09:37)
[2017-06-06] MEDS: POLYETHYLENE GLYCOL 17 GM PACKET PO SCH (09:37)
[2017-06-06] MEDS: CHOLESTYRAMINE 4 GM PACKET PO SCH ×3 (09:38→22:58)
[2017-06-06] MEDS: ENOXAPARIN 40 MG/0.4 ML SYG SC SCH (10:15)
[2017-06-06 13:27] VITALS: BP 129/72; RESP 20
--- NOTE | 2017-06-06 16:00 | PN ---
Date/Time of Note Date/Time of Note DATE: 06/06/17 TIME: 15:57 Assessment/Plan VTE Prophylaxis VTE Prophylaxis Intervention: SCD's Lines/Catheters IV [facility] Saline Lock Urinary Cath still in place: No Assessment/Plan Assessment/Plan 52-year-old female with no significant past medical history, presented with abdominal pain, scleral icterus, found to have hyperbilirubinemia, and hepatic mass concerning for cholangiocarcinoma with possible tumor thrombus in intrahepatic portal vein. Bilis improving. #hepatic mass: gen surg on consult-->plan for possible IR guided v open v endoscopic biopsy this week if bilis continue to improve. -->GI and gen surg following sp ERCP with stent placement #?portal vein thrombus? -repeat CT in a few days per vascular rec # Obstructive jaundice with hyperbilirubinemia secondary to above. Bili trended down. - Monitor LFTs Lovenox for DVT prophylaxis Subjective 24 Hr Interval Summary Free Text/Dictation still jaundiced Exam/Review of Systems Vital Signs Vitals Vital Signs Date Time Temp Pulse Resp B/P Pulse Ox O2 Delivery O2 Flow Rate FiO2 06/06/17 13:27 98.3 106 20 129/72 100 Intake and Output 06/05/17 06/05/17 06/06/17 15:00 23:00 07:00 Intake Total 820 ml Balance 820 ml Exam laying in bed no mrg lungs clear abd soft no rashes Results Result Diagram: 06/06/17 0526 06/05/17 0518 Results 24 hrs Laboratory Tests Test 06/06/17 05:26 White Blood Count 14.5 #H Red Blood Count 3.50 L Hemoglobin 10.3 L Hematocrit 31.9 L Mean Corpuscular Volume 91.1 Mean Corpuscular Hemoglobin 29.4 Mean Corpuscular Hemoglobin Concent 32.3 Red Cell Distribution Width 15.1 H Platelet Count 493 H Mean Platelet Volume 10.8 H Neutrophils % 73.6 Lymphocytes % 15.5 Monocytes % 7.2 Eosinophils % 1.7 Basophils % 0.5 Nucleated Red Blood Cells % 0.0 Neutrophils # 10.7 H Lymphocytes # 2.3 Monocytes # 1.0 H Eosinophils # 0.2 Basophils # 0.1 Nucleated Red Blood Cells # 0.0 Medications Medications Current Medications Morphine Sulfate (morphine) 2 mg Q4H PRN IV PAIN Last administered on t 21:59; Admin Dose 2 MG; Start 05/19/17 at 16:30 Acetaminophen/ Hydrocodone Bitart ([place] (5/325)) 1 tab Q4H PRN PO PAIN Last administered on 06/04/17 00:23; Admin Dose 1 TAB; Start 05/19/17 at 16:30 Ondansetron HCl (Zofran Inj) 4 mg Q6H PRN IV NAUSEA AND/OR VOMITING; Start at 16:30 Famotidine (Pepcid) 20 mg DAILY PO Last administered on 06/06/17 09:37; Admin Dose 20 MG; Start 05/20/17 at 12:30 Trimethobenzamide HCl (Tigan) 200 mg Q6H PRN IM NAUSEA AND/OR VOMITING; Start 05/20/17 at 12:30 Enoxaparin Sodium (Lovenox) 40 mg DAILY SC Last administered on 06/06/17 10:15 ; Admin Dose 40 MG; Start 05/20/17 at 13:00; Status Future hold Polyethylene Glycol (Miralax) 17 gm DAILY PO Last administered on 06/06/17 09: 37; Admin Dose 17 GM; Start 05/21/17 at 10:30 Hydroxyzine HCl (Atarax) 50 mg Q6H PRN PO ITCHING Last administered on 13:45; Admin Dose 50 MG; Start 05/21/17 at 10:30 Docusate Sodium (Colace) 100 mg BID PO Last administered on 06/06/17 09:37; Admin Dose 100 MG; Start 05/27/17 at 12:30 Cholestyramine Resin (Questran) 1 pkt TID PO Last administered on 06/06/17 13: 45; Admin Dose 1 PKT; Start 05/28/17 at 21:00 Ursodiol (Actigall) 300 mg BID PO Last administered on 06/06/17 09:37; Admin Dose 300 MG; Start 05/30/17 at 09:00 Zolpidem Tartrate (Ambien) 10 mg HS PRN PO INSOMNIA Last administered on 23:05; Admin Dose 10 MG; Start 05/30/17 at 23:00 AIMEE CRONIN MD Jun 06, 2017 16:00
--- NOTE | 2017-06-06 18:52 | PN ---
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 * Lesion not accessible for guided IR but biopsy * Surgery considered high risk * Oncology will not treat without definitive diagnosis * Current stent accomplishing adequate decompression Plan: * ERCP brushing, bile duct with stent placement ideally in both right and left intrahepatic biliary ducts Subjective: Course reviewed with nursing staff Patient interviewed and examined All labs, imaging and other results reviewed The patient appears comfortable and reports minimal discomfort Bilirubin continues to drop I discussed the situation and different opinions and options with the patient and several members of her family We will proceed with ERCP brushings and stent placement Exam: General: well developed, well nourished, alert and oriented x3 , in no acute distress Skin: Less icteric, no lesions, no stigmata chronic liver disease, no evidence of bleeding diathesis Lymphatic: No palpable lymphadenopathy HEENT: No lesions Cardiovascular: Heart: Regular rate and rhhthm, no murmurs, gallops or rubs. Peripheral pulses present within normal limits, no cyanosis, clubbing or edemas. No pulsatile abdominal mass Respiratory: Lungs clear to auscultation and percussion, no wheezing, no rubs Gastrointestinal and Liver: Abdomen: Soft, non tender, non-distended, no hernias , no masses, no organomegaly, no ascites, no guarding, no rebound tenderness, normoactive bowel sounds. Extremities: No cyanosis, clubbing, or edema. [Neurologic: Cranial nerves II-XII intact, motor within normal limits, sensory within normal limits. Reflexes within normal limits.] [Psychiatric: Alert and oriented x3, mood/affect/judgment adequate] Diagnostic Studies: Available data and images were reviewed personally. See reports. Significant results and findings are addressed here or in the assessment and plan. Problems: Exam/Review of Systems Vital Signs Vitals Vital Signs Date Time Temp Pulse Resp B/P Pulse Ox O2 Delivery O2 Flow Rate FiO2 06/06/17 13:27 98.3 106 20 129/72 100 Intake and Output 06/05/17 06/05/17 06/06/17 15:00 23:00 07:00 Intake Total 820 ml Balance 820 ml Results Result Diagram: 06/06/17 0526 06/05/17 0518 Results 24 hrs Laboratory Tests Test 06/06/17 05:26 White Blood Count 14.5 #H Red Blood Count 3.50 L Hemoglobin 10.3 L Hematocrit 31.9 L Mean Corpuscular Volume 91.1 Mean Corpuscular Hemoglobin 29.4 Mean Corpuscular Hemoglobin Concent 32.3 Red Cell Distribution Width 15.1 H Platelet Count 493 H Mean Platelet Volume 10.8 H Neutrophils % 73.6 Lymphocytes % 15.5 Monocytes % 7.2 Eosinophils % 1.7 Basophils % 0.5 Nucleated Red Blood Cells % 0.0 Neutrophils # 10.7 H Lymphocytes # 2.3 Monocytes # 1.0 H Eosinophils # 0.2 Basophils # 0.1 Nucleated Red Blood Cells # 0.0 Medications Medications Current Medications Morphine Sulfate (morphine) 2 mg Q4H PRN IV PAIN Last administered on 21:59; Admin Dose 2 MG; Start 05/19/17 at 16:30 Acetaminophen/ Hydrocodone Bitart ([place] (5/325)) 1 tab Q4H PRN PO PAIN Last administered on 06/04/17 00:23; Admin Dose 1 TAB; Start 05/19/17 at 16:30 Ondansetron HCl (Zofran Inj) 4 mg Q6H PRN IV NAUSEA AND/OR VOMITING; Start at 16:30 Famotidine (Pepcid) 20 mg DAILY PO Last administered on 06/06/17 09:37; Admin Dose 20 MG; Start 05/20/17 at 12:30 Trimethobenzamide HCl (Tigan) 200 mg Q6H PRN IM NAUSEA AND/OR VOMITING; Start 05/20/17 at 12:30 Enoxaparin Sodium (Lovenox) 40 mg DAILY SC Last administered on 06/06/17 10:15 ; Admin Dose 40 MG; Start 05/20/17 at 13:00; Status Future hold Polyethylene Glycol (Miralax) 17 gm DAILY PO Last administered on 06/06/17 09: 37; Admin Dose 17 GM; Start 05/21/17 at 10:30 Hydroxyzine HCl (Atarax) 50 mg Q6H PRN PO ITCHING Last administered on 13:45; Admin Dose 50 MG; Start 05/21/17 at 10:30 Docusate Sodium (Colace) 100 mg BID PO Last administered on 06/06/17 09:37; Admin Dose 100 MG; Start 05/27/17 at 12:30 Cholestyramine Resin (Questran) 1 pkt TID PO Last administered on 06/06/17 13: 45; Admin Dose 1 PKT; Start 05/28/17 at 21:00 Ursodiol (Actigall) 300 mg BID PO Last administered on 06/06/17 09:37; Admin Dose 300 MG; Start 05/30/17 at 09:00 Zolpidem Tartrate (Ambien) 10 mg HS PRN PO INSOMNIA Last administered on 23:05; Admin Dose 10 MG; Start 05/30/17 at 23:00 RODERICK JACKSON MD Jun 06, 2017 18:52
[2017-06-06 20:00] VITALS: BP 105/63; PULSE 103; RESP 20
--- NOTE | 2017-06-06 20:13 | CONS ---
Date/Time of Note Date/Time of Note DATE: 06/06/17 TIME: 20:12 Assessment/Plan Assessment/Plan Chief Complaint/Hosp Course PAINLESS JAUNDICE ASSOCIATED WITH Liver mass with enlarged lymph nodes, suspicious for malignancy R/O NEOPLASIA pancreas protocol triple phase CT scan of the abdomen and pelvis WITH CONTRAST - Poorly defined hypovascular mass occupying the left medial lobe of the liver and caudate lobe with upstream severe left greater intrahepatic bile duct dilatation, highly suspicious for cholangiocarcinoma. Filling defect identified in intrahepatic portal vein, concerning for tumor thrombus. Metastatic retroperitoneal lymphadenopathy. CA 19-9- 1930 AFP- P coag N, HEPATITIS PANEL- NEG GI EVAL- ERCP plus Spyglass cholangioscopy with targeted biopsies and possible stent placement. Post balloon dilatation, Cholangioscopy with evidence of neoplastic infiltration consistent with cholangiocarcinoma multiple direct targeted biopsies obtained Post placement of a [place] 10 x 9 cm stent with adequate drainage PATH -Biliary bifurcation, biopsy: Minute fragment of ductal mucosa showing crush artifact. No evidence of dysplasia or malignancy. PLAN- UNABLE TO DO liver biopsy. ( too close to major vessels - per DR CAMACHO) RE- LAPAROSCOPIC BX, WITHOUT HISTOLOGICAL CONFORMATION WE CAN NOT PROCEED WITH TREATMENT OR METALLIC STENT PLACEMENT PER GI - May consider exchanging current stent which is small Welsh 7 for possibly 2 Welsh 10 long plastic stents, this may allow another opportunity to evaluate with cholangioscopy or at least brushing trying to secure a definitive diagnosis to proceed with adequate treatment - ERCP brushing, bile duct with stent placement ideally in both right and left intrahepatic biliary ducts Abnormal liver enzymes, jaundice- 2 TO ABOVE DYSLIPIDEMIA Problems: Consultation Date/Type/Reason Admit Date/Time May 19, 2017 at 04:18 Initial Consult Date 05/19/17 Type of Consultation: [facility] Referring Provider: HERMAN MCNULTY 24 HR Interval Summary Free Text/Dictation ALL NOTED D/W STAFF Exam/Review of Systems Vital Signs Vitals Vital Signs Date Time Temp Pulse Resp B/P Pulse Ox O2 Delivery O2 Flow Rate FiO2 06/06/17 13:27 98.3 106 20 129/72 100 Intake and Output 06/05/17 06/05/17 06/06/17 15:00 23:00 07:00 Intake Total 820 ml Balance 820 ml Exam Const: No acute distress.+ Jaundice Head: Atraumatic. Eyes: Icteric Conjunctiva. ENT: Normal External Ears, Nose and Mouth. Neck: Full range of motion. No meningismus. Resp: Clear to auscultation bilaterally. Cardio: Regular rate and rhythm. Abd: Soft, non distended, normal bowel sounds, Diffuse abdominal tenderness, more tenderness at the right upper quadrant Skin: No petechiae or rashes. Back: No midline or flank tenderness. Ext: No cyanosis, or edema. Neur: Awake and alert. No focal deficit Psych: Normal Mood and Affect. NO PATH LN- ERIC Results Result Diagram: 06/06/1752506/05/17 0518 Results 24 hrs Laboratory Tests Test 06/06/17 05:26 White Blood Count 14.5 #H Red Blood Count 3.50 L Hemoglobin 10.3 L Hematocrit 31.9 L Mean Corpuscular Volume 91.1 Mean Corpuscular Hemoglobin 29.4 Mean Corpuscular Hemoglobin Concent 32.3 Red Cell Distribution Width 15.1 H Platelet Count 493 H Mean Platelet Volume 10.8 H Neutrophils % 73.6 Lymphocytes % 15.5 Monocytes % 7.2 Eosinophils % 1.7 Basophils % 0.5 Nucleated Red Blood Cells % 0.0 Neutrophils # 10.7 H Lymphocytes # 2.3 Monocytes # 1.0 H Eosinophils # 0.2 Basophils # 0.1 Nucleated Red Blood Cells # 0.0 Medications Medications Current Medications Morphine Sulfate (morphine) 2 mg Q4H PRN IV PAIN Last administered on 21:59; Admin Dose 2 MG; Start 05/19/17 at 16:30 Acetaminophen/ Hydrocodone Bitart ([place] (5/325)) 1 tab Q4H PRN PO PAIN Last administered on 06/04/17 00:23; Admin Dose 1 TAB; Start 05/19/17 at 16:30 Ondansetron HCl (Zofran Inj) 4 mg Q6H PRN IV NAUSEA AND/OR VOMITING; Start at 16:30 Famotidine (Pepcid) 20 mg DAILY PO Last administered on 06/06/17 09:37; Admin Dose 20 MG; Start 05/20/17 at 12:30 Trimethobenzamide HCl (Tigan) 200 mg Q6H PRN IM NAUSEA AND/OR VOMITING; Start 05/20/17 at 12:30 Enoxaparin Sodium (Lovenox) 40 mg DAILY SC Last administered on 06/06/17 10:15 ; Admin Dose 40 MG; Start 05/20/17 at 13:00; Status Future hold Polyethylene Glycol (Miralax) 17 gm DAILY PO Last administered on 06/06/17 09: 37; Admin Dose 17 GM; Start 05/21/17 at 10:30 Hydroxyzine HCl (Atarax) 50 mg Q6H PRN PO ITCHING Last administered on 13:45; Admin Dose 50 MG; Start 05/21/17 at 10:30 Docusate Sodium (Colace) 100 mg BID PO Last administered on 06/06/17 09:37; Admin Dose 100 MG; Start 05/27/17 at 12:30 Cholestyramine Resin (Questran) 1 pkt TID PO Last administered on 06/06/17 13: 45; Admin Dose 1 PKT; Start 05/28/17 at 21:00 Ursodiol (Actigall) 300 mg BID PO Last administered on 06/06/17 09:37; Admin Dose 300 MG; Start 05/30/17 at 09:00 Zolpidem Tartrate (Ambien) 10 mg HS PRN PO INSOMNIA Last administered on 23:05; Admin Dose 10 MG; Start 05/30/17 at 23:00 SONA WEEKS MD Jun 06, 2017 20:13
[2017-06-07 02:01] VITALS: BP 106/60; RESP 20
[2017-06-07] MEDS: hydrOXYzine HCL 25 MG TAB PO PRN ×3 (06:19→20:24)
[2017-06-07 06:24] LABS: BASOPHIL # 0.1 10^3/ul (0.0-0.1); BASOPHILS % 0.6 % (0.0-2.0); EOSINOPHILS # 0.3 10^3/ul (0.0-0.5); EOSINOPHILS % 2.4 % (0.0-7.0); HEMATOCRIT 30.4 % (37.0-47.0); HEMOGLOBIN 10.1 g/dl (12.0-16.0); LYMPHOCYTES # 2.5 10^3/ul (0.8-2.9); LYMPHOCYTES % 22.3 % (15.0-51.0); MEAN CORPUSCULAR HEMOGLOBIN 30.3 pg (29.0-33.0); MEAN CORPUSCULAR HGB CONC 33.2 g/dl (32.0-37.0); MEAN CORPUSCULAR VOLUME 91.3 fl (82.0-101.0); MEAN PLATELET VOLUME 10.8 fl (7.4-10.4); MONOCYTE # 1.1 10^3/ul (0.3-0.9); MONOCYTES % 9.5 % (0.0-11.0); NEUTROPHIL # 7.1 10^3/ul (1.6-7.5); NEUTROPHILS % 63.7 % (39.0-77.0); PLATELET COUNT 477 10^3/UL (140-415); RED BLOOD COUNT 3.33 10^6/ul (4.20-5.40); RED CELL DISTRIBUTION WIDTH 14.6 % (11.5-14.5); WHITE BLOOD COUNT 11.1 10^3/ul (4.8-10.8)
[2017-06-07 06:55] LABS: ALBUMIN 3.2 g/dl (3.3-4.9); ALBUMIN/GLOBULIN RATIO 0.86; BILIRUBIN,DIRECT 1.9 mg/dl (0.00-0.20); BILIRUBIN,INDIRECT 1.3 mg/dl (0-1.1); BILIRUBIN,TOTAL 3.2 mg/dl (0.2-1.3); CALCIUM 8.9 mg/dl (8.4-10.2); CREATININE 0.63 mg/dl (0.44-1.00); POTASSIUM 3.6 mmol/L (3.5-5.1); TOTAL PROTEIN 6.9 g/dl (6.1-8.1)
[2017-06-07 07:39] VITALS: BP 118/66; RESP 16
[2017-06-07] MEDS: DOCUSATE SODIUM 100 MG CAP PO SCH ×2 (08:26→20:24)
[2017-06-07] MEDS: FAMOTIDINE 20 MG TAB PO SCH (08:26)
[2017-06-07] MEDS: URSODIOL 300 MG CAP PO SCH ×2 (08:26→20:24)
[2017-06-07] MEDS: POLYETHYLENE GLYCOL 17 GM PACKET PO SCH (08:27)
[2017-06-07] MEDS: CHOLESTYRAMINE 4 GM PACKET PO SCH ×3 (08:27→22:25)
[2017-06-07] MEDS: ENOXAPARIN 40 MG/0.4 ML SYG SC SCH (09:03)
--- NOTE | 2017-06-07 11:00 | CONS ---
Date/Time of Note Date/Time of Note DATE: 06/07/17 TIME: 11:00 Assessment/Plan Assessment/Plan Chief Complaint/Hosp Course PAINLESS JAUNDICE ASSOCIATED WITH Liver mass with enlarged lymph nodes, suspicious for malignancy R/O NEOPLASIA pancreas protocol triple phase CT scan of the abdomen and pelvis WITH CONTRAST - Poorly defined hypovascular mass occupying the left medial lobe of the liver and caudate lobe with upstream severe left greater intrahepatic bile duct dilatation, highly suspicious for cholangiocarcinoma. Filling defect identified in intrahepatic portal vein, concerning for tumor thrombus. Metastatic retroperitoneal lymphadenopathy. CA 19-9- 1930 AFP- P coag N, HEPATITIS PANEL- NEG GI EVAL- ERCP plus Spyglass cholangioscopy with targeted biopsies and possible stent placement. Post balloon dilatation, Cholangioscopy with evidence of neoplastic infiltration consistent with cholangiocarcinoma multiple direct targeted biopsies obtained Post placement of a [place] 10 x 9 cm stent with adequate drainage PATH -Biliary bifurcation, biopsy: Minute fragment of ductal mucosa showing crush artifact. No evidence of dysplasia or malignancy. PLAN- UNABLE TO DO liver biopsy. ( too close to major vessels - per DR CAMACHO) RE- LAPAROSCOPIC BX, WITHOUT HISTOLOGICAL CONFORMATION WE CAN NOT PROCEED WITH TREATMENT OR METALLIC STENT PLACEMENT PER GI - May consider exchanging current stent which is small [place] 7 for possibly 2 [place] 10 long plastic stents, this may allow another opportunity to evaluate with cholangioscopy or at least brushing trying to secure a definitive diagnosis to proceed with adequate treatment - ERCP brushing, bile duct with stent placement ideally in both right and left intrahepatic biliary ducts Abnormal liver enzymes, jaundice- 2 TO ABOVE DYSLIPIDEMIA Problems: Consultation Date/Type/Reason Admit Date/Time May 19, 2017 at 04:18 Initial Consult Date 05/19/17 Type of Consultation: [facility] Referring Provider: HERMAN MCNULTY 24 HR Interval Summary Free Text/Dictation ALL NOTED NAD D/W STAFF Exam/Review of Systems Vital Signs Vitals Vital Signs Date Time Temp Pulse Resp B/P Pulse Ox O2 Delivery O2 Flow Rate FiO2 06/07/17 07:39 98.1 81 16 118/66 100 06/06/17 20:00 Room Air Intake and Output 06/06/17 06/06/17 06/07/17 15:00 23:00 07:00 Intake Total 1140 ml 600 ml Balance 1140 ml 600 ml Exam Const: No acute distress.+ Jaundice Head: Atraumatic. Eyes: Icteric Conjunctiva. ENT: Normal External Ears, Nose and Mouth. Neck: Full range of motion. No meningismus. Resp: Clear to auscultation bilaterally. Cardio: Regular rate and rhythm. Abd: Soft, non distended, normal bowel sounds, Diffuse abdominal tenderness, more tenderness at the right upper quadrant Skin: No petechiae or rashes. Back: No midline or flank tenderness. Ext: No cyanosis, or edema. Neur: Awake and alert. No focal deficit Psych: Normal Mood and Affect. NO PATH LN- ERIC Results Result Diagram: 06/07/1735 06/07/1735 Results 24 hrs Laboratory Tests Test 06/07/17 05:35 White Blood Count 11.1 #H Red Blood Count 3.33 L Hemoglobin 10.1 L Hematocrit 30.4 L Mean Corpuscular Volume 91.3 Mean Corpuscular Hemoglobin 30.3 Mean Corpuscular Hemoglobin Concent 33.2 Red Cell Distribution Width 14.6 H Platelet Count 477 H Mean Platelet Volume 10.8 H Neutrophils % 63.7 Lymphocytes % 22.3 Monocytes % 9.5 Eosinophils % 2.4 Basophils % 0.6 Nucleated Red Blood Cells % 0.0 Neutrophils # 7.1 Lymphocytes # 2.5 Monocytes # 1.1 H Eosinophils # 0.3 Basophils # 0.1 Nucleated Red Blood Cells # 0.0 Sodium Level 140 Potassium Level 3.6 Chloride Level 106 Carbon Dioxide Level 28 Anion Gap 10 Blood Urea Nitrogen 8 Creatinine 0.63 Glucose Level 105 Calcium Level 8.9 Total Bilirubin 3.2 H Direct Bilirubin 1.90 H Indirect Bilirubin 1.3 H Aspartate Amino Transf (AST/SGOT) 64 H Alanine Aminotransferase (ALT/SGPT) 57 Alkaline Phosphatase 482 H Total Protein 6.9 Albumin 3.2 L Globulin 3.70 H Albumin/Globulin Ratio 0.86 Medications Medications Current Medications Morphine Sulfate (morphine) 2 mg Q4H PRN IV PAIN Last administered on 21:59; Admin Dose 2 MG; Start 05/19/17 at 16:30 Acetaminophen/ Hydrocodone Bitart ([place] (5/325)) 1 tab Q4H PRN PO PAIN Last administered on 06/04/17 00:23; Admin Dose 1 TAB; Start 05/19/17 at 16:30 Ondansetron HCl (Zofran Inj) 4 mg Q6H PRN IV NAUSEA AND/OR VOMITING; Start at 16:30 Famotidine (Pepcid) 20 mg DAILY PO Last administered on 06/07/17 08:26; Admin Dose 20 MG; Start 05/20/17 at 12:30 Trimethobenzamide HCl (Tigan) 200 mg Q6H PRN IM NAUSEA AND/OR VOMITING; Start 05/20/17 at 12:30 Enoxaparin Sodium (Lovenox) 40 mg DAILY SC Last administered on 06/07/17 09:03 ; Admin Dose 40 MG; Start 05/20/17 at 13:00; Status Future hold Polyethylene Glycol (Miralax) 17 gm DAILY PO Last administered on 06/07/17 08: 27; Admin Dose 17 GM; Start 05/21/17 at 10:30 Hydroxyzine HCl (Atarax) 50 mg Q6H PRN PO ITCHING Last administered on 06:19; Admin Dose 50 MG; Start 05/21/17 at 10:30 Docusate Sodium (Colace) 100 mg BID PO Last administered on 06/07/17 08:26; Admin Dose 100 MG; Start 05/27/17 at 12:30 Cholestyramine Resin (Questran) 1 pkt TID PO Last administered on 06/07/17 08: 27; Admin Dose 1 PKT; Start 05/28/17 at 21:00 Ursodiol (Actigall) 300 mg BID PO Last administered on 06/07/17 08:26; Admin Dose 300 MG; Start 05/30/17 at 09:00 Zolpidem Tartrate (Ambien) 10 mg HS PRN PO INSOMNIA Last administered on 23:05; Admin Dose 10 MG; Start 05/30/17 at 23:00 SONA WEEKS MD Jun 07, 2017 11:00
[2017-06-07 14:32] VITALS: BP 120/63; RESP 16
--- NOTE | 2017-06-07 14:49 | PN ---
Date/Time of Note Date/Time of Note DATE: 06/07/17 TIME: 14:46 Assessment/Plan VTE Prophylaxis VTE Prophylaxis Intervention: SCD's Lines/Catheters IV Catheter Type (from [facility]): Saline Lock Urinary Cath still in place: No Assessment/Plan Assessment/Plan 52-year-old female with no significant past medical history, presented with abdominal pain, scleral icterus, found to have hyperbilirubinemia, and hepatic mass concerning for cholangiocarcinoma with possible tumor thrombus in intrahepatic portal vein. Bilis improving. #hepatic mass: gen surg on consult-->plan for possible IR guided v open v endoscopic biopsy this week if bilis continue to improve. -->GI and gen surg following sp ERCP with stent placement PER GI note, plan for stent exchange/additional stent placement with brushings in coming days #?portal vein thrombus? -repeat CT in a few days per vascular rec # Obstructive jaundice with hyperbilirubinemia secondary to above. Bili trending down. - Monitor LFTs Lovenox for DVT prophylaxis Subjective 24 Hr Interval Summary Free Text/Dictation Pt resting in bed this AM Exam/Review of Systems Vital Signs Vitals Vital Signs Date Time Temp Pulse Resp B/P Pulse Ox O2 Delivery O2 Flow Rate FiO2 06/07/17 14:32 98.5 86 16 120/63 100 06/06/17 20:00 Room Air Intake and Output 06/06/17 06/06/17 06/07/17 15:00 23:00 07:00 Intake Total 1140 ml 600 ml Balance 1140 ml 600 ml Exam nad laying in bed no mrg lungs clear abd soft no rashes bilis noted Results Result Diagram: 06/07/17 0535 06/07/17 0535 Results 24 hrs Laboratory Tests Test 06/07/17 05:35 White Blood Count 11.1 #H Red Blood Count 3.33 L Hemoglobin 10.1 L Hematocrit 30.4 L Mean Corpuscular Volume 91.3 Mean Corpuscular Hemoglobin 30.3 Mean Corpuscular Hemoglobin Concent 33.2 Red Cell Distribution Width 14.6 H Platelet Count 477 H Mean Platelet Volume 10.8 H Neutrophils % 63.7 Lymphocytes % 22.3 Monocytes % 9.5 Eosinophils % 2.4 Basophils % 0.6 Nucleated Red Blood Cells % 0.0 Neutrophils # 7.1 Lymphocytes # 2.5 Monocytes # 1.1 H Eosinophils # 0.3 Basophils # 0.1 Nucleated Red Blood Cells # 0.0 Sodium Level 140 Potassium Level 3.6 Chloride Level 106 Carbon Dioxide Level 28 Anion Gap 10 Blood Urea Nitrogen 8 Creatinine 0.63 Glucose Level 105 Calcium Level 8.9 Total Bilirubin 3.2 H Direct Bilirubin 1.90 H Indirect Bilirubin 1.3 H Aspartate Amino Transf (AST/SGOT) 64 H Alanine Aminotransferase (ALT/SGPT) 57 Alkaline Phosphatase 482 H Total Protein 6.9 Albumin 3.2 L Globulin 3.70 H Albumin/Globulin Ratio 0.86 Medications Medications Current Medications Morphine Sulfate (morphine) 2 mg Q4H PRN IV PAIN Last administered on 21:59; Admin Dose 2 MG; Start 05/19/17 at 16:30 Acetaminophen/ Hydrocodone Bitart ([place] (5/325)) 1 tab Q4H PRN PO PAIN Last administered on 06/04/17 00:23; Admin Dose 1 TAB; Start 05/19/17 at 16:30 Ondansetron HCl (Zofran Inj) 4 mg Q6H PRN IV NAUSEA AND/OR VOMITING; Start at 16:30 Famotidine (Pepcid) 20 mg DAILY PO Last administered on 06/07/17 08:26; Admin Dose 20 MG; Start 05/20/17 at 12:30 Trimethobenzamide HCl (Tigan) 200 mg Q6H PRN IM NAUSEA AND/OR VOMITING; Start 05/20/17 at 12:30 Enoxaparin Sodium (Lovenox) 40 mg DAILY SC Last administered on 06/07/17 09:03 ; Admin Dose 40 MG; Start 05/20/17 at 13:00; Status Future hold Polyethylene Glycol (Miralax) 17 gm DAILY PO Last administered on 06/07/17 08: 27; Admin Dose 17 GM; Start 05/21/17 at 10:30 Hydroxyzine HCl (Atarax) 50 mg Q6H PRN PO ITCHING Last administered on 13:44; Admin Dose 50 MG; Start 05/21/17 at 10:30 Docusate Sodium (Colace) 100 mg BID PO Last administered on 06/07/17 08:26; Admin Dose 100 MG; Start 05/27/17 at 12:30 Cholestyramine Resin (Questran) 1 pkt TID PO Last administered on 06/07/17 14: 45; Admin Dose 1 PKT; Start 05/28/17 at 21:00 Ursodiol (Actigall) 300 mg BID PO Last administered on 06/07/17 08:26; Admin Dose 300 MG; Start 05/30/17 at 09:00 Zolpidem Tartrate (Ambien) 10 mg HS PRN PO INSOMNIA Last administered on 23:05; Admin Dose 10 MG; Start 05/30/17 at 23:00 AIMEE CRONIN MD Jun 07, 2017 14:49
[2017-06-07] MEDS ORDERED: INDOMETHACIN 50 MG SUPP PR ONE (17:00)
--- NOTE | 2017-06-07 20:07 | PN ---
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 * Lesion not accessible for guided IR but biopsy * Surgery considered high risk * Oncology will not treat without definitive diagnosis * Current stent accomplishing adequate decompression Plan: * ERCP brushing, bile duct with stent placement ideally in both right and left intrahepatic biliary ducts Subjective: Course reviewed with nursing staff Patient interviewed and examined All labs, imaging and other results reviewed The patient appears comfortable and reports minimal discomfort Bilirubin continues to drop I discussed the situation and different opinions and options with the patient and several members of her family ERCP possible Spyglass cholangioscopy tomorrow with direct biopsies, brushings and stent placement Exam: General: well developed, well nourished, alert and oriented x3 , in no acute distress Skin: Less icteric, no lesions, no stigmata chronic liver disease, no evidence of bleeding diathesis Lymphatic: No palpable lymphadenopathy HEENT: No lesions Cardiovascular: Heart: Regular rate and rhhthm, no murmurs, gallops or rubs. Peripheral pulses present within normal limits, no cyanosis, clubbing or edemas. No pulsatile abdominal mass Respiratory: Lungs clear to auscultation and percussion, no wheezing, no rubs Gastrointestinal and Liver: Abdomen: Soft, non tender, non-distended, no hernias , no masses, no organomegaly, no ascites, no guarding, no rebound tenderness, normoactive bowel sounds. Extremities: No cyanosis, clubbing, or edema. [Neurologic: Cranial nerves II-XII intact, motor within normal limits, sensory within normal limits. Reflexes within normal limits.] [Psychiatric: Alert and oriented x3, mood/affect/judgment adequate] Diagnostic Studies: Available data and images were reviewed personally. See reports. Significant results and findings are addressed here or in the assessment and plan. Problems: Exam/Review of Systems Vital Signs Vitals Vital Signs Date Time Temp Pulse Resp B/P Pulse Ox O2 Delivery O2 Flow Rate FiO2 06/07/17 14:32 98.5 86 16 120/63 100 06/06/17 20:00 Room Air Intake and Output 06/06/17 06/06/17 06/07/17 15:00 23:00 07:00 Intake Total 1140 ml 600 ml Balance 1140 ml 600 ml Results Result Diagram: 06/07/17 0535 06/07/17 0535 Results 24 hrs Laboratory Tests Test 06/07/17 05:35 White Blood Count 11.1 #H Red Blood Count 3.33 L Hemoglobin 10.1 L Hematocrit 30.4 L Mean Corpuscular Volume 91.3 Mean Corpuscular Hemoglobin 30.3 Mean Corpuscular Hemoglobin Concent 33.2 Red Cell Distribution Width 14.6 H Platelet Count 477 H Mean Platelet Volume 10.8 H Neutrophils % 63.7 Lymphocytes % 22.3 Monocytes % 9.5 Eosinophils % 2.4 Basophils % 0.6 Nucleated Red Blood Cells % 0.0 Neutrophils # 7.1 Lymphocytes # 2.5 Monocytes # 1.1 H Eosinophils # 0.3 Basophils # 0.1 Nucleated Red Blood Cells # 0.0 Sodium Level 140 Potassium Level 3.6 Chloride Level 106 Carbon Dioxide Level 28 Anion Gap 10 Blood Urea Nitrogen 8 Creatinine 0.63 Glucose Level 105 Calcium Level 8.9 Total Bilirubin 3.2 H Direct Bilirubin 1.90 H Indirect Bilirubin 1.3 H Aspartate Amino Transf (AST/SGOT) 64 H Alanine Aminotransferase (ALT/SGPT) 57 Alkaline Phosphatase 482 H Total Protein 6.9 Albumin 3.2 L Globulin 3.70 H Albumin/Globulin Ratio 0.86 Medications Medications Current Medications Morphine Sulfate (morphine) 2 mg Q4H PRN IV PAIN Last administered on 21:59; Admin Dose 2 MG; Start 05/19/17 at 16:30 Acetaminophen/ Hydrocodone Bitart ([place] (5/325)) 1 tab Q4H PRN PO PAIN Last administered on 06/04/17 00:23; Admin Dose 1 TAB; Start 05/19/17 at 16:30 Ondansetron HCl (Zofran Inj) 4 mg Q6H PRN IV NAUSEA AND/OR VOMITING; Start at 16:30 Trimethobenzamide HCl (Tigan) 200 mg Q6H PRN IM NAUSEA AND/OR VOMITING; Start 05/20/17 at 12:30 Enoxaparin Sodium (Lovenox) 40 mg DAILY SC Last administered on 06/07/17 09:03 ; Admin Dose 40 MG; Start 05/20/17 at 13:00; Status Future hold Polyethylene Glycol (Miralax) 17 gm DAILY PO Last administered on 06/07/17 08: 27; Admin Dose 17 GM; Start 05/21/17 at 10:30 Hydroxyzine HCl (Atarax) 50 mg Q6H PRN PO ITCHING Last administered on 13:44; Admin Dose 50 MG; Start 05/21/17 at 10:30 Docusate Sodium (Colace) 100 mg BID PO Last administered on 06/07/17 08:26; Admin Dose 100 MG; Start 05/27/17 at 12:30 Cholestyramine Resin (Questran) 1 pkt TID PO Last administered on 06/07/17 14: 45; Admin Dose 1 PKT; Start 05/28/17 at 21:00 Ursodiol (Actigall) 300 mg BID PO Last administered on 06/07/17 08:26; Admin Dose 300 MG; Start 05/30/17 at 09:00 Zolpidem Tartrate (Ambien) 10 mg HS PRN PO INSOMNIA Last administered on 23:05; Admin Dose 10 MG; Start 05/30/17 at 23:00 RODERICK JACKSON MD Jun 07, 2017 20:07
[2017-06-07 20:40] VITALS: BP 104/55; RESP 16
[2017-06-08] VITALS (14 sets, daily range): BP systolic 102–141; BP diastolic 55–82; PULSE 94–106; RESP 16–24
[2017-06-08] MEDS: hydrOXYzine HCL 25 MG TAB PO PRN (05:28)
[2017-06-08 05:39] LABS: BASOPHIL # 0.1 10^3/ul (0.0-0.1); BASOPHILS % 0.4 % (0.0-2.0); EOSINOPHILS # 0.3 10^3/ul (0.0-0.5); EOSINOPHILS % 2.4 % (0.0-7.0); HEMATOCRIT 30.3 % (37.0-47.0); LYMPHOCYTES # 2.5 10^3/ul (0.8-2.9); LYMPHOCYTES % 21.6 % (15.0-51.0); MEAN CORPUSCULAR HEMOGLOBIN 30.2 pg (29.0-33.0); MEAN CORPUSCULAR VOLUME 91.5 fl (82.0-101.0); MEAN PLATELET VOLUME 10.4 fl (7.4-10.4); MONOCYTE # 1.2 10^3/ul (0.3-0.9); MONOCYTES % 10.5 % (0.0-11.0); NEUTROPHIL # 7.4 10^3/ul (1.6-7.5); NEUTROPHILS % 63.5 % (39.0-77.0); PLATELET COUNT 464 10^3/UL (140-415); RED BLOOD COUNT 3.31 10^6/ul (4.20-5.40); RED CELL DISTRIBUTION WIDTH 14.6 % (11.5-14.5); WHITE BLOOD COUNT 11.6 10^3/ul (4.8-10.8)
[2017-06-08 06:23] LABS: ALBUMIN/GLOBULIN RATIO 0.78; BILIRUBIN,DIRECT 1.1 mg/dl (0.00-0.20); BILIRUBIN,INDIRECT 1.1 mg/dl (0-1.1); BILIRUBIN,TOTAL 2.2 mg/dl (0.2-1.3); CALCIUM 9.5 mg/dl (8.4-10.2); CREATININE 0.66 mg/dl (0.44-1.00); POTASSIUM 4.2 mmol/L (3.5-5.1); TOTAL PROTEIN 6.8 g/dl (6.1-8.1)
[2017-06-08] MEDS ORDERED: CEFAZOLIN 1 GM INJ ONE (07:00)
[2017-06-08] MEDS: ENOXAPARIN 40 MG/0.4 ML SYG SC SCH (09:00)
[2017-06-08] MEDS: URSODIOL 300 MG CAP PO SCH ×2 (09:14→21:00)
[2017-06-08] MEDS: CHOLESTYRAMINE 4 GM PACKET PO SCH ×3 (09:14→21:00)
[2017-06-08] MEDS: POLYETHYLENE GLYCOL 17 GM PACKET PO SCH (09:14)
[2017-06-08] MEDS: DOCUSATE SODIUM 100 MG CAP PO SCH ×2 (09:14→21:00)
--- NOTE | 2017-06-08 13:27 | PN ---
Date/Time of Note Date/Time of Note DATE: 06/08/17 TIME: 13:24 Assessment/Plan VTE Prophylaxis VTE Prophylaxis Intervention: SCD's Lines/Catheters IV [facility]ter Type (from [facility]): Saline Lock Urinary Cath still in place: No Assessment/Plan Assessment/Plan 52-year-old female with no significant past medical history, presented with abdominal pain, scleral icterus, found to have hyperbilirubinemia, and hepatic mass concerning for cholangiocarcinoma with possible tumor thrombus in intrahepatic portal vein. Bilis improving. #hepatic mass: gen surg on consult-->plan for possible IR guided v open v endoscopic biopsy this week if bilis continue to improve. -->GI and gen surg following sp ERCP with stent placement PER GI note, plan for ERCP with stent exchange/additional stent placement with brushings possibly today #?portal vein thrombus? -repeat CT in a few days per vascular rec. will likely due this weekend # Obstructive jaundice with hyperbilirubinemia secondary to above. Bili trending down. - Monitor LFTs Lovenox for DVT prophylaxis Subjective 24 Hr Interval Summary Free Text/Dictation Pt without complaint Exam/Review of Systems Vital Signs Vitals Vital Signs Date Time Temp Pulse Resp B/P Pulse Ox O2 Delivery O2 Flow Rate FiO2 06/08/17 07:52 98.0 74 18 103/55 97 06/06/17 20:00 Room Air Intake and Output 06/07/17 06/07/17 06/08/17 15:00 23:00 07:00 Intake Total 2140 ml 1200 ml Output Total 2150 ml Balance 2140 ml -950 ml Exam nad less jaundiced respirations nonlabored no edema no abd distension Results Result Diagram: 06/08/17 0507 06/08/17 0507 Results 24 hrs Laboratory Tests Test 06/08/17 05:07 White Blood Count 11.6 H Red Blood Count 3.31 L Hemoglobin 10.0 L Hematocrit 30.3 L Mean Corpuscular Volume 91.5 Mean Corpuscular Hemoglobin 30.2 Mean Corpuscular Hemoglobin Concent 33.0 Red Cell Distribution Width 14.6 H Platelet Count 464 H Mean Platelet Volume 10.4 Neutrophils % 63.5 Lymphocytes % 21.6 Monocytes % 10.5 Eosinophils % 2.4 Basophils % 0.4 Nucleated Red Blood Cells % 0.0 Neutrophils # 7.4 Lymphocytes # 2.5 Monocytes # 1.2 H Eosinophils # 0.3 Basophils # 0.1 Nucleated Red Blood Cells # 0.0 Sodium Level 138 Potassium Level 4.2 Chloride Level 104 Carbon Dioxide Level 29 Anion Gap 9 Blood Urea Nitrogen 7 Creatinine 0.66 Glucose Level 120 Calcium Level 9.5 Total Bilirubin 2.2 H Direct Bilirubin 1.10 #H Indirect Bilirubin 1.1 Aspartate Amino Transf (AST/SGOT) 49 H Alanine Aminotransferase (ALT/SGPT) 67 Alkaline Phosphatase 453 H Total Protein 6.8 Albumin 3.0 L Globulin 3.80 H Albumin/Globulin Ratio 0.78 Medications Medications Current Medications Morphine Sulfate (morphine) 2 mg Q4H PRN IV PAIN Last administered on 21:59; Admin Dose 2 MG; Start 05/19/17 at 16:30 Acetaminophen/ Hydrocodone Bitart ([place] (5/325)) 1 tab Q4H PRN PO PAIN Last administered on 06/04/17 00:23; Admin Dose 1 TAB; Start 05/19/17 at 16:30 Ondansetron HCl (Zofran Inj) 4 mg Q6H PRN IV NAUSEA AND/OR VOMITING; Start at 16:30 Trimethobenzamide HCl (Tigan) 200 mg Q6H PRN IM NAUSEA AND/OR VOMITING; Start 05/20/17 at 12:30 Enoxaparin Sodium (Lovenox) 40 mg DAILY SC Last administered on 06/07/17 09:03 ; Admin Dose 40 MG; Start 05/20/17 at 13:00; Status Future hold Polyethylene Glycol (Miralax) 17 gm DAILY PO Last administered on 06/08/17 09: 14; Admin Dose 17 GM; Start 05/21/17 at 10:30 Hydroxyzine HCl (Atarax) 50 mg Q6H PRN PO ITCHING Last administered on 05:28; Admin Dose 50 MG; Start 05/21/17 at 10:30 Docusate Sodium (Colace) 100 mg BID PO Last administered on 06/08/17 09:14; Admin Dose 100 MG; Start 05/27/17 at 12:30 Cholestyramine Resin (Questran) 1 pkt TID PO Last administered on 06/08/17 09: 14; Admin Dose 1 PKT; Start 05/28/17 at 21:00 Ursodiol (Actigall) 300 mg BID PO Last administered on 06/08/17 09:14; Admin Dose 300 MG; Start 05/30/17 at 09:00 Zolpidem Tartrate (Ambien) 10 mg HS PRN PO INSOMNIA Last administered on 23:05; Admin Dose 10 MG; Start 05/30/17 at 23:00 AIMEE CRONIN MD Jun 08, 2017 13:27
[2017-06-08] MEDS ORDERED: BISACODYL (EC) 5 MG TAB PO PRN (17:30)
[2017-06-08] MEDS ORDERED: PROPOFOL 20 ML ONE (17:48)
[2017-06-08] MEDS ORDERED: SUCCINYLCHOLINE CHLORIDE 100 MG/5 ML SYG IV ONE (17:48)
[2017-06-08] MEDS ORDERED: LIDOCAINE 2% (SDV) 5 ML INJ ONE (17:48)
[2017-06-08] MEDS ORDERED: MIDAZOLAM 1 MG/ML 2 ML INJ ONE (17:49)
[2017-06-08] MEDS ORDERED: FENTAnyl 50 MCG/ML VIAL ONE ×2 (17:49→19:27)
[2017-06-08] MEDS ORDERED: HALOPERIDOL 5 MG INJ IV PRN (18:30)
[2017-06-08] MEDS ORDERED: HYDROmorphONE (0.2 MG/ML) 10ML SYG IV PRN ×2 (18:30)
[2017-06-08] MEDS ORDERED: FENTAnyl 50 MCG/ML VIAL IV PRN (18:30)
[2017-06-08] MEDS ORDERED: LABETALOL HCL 20MG INJ IV PRN (18:30)
[2017-06-08] MEDS ORDERED: PROCHLORPERAZINE 10 MG INJ IV PRN (18:30)
[2017-06-08] MEDS ORDERED: ONDANSETRON 4 MG INJ IV PRN (18:30)
[2017-06-08] MEDS ORDERED: MEPERIDINE 25 MG INJ IV PRN (18:30)
[2017-06-08] MEDS ORDERED: OXYCODONE/ACETAMINOPHEN (5/325) TAB PO PRN (18:30)
[2017-06-08] MEDS ORDERED: hydrALAzine 20 MG INJ IV PRN (18:30)
[2017-06-08] MEDS ORDERED: METOCLOPRAMIDE 10 MG INJ ONE (18:59)
[2017-06-08] MEDS ORDERED: ONDANSETRON 4 MG INJ ONE (18:59)
[2017-06-08] MEDS ORDERED: IOHEXOL 300MG/ML 30 ML BTL ONE (19:09)
[2017-06-08] MEDS ORDERED: METOPROLOL 5 MG INJ ONE (19:31)
--- NOTE | 2017-06-08 20:30 | OPPN ---
Date/Time of Note Date/Time of Note DATE: 06/08/17 TIME: 20:18 Proc Note GI Procedure Date 06/08/17 Pre-procedure Diagnosis * Suspected cholangioCA Post-procedure Diagnosis Impression: * Probable cholangioCA. CHD/Bifurcation/Both intrahepatic ducts * Post ERS * Post balloon dilatation * Post Spyglass cholangioscopy with biopsies * Post stent placement 2 right and left intrahepatic ducts. [place] 10- 9 cm cystic biliary stents Plan: * Close observation * Review pathology . Procedure Performed: Other (ERCP plus stent removal plus sphincterotomy plus balloon dilatation of the biliary tree plus Spyglass cholangioscopy with biopsies plus stent placement 2) Surgeon see signature line Law Librarian none Anesthesia Type: general Anesthesiologist: CECI GOEL MD Tourniquet Time none EBL none Transfusion required none Biopsy 1: Biliary bifurcation/rule out cholangiocarcinoma Grafts/Implants none Tubes/Drains 2 biliary plastic stents [place] 10, 9 cm Complication(s) none Pt Condition post procedure: stable Disposition: PACU Indications: other (Suspected cholangiocarcinoma) Procedure Description After informed consent, with the patient/relatives understanding the procedure, its indications, potential risks and complications, including but not limited to : allergic reaction, bleeding, perforation or infection, and after all pertinent questions were answered to the patients satisfaction, the patient/ relatives signed witnessed informed consent. Following this, premedication was administered slowly IV push under careful cardiovascular and respiratory monitoring with pulse oximetry, automatic blood pressure, and ekg monitor tech. Once the sedative effect was achieved the patient was place in the prone position in the radiology special procedures suite; the side viewing panendoscope was introduced and advanced under visual control. Careful examination of the upper gastrointestinal tract, both on insertion as well as withdrawal of the instrument disclosed the following findings: Esophagus: The mucosa of the entire appears within normal limits. There is no evidence of esophagitis, varices, neoplasm or stricture. No Hiatal Hernia identified. Stomach: Upon entrance to the stomach air was insufflated, the gastric lino distended normally, the mucosa of the fundus, body and antrum of the stomach was carefully examined both head-on and on retroflexion, and shows no abnormalities. There is no evidence of gastritis, ulcers, or neoplasm. Pylorus: The pylorus appears patent and within normal limits, with no evidence of gastric outlet obstruction. Duodenum: The duodenal mucosa was carefully examined in the duodenal bulb as well as the second portion of the duodenum and appears unremarkable with no evidence of duodenitis, ulcer or neoplasm. Ampulla of vater: The ampulla of Vater was identified and carefully examined biliary stent is noticed exiting the ampulla. It was secured with a polypectomy snare and retrieved without difficulty. Cannulation: At this point cannulation was accomplished with the following fluoroscopic findings: Pancreatogram: Avoided Cholangiogram: Showed significant narrowing at the bifurcation affecting both intrahepatic ducts and at least 2 cm of the common hepatic duct. A sphincterotomy was performed to extend the opening to approximately 10 mm. An 8 x 4 mm balloon was utilized to dilate the area of narrowing. Following this Spyglass cholangioscopy was performed, the findings in the common hepatic duct and both intrahepatics are highly suggestive of cholangiocarcinoma with exophytic tissue which is irregular and clearly neoplastic. Multiple biopsies were obtained confirming significant tissue symptoms. Following this 2 guidewires were introduced into both right and left intrahepatic systems. [place] 10, 9 cm plastic stents were then placed in both intrahepatic ducts extending to the ampullary orifice with adequate drainage. The instrument was then withdrawn the patient tolerated the procedure well and was transfer out of the endoscopy suite awake, and in good condition to continue to recover under observation. Copies To: CC: RODERICK JACKSON MD, MORDO MD Jun 08, 2017 20:30
--- NOTE | 2017-06-08 22:20 | CONS ---
Date/Time of Note Date/Time of Note DATE: 06/08/17 TIME: 22:18 Assessment/Plan Assessment/Plan Chief Complaint/Hosp Course PAINLESS JAUNDICE ASSOCIATED WITH Liver mass with enlarged lymph nodes, suspicious for malignancy R/O NEOPLASIA pancreas protocol triple phase CT scan of the abdomen and pelvis WITH CONTRAST - Poorly defined hypovascular mass occupying the left medial lobe of the liver and caudate lobe with upstream severe left greater intrahepatic bile duct dilatation, highly suspicious for cholangiocarcinoma. Filling defect identified in intrahepatic portal vein, concerning for tumor thrombus. Metastatic retroperitoneal lymphadenopathy. CA 19-9- 1930 AFP- P coag N, HEPATITIS PANEL- NEG GI EVAL- ERCP plus Spyglass cholangioscopy with targeted biopsies and possible stent placement. Post balloon dilatation, Cholangioscopy with evidence of neoplastic infiltration consistent with cholangiocarcinoma multiple direct targeted biopsies obtained Post placement of a [place] 10 x 9 cm stent with adequate drainage PATH -Biliary bifurcation, biopsy: Minute fragment of ductal mucosa showing crush artifact. No evidence of dysplasia or malignancy. PLAN- UNABLE TO DO liver biopsy. ( too close to major vessels - per DR CAMACHO) RE- LAPAROSCOPIC BX, WITHOUT HISTOLOGICAL CONFORMATION WE CAN NOT PROCEED WITH TREATMENT OR METALLIC STENT PLACEMENT PER GI - May consider exchanging current stent which is small [place] 7 for possibly 2 [place] 10 long plastic stents, this may allow another opportunity to evaluate with cholangioscopy or at least brushing trying to secure a definitive diagnosis to proceed with adequate treatment ERCP possible Spyglass cholangioscopy tomorrow with direct biopsies, brushings and stent placement Abnormal liver enzymes, jaundice- 2 TO ABOVE DYSLIPIDEMIA Problems: Consultation Date/Type/Reason Admit Date/Time May 19, 2017 at 04:18 Initial Consult Date 05/19/17 Type of Consultation: [facility] Referring Provider: HERMAN MCNULTY 24 HR Interval Summary Free Text/Dictation ALL NOTED DOING OK ERCP possible Spyglass cholangioscopy tomorrow with direct biopsies, brushings and stent placement Exam/Review of Systems Vital Signs Vitals Vital Signs Date Time Temp Pulse Resp B/P Pulse Ox O2 Delivery O2 Flow Rate FiO2 06/08/17 21:10 99 19 116/63 97 Room Air 06/08/17 20:28 6.0 06/08/17 20:24 98.3 Intake and Output 06/07/17 06/07/17 06/08/17 15:00 23:00 07:00 Intake Total 2140 ml 1200 ml Output Total 2150 ml Balance 2140 ml -950 ml Exam Const: No acute distress.+ Jaundice Head: Atraumatic. Eyes: Icteric Conjunctiva. ENT: Normal External Ears, Nose and Mouth. Neck: Full range of motion. No meningismus. Resp: Clear to auscultation bilaterally. Cardio: Regular rate and rhythm. Abd: Soft, non distended, normal bowel sounds, Diffuse abdominal tenderness, more tenderness at the right upper quadrant Skin: No petechiae or rashes. Back: No midline or flank tenderness. Ext: No cyanosis, or edema. Neur: Awake and alert. No focal deficit Psych: Normal Mood and Affect. NO PATH LN- ERIC Results Result Diagram: 06/08/17 0507 06/08/17 0507 Results 24 hrs Laboratory Tests Test 06/08/17 05:07 White Blood Count 11.6 H Red Blood Count 3.31 L Hemoglobin 10.0 L Hematocrit 30.3 L Mean Corpuscular Volume 91.5 Mean Corpuscular Hemoglobin 30.2 Mean Corpuscular Hemoglobin Concent 33.0 Red Cell Distribution Width 14.6 H Platelet Count 464 H Mean Platelet Volume 10.4 Neutrophils % 63.5 Lymphocytes % 21.6 Monocytes % 10.5 Eosinophils % 2.4 Basophils % 0.4 Nucleated Red Blood Cells % 0.0 Neutrophils # 7.4 Lymphocytes # 2.5 Monocytes # 1.2 H Eosinophils # 0.3 Basophils # 0.1 Nucleated Red Blood Cells # 0.0 Sodium Level 138 Potassium Level 4.2 Chloride Level 104 Carbon Dioxide Level 29 Anion Gap 9 Blood Urea Nitrogen 7 Creatinine 0.66 Glucose Level 120 Calcium Level 9.5 Total Bilirubin 2.2 H Direct Bilirubin 1.10 #H Indirect Bilirubin 1.1 Aspartate Amino Transf (AST/SGOT) 49 H Alanine Aminotransferase (ALT/SGPT) 67 Alkaline Phosphatase 453 H Total Protein 6.8 Albumin 3.0 L Globulin 3.80 H Albumin/Globulin Ratio 0.78 Medications Medications Current Medications Morphine Sulfate (morphine) 2 mg Q4H PRN IV PAIN Last administered on 21:59; Admin Dose 2 MG; Start 05/19/17 at 16:30 Acetaminophen/ Hydrocodone Bitart ([place] (5/325)) 1 tab Q4H PRN PO PAIN Last administered on 06/04/17 00:23; Admin Dose 1 TAB; Start 05/19/17 at 16:30 Ondansetron HCl (Zofran Inj) 4 mg Q6H PRN IV NAUSEA AND/OR VOMITING; Start at 16:30 Trimethobenzamide HCl (Tigan) 200 mg Q6H PRN IM NAUSEA AND/OR VOMITING; Start 05/20/17 at 12:30 Enoxaparin Sodium (Lovenox) 40 mg DAILY SC Last administered on 06/07/17 09:03 ; Admin Dose 40 MG; Start 05/20/17 at 13:00; Status Future hold Polyethylene Glycol (Miralax) 17 gm DAILY PO Last administered on 06/08/17 09: 14; Admin Dose 17 GM; Start 05/21/17 at 10:30 Hydroxyzine HCl (Atarax) 50 mg Q6H PRN PO ITCHING Last administered on 05:28; Admin Dose 50 MG; Start 05/21/17 at 10:30 Docusate Sodium (Colace) 100 mg BID PO Last administered on 06/08/17 09:14; Admin Dose 100 MG; Start 05/27/17 at 12:30 Cholestyramine Resin (Questran) 1 pkt TID PO Last administered on 06/08/17 09: 14; Admin Dose 1 PKT; Start 05/28/17 at 21:00 Ursodiol (Actigall) 300 mg BID PO Last administered on 06/08/17 09:14; Admin Dose 300 MG; Start 05/30/17 at 09:00 Zolpidem Tartrate (Ambien) 10 mg HS PRN PO INSOMNIA Last administered on 23:05; Admin Dose 10 MG; Start 05/30/17 at 23:00 SONA WEEKS MD Jun 08, 2017 22:20
[2017-06-09 02:00] VITALS: BP 93/55; RESP 18
[2017-06-09] MEDS: hydrOXYzine HCL 25 MG TAB PO PRN ×2 (03:03→17:28)
[2017-06-09 05:58] LABS: BASOPHILS % 0.2 % (0.0-2.0); EOSINOPHILS # 0.1 10^3/ul (0.0-0.5); EOSINOPHILS % 0.5 % (0.0-7.0); HEMATOCRIT 29.2 % (37.0-47.0); HEMOGLOBIN 9.8 g/dl (12.0-16.0); LYMPHOCYTES # 1.1 10^3/ul (0.8-2.9); LYMPHOCYTES % 6.4 % (15.0-51.0); MEAN CORPUSCULAR HEMOGLOBIN 30.6 pg (29.0-33.0); MEAN CORPUSCULAR HGB CONC 33.6 g/dl (32.0-37.0); MEAN CORPUSCULAR VOLUME 91.3 fl (82.0-101.0); MEAN PLATELET VOLUME 10.4 fl (7.4-10.4); MONOCYTE # 0.9 10^3/ul (0.3-0.9); MONOCYTES % 5.2 % (0.0-11.0); NEUTROPHIL # 15.3 10^3/ul (1.6-7.5); NEUTROPHILS % 87.1 % (39.0-77.0); PLATELET COUNT 444 10^3/UL (140-415); RED CELL DISTRIBUTION WIDTH 14.6 % (11.5-14.5); WHITE BLOOD COUNT 17.6 10^3/ul (4.8-10.8)
[2017-06-09 06:57] LABS: ALBUMIN 2.8 g/dl (3.3-4.9); ALBUMIN/GLOBULIN RATIO 0.75; BILIRUBIN,DIRECT 3.5 mg/dl (0.00-0.20); BILIRUBIN,INDIRECT 1.3 mg/dl (0-1.1); BILIRUBIN,TOTAL 4.8 mg/dl (0.2-1.3); CALCIUM 8.9 mg/dl (8.4-10.2); CREATININE 0.72 mg/dl (0.44-1.00); POTASSIUM 3.9 mmol/L (3.5-5.1); TOTAL PROTEIN 6.5 g/dl (6.1-8.1)
[2017-06-09 07:39] VITALS: BP 106/55; RESP 16
--- NOTE | 2017-06-09 08:38 | RADRPT ---
PROCEDURE: Intraoperative imaging for ERCP with fluoroscopy. CLINICAL INDICATION: Right upper quadrant pain. Intraoperative. TECHNIQUE: 6 images of the right upper quadrant of the abdomen were obtained in the operating room with an image intensifier. No radiologist was in attendance. 446 seconds of fluoroscopy time was used. COMPARISON: ERCP dated 05/23/2017 FINDINGS: Images demonstrate the endoscope in position. The first image demonstrates the common bile duct sten t in satisfactory position. Subsequent images demonstrate removal of the stent and injection of cont rast into the common bile duct. IMPRESSION: 1. ERCP as described above. RPTAT: QQ .Solis Schroeder MD, MD Date Time Electronically viewed and signed by .Solis Schroeder MD, on 06/09/2017 08:37 .R/
[2017-06-09] MEDS: URSODIOL 300 MG CAP PO SCH ×2 (08:42→20:51)
[2017-06-09] MEDS: DOCUSATE SODIUM 100 MG CAP PO SCH ×2 (08:42→20:51)
[2017-06-09] MEDS: POLYETHYLENE GLYCOL 17 GM PACKET PO SCH (08:43)
[2017-06-09] MEDS: CHOLESTYRAMINE 4 GM PACKET PO SCH ×3 (08:43→20:51)
[2017-06-09] MEDS: ENOXAPARIN 40 MG/0.4 ML SYG SC SCH (09:00)
--- NOTE | 2017-06-09 12:25 | PN ---
Date/Time of Note Date/Time of Note DATE: 06/09/17 TIME: 12:21 Assessment/Plan VTE Prophylaxis VTE Prophylaxis Intervention: SCD's Lines/Catheters [facility] Saline Lock Urinary Cath still in place: No Assessment/Plan Assessment/Plan 52-year-old F presented with abdominal pain, scleral icterus, found to have hyperbilirubinemia, and hepatic mass concerning for cholangiocarcinoma with possible tumor thrombus in intrahepatic portal vein. #hepatic mass: gen surg on consult-->GI and gen surg following sp ERCP with stent placement 9.19, repeat ERCP with stent removal/sphincterotomy /balloon dilatation of the biliary tree/cholangioscopy with biopsies plus stent placement 2 10.5 pathology pending #?portal vein thrombus? repeat CT ordered # Obstructive jaundice with hyperbilirubinemia secondary to above. - Monitor LFTs Lovenox for DVT prophylaxis Subjective 24 Hr Interval Summary Free Text/Dictation Mary Grace Had ~15 minute conversation with patient and family using bilingual family member as quality control auditor regarding work up thus far and plan going fwd Exam/Review of Systems Vital Signs Vitals Vital Signs Date Time Temp Pulse Resp B/P Pulse Ox O2 Delivery O2 Flow Rate FiO2 06/09/17 07:39 98.7 91 16 106/55 97 06/08/17 21:20 Room Air 06/08/17 20:28 6.0 Intake and Output 06/08/17 06/08/17 06/09/17 15:00 23:00 07:00 Intake Total 600 ml Balance 600 ml Exam NAD laying in bed resp nonlabored no abd distension +jaundice no edema Results Result Diagram: 06/09/1717 06/09/17 0517 Results 24 hrs Laboratory Tests Test 06/09/17 05:17 White Blood Count 17.6 #H Red Blood Count 3.20 L Hemoglobin 9.8 L Hematocrit 29.2 L Mean Corpuscular Volume 91.3 Mean Corpuscular Hemoglobin 30.6 Mean Corpuscular Hemoglobin Concent 33.6 Red Cell Distribution Width 14.6 H Platelet Count 444 H Mean Platelet Volume 10.4 Neutrophils % 87.1 H Lymphocytes % 6.4 L Monocytes % 5.2 Eosinophils % 0.5 Basophils % 0.2 Nucleated Red Blood Cells % 0.0 Neutrophils # 15.3 H Lymphocytes # 1.1 Monocytes # 0.9 Eosinophils # 0.1 Basophils # 0.0 Nucleated Red Blood Cells # 0.0 Sodium Level 137 Potassium Level 3.9 Chloride Level 103 Carbon Dioxide Level 28 Anion Gap 10 Blood Urea Nitrogen 9 Creatinine 0.72 Glucose Level 113 Calcium Level 8.9 Total Bilirubin 4.8 #H Direct Bilirubin 3.50 #H Indirect Bilirubin 1.3 H Aspartate Amino Transf (AST/SGOT) 98 H Alanine Aminotransferase (ALT/SGPT) 93 H Alkaline Phosphatase 428 H Total Protein 6.5 Albumin 2.8 L Globulin 3.70 H Albumin/Globulin Ratio 0.75 Medications Medications Current Medications Morphine Sulfate (morphine) 2 mg Q4H PRN IV PAIN Last administered on 21:59; Admin Dose 2 MG; Start 05/19/17 at 16:30 Acetaminophen/ Hydrocodone Bitart ([place] (5/325)) 1 tab Q4H PRN PO PAIN Last administered on 06/04/17 00:23; Admin Dose 1 TAB; Start 05/19/17 at 16:30 Ondansetron HCl (Zofran Inj) 4 mg Q6H PRN IV NAUSEA AND/OR VOMITING; Start at 16:30 Trimethobenzamide HCl (Tigan) 200 mg Q6H PRN IM NAUSEA AND/OR VOMITING; Start 05/20/17 at 12:30 Enoxaparin Sodium (Lovenox) 40 mg DAILY SC Last administered on 06/07/17 09:03 ; Admin Dose 40 MG; Start 05/20/17 at 13:00; Status Future hold Polyethylene Glycol (Miralax) 17 gm DAILY PO Last administered on 06/09/17 08: 43; Admin Dose 17 GM; Start 05/21/17 at 10:30 Hydroxyzine HCl (Atarax) 50 mg Q6H PRN PO ITCHING Last administered on 03:03; Admin Dose 50 MG; Start 05/21/17 at 10:30 Docusate Sodium (Colace) 100 mg BID PO Last administered on 06/09/17 08:42; Admin Dose 100 MG; Start 05/27/17 at 12:30 Cholestyramine Resin (Questran) 1 pkt TID PO Last administered on 06/09/17 08: 43; Admin Dose 1 PKT; Start 05/28/17 at 21:00 Ursodiol (Actigall) 300 mg BID PO Last administered on 06/09/17 08:42; Admin Dose 300 MG; Start 05/30/17 at 09:00 Zolpidem Tartrate (Ambien) 10 mg HS PRN PO INSOMNIA Last administered on 23:05; Admin Dose 10 MG; Start 05/30/17 at 23:00 AIMEE CRONIN MD Jun 09, 2017 12:25 AIMEE CRONIN MD Jun 09, 2017 12:25
[2017-06-09] MEDS ORDERED: IOHEXOL 100 ML ONE (13:40)
[2017-06-09] MEDS ORDERED: SOD CHLORIDE 0.9% 100 ML ONE (13:40)
[2017-06-09] MEDS ORDERED: IOHEXOL 350MG/ML 50 ML BTL ONE (13:40)
[2017-06-09 14:00] VITALS: BP 107/67; RESP 16
--- NOTE | 2017-06-09 14:50 | CONS ---
Date/Time of Note Date/Time of Note DATE: 06/09/17 TIME: 14:50 Assessment/Plan Assessment/Plan Chief Complaint/Hosp Course PAINLESS JAUNDICE ASSOCIATED WITH Liver mass with enlarged lymph nodes, suspicious for malignancy R/O NEOPLASIA pancreas protocol triple phase CT scan of the abdomen and pelvis WITH CONTRAST - Poorly defined hypovascular mass occupying the left medial lobe of the liver and caudate lobe with upstream severe left greater intrahepatic bile duct dilatation, highly suspicious for cholangiocarcinoma. Filling defect identified in intrahepatic portal vein, concerning for tumor thrombus. Metastatic retroperitoneal lymphadenopathy. CA 19-9- 1930 AFP- P coag N, HEPATITIS PANEL- NEG GI EVAL- ERCP plus Spyglass cholangioscopy with targeted biopsies and possible stent placement. Post balloon dilatation, Cholangioscopy with evidence of neoplastic infiltration consistent with cholangiocarcinoma multiple direct targeted biopsies obtained Post placement of a Indonesian 10 x 9 cm stent with adequate drainage PATH -Biliary bifurcation, biopsy: Minute fragment of ductal mucosa showing crush artifact. No evidence of dysplasia or malignancy. PLAN- UNABLE TO DO liver biopsy. ( too close to major vessels - per DR CAMACHO) RE- LAPAROSCOPIC BX, WITHOUT HISTOLOGICAL CONFORMATION WE CAN NOT PROCEED WITH TREATMENT OR METALLIC STENT PLACEMENT PER GI - May consider exchanging current stent which is small Indonesian 7 for possibly 2 Indonesian 10 long plastic stents, this may allow another opportunity to evaluate with cholangioscopy or at least brushing trying to secure a definitive diagnosis to proceed with adequate treatment ERCP possible Spyglass cholangioscopy with direct biopsies, brushings and stent placement Abnormal liver enzymes, jaundice- 2 TO ABOVE DYSLIPIDEMIA Problems: Consultation Date/Type/Reason Admit Date/Time May 19, 2017 at 04:18 Initial Consult Date 05/19/17 Type of Consultation: [facility] Referring Provider: HERMAN MCNULTY 24 HR Interval Summary Free Text/Dictation all noted Exam/Review of Systems Vital Signs Vitals Vital Signs Date Time Temp Pulse Resp B/P Pulse Ox O2 Delivery O2 Flow Rate FiO2 06/09/17 14:00 98.0 116 16 107/67 91 06/08/17 21:20 Room Air 06/08/17 20:28 6.0 Intake and Output 06/08/17 06/08/17 06/09/17 15:00 23:00 07:00 Intake Total 600 ml Balance 600 ml Exam Const: No acute distress.+ Jaundice Head: Atraumatic. Eyes: Icteric Conjunctiva. ENT: Normal External Ears, Nose and Mouth. Neck: Full range of motion. No meningismus. Resp: Clear to auscultation bilaterally. Cardio: Regular rate and rhythm. Abd: Soft, non distended, normal bowel sounds, Diffuse abdominal tenderness, more tenderness at the right upper quadrant Skin: No petechiae or rashes. Back: No midline or flank tenderness. Ext: No cyanosis, or edema. Neur: Awake and alert. No focal deficit Psych: Normal Mood and Affect. NO PATH LN- ERIC Results Result Diagram: 06/09/1751606/09/17516 Results 24 hrs Laboratory Tests Test 06/09/17 05:17 White Blood Count 17.6 #H Red Blood Count 3.20 L Hemoglobin 9.8 L Hematocrit 29.2 L Mean Corpuscular Volume 91.3 Mean Corpuscular Hemoglobin 30.6 Mean Corpuscular Hemoglobin Concent 33.6 Red Cell Distribution Width 14.6 H Platelet Count 444 H Mean Platelet Volume 10.4 Neutrophils % 87.1 H Lymphocytes % 6.4 L Monocytes % 5.2 Eosinophils % 0.5 Basophils % 0.2 Nucleated Red Blood Cells % 0.0 Neutrophils # 15.3 H Lymphocytes # 1.1 Monocytes # 0.9 Eosinophils # 0.1 Basophils # 0.0 Nucleated Red Blood Cells # 0.0 Sodium Level 137 Potassium Level 3.9 Chloride Level 103 Carbon Dioxide Level 28 Anion Gap 10 Blood Urea Nitrogen 9 Creatinine 0.72 Glucose Level 113 Calcium Level 8.9 Total Bilirubin 4.8 #H Direct Bilirubin 3.50 #H Indirect Bilirubin 1.3 H Aspartate Amino Transf (AST/SGOT) 98 H Alanine Aminotransferase (ALT/SGPT) 93 H Alkaline Phosphatase 428 H Total Protein 6.5 Albumin 2.8 L Globulin 3.70 H Albumin/Globulin Ratio 0.75 Medications Medications Current Medications Morphine Sulfate (morphine) 2 mg Q4H PRN IV PAIN Last administered on 21:59; Admin Dose 2 MG; Start 05/19/17 at 16:30 Acetaminophen/ Hydrocodone Bitart ([place] (5/325)) 1 tab Q4H PRN PO PAIN Last administered on 06/04/17 00:23; Admin Dose 1 TAB; Start 05/19/17 at 16:30 Ondansetron HCl (Zofran Inj) 4 mg Q6H PRN IV NAUSEA AND/OR VOMITING; Start at 16:30 Trimethobenzamide HCl (Tigan) 200 mg Q6H PRN IM NAUSEA AND/OR VOMITING; Start 05/20/17 at 12:30 Enoxaparin Sodium (Lovenox) 40 mg DAILY SC Last administered on 06/07/17 09:03 ; Admin Dose 40 MG; Start 05/20/17 at 13:00; Status Future hold Polyethylene Glycol (Miralax) 17 gm DAILY PO Last administered on 06/09/17 08: 43; Admin Dose 17 GM; Start 05/21/17 at 10:30 Hydroxyzine HCl (Atarax) 50 mg Q6H PRN PO ITCHING Last administered on 03:03; Admin Dose 50 MG; Start 05/21/17 at 10:30 Docusate Sodium (Colace) 100 mg BID PO Last administered on 06/09/17 08:42; Admin Dose 100 MG; Start 05/27/17 at 12:30 Cholestyramine Resin (Questran) 1 pkt TID PO Last administered on 06/09/17 08: 43; Admin Dose 1 PKT; Start 05/28/17 at 21:00 Ursodiol (Actigall) 300 mg BID PO Last administered on 06/09/17 08:42; Admin Dose 300 MG; Start 05/30/17 at 09:00 Zolpidem Tartrate (Ambien) 10 mg HS PRN PO INSOMNIA Last administered on 23:05; Admin Dose 10 MG; Start 05/30/17 at 23:00 SONA WEEKS MD Jun 09, 2017 14:50
--- NOTE | 2017-06-09 19:39 | PN ---
Date/Time of Note Date/Time of Note DATE: 06/09/17 TIME: 19:37 Assessment/Plan VTE Prophylaxis VTE Prophylaxis Intervention: SCD's Lines/Catheters [facility] Urinary Cath still in place: No Assessment/Plan Chief Complaint/Hosp Course Assessment: * Obstructive jaundice * Cholangiocarcinoma by cholangioscopy however path negative * Post repeat ERCP/Spyglass with multiple biopsies and bilateral stenting with Angolan 10, 9 cm plastic biliary stents * Lesion not accessible for guided IR but biopsy * Surgery considered high risk * Oncology will not treat without definitive diagnosis * Current stent accomplishing adequate decompression Plan: * Await pathology * Monitor liver panel Subjective: Course reviewed with nursing staff Patient interviewed and examined All labs, imaging and other results reviewed The patient appears comfortable and reports minimal discomfort Bilirubin increased slightly post significant manipulation Awaiting pathology obtained yesterday Continue present regimen Exam: General: well developed, well nourished, alert and oriented x3 , in no acute distress Skin: Less icteric, no lesions, no stigmata chronic liver disease, no evidence of bleeding diathesis Lymphatic: No palpable lymphadenopathy HEENT: No lesions Cardiovascular: Heart: Regular rate and rhhthm, no murmurs, gallops or rubs. Peripheral pulses present within normal limits, no cyanosis, clubbing or edemas. No pulsatile abdominal mass Respiratory: Lungs clear to auscultation and percussion, no wheezing, no rubs Gastrointestinal and Liver: Abdomen: Soft, non tender, non-distended, no hernias , no masses, no organomegaly, no ascites, no guarding, no rebound tenderness, normoactive bowel sounds. Extremities: No cyanosis, clubbing, or edema. [Neurologic: Cranial nerves II-XII intact, motor within normal limits, sensory within normal limits. Reflexes within normal limits.] [Psychiatric: Alert and oriented x3, mood/affect/judgment adequate] Diagnostic Studies: Available data and images were reviewed personally. See reports. Significant results and findings are addressed here or in the assessment and plan. Problems: Exam/Review of Systems Vital Signs Vitals Vital Signs Date Time Temp Pulse Resp B/P Pulse Ox O2 Delivery O2 Flow Rate FiO2 06/09/17 14:00 98.0 116 16 107/67 91 06/08/17 21:20 Room Air 06/08/17 20:28 6.0 Intake and Output 1006/08/17 06/09/17 15:00 23:00 07:00 Intake Total 600 ml Balance 600 ml Results Result Diagram: 06/09/1717 06/09/1717 Results 24 hrs Laboratory Tests Test 06/09/17 05:17 White Blood Count 17.6 #H Red Blood Count 3.20 L Hemoglobin 9.8 L Hematocrit 29.2 L Mean Corpuscular Volume 91.3 Mean Corpuscular Hemoglobin 30.6 Mean Corpuscular Hemoglobin Concent 33.6 Red Cell Distribution Width 14.6 H Platelet Count 444 H Mean Platelet Volume 10.4 Neutrophils % 87.1 H Lymphocytes % 6.4 L Monocytes % 5.2 Eosinophils % 0.5 Basophils % 0.2 Nucleated Red Blood Cells % 0.0 Neutrophils # 15.3 H Lymphocytes # 1.1 Monocytes # 0.9 Eosinophils # 0.1 Basophils # 0.0 Nucleated Red Blood Cells # 0.0 Sodium Level 137 Potassium Level 3.9 Chloride Level 103 Carbon Dioxide Level 28 Anion Gap 10 Blood Urea Nitrogen 9 Creatinine 0.72 Glucose Level 113 Calcium Level 8.9 Total Bilirubin 4.8 #H Direct Bilirubin 3.50 #H Indirect Bilirubin 1.3 H Aspartate Amino Transf (AST/SGOT) 98 H Alanine Aminotransferase (ALT/SGPT) 93 H Alkaline Phosphatase 428 H Total Protein 6.5 Albumin 2.8 L Globulin 3.70 H Albumin/Globulin Ratio 0.75 Medications Medications Current Medications Morphine Sulfate (morphine) 2 mg Q4H PRN IV PAIN Last administered on 21:59; Admin Dose 2 MG; Start 05/19/17 at 16:30 Acetaminophen/ Hydrocodone Bitart ([place] (5/325)) 1 tab Q4H PRN PO PAIN Last administered on 06/04/17 00:23; Admin Dose 1 TAB; Start 05/19/17 at 16:30 Ondansetron HCl (Zofran Inj) 4 mg Q6H PRN IV NAUSEA AND/OR VOMITING; Start at 16:30 Trimethobenzamide HCl (Tigan) 200 mg Q6H PRN IM NAUSEA AND/OR VOMITING; Start 05/20/17 at 12:30 Enoxaparin Sodium (Lovenox) 40 mg DAILY SC Last administered on 06/09/17 09:00 ; Admin Dose 40 MG; Start 05/20/17 at 13:00; Status Future hold Polyethylene Glycol (Miralax) 17 gm DAILY PO Last administered on 06/09/17 08: 43; Admin Dose 17 GM; Start 05/21/17 at 10:30 Hydroxyzine HCl (Atarax) 50 mg Q6H PRN PO ITCHING Last administered on 17:28; Admin Dose 50 MG; Start 05/21/17 at 10:30 Docusate Sodium (Colace) 100 mg BID PO Last administered on 06/09/17 08:42; Admin Dose 100 MG; Start 05/27/17 at 12:30 Cholestyramine Resin (Questran) 1 pkt TID PO Last administered on 06/09/17 13: 00; Admin Dose 1 PKT; Start 05/28/17 at 21:00 Ursodiol (Actigall) 300 mg BID PO Last administered on 06/09/17 08:42; Admin Dose 300 MG; Start 05/30/17 at 09:00 Zolpidem Tartrate (Ambien) 10 mg HS PRN PO INSOMNIA Last administered on 23:05; Admin Dose 10 MG; Start 05/30/17 at 23:00 RODERICK JACKSON MD Jun 09, 2017 19:39
[2017-06-09 19:48] VITALS: BP 103/60; RESP 18
[2017-06-10] MEDS: hydrOXYzine HCL 25 MG TAB PO PRN ×4 (00:47→23:23)
[2017-06-10 02:14] VITALS: BP 106/68; RESP 20
[2017-06-10 05:38] LABS: BASOPHILS % 0.4 % (0.0-2.0); EOSINOPHILS # 0.2 10^3/ul (0.0-0.5); EOSINOPHILS % 2.2 % (0.0-7.0); HEMATOCRIT 29.1 % (37.0-47.0); HEMOGLOBIN 9.7 g/dl (12.0-16.0); LYMPHOCYTES # 1.4 10^3/ul (0.8-2.9); LYMPHOCYTES % 15.7 % (15.0-51.0); MEAN CORPUSCULAR HGB CONC 33.3 g/dl (32.0-37.0); MEAN CORPUSCULAR VOLUME 90.1 fl (82.0-101.0); MEAN PLATELET VOLUME 10.2 fl (7.4-10.4); MONOCYTE # 0.9 10^3/ul (0.3-0.9); MONOCYTES % 10.1 % (0.0-11.0); NEUTROPHIL # 6.5 10^3/ul (1.6-7.5); NEUTROPHILS % 70.9 % (39.0-77.0); PLATELET COUNT 383 10^3/UL (140-415); RED BLOOD COUNT 3.23 10^6/ul (4.20-5.40); WHITE BLOOD COUNT 9.1 10^3/ul (4.8-10.8)
[2017-06-10 06:12] LABS: ALBUMIN 2.8 g/dl (3.3-4.9); ALBUMIN/GLOBULIN RATIO 0.73; BILIRUBIN,DIRECT 4.6 mg/dl (0.00-0.20); BILIRUBIN,INDIRECT 1.3 mg/dl (0-1.1); BILIRUBIN,TOTAL 5.9 mg/dl (0.2-1.3); CALCIUM 9.1 mg/dl (8.4-10.2); CREATININE 0.71 mg/dl (0.44-1.00); POTASSIUM 3.2 mmol/L (3.5-5.1); TOTAL PROTEIN 6.6 g/dl (6.1-8.1)
[2017-06-10 07:36] VITALS: BP 92/53; RESP 16
[2017-06-10] MEDS ORDERED: POTASSIUM CHLORIDE (SR) 20 MEQ TAB PO STA (09:07)
[2017-06-10] MEDS: DOCUSATE SODIUM 100 MG CAP PO SCH ×2 (09:16→21:10)
[2017-06-10] MEDS: URSODIOL 300 MG CAP PO SCH ×2 (09:16→21:10)
[2017-06-10] MEDS: POLYETHYLENE GLYCOL 17 GM PACKET PO SCH (09:16)
[2017-06-10] MEDS: CHOLESTYRAMINE 4 GM PACKET PO SCH ×3 (09:16→21:10)
[2017-06-10] MEDS: ENOXAPARIN 40 MG/0.4 ML SYG SC SCH (09:24)
--- NOTE | 2017-06-10 10:33 | RADRPT ---
PROCEDURE: CT Abdomen and pelvis with and without contrast: Liver Protocol. CLINICAL INDICATION: Tumor thrombus. TECHNIQUE: Volumetric acquisition of the abdomen and pelvis was performed before and following the administration of intravenous contrast and reformatted in the axial, sagittal, and coronal planes. Protocol: Four-phase liver protocol: unenhanced, arterial, portal venous, and delayed. IV contrast: 100 cc of Omnipaque 300. Radiation dose: CTDIvol (mGy) = 7.8, 6.6, 6.8, 7.0; total DLP mGy-cm = 996. One or more of the following radiation dose techniques were used: -Automated exposure control. -Adjust of the mA and/or kV according to patient size. -Use of iterative reconstruction technque. COMPARISON: CT 05/29/2017 FINDINGS: Stable to mild size decrease of ill-defined hypovascular mass identified in the central liver measur ing approximately 5.2 x 2.7 cm in AP axial plane, previously measuring 5.6 x 2.8 cm. There is persis tent moderate to severe upstream dilatation of the left greater than right intrahepatic biliary syst em. There is also persistent long segment of narrowing of the intrahepatic portal vein and left grea ter than right portal branches. There is persistent mild mass effect on the intrahepatic IVC. There are two stents in place within the common bile duct extending into the right intrahepatic biliary sy stem. There are multiple mildly enlarged but stable retroperitoneal lymph nodes, compatible with partha dis ease, measuring up to 12 mm in long diameter. Unchanged nonspecific diffuse gallbladder wall thickening. Pancreas, adrenal glands, kidneys, and sp sammi are normal. No abnormal bowel wall thickening or dilatation. The pelvic viscera is unremarkable . No worrisome adnexal cyst or mass. Lung bases remain clear. IMPRESSION: Interval stability to mild size decrease of ill-defined mass occupying the central liver, compatible with cholangiocarcinoma. There is stable moderate to severe left greater than right intrahepatic bi liary duct dilatation, encasement of the left greater than right portal veins, and abutment of the I VC with mild mass effect and possible tumor infiltration. Interval placement of an additional stent extending from the common bile duct into the right intrahepatic biliary system. Stable retroperitoneal lymphadenopathy, likely metastatic. RPTAT: EE .Kevin Moran MD, MD Date Time Electronically viewed and signed by .Kevin Moran MD, MD on 06/10/2017 10:32 .C/
--- NOTE | 2017-06-10 10:44 | PN ---
Date/Time of Note Date/Time of Note DATE: 06/10/17 TIME: 10:41 Assessment/Plan VTE Prophylaxis VTE Prophylaxis Intervention: SCD's Lines/Catheters IV Catheter Type (from [facility]): Saline Lock Urinary Cath still in place: No Assessment/Plan Assessment/Plan 52-year-old F presented with abdominal pain, scleral icterus, found to have hyperbilirubinemia, and hepatic mass concerning for cholangiocarcinoma with possible tumor thrombus in intrahepatic portal vein though repeat imaging more consistent with external compression from tumor #hepatic mass likely cholangiocarcinoma: gen surg on consult-->GI and gen surg following sp ERCP with stent placement 9.19, repeat ERCP with stent removal/sphincterotomy /balloon dilatation of the biliary tree/cholangioscopy with biopsies plus stent placement 2 10.5 pathology pending #?portal vein thrombus? repeat imaging more consistent with external compression # Obstructive jaundice with hyperbilirubinemia secondary to above. - Monitor LFTs Lovenox for DVT prophylaxis Subjective 24 Hr Interval Summary Free Text/Dictation Standing, getting ready to shower Exam/Review of Systems Vital Signs Vitals Vital Signs Date Time Temp Pulse Resp B/P Pulse Ox O2 Delivery O2 Flow Rate FiO2 06/10/17 07:36 99.0 90 16 92/53 95 06/08/17 21:20 Room Air 06/08/17 20:28 6.0 Intake and Output 06/09/17 06/09/17 06/10/17 15:00 23:00 07:00 Intake Total 1520 ml 600 ml Balance 1520 ml 600 ml Exam jaundiced resp nonlabored no abd distension no edema responds to questions appropriately repeat imaging reviewed Results Result Diagram: 06/10/17 0509 06/10/17 0509 Results 24 hrs Laboratory Tests Test 06/10/17 05:09 White Blood Count 9.1 # Red Blood Count 3.23 L Hemoglobin 9.7 L Hematocrit 29.1 L Mean Corpuscular Volume 90.1 Mean Corpuscular Hemoglobin 30.0 Mean Corpuscular Hemoglobin Concent 33.3 Red Cell Distribution Width 15.0 H Platelet Count 383 Mean Platelet Volume 10.2 Neutrophils % 70.9 Lymphocytes % 15.7 Monocytes % 10.1 Eosinophils % 2.2 Basophils % 0.4 Nucleated Red Blood Cells % 0.0 Neutrophils # 6.5 Lymphocytes # 1.4 Monocytes # 0.9 Eosinophils # 0.2 Basophils # 0.0 Nucleated Red Blood Cells # 0.0 Sodium Level 135 Potassium Level 3.2 L Chloride Level 101 Carbon Dioxide Level 31 Anion Gap 6 L Blood Urea Nitrogen 7 Creatinine 0.71 Glucose Level 84 Calcium Level 9.1 Total Bilirubin 5.9 H Direct Bilirubin 4.60 #H Indirect Bilirubin 1.3 H Aspartate Amino Transf (AST/SGOT) 76 H Alanine Aminotransferase (ALT/SGPT) 91 H Alkaline Phosphatase 424 H Total Protein 6.6 Albumin 2.8 L Globulin 3.80 H Albumin/Globulin Ratio 0.73 Medications Medications Current Medications Morphine Sulfate (morphine) 2 mg Q4H PRN IV PAIN Last administered on 21:59; Admin Dose 2 MG; Start 05/19/17 at 16:30 Acetaminophen/ Hydrocodone Bitart ([place] (5/325)) 1 tab Q4H PRN PO PAIN Last administered on 06/04/17 00:23; Admin Dose 1 TAB; Start 05/19/17 at 16:30 Ondansetron HCl (Zofran Inj) 4 mg Q6H PRN IV NAUSEA AND/OR VOMITING; Start at 16:30 Trimethobenzamide HCl (Tigan) 200 mg Q6H PRN IM NAUSEA AND/OR VOMITING; Start 05/20/17 at 12:30 Enoxaparin Sodium (Lovenox) 40 mg DAILY SC Last administered on 06/10/17 09:24 ; Admin Dose 40 MG; Start 05/20/17 at 13:00; Status Future hold Polyethylene Glycol (Miralax) 17 gm DAILY PO Last administered on 06/10/17 09: 16; Admin Dose 17 GM; Start 05/21/17 at 10:30 Hydroxyzine HCl (Atarax) 50 mg Q6H PRN PO ITCHING Last administered on 09:17; Admin Dose 50 MG; Start 05/21/17 at 10:30 Docusate Sodium (Colace) 100 mg BID PO Last administered on 06/10/17 09:16; Admin Dose 100 MG; Start 05/27/17 at 12:30 Cholestyramine Resin (Questran) 1 pkt TID PO Last administered on 06/10/17 09: 16; Admin Dose 1 PKT; Start 05/28/17 at 21:00 Ursodiol (Actigall) 300 mg BID PO Last administered on 06/10/17 09:16; Admin Dose 300 MG; Start 05/30/17 at 09:00 Zolpidem Tartrate (Ambien) 10 mg HS PRN PO INSOMNIA Last administered on 23:05; Admin Dose 10 MG; Start 05/30/17 at 23:00 AIMEE CRONIN MD Jun 10, 2017 10:44
--- NOTE | 2017-06-10 11:21 | PN ---
Date/Time of Note Date/Time of Note DATE: 06/10/17 TIME: 11:20 Assessment/Plan VTE Prophylaxis VTE Prophylaxis Intervention: SCD's Lines/Catheters IV C[facility]ter Type (from [facility]): Saline Lock Urinary Cath still in place: No Assessment/Plan Chief Complaint/Hosp Course Assessment: * Obstructive jaundice * Cholangiocarcinoma by cholangioscopy however path negative * Post repeat ERCP/Spyglass with multiple biopsies and bilateral stenting with Egyptian 10, 9 cm plastic biliary stents * Lesion not accessible for guided IR but biopsy * Surgery considered high risk * Oncology will not treat without definitive diagnosis * Current stent accomplishing adequate decompression Plan: * Await pathology * Monitor liver panel Subjective: Course reviewed with nursing staff Patient interviewed and examined All labs, imaging and other results reviewed The patient appears comfortable and reports minimal discomfort Bilirubin increased slightly post significant manipulation Awaiting pathology Continue present regimen Exam: General: well developed, well nourished, alert and oriented x3 , in no acute distress Skin: Less icteric, no lesions, no stigmata chronic liver disease, no evidence of bleeding diathesis Lymphatic: No palpable lymphadenopathy HEENT: No lesions Cardiovascular: Heart: Regular rate and rhhthm, no murmurs, gallops or rubs. Peripheral pulses present within normal limits, no cyanosis, clubbing or edemas. No pulsatile abdominal mass Respiratory: Lungs clear to auscultation and percussion, no wheezing, no rubs Gastrointestinal and Liver: Abdomen: Soft, non tender, non-distended, no hernias , no masses, no organomegaly, no ascites, no guarding, no rebound tenderness, normoactive bowel sounds. Extremities: No cyanosis, clubbing, or edema. [Neurologic: Cranial nerves II-XII intact, motor within normal limits, sensory within normal limits. Reflexes within normal limits.] [Psychiatric: Alert and oriented x3, mood/affect/judgment adequate] Diagnostic Studies: Available data and images were reviewed personally. See reports. Significant results and findings are addressed here or in the assessment and plan. Problems: Exam/Review of Systems Vital Signs Vitals Vital Signs Date Time Temp Pulse Resp B/P Pulse Ox O2 Delivery O2 Flow Rate FiO2 06/10/17 07:36 99.0 90 16 92/53 95 06/08/17 21:20 Room Air 06/08/17 20:28 6.0 Intake and Output 06/09/17 06/09/17 06/10/17 15:00 23:00 07:00 Intake Total 1520 ml 600 ml Balance 1520 ml 600 ml Results Result Diagram: 06/10/17 0509 06/10/17 0509 Results 24 hrs Laboratory Tests Test 06/10/17 05:09 White Blood Count 9.1 # Red Blood Count 3.23 L Hemoglobin 9.7 L Hematocrit 29.1 L Mean Corpuscular Volume 90.1 Mean Corpuscular Hemoglobin 30.0 Mean Corpuscular Hemoglobin Concent 33.3 Red Cell Distribution Width 15.0 H Platelet Count 383 Mean Platelet Volume 10.2 Neutrophils % 70.9 Lymphocytes % 15.7 Monocytes % 10.1 Eosinophils % 2.2 Basophils % 0.4 Nucleated Red Blood Cells % 0.0 Neutrophils # 6.5 Lymphocytes # 1.4 Monocytes # 0.9 Eosinophils # 0.2 Basophils # 0.0 Nucleated Red Blood Cells # 0.0 Sodium Level 135 Potassium Level 3.2 L Chloride Level 101 Carbon Dioxide Level 31 Anion Gap 6 L Blood Urea Nitrogen 7 Creatinine 0.71 Glucose Level 84 Calcium Level 9.1 Total Bilirubin 5.9 H Direct Bilirubin 4.60 #H Indirect Bilirubin 1.3 H Aspartate Amino Transf (AST/SGOT) 76 H Alanine Aminotransferase (ALT/SGPT) 91 H Alkaline Phosphatase 424 H Total Protein 6.6 Albumin 2.8 L Globulin 3.80 H Albumin/Globulin Ratio 0.73 Medications Medications Current Medications Morphine Sulfate (morphine) 2 mg Q4H PRN IV PAIN Last administered on 21:59; Admin Dose 2 MG; Start 05/19/17 at 16:30 Acetaminophen/ Hydrocodone Bitart ([place] (5/325)) 1 tab Q4H PRN PO PAIN Last administered on 06/04/17 00:23; Admin Dose 1 TAB; Start 05/19/17 at 16:30 Ondansetron HCl (Zofran Inj) 4 mg Q6H PRN IV NAUSEA AND/OR VOMITING; Start at 16:30 Trimethobenzamide HCl (Tigan) 200 mg Q6H PRN IM NAUSEA AND/OR VOMITING; Start 05/20/17 at 12:30 Enoxaparin Sodium (Lovenox) 40 mg DAILY SC Last administered on 06/10/17 09:24 ; Admin Dose 40 MG; Start 05/20/17 at 13:00; Status Future hold Polyethylene Glycol (Miralax) 17 gm DAILY PO Last administered on 06/10/17 09: 16; Admin Dose 17 GM; Start 05/21/17 at 10:30 Hydroxyzine HCl (Atarax) 50 mg Q6H PRN PO ITCHING Last administered on 09:17; Admin Dose 50 MG; Start 05/21/17 at 10:30 Docusate Sodium (Colace) 100 mg BID PO Last administered on 06/10/17 09:16; Admin Dose 100 MG; Start 05/27/17 at 12:30 Cholestyramine Resin (Questran) 1 pkt TID PO Last administered on 06/10/17 09: 16; Admin Dose 1 PKT; Start 05/28/17 at 21:00 Ursodiol (Actigall) 300 mg BID PO Last administered on 06/10/17 09:16; Admin Dose 300 MG; Start 05/30/17 at 09:00 Zolpidem Tartrate (Ambien) 10 mg HS PRN PO INSOMNIA Last administered on 23:05; Admin Dose 10 MG; Start 05/30/17 at 23:00 RODERICK JACKSON MD Jun 10, 2017 11:21
[2017-06-10 14:00] VITALS: BP 103/66; RESP 16
[2017-06-10 19:54] VITALS: BP 108/59; RESP 18
[2017-06-11 02:47] VITALS: BP 108/68; RESP 18
[2017-06-11] MEDS: hydrOXYzine HCL 25 MG TAB PO PRN ×3 (05:22→19:56)
[2017-06-11 06:13] LABS: ALBUMIN 2.7 g/dl (3.3-4.9); ALBUMIN/GLOBULIN RATIO 0.75; BILIRUBIN,DIRECT 2.4 mg/dl (0.00-0.20); BILIRUBIN,INDIRECT 1.1 mg/dl (0-1.1); BILIRUBIN,TOTAL 3.5 mg/dl (0.2-1.3); CALCIUM 8.8 mg/dl (8.4-10.2); CREATININE 0.61 mg/dl (0.44-1.00); POTASSIUM 3.8 mmol/L (3.5-5.1); TOTAL PROTEIN 6.3 g/dl (6.1-8.1)
[2017-06-11] MEDS: URSODIOL 300 MG CAP PO SCH ×2 (08:23→19:56)
[2017-06-11] MEDS: DOCUSATE SODIUM 100 MG CAP PO SCH ×2 (08:23→19:56)
[2017-06-11] MEDS: POLYETHYLENE GLYCOL 17 GM PACKET PO SCH (08:23)
[2017-06-11] MEDS: CHOLESTYRAMINE 4 GM PACKET PO SCH ×3 (08:23→19:56)
[2017-06-11] MEDS: ENOXAPARIN 40 MG/0.4 ML SYG SC SCH (08:35)
[2017-06-11 08:44] VITALS: BP 113/60; RESP 18
--- NOTE | 2017-06-11 13:47 | PN ---
Date/Time of Note Date/Time of Note DATE: 06/11/17 TIME: 13:45 Assessment/Plan VTE Prophylaxis VTE Prophylaxis Intervention: SCD's Lines/Catheters IV [facility]from [facility]): Saline Lock Urinary Cath still in place: No Assessment/Plan Assessment/Plan 52-year-old F presented with abdominal pain, scleral icterus, found to have hyperbilirubinemia, and hepatic mass concerning for cholangiocarcinoma with possible tumor thrombus in intrahepatic portal vein though repeat imaging more consistent with external compression from tumor #hepatic mass likely cholangiocarcinoma: gen surg, GI, onc all following sp ERCP with stent placement 9.19, repeat ERCP with stent removal/sphincterotomy /balloon dilatation of the biliary tree/cholangioscopy with biopsies plus stent placement 2 10.5 pathology pending #?portal vein thrombus? repeat imaging more consistent with external compression # Obstructive jaundice with hyperbilirubinemia secondary to above. - Monitor LFTs Lovenox for DVT prophylaxis Subjective 24 Hr Interval Summary Free Text/Dictation nad, laying in bed, watching videos on phone with a family member Exam/Review of Systems Vital Signs Vitals Vital Signs Date Time Temp Pulse Resp B/P Pulse Ox O2 Delivery O2 Flow Rate FiO2 06/11/17 08:44 97.5 90 18 113/60 100 06/08/17 21:20 Room Air 06/08/17 20:28 6.0 Intake and Output 06/10/17 06/10/17 06/11/17 15:00 23:00 07:00 Intake Total 1760 ml 1640 ml Output Total 1000 ml Balance 1760 ml 640 ml Exam nad resp nonlabored no abd distension no edema +jaundice Results Result Diagram: 06/10/17 0509 06/11/17 0511 Results 24 hrs Laboratory Tests Test 06/11/17 05:11 Sodium Level 139 Potassium Level 3.8 Chloride Level 108 Carbon Dioxide Level 28 Anion Gap 7 L Blood Urea Nitrogen 5 L Creatinine 0.61 Glucose Level 95 Calcium Level 8.8 Total Bilirubin 3.5 #H Direct Bilirubin 2.40 #H Indirect Bilirubin 1.1 Aspartate Amino Transf (AST/SGOT) 73 H Alanine Aminotransferase (ALT/SGPT) 86 H Alkaline Phosphatase 410 H Total Protein 6.3 Albumin 2.7 L Globulin 3.60 H Albumin/Globulin Ratio 0.75 Medications Medications Current Medications Morphine Sulfate (morphine) 2 mg Q4H PRN IV PAIN Last administered on t 21:59; Admin Dose 2 MG; Start 05/19/17 at 16:30 Acetaminophen/ Hydrocodone Bitart ([place] (5/325)) 1 tab Q4H PRN PO PAIN Last administered on 06/04/17 00:23; Admin Dose 1 TAB; Start 05/19/17 at 16:30 Ondansetron HCl (Zofran Inj) 4 mg Q6H PRN IV NAUSEA AND/OR VOMITING; Start at 16:30 Trimethobenzamide HCl (Tigan) 200 mg Q6H PRN IM NAUSEA AND/OR VOMITING; Start 05/20/17 at 12:30 Enoxaparin Sodium (Lovenox) 40 mg DAILY SC Last administered on 06/11/17 08:35 ; Admin Dose 40 MG; Start 05/20/17 at 13:00; Status Future hold Polyethylene Glycol (Miralax) 17 gm DAILY PO Last administered on 06/11/17 08: 23; Admin Dose 17 GM; Start 05/21/17 at 10:30 Hydroxyzine HCl (Atarax) 50 mg Q6H PRN PO ITCHING Last administered on 05:22; Admin Dose 50 MG; Start 05/21/17 at 10:30 Docusate Sodium (Colace) 100 mg BID PO Last administered on 06/11/17 08:23; Admin Dose 100 MG; Start 05/27/17 at 12:30 Cholestyramine Resin (Questran) 1 pkt TID PO Last administered on 06/11/17 08: 23; Admin Dose 1 PKT; Start 05/28/17 at 21:00 Ursodiol (Actigall) 300 mg BID PO Last administered on 06/11/17 08:23; Admin Dose 300 MG; Start 05/30/17 at 09:00 Zolpidem Tartrate (Ambien) 10 mg HS PRN PO INSOMNIA Last administered on 23:05; Admin Dose 10 MG; Start 05/30/17 at 23:00 AIMEE CRONIN MD Jun 11, 2017 13:47
--- NOTE | 2017-06-11 14:04 | PN ---
Date/Time of Note Date/Time of Note DATE: 06/11/17 TIME: 14:02 Assessment/Plan VTE Prophylaxis VTE Prophylaxis Intervention: SCD's Lines/Catheters IV Catheter Type (from [facility]): Saline Lock Urinary Cath still in place: No Assessment/Plan Chief Complaint/Hosp Course Assessment: * Obstructive jaundice * Cholangiocarcinoma by cholangioscopy however path negative/repeat path pending * Post repeat ERCP/Spyglass with multiple biopsies and bilateral stenting with [place] 10, 9 cm plastic biliary stents * Lesion not accessible for guided IR but biopsy * Surgery considered high risk * Oncology will not treat without definitive diagnosis * Current stent accomplishing adequate decompression Plan: * Await pathology * Monitor liver panel * Further recommendations will depend on the findings Subjective: Course reviewed with nursing staff Patient interviewed and examined All labs, imaging and other results reviewed The patient appears comfortable and reports no discomfort Bilirubin is now decreasing Awaiting pathology Continue present regimen Exam: General: well developed, well nourished, alert and oriented x3 , in no acute distress Skin: Less icteric, no lesions, no stigmata chronic liver disease, no evidence of bleeding diathesis Lymphatic: No palpable lymphadenopathy HEENT: No lesions Cardiovascular: Heart: Regular rate and rhhthm, no murmurs, gallops or rubs. Peripheral pulses present within normal limits, no cyanosis, clubbing or edemas. No pulsatile abdominal mass Respiratory: Lungs clear to auscultation and percussion, no wheezing, no rubs Gastrointestinal and Liver: Abdomen: Soft, non tender, non-distended, no hernias , no masses, no organomegaly, no ascites, no guarding, no rebound tenderness, normoactive bowel sounds. Extremities: No cyanosis, clubbing, or edema. [Neurologic: Cranial nerves II-XII intact, motor within normal limits, sensory within normal limits. Reflexes within normal limits.] [Psychiatric: Alert and oriented x3, mood/affect/judgment adequate] Diagnostic Studies: Available data and images were reviewed personally. See reports. Significant results and findings are addressed here or in the assessment and plan. Problems: Exam/Review of Systems Vital Signs Vitals Vital Signs Date Time Temp Pulse Resp B/P Pulse Ox O2 Delivery O2 Flow Rate FiO2 06/11/17 08:44 97.5 90 18 113/60 100 06/08/17 21:20 Room Air 06/08/17 20:28 6.0 Intake and Output 06/10/17 06/10/17 06/11/17 15:00 23:00 07:00 Intake Total 1760 ml 1640 ml Output Total 1000 ml Balance 1760 ml 640 ml Results Result Diagram: 06/10/17 0509 06/11/17 0511 Results 24 hrs Laboratory Tests Test 06/11/17 05:11 Sodium Level 139 Potassium Level 3.8 Chloride Level 108 Carbon Dioxide Level 28 Anion Gap 7 L Blood Urea Nitrogen 5 L Creatinine 0.61 Glucose Level 95 Calcium Level 8.8 Total Bilirubin 3.5 #H Direct Bilirubin 2.40 #H Indirect Bilirubin 1.1 Aspartate Amino Transf (AST/SGOT) 73 H Alanine Aminotransferase (ALT/SGPT) 86 H Alkaline Phosphatase 410 H Total Protein 6.3 Albumin 2.7 L Globulin 3.60 H Albumin/Globulin Ratio 0.75 Medications Medications Current Medications Morphine Sulfate (morphine) 2 mg Q4H PRN IV PAIN Last administered on 21:59; Admin Dose 2 MG; Start 05/19/17 at 16:30 Acetaminophen/ Hydrocodone Bitart ([place] (5/325)) 1 tab Q4H PRN PO PAIN Last administered on 06/04/17 00:23; Admin Dose 1 TAB; Start 05/19/17 at 16:30 Ondansetron HCl (Zofran Inj) 4 mg Q6H PRN IV NAUSEA AND/OR VOMITING; Start at 16:30 Trimethobenzamide HCl (Tigan) 200 mg Q6H PRN IM NAUSEA AND/OR VOMITING; Start 05/20/17 at 12:30 Enoxaparin Sodium (Lovenox) 40 mg DAILY SC Last administered on 06/11/17 08:35 ; Admin Dose 40 MG; Start 05/20/17 at 13:00; Status Future hold Polyethylene Glycol (Miralax) 17 gm DAILY PO Last administered on 06/11/17 08: 23; Admin Dose 17 GM; Start 05/21/17 at 10:30 Hydroxyzine HCl (Atarax) 50 mg Q6H PRN PO ITCHING Last administered on 05:22; Admin Dose 50 MG; Start 05/21/17 at 10:30 Docusate Sodium (Colace) 100 mg BID PO Last administered on 06/11/17 08:23; Admin Dose 100 MG; Start 05/27/17 at 12:30 Cholestyramine Resin (Questran) 1 pkt TID PO Last administered on 06/11/17 08: 23; Admin Dose 1 PKT; Start 05/28/17 at 21:00 Ursodiol (Actigall) 300 mg BID PO Last administered on 06/11/17 08:23; Admin Dose 300 MG; Start 05/30/17 at 09:00 Zolpidem Tartrate (Ambien) 10 mg HS PRN PO INSOMNIA Last administered on 23:05; Admin Dose 10 MG; Start 05/30/17 at 23:00 RODERICK JACKSON MD Jun 11, 2017 14:04
[2017-06-11 15:57] VITALS: BP 109/57; RESP 18
[2017-06-11 19:19] VITALS: BP 97/58; RESP 18
[2017-06-12 01:43] VITALS: BP 100/55; RESP 18
[2017-06-12 06:33] LABS: ALBUMIN 2.8 g/dl (3.3-4.9); ALBUMIN/GLOBULIN RATIO 0.77; BILIRUBIN,DIRECT 0.7 mg/dl (0.00-0.20); BILIRUBIN,TOTAL 1.7 mg/dl (0.2-1.3); CREATININE 0.61 mg/dl (0.44-1.00); POTASSIUM 4.1 mmol/L (3.5-5.1); TOTAL PROTEIN 6.4 g/dl (6.1-8.1)
[2017-06-12 07:17] VITALS: BP 99/56; RESP 18
[2017-06-12] MEDS: DOCUSATE SODIUM 100 MG CAP PO SCH ×2 (09:08→20:13)
[2017-06-12] MEDS: POLYETHYLENE GLYCOL 17 GM PACKET PO SCH (09:08)
[2017-06-12] MEDS: URSODIOL 300 MG CAP PO SCH ×2 (09:08→20:13)
[2017-06-12] MEDS: CHOLESTYRAMINE 4 GM PACKET PO SCH ×3 (09:08→20:13)
[2017-06-12] MEDS: ENOXAPARIN 40 MG/0.4 ML SYG SC SCH (09:08)
[2017-06-12] MEDS: hydrOXYzine HCL 25 MG TAB PO PRN ×2 (09:11→20:13)
--- NOTE | 2017-06-12 11:24 | PN ---
Date/Time of Note Date/Time of Note DATE: 06/12/17 TIME: 11:17 Assessment/Plan VTE Prophylaxis VTE Prophylaxis Intervention: LMWH Lines/Catheters IV Catheter Type (from [facility]): Saline Lock Urinary Cath still in place: No Assessment/Plan Chief Complaint/Hosp Course Assessment/Plan: 52-year-old F presented with abdominal pain, scleral icterus, found to have hyperbilirubinemia, and hepatic mass concerning for cholangiocarcinoma with possible tumor thrombus in intrahepatic portal vein though repeat imaging more consistent with external compression from tumor #hepatic mass likely cholangiocarcinoma: gen surg, GI, onc all following sp ERCP with stent placement 05.23, repeat ERCP with stent removal/sphincterotomy /balloon dilatation of the biliary tree/cholangioscopy with biopsies plus stent placement 2 on 06/08/17. pathology pending -follow-up results of this #?portal vein thrombus? repeat imaging more consistent with external compression # Obstructive jaundice with hyperbilirubinemia secondary to above. - Monitor LFTs Lovenox for DVT prophylaxis A/P: 52-year-old female with no significant past medical history, presented with abdominal pain, yellowish eyes dark urine and itching X 6 months duration. 1. 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 Not amenable to surgical resection per [facility]. Status post ERCP with plastic stent placed. Biopsy though ERCP shows no malignancy. Status post Spyglass cholangioscopy. 05/23/2017: CT Abdomen and Pelvis with and without contrast: Liver Protocol. Poorly defined hypovascular mass occupying the left medial lobe of the liver and caudate lobe with upstream severe left greater intrahepatic bile duct dilatation, highly suspicious for cholangiocarcinoma. Filling defect identified in intrahepatic portal vein, concerning for tumor thrombus Metastatic retroperitoneal lymphadenopathy. PLAN: - as per , cannot put CBD metallic stent until malignancy proven. Unable to perform CT-guided needle biopsy as area of biopsy is not accessible. Follow-up with surgery recommendation regarding hematology recommendation on laparoscopic biopsy. Per latest surgery recommendations 2 days ago, they feel risks greater than reward for performing this kind of laparoscopic biopsy, so likely will be given to start TACE as well as chemotherapy once her bilirubin is acceptable. -Appreciate vascular input and recommend for a followup CT triple-phase in 2 weeks. Currently no indication for anticoagulation as suspicion for a thrombus is not high at this time. -Supportive care, consider Palliative care. -At this time, we will follow recommendations from hepatobiliary surgery/GI/heme /plant taxonomist specialities regarding further diagnostic/treatment modalities. 2. Obstructive jaundice with hyperbilirubinemia secondary to #1. Bili trended down. - Monitor LFTs Lovenox for DVT prophylaxis Problems: Subjective 24 Hr Interval Summary Free Text/Dictation Denies chest pain or abdominal pain, no nausea or vomiting. Exam/Review of Systems Vital Signs Vitals Vital Signs Date Time Temp Pulse Resp B/P Pulse Ox O2 Delivery O2 Flow Rate FiO2 06/12/17 07:17 98.4 74 18 99/56 99 06/08/17 21:20 Room Air 06/08/17 20:28 6.0 Intake and Output 06/11/17 06/11/17 06/12/17 15:00 23:00 07:00 Intake Total 1080 ml 700 ml Balance 1080 ml 700 ml Exam nad, lying in bed, alert resp nonlabored S1, S2 heard no abd distension no edema Less +jaundice Results Result Diagram: 06/10/17 0509 06/12/17 0448 Results 24 hrs Laboratory Tests Test 06/12/17 04:48 Sodium Level 138 Potassium Level 4.1 Chloride Level 106 Carbon Dioxide Level 28 Anion Gap 8 Blood Urea Nitrogen 3 L Creatinine 0.61 Glucose Level 100 Calcium Level 9.0 Total Bilirubin 1.7 H Direct Bilirubin 0.70 #H Indirect Bilirubin 1.0 Aspartate Amino Transf (AST/SGOT) 50 H Alanine Aminotransferase (ALT/SGPT) 81 H Alkaline Phosphatase 425 H Total Protein 6.4 Albumin 2.8 L Globulin 3.60 H Albumin/Globulin Ratio 0.77 Medications Medications Current Medications Morphine Sulfate (morphine) 2 mg Q4H PRN IV PAIN Last administered on 21:59; Admin Dose 2 MG; Start 05/19/17 at 16:30 Acetaminophen/ Hydrocodone Bitart ([place] (5/325)) 1 tab Q4H PRN PO PAIN Last administered on 06/04/17 00:23; Admin Dose 1 TAB; Start 05/19/17 at 16:30 Ondansetron HCl (Zofran Inj) 4 mg Q6H PRN IV NAUSEA AND/OR VOMITING; Start at 16:30 Trimethobenzamide HCl (Tigan) 200 mg Q6H PRN IM NAUSEA AND/OR VOMITING; Start 05/20/17 at 12:30 Enoxaparin Sodium (Lovenox) 40 mg DAILY SC Last administered on 06/12/17 09:08 ; Admin Dose 40 MG; Start 05/20/17 at 13:00; Status Future hold Polyethylene Glycol (Miralax) 17 gm DAILY PO Last administered on 06/12/17 09: 08; Admin Dose 17 GM; Start 05/21/17 at 10:30 Hydroxyzine HCl (Atarax) 50 mg Q6H PRN PO ITCHING Last administered on 09:11; Admin Dose 50 MG; Start 05/21/17 at 10:30 Docusate Sodium (Colace) 100 mg BID PO Last administered on 06/12/17 09:08; Admin Dose 100 MG; Start 05/27/17 at 12:30 Cholestyramine Resin (Questran) 1 pkt TID PO Last administered on 06/12/17 09: 08; Admin Dose 1 PKT; Start 05/28/17 at 21:00 Ursodiol (Actigall) 300 mg BID PO Last administered on 06/12/17 09:08; Admin Dose 300 MG; Start 05/30/17 at 09:00 Zolpidem Tartrate (Ambien) 10 mg HS PRN PO INSOMNIA Last administered on 23:05; Admin Dose 10 MG; Start 05/30/17 at 23:00 HERMAN MCNULTY Jun 12, 2017 11:24
[2017-06-12 14:26] VITALS: BP 121/58; RESP 18
--- NOTE | 2017-06-12 17:42 | PN ---
Date/Time of Note Date/Time of Note DATE: 06/12/17 TIME: 17:19 Assessment/Plan VTE Prophylaxis VTE Prophylaxis Intervention: SCD's Lines/Catheters IV [facility] Saline Lock Urinary Cath still in place: No Assessment/Plan Chief Complaint/Hosp Course Assessment: * Obstructive jaundice * Cholangiocarcinoma by cholangioscopy however path negative/repeat path negative for malignancy * Post repeat ERCP/Spyglass with multiple biopsies and bilateral stenting with [place] 10, 9 cm plastic biliary stents * Lesion not accessible for guided IR but biopsy * Surgery considered high risk * Oncology will not treat without definitive diagnosis * Current stent accomplishing adequate decompression Plan: * Repeat path again negative for malignancy * Will defer to oncology for further recommendations * Consider Tertiary center for treatment * May need follow-up ERCP to exchange stents in 3 months * Pt seen in collaboration with Dr. Dalal Subjective: Course reviewed with nursing staff Patient interviewed and examined All labs, imaging and other results reviewed The patient appears comfortable denies pain, nausea, and vomiting Bilirubin is now 1.9 WBC decreasing now 9.1 AST/ALT decreasing Exam: General: well developed, well nourished, alert and oriented x3 , in no acute distress Skin: Less icteric, no lesions, no stigmata chronic liver disease, no evidence of bleeding diathesis Lymphatic: No palpable lymphadenopathy HEENT: No lesions Cardiovascular: Heart: Regular rate and rhhthm, no murmurs, gallops or rubs. Peripheral pulses present within normal limits, no cyanosis, clubbing or edemas. No pulsatile abdominal mass Respiratory: Lungs clear to auscultation and percussion, no wheezing, no rubs Gastrointestinal and Liver: Abdomen: Soft, non tender, non-distended, no hernias , no masses, no organomegaly, no ascites, no guarding, no rebound tenderness, normoactive bowel sounds. Extremities: No cyanosis, clubbing, or edema. [Neurologic: Cranial nerves II-XII intact, motor within normal limits, sensory within normal limits. Reflexes within normal limits.] [Psychiatric: Alert and oriented x3, mood/affect/judgment adequate] Diagnostic Studies: Available data and images were reviewed personally. See reports. Significant results and findings are addressed here or in the assessment and plan. Problems: Exam/Review of Systems Vital Signs Vitals Vital Signs Date Time Temp Pulse Resp B/P Pulse Ox O2 Delivery O2 Flow Rate FiO2 06/12/17 14:26 98.6 80 18 121/58 100 06/08/17 21:20 Room Air 06/08/17 20:28 6.0 Intake and Output 06/11/17 06/11/17 06/12/17 15:00 23:00 07:00 Intake Total 1080 ml 700 ml Balance 1080 ml 700 ml Results Result Diagram: 06/10/17 0509 06/12/17 0448 Results 24 hrs Laboratory Tests Test 06/12/17 04:48 Sodium Level 138 Potassium Level 4.1 Chloride Level 106 Carbon Dioxide Level 28 Anion Gap 8 Blood Urea Nitrogen 3 L Creatinine 0.61 Glucose Level 100 Calcium Level 9.0 Total Bilirubin 1.7 H Direct Bilirubin 0.70 #H Indirect Bilirubin 1.0 Aspartate Amino Transf (AST/SGOT) 50 H Alanine Aminotransferase (ALT/SGPT) 81 H Alkaline Phosphatase 425 H Total Protein 6.4 Albumin 2.8 L Globulin 3.60 H Albumin/Globulin Ratio 0.77 Medications Medications Current Medications Morphine Sulfate (morphine) 2 mg Q4H PRN IV PAIN Last administered on 21:59; Admin Dose 2 MG; Start 05/19/17 at 16:30 Acetaminophen/ Hydrocodone Bitart ([place] (5/325)) 1 tab Q4H PRN PO PAIN Last administered on 06/04/17 00:23; Admin Dose 1 TAB; Start 05/19/17 at 16:30 Ondansetron HCl (Zofran Inj) 4 mg Q6H PRN IV NAUSEA AND/OR VOMITING; Start at 16:30 Trimethobenzamide HCl (Tigan) 200 mg Q6H PRN IM NAUSEA AND/OR VOMITING; Start 05/20/17 at 12:30 Enoxaparin Sodium (Lovenox) 40 mg DAILY SC Last administered on 06/12/17 09:08 ; Admin Dose 40 MG; Start 05/20/17 at 13:00; Status Future hold Polyethylene Glycol (Miralax) 17 gm DAILY PO Last administered on 06/12/17 09: 08; Admin Dose 17 GM; Start 05/21/17 at 10:30 Hydroxyzine HCl (Atarax) 50 mg Q6H PRN PO ITCHING Last administered on 09:11; Admin Dose 50 MG; Start 05/21/17 at 10:30 Docusate Sodium (Colace) 100 mg BID PO Last administered on 06/12/17 09:08; Admin Dose 100 MG; Start 05/27/17 at 12:30 Cholestyramine Resin (Questran) 1 pkt TID PO Last administered on 06/12/17 12: 40; Admin Dose 1 PKT; Start 05/28/17 at 21:00 Ursodiol (Actigall) 300 mg BID PO Last administered on 06/12/17 09:08; Admin Dose 300 MG; Start 05/30/17 at 09:00 Zolpidem Tartrate (Ambien) 10 mg HS PRN PO INSOMNIA Last administered on 23:05; Admin Dose 10 MG; Start 05/30/17 at 23:00 KAHLIL MARSHALL Jun 12, 2017 17:29
[2017-06-12 20:18] VITALS: BP 123/72; RESP 20
[2017-06-13 01:54] VITALS: BP 101/55; RESP 20
[2017-06-13 06:25] LABS: BASOPHILS % 0.4 % (0.0-2.0); EOSINOPHILS # 0.3 10^3/ul (0.0-0.5); EOSINOPHILS % 2.7 % (0.0-7.0); HEMATOCRIT 30.3 % (37.0-47.0); LYMPHOCYTES # 2.1 10^3/ul (0.8-2.9); MEAN CORPUSCULAR HEMOGLOBIN 29.9 pg (29.0-33.0); MEAN CORPUSCULAR VOLUME 90.7 fl (82.0-101.0); MEAN PLATELET VOLUME 10.4 fl (7.4-10.4); MONOCYTE # 1.2 10^3/ul (0.3-0.9); MONOCYTES % 11.1 % (0.0-11.0); NEUTROPHIL # 6.7 10^3/ul (1.6-7.5); NEUTROPHILS % 64.6 % (39.0-77.0); PLATELET COUNT 397 10^3/UL (140-415); RED BLOOD COUNT 3.34 10^6/ul (4.20-5.40); RED CELL DISTRIBUTION WIDTH 14.8 % (11.5-14.5); WHITE BLOOD COUNT 10.4 10^3/ul (4.8-10.8)
[2017-06-13 06:49] LABS: ALBUMIN 3.1 g/dl (3.3-4.9); BILIRUBIN,DIRECT 0.4 mg/dl (0.00-0.20); BILIRUBIN,INDIRECT 1.1 mg/dl (0-1.1); BILIRUBIN,TOTAL 1.5 mg/dl (0.2-1.3); TOTAL PROTEIN 6.5 g/dl (6.1-8.1)
[2017-06-13 06:54] LABS: ALBUMIN/GLOBULIN RATIO 0.96; BILIRUBIN,DIRECT 0.5 mg/dl (0.00-0.20); BILIRUBIN,INDIRECT 1.1 mg/dl (0-1.1); BILIRUBIN,TOTAL 1.6 mg/dl (0.2-1.3); CREATININE 0.6 mg/dl (0.44-1.00); POTASSIUM 4.4 mmol/L (3.5-5.1); TOTAL PROTEIN 6.1 g/dl (6.1-8.1)
[2017-06-13 07:51] VITALS: BP 108/54; RESP 18
[2017-06-13] MEDS: POLYETHYLENE GLYCOL 17 GM PACKET PO SCH (09:21)
[2017-06-13] MEDS: URSODIOL 300 MG CAP PO SCH ×2 (09:21→20:41)
[2017-06-13] MEDS: DOCUSATE SODIUM 100 MG CAP PO SCH ×2 (09:21→20:41)
[2017-06-13] MEDS: hydrOXYzine HCL 25 MG TAB PO PRN ×2 (09:21→20:46)
[2017-06-13] MEDS: CHOLESTYRAMINE 4 GM PACKET PO SCH ×3 (09:21→20:41)
--- NOTE | 2017-06-13 10:33 | PN ---
Date/Time of Note Date/Time of Note DATE: 06/13/17 TIME: 10:29 Assessment/Plan VTE Prophylaxis VTE Prophylaxis Intervention: LMWH Lines/Catheters IV [facility] Saline Lock Urinary Cath still in place: No Assessment/Plan Chief Complaint/Hosp Course Assessment/Plan: 52-year-old F presented with abdominal pain, scleral icterus, found to have hyperbilirubinemia, and hepatic mass concerning for cholangiocarcinoma with possible tumor thrombus in intrahepatic portal vein though repeat imaging more consistent with external compression from tumor #hepatic mass thought likely to be cholangiocarcinoma: However, pathology from June 08 again has come back negative for malignancy. gen surg, GI, onc all following sp ERCP with stent placement ., repeat ERCP with stent removal/sphincterotomy /balloon dilatation of the biliary tree/cholangioscopy with biopsies plus stent placement 2 on 06/08/17. We will need to discuss with insolvency consultant teams, including hematology oncology team, about further treatment options at this point #?portal vein thrombus? repeat imaging more consistent with external compression # Obstructive jaundice with hyperbilirubinemia secondary to above. - Monitor LFTs Lovenox for DVT prophylaxis Problems: Subjective 24 Hr Interval Summary Free Text/Dictation No acute events overnight. Repeat biopsy report from June 08 came back negative for malignancy. Exam/Review of Systems Vital Signs Vitals Vital Signs Date Time Temp Pulse Resp B/P Pulse Ox O2 Delivery O2 Flow Rate FiO2 06/13/17 07:51 98.2 82 18 108/54 97 Intake and Output 06/12/17 06/12/17 06/13/17 14:59 22:59 06:59 Intake Total 2600 ml 400 ml Balance 2600 ml 400 ml Exam nad, lying in bed, alert resp nonlabored S1, S2 heard no abd distension no edema Less +jaundice Results Result Diagram: 06/13/17 0547 06/13/17 0546 Results 24 hrs Laboratory Tests Test 06/13/17 05:46 06/13/17 05:47 Sodium Level 138 Potassium Level 4.4 Chloride Level 104 Carbon Dioxide Level 28 Anion Gap 10 Blood Urea Nitrogen 5 L Creatinine 0.60 Glucose Level 91 Calcium Level 9.0 Total Bilirubin 1.6 H Direct Bilirubin 0.50 H Indirect Bilirubin 1.1 Aspartate Amino Transf (AST/SGOT) 45 Alanine Aminotransferase (ALT/SGPT) 75 H Alkaline Phosphatase 426 H Total Protein 6.1 Albumin 3.0 L Globulin 3.10 Albumin/Globulin Ratio 0.96 White Blood Count 10.4 Red Blood Count 3.34 L Hemoglobin 10.0 L Hematocrit 30.3 L Mean Corpuscular Volume 90.7 Mean Corpuscular Hemoglobin 29.9 Mean Corpuscular Hemoglobin Concent 33.0 Red Cell Distribution Width 14.8 H Platelet Count 397 Mean Platelet Volume 10.4 Neutrophils % 64.6 Lymphocytes % 20.0 Monocytes % 11.1 H Eosinophils % 2.7 Basophils % 0.4 Nucleated Red Blood Cells % 0.0 Neutrophils # 6.7 Lymphocytes # 2.1 Monocytes # 1.2 H Eosinophils # 0.3 Basophils # 0.0 Nucleated Red Blood Cells # 0.0 Medications Medications Current Medications Morphine Sulfate (morphine) 2 mg Q4H PRN IV PAIN Last administered on 21:59; Admin Dose 2 MG; Start 05/19/17 at 16:30 Acetaminophen/ Hydrocodone Bitart ([place] (5/325)) 1 tab Q4H PRN PO PAIN Last administered on 06/04/17 00:23; Admin Dose 1 TAB; Start 05/19/17 at 16:30 Ondansetron HCl (Zofran Inj) 4 mg Q6H PRN IV NAUSEA AND/OR VOMITING; Start at 16:30 Trimethobenzamide HCl (Tigan) 200 mg Q6H PRN IM NAUSEA AND/OR VOMITING; Start 05/20/17 at 12:30 Enoxaparin Sodium (Lovenox) 40 mg DAILY SC Last administered on 06/12/17 09:08 ; Admin Dose 40 MG; Start 05/20/17 at 13:00; Status Future hold Polyethylene Glycol (Miralax) 17 gm DAILY PO Last administered on 06/13/17 09 :21; Admin Dose 17 GM; Start 05/21/17 at 10:30 Hydroxyzine HCl (Atarax) 50 mg Q6H PRN PO ITCHING Last administered on 09:21; Admin Dose 50 MG; Start 05/21/17 at 10:30 Docusate Sodium (Colace) 100 mg BID PO Last administered on 06/13/17 09:21; Admin Dose 100 MG; Start 05/27/17 at 12:30 Cholestyramine Resin (Questran) 1 pkt TID PO Last administered on 06/13/17 09 :21; Admin Dose 1 PKT; Start 05/28/17 at 21:00 Ursodiol (Actigall) 300 mg BID PO Last administered on 06/13/17 09:21; Admin Dose 300 MG; Start 05/30/17 at 09:00 Zolpidem Tartrate (Ambien) 10 mg HS PRN PO INSOMNIA Last administered on 23:05; Admin Dose 10 MG; Start 05/30/17 at 23:00 HERMAN MCNULTY Jun 13, 2017 10:33
[2017-06-13] MEDS: ENOXAPARIN 40 MG/0.4 ML SYG SC SCH (13:45)
[2017-06-13 13:55] VITALS: BP 106/66; RESP 18
--- NOTE | 2017-06-13 17:05 | PN ---
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/repeat path negative for malignancy * Post repeat ERCP/Spyglass with multiple biopsies and bilateral stenting with Turkish 10, 9 cm plastic biliary stents * Lesion not accessible for guided IR but biopsy * Surgery considered high risk * Oncology will not treat without definitive diagnosis * Current stent accomplishing adequate decompression Plan: * Repeat path again negative for malignancy * Will defer to oncology for further recommendations * Consider Tertiary center for treatment * May need follow-up ERCP to exchange stents in 3 months * From GI point of view ok for out-pt oncology management * Pt seen in collaboration with Dr. Dalal Subjective: Course reviewed with nursing staff Patient interviewed and examined All labs, imaging and other results reviewed The patient appears comfortable denies pain, nausea, and vomiting Bilirubin remains stable WBC and LFTs remain stable Exam: General: well developed, well nourished, alert and oriented x3 , in no acute distress Skin: Less icteric, no lesions, no stigmata chronic liver disease, no evidence of bleeding diathesis Lymphatic: No palpable lymphadenopathy HEENT: No lesions Cardiovascular: Heart: Regular rate and rhhthm, no murmurs, gallops or rubs. Peripheral pulses present within normal limits, no cyanosis, clubbing or edemas. No pulsatile abdominal mass Respiratory: Lungs clear to auscultation and percussion, no wheezing, no rubs Gastrointestinal and Liver: Abdomen: Soft, non tender, non-distended, no hernias , no masses, no organomegaly, no ascites, no guarding, no rebound tenderness, normoactive bowel sounds. Extremities: No cyanosis, clubbing, or edema. [Neurologic: Cranial nerves II-XII intact, motor within normal limits, sensory within normal limits. Reflexes within normal limits.] [Psychiatric: Alert and oriented x3, mood/affect/judgment adequate] Diagnostic Studies: Available data and images were reviewed personally. See reports. Significant results and findings are addressed here or in the assessment and plan. Problems: Exam/Review of Systems Vital Signs Vitals Vital Signs Date Time Temp Pulse Resp B/P Pulse Ox O2 Delivery O2 Flow Rate FiO2 06/13/17 13:55 106.0 96 18 106/66 100 Intake and Output 06/12/17 06/12/17 06/13/17 15:00 23:00 07:00 Intake Total 2600 ml 400 ml Balance 2600 ml 400 ml Results Result Diagram: 06/13/17 0547 06/13/17 0546 Results 24 hrs Laboratory Tests Test 06/13/17 05:46 06/13/17 05:47 Sodium Level 138 Potassium Level 4.4 Chloride Level 104 Carbon Dioxide Level 28 Anion Gap 10 Blood Urea Nitrogen 5 L Creatinine 0.60 Glucose Level 91 Calcium Level 9.0 Total Bilirubin 1.6 H Direct Bilirubin 0.50 H Indirect Bilirubin 1.1 Aspartate Amino Transf (AST/SGOT) 45 Alanine Aminotransferase (ALT/SGPT) 75 H Alkaline Phosphatase 426 H Total Protein 6.1 Albumin 3.0 L Globulin 3.10 Albumin/Globulin Ratio 0.96 White Blood Count 10.4 Red Blood Count 3.34 L Hemoglobin 10.0 L Hematocrit 30.3 L Mean Corpuscular Volume 90.7 Mean Corpuscular Hemoglobin 29.9 Mean Corpuscular Hemoglobin Concent 33.0 Red Cell Distribution Width 14.8 H Platelet Count 397 Mean Platelet Volume 10.4 Neutrophils % 64.6 Lymphocytes % 20.0 Monocytes % 11.1 H Eosinophils % 2.7 Basophils % 0.4 Nucleated Red Blood Cells % 0.0 Neutrophils # 6.7 Lymphocytes # 2.1 Monocytes # 1.2 H Eosinophils # 0.3 Basophils # 0.0 Nucleated Red Blood Cells # 0.0 Medications Medications Current Medications Morphine Sulfate (morphine) 2 mg Q4H PRN IV PAIN Last administered on 21:59; Admin Dose 2 MG; Start 05/19/17 at 16:30 Acetaminophen/ Hydrocodone Bitart ([place] (5/325)) 1 tab Q4H PRN PO PAIN Last administered on 06/04/17 00:23; Admin Dose 1 TAB; Start 05/19/17 at 16:30 Ondansetron HCl (Zofran Inj) 4 mg Q6H PRN IV NAUSEA AND/OR VOMITING; Start at 16:30 Trimethobenzamide HCl (Tigan) 200 mg Q6H PRN IM NAUSEA AND/OR VOMITING; Start 05/20/17 at 12:30 Enoxaparin Sodium (Lovenox) 40 mg DAILY SC Last administered on 06/13/17 13: 45; Admin Dose 40 MG; Start 05/20/17 at 13:00; Status Future hold Polyethylene Glycol (Miralax) 17 gm DAILY PO Last administered on 06/13/17 09 :21; Admin Dose 17 GM; Start 05/21/17 at 10:30 Hydroxyzine HCl (Atarax) 50 mg Q6H PRN PO ITCHING Last administered on 09:21; Admin Dose 50 MG; Start 05/21/17 at 10:30 Docusate Sodium (Colace) 100 mg BID PO Last administered on 06/13/17 09:21; Admin Dose 100 MG; Start 05/27/17 at 12:30 Cholestyramine Resin (Questran) 1 pkt TID PO Last administered on 06/13/17 13 :44; Admin Dose 1 PKT; Start 05/28/17 at 21:00 Ursodiol (Actigall) 300 mg BID PO Last administered on 06/13/17 09:21; Admin Dose 300 MG; Start 05/30/17 at 09:00 Zolpidem Tartrate (Ambien) 10 mg HS PRN PO INSOMNIA Last administered on 23:05; Admin Dose 10 MG; Start 05/30/17 at 23:00 KAHLIL MARSHALL Jun 13, 2017 17:05
--- NOTE | 2017-06-13 18:05 | PN ---
Date/Time of Note Date/Time of Note DATE: 06/13/17 TIME: 18:00 Assessment/Plan Lines/Catheters IV Catheter Type (from [facility]): Saline Lock [place] in Place (from [facility]): No Assessment/Plan Assessment/Plan [facility] Progress Note Date of Service: 06/13/2017 Place of service: [facility] [address] Today's Assessment & Plan: Overall stable and slowly improving after placement of plastic stent in the biliary system. Abdomen remains benign. LFT's coming down slowly. No indication for acute surgical intervention, but because there are no other good options of biopsying her, I am working with the team to get her scheduled for an operative laparoscopic attempt at biopsying her lesion. Discussed with patient and her and answered all questions. Planning on discussing with patient's son as well. Hoping to have her scheduled within the next 2-3 days. Patient will likely be able to discharge home right after surgery unless it cannot be done laparoscopically. Please note that I reviewed images again with Dr. Schroeder and again confirmed that there was no good percutaneous options for biopsying her. Previous assessment that applies today: A very-pleasant but unfortunate 52-year-old lady without significant other major comorbidities, presenting with a central hilar cholangiocarcinoma which unfortunately involves the first and perhaps even the second order branches of both the left and right biliary systems, not amenable to surgical resection. There is still many interventions that can be done to improve the patient's quality of life as well as perhaps quantity of life. These include stenting of the biliary system, hopefully internally, to allow bile duct obstruction to resolve. They are also available options for local therapy to the liver in the form of transarterial chemoembolization (TACE), possible radioembolization, and potential for systemic chemotherapy. With above assessment, I've recommended the followin. Continue in-house care 2. Continue plans for multidisciplinary tumor board discussion and continue multidisciplinary care 3. We will attempt laparoscopic, possible open exploration for the purpose of biopsying patient's lesion, likely under ultrasound guidance in the next 2-3 days Thank you very much for having me involved in the care of this very pleasant patient and wonderful family. If you have any questions, please feel free to contact me at [phone]. Nature of presenting problem: High severity Please note that, given the extensive number of diagnoses or management options , the extensive amount and/or complexity of data needed to be reviewed, and high risk of complications and/or morbidity or mortality, this qualifies as high complexity type of decision-making. Disclaimer: Inadvertent spelling and grammatical errors are likely due to EHR/ dictation software use and do not reflect on the quality of delivered patient care. Also, please note that the electronic time recorded on this node does not necessarily reflect the actual time of the visit. Updated clinical summary: A very-pleasant but unfortunate 52-year-old lady without significant other major comorbidities, presenting with a central hilar cholangiocarcinoma which unfortunately involves the first and perhaps even the second branches of both the left and right biliary systems, not amenable to surgical resection. Comorbidities: 1. BMI 25 2. Status post left breast biopsy 3. 4. Hypercholesterolemia Subjective: No major events or complaints; no major abd pain and under control with medications; no n/v/d; no sob or cp; + flatus; + BM and normal; + activity Objective: Vitals: See below I's & O's: See below Exam: GENERAL: On exam, the patient was laying in bed and appeared to be comfortable and in no acute distress. Eyes appear jaundiced, but less than before. ABDOMEN: Soft, nontender and nondistended. There are no peritoneal signs or guarding. SKIN: Skin appears to be pink with a hint of yellow and feels warm to touch. NEUROLOGIC: Patient is awake, alert, and follows commands appropriately. Labs: See below Exam/Review of Systems Vital Signs Vitals Vital Signs Date Time Temp Pulse Resp B/P Pulse Ox O2 Delivery O2 Flow Rate FiO2 06/13/17 13:55 106.0 96 18 106/66 100 Intake and Output 06/12/17 06/12/17 06/13/17 15:00 23:00 07:00 Intake Total 2600 ml 400 ml Balance 2600 ml 400 ml Results Result Diagram: 06/13/17 0547 06/13/17 0546 ABBY ROMAN M.D. Jun 13, 2017 18:05
[2017-06-13 19:56] VITALS: BP 123/66; RESP 20
[2017-06-14 01:47] VITALS: BP 102/60; RESP 20
[2017-06-14 06:18] LABS: BASOPHIL # 0.1 10^3/ul (0.0-0.1); BASOPHILS % 0.4 % (0.0-2.0); EOSINOPHILS # 0.3 10^3/ul (0.0-0.5); EOSINOPHILS % 2.1 % (0.0-7.0); HEMATOCRIT 30.3 % (37.0-47.0); HEMOGLOBIN 9.9 g/dl (12.0-16.0); LYMPHOCYTES # 2.7 10^3/ul (0.8-2.9); LYMPHOCYTES % 21.6 % (15.0-51.0); MEAN CORPUSCULAR HEMOGLOBIN 29.9 pg (29.0-33.0); MEAN CORPUSCULAR HGB CONC 32.7 g/dl (32.0-37.0); MEAN CORPUSCULAR VOLUME 91.5 fl (82.0-101.0); MEAN PLATELET VOLUME 10.3 fl (7.4-10.4); MONOCYTE # 1.3 10^3/ul (0.3-0.9); MONOCYTES % 10.6 % (0.0-11.0); NEUTROPHIL # 8.1 10^3/ul (1.6-7.5); PLATELET COUNT 374 10^3/UL (140-415); RED BLOOD COUNT 3.31 10^6/ul (4.20-5.40); RED CELL DISTRIBUTION WIDTH 15.2 % (11.5-14.5); WHITE BLOOD COUNT 12.6 10^3/ul (4.8-10.8)
[2017-06-14 07:25] VITALS: BP 116/59; RESP 16
[2017-06-14] MEDS: CHOLESTYRAMINE 4 GM PACKET PO SCH ×3 (08:50→21:15)
[2017-06-14] MEDS: URSODIOL 300 MG CAP PO SCH ×2 (08:50→21:15)
[2017-06-14] MEDS: DOCUSATE SODIUM 100 MG CAP PO SCH ×2 (08:50→21:15)
[2017-06-14] MEDS: POLYETHYLENE GLYCOL 17 GM PACKET PO SCH (08:50)
[2017-06-14 08:55] LABS: ALBUMIN 2.8 g/dl (3.3-4.9); BILIRUBIN,DIRECT 0.3 mg/dl (0.00-0.20); BILIRUBIN,INDIRECT 1.1 mg/dl (0-1.1); BILIRUBIN,TOTAL 1.4 mg/dl (0.2-1.3); TOTAL PROTEIN 5.8 g/dl (6.1-8.1)
[2017-06-14] MEDS: ENOXAPARIN 40 MG/0.4 ML SYG SC SCH (09:00)
--- NOTE | 2017-06-14 10:52 | PN ---
Date/Time of Note Date/Time of Note DATE: 06/14/17 TIME: 10:46 Assessment/Plan VTE Prophylaxis VTE Prophylaxis Intervention: LMWH Lines/Catheters IV Catheter Type (from [facility]): Saline Lock Urinary Cath still in place: No Assessment/Plan Chief Complaint/Hosp Course Assessment/Plan: 52-year-old F presented with abdominal pain, scleral icterus, found to have hyperbilirubinemia, and hepatic mass concerning for cholangiocarcinoma with possible tumor thrombus in intrahepatic portal vein though repeat imaging more consistent with external compression from tumor #hepatic mass thought likely to be cholangiocarcinoma: However, pathology from June 08 again has come back negative for malignancy. gen surg, GI, onc all following sp ERCP with stent placement ., repeat ERCP with stent removal/sphincterotomy /balloon dilatation of the biliary tree/cholangioscopy with biopsies plus stent placement 2 on 06/08/17. Were discussed with valuation consultant teams yesterday, plan is for laparoscopic, possible open exploration for the purpose of biopsying patient's lesion, likely under ultrasound guidance. #?portal vein thrombus? repeat imaging more consistent with external compression # Obstructive jaundice with hyperbilirubinemia secondary to above. - Monitor LFTs Lovenox for DVT prophylaxis Problems: Subjective 24 Hr Interval Summary Free Text/Dictation No acute events overnight. Seen by hepatobiliary surgery team yesterday. Exam/Review of Systems Vital Signs Vitals Vital Signs Date Time Temp Pulse Resp B/P Pulse Ox O2 Delivery O2 Flow Rate FiO2 06/14/17 07:25 98.3 83 16 116/59 98 Intake and Output 06/13/17 06/13/17 06/14/17 15:00 23:00 07:00 Intake Total 240 ml 600 ml Balance 240 ml 600 ml Exam nad, lying in bed, alert resp nonlabored S1, S2 heard no abd distension no edema Less +jaundice Results Result Diagram: 06/14/17 0553 06/13/17 0546 Results 24 hrs Laboratory Tests Test 06/14/17 05:53 White Blood Count 12.6 #H Red Blood Count 3.31 L Hemoglobin 9.9 L Hematocrit 30.3 L Mean Corpuscular Volume 91.5 Mean Corpuscular Hemoglobin 29.9 Mean Corpuscular Hemoglobin Concent 32.7 Red Cell Distribution Width 15.2 H Platelet Count 374 Mean Platelet Volume 10.3 Neutrophils % 64.0 Lymphocytes % 21.6 Monocytes % 10.6 Eosinophils % 2.1 Basophils % 0.4 Nucleated Red Blood Cells % 0.0 Neutrophils # 8.1 H Lymphocytes # 2.7 Monocytes # 1.3 H Eosinophils # 0.3 Basophils # 0.1 Nucleated Red Blood Cells # 0.0 Total Bilirubin 1.4 H Direct Bilirubin 0.30 #H Indirect Bilirubin 1.1 Aspartate Amino Transf (AST/SGOT) 49 H Alanine Aminotransferase (ALT/SGPT) 74 H Alkaline Phosphatase 400 H Total Protein 5.8 L Albumin 2.8 L Medications Medications Current Medications Morphine Sulfate (morphine) 2 mg Q4H PRN IV PAIN Last administered on 21:59; Admin Dose 2 MG; Start 05/19/17 at 16:30 Acetaminophen/ Hydrocodone Bitart ([place] (5/325)) 1 tab Q4H PRN PO PAIN Last administered on 06/04/17 00:23; Admin Dose 1 TAB; Start 05/19/17 at 16:30 Ondansetron HCl (Zofran Inj) 4 mg Q6H PRN IV NAUSEA AND/OR VOMITING; Start at 16:30 Trimethobenzamide HCl (Tigan) 200 mg Q6H PRN IM NAUSEA AND/OR VOMITING; Start 05/20/17 at 12:30 Enoxaparin Sodium (Lovenox) 40 mg DAILY SC Last administered on 06/14/17 09: 00; Admin Dose 40 MG; Start 05/20/17 at 13:00; Status Future hold Polyethylene Glycol (Miralax) 17 gm DAILY PO Last administered on 06/14/17 08 :50; Admin Dose 17 GM; Start 05/21/17 at 10:30 Hydroxyzine HCl (Atarax) 50 mg Q6H PRN PO ITCHING Last administered on 20:46; Admin Dose 50 MG; Start 05/21/17 at 10:30 Docusate Sodium (Colace) 100 mg BID PO Last administered on 06/14/17 08:50; Admin Dose 100 MG; Start 05/27/17 at 12:30 Cholestyramine Resin (Questran) 1 pkt TID PO Last administered on 06/14/17 08 :50; Admin Dose 1 PKT; Start 05/28/17 at 21:00 Ursodiol (Actigall) 300 mg BID PO Last administered on 06/14/17 08:50; Admin Dose 300 MG; Start 05/30/17 at 09:00 Zolpidem Tartrate (Ambien) 10 mg HS PRN PO INSOMNIA Last administered on 23:05; Admin Dose 10 MG; Start 05/30/17 at 23:00 HERMAN MCNULTY Jun 14, 2017 10:52
[2017-06-14] MEDS: hydrOXYzine HCL 25 MG TAB PO PRN ×2 (12:48→21:16)
--- NOTE | 2017-06-14 13:48 | PN ---
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 however path negative/repeat path negative for malignancy * Post repeat ERCP/Spyglass with multiple biopsies and bilateral stenting with [place] 10, 9 cm plastic biliary stents * Lesion not accessible for guided IR but biopsy * Surgery considered high risk * Oncology will not treat without definitive diagnosis * Current stent accomplishing adequate decompression Plan: * Repeat path again negative for malignancy * Plan for laparoscopic exploration to biopsy mass * Treatment plan will be based of results * May still need to consider tertiary center for treatment in future * May need follow-up ERCP to exchange stents in 3 months * Pt seen in collaboration with Dr. Dalal Subjective: Course reviewed with nursing staff Patient interviewed and examined All labs, imaging and other results reviewed The patient appears comfortable ambulating around unit without difficulty Denies abd pain, nausea, and vomiting Bilirubin remains stable Plan for laparoscopic surgery tomorrow Exam: General: well developed, well nourished, alert and oriented x3 , in no acute distress Skin: Less icteric, no lesions, no stigmata chronic liver disease, no evidence of bleeding diathesis Lymphatic: No palpable lymphadenopathy HEENT: No lesions Cardiovascular: Heart: Regular rate and rhhthm, no murmurs, gallops or rubs. Peripheral pulses present within normal limits, no cyanosis, clubbing or edemas. No pulsatile abdominal mass Respiratory: Lungs clear to auscultation and percussion, no wheezing, no rubs Gastrointestinal and Liver: Abdomen: Soft, non tender, non-distended, no hernias , no masses, no organomegaly, no ascites, no guarding, no rebound tenderness, normoactive bowel sounds. Extremities: No cyanosis, clubbing, or edema. [Neurologic: Cranial nerves II-XII intact, motor within normal limits, sensory within normal limits. Reflexes within normal limits.] [Psychiatric: Alert and oriented x3, mood/affect/judgment adequate] Diagnostic Studies: Available data and images were reviewed personally. See reports. Significant results and findings are addressed here or in the assessment and plan. Problems: Exam/Review of Systems Vital Signs Vitals Vital Signs Date Time Temp Pulse Resp B/P Pulse Ox O2 Delivery O2 Flow Rate FiO2 06/14/17 07:25 98.3 83 16 116/59 98 Intake and Output 06/13/17 06/13/17 06/14/17 15:00 23:00 07:00 Intake Total 240 ml 600 ml Balance 240 ml 600 ml Results Result Diagram: 06/14/17 0553 06/13/17 0546 Results 24 hrs Laboratory Tests Test 06/14/17 05:53 White Blood Count 12.6 #H Red Blood Count 3.31 L Hemoglobin 9.9 L Hematocrit 30.3 L Mean Corpuscular Volume 91.5 Mean Corpuscular Hemoglobin 29.9 Mean Corpuscular Hemoglobin Concent 32.7 Red Cell Distribution Width 15.2 H Platelet Count 374 Mean Platelet Volume 10.3 Neutrophils % 64.0 Lymphocytes % 21.6 Monocytes % 10.6 Eosinophils % 2.1 Basophils % 0.4 Nucleated Red Blood Cells % 0.0 Neutrophils # 8.1 H Lymphocytes # 2.7 Monocytes # 1.3 H Eosinophils # 0.3 Basophils # 0.1 Nucleated Red Blood Cells # 0.0 Total Bilirubin 1.4 H Direct Bilirubin 0.30 #H Indirect Bilirubin 1.1 Aspartate Amino Transf (AST/SGOT) 49 H Alanine Aminotransferase (ALT/SGPT) 74 H Alkaline Phosphatase 400 H Total Protein 5.8 L Albumin 2.8 L Medications Medications Current Medications Morphine Sulfate (morphine) 2 mg Q4H PRN IV PAIN Last administered on 21:59; Admin Dose 2 MG; Start 05/19/17 at 16:30 Acetaminophen/ Hydrocodone Bitart ([place] (5/325)) 1 tab Q4H PRN PO PAIN Last administered on 06/04/17 00:23; Admin Dose 1 TAB; Start 05/19/17 at 16:30 Ondansetron HCl (Zofran Inj) 4 mg Q6H PRN IV NAUSEA AND/OR VOMITING; Start at 16:30 Trimethobenzamide HCl (Tigan) 200 mg Q6H PRN IM NAUSEA AND/OR VOMITING; Start 05/20/17 at 12:30 Enoxaparin Sodium (Lovenox) 40 mg DAILY SC Last administered on 06/14/17 09: 00; Admin Dose 40 MG; Start 05/20/17 at 13:00; Status Future hold Polyethylene Glycol (Miralax) 17 gm DAILY PO Last administered on 06/14/17 08 :50; Admin Dose 17 GM; Start 05/21/17 at 10:30 Hydroxyzine HCl (Atarax) 50 mg Q6H PRN PO ITCHING Last administered on 12:48; Admin Dose 50 MG; Start 05/21/17 at 10:30 Docusate Sodium (Colace) 100 mg BID PO Last administered on 06/14/17 08:50; Admin Dose 100 MG; Start 05/27/17 at 12:30 Cholestyramine Resin (Questran) 1 pkt TID PO Last administered on 06/14/17 12 :48; Admin Dose 1 PKT; Start 05/28/17 at 21:00 Ursodiol (Actigall) 300 mg BID PO Last administered on 06/14/17 08:50; Admin Dose 300 MG; Start 05/30/17 at 09:00 Zolpidem Tartrate (Ambien) 10 mg HS PRN PO INSOMNIA Last administered on 23:05; Admin Dose 10 MG; Start 05/30/17 at 23:00 KAHLIL MARSHALL Jun 14, 2017 13:48
[2017-06-14 14:28] VITALS: BP 108/63; RESP 16
--- NOTE | 2017-06-14 17:39 | RADRPT ---
PROCEDURE: XR Chest. CLINICAL INDICATION: Preoperative. TECHNIQUE: Two views. Frontal and lateral. COMPARISON: No prior study is available for comparison. FINDINGS: The lungs are clear. The heart size is normal. There is no pleural effusion. There is no pneumothorax. IMPRESSION: 1. Normal chest radiograph. RPTAT: QQ .Solis Schroeder MD, MD Date Time Electronically viewed and signed by .Solis Schroeder MD, on 06/14/2017 17:38 .R/
[2017-06-14 19:44] VITALS: BP 104/57; RESP 20
[2017-06-15 02:00] VITALS: BP 97/56; RESP 20
[2017-06-15 05:45] LABS: BASOPHIL # 0.1 10^3/ul (0.0-0.1); BASOPHILS % 0.5 % (0.0-2.0); EOSINOPHILS # 0.3 10^3/ul (0.0-0.5); EOSINOPHILS % 2.2 % (0.0-7.0); HEMATOCRIT 29.4 % (37.0-47.0); HEMOGLOBIN 9.7 g/dl (12.0-16.0); LYMPHOCYTES # 2.6 10^3/ul (0.8-2.9); LYMPHOCYTES % 20.3 % (15.0-51.0); MEAN CORPUSCULAR HEMOGLOBIN 30.2 pg (29.0-33.0); MEAN CORPUSCULAR VOLUME 91.6 fl (82.0-101.0); MEAN PLATELET VOLUME 10.6 fl (7.4-10.4); MONOCYTE # 1.2 10^3/ul (0.3-0.9); MONOCYTES % 9.9 % (0.0-11.0); NEUTROPHIL # 8.2 10^3/ul (1.6-7.5); NEUTROPHILS % 65.5 % (39.0-77.0); PLATELET COUNT 369 10^3/UL (140-415); RED BLOOD COUNT 3.21 10^6/ul (4.20-5.40); RED CELL DISTRIBUTION WIDTH 15.2 % (11.5-14.5); WHITE BLOOD COUNT 12.5 10^3/ul (4.8-10.8)
[2017-06-15 05:56] LABS: ALBUMIN 2.6 g/dl (3.3-4.9); BILIRUBIN,INDIRECT 0.6 mg/dl (0-1.1); BILIRUBIN,TOTAL 0.6 mg/dl (0.2-1.3); TOTAL PROTEIN 5.8 g/dl (6.1-8.1)
[2017-06-15 07:26] VITALS: BP 104/52; RESP 20
[2017-06-15] MEDS: URSODIOL 300 MG CAP PO SCH ×2 (08:33→21:51)
[2017-06-15] MEDS: ENOXAPARIN 40 MG/0.4 ML SYG SC SCH (08:33)
[2017-06-15] MEDS: POLYETHYLENE GLYCOL 17 GM PACKET PO SCH (08:33)
[2017-06-15] MEDS: CHOLESTYRAMINE 4 GM PACKET PO SCH ×3 (08:33→21:51)
[2017-06-15] MEDS: DOCUSATE SODIUM 100 MG CAP PO SCH ×2 (08:33→21:51)
--- NOTE | 2017-06-15 10:36 | PN ---
Date/Time of Note Date/Time of Note DATE: 06/15/17 TIME: 10:35 Assessment/Plan VTE Prophylaxis VTE Prophylaxis Intervention: LMWH Lines/Catheters IV Catheter Type (from [facility]): Saline Lock Urinary Cath still in place: No Assessment/Plan Chief Complaint/Hosp Course Assessment/Plan: 52-year-old F presented with abdominal pain, scleral icterus, found to have hyperbilirubinemia, and hepatic mass concerning for cholangiocarcinoma with possible tumor thrombus in intrahepatic portal vein though repeat imaging more consistent with external compression from tumor 1. hepatic mass thought likely to be cholangiocarcinoma: However, pathology from June 08 again has come back negative for malignancy. gen surg, GI, onc all following sp ERCP with stent placement ., repeat ERCP with stent removal/sphincterotomy /balloon dilatation of the biliary tree/cholangioscopy with biopsies plus stent placement 2 on 06/08/17. - plan is for laparoscopic, possible open exploration for the purpose of biopsying patient's lesion, likely under ultrasound guidance, today, follow-up postop recommendations 2. ?portal vein thrombus? repeat imaging more consistent with external compression-monitor for now 3. Obstructive jaundice with hyperbilirubinemia secondary to above. - Monitor LFTs, they are trending down nicely Lovenox for DVT prophylaxis Problems: Subjective 24 Hr Interval Summary Free Text/Dictation Patient awaiting surgical procedure for later today, no acute events overnight. Exam/Review of Systems Vital Signs Vitals Vital Signs Date Time Temp Pulse Resp B/P Pulse Ox O2 Delivery O2 Flow Rate FiO2 06/15/17 07:26 98.3 79 20 104/52 100 Intake and Output 06/14/17 06/14/17 06/15/17 15:00 23:00 07:00 Intake Total 1280 ml 1200 ml Balance 1280 ml 1200 ml Exam nad, lying in bed, alert resp nonlabored S1, S2 heard no abd distension no edema Less +jaundice Results Result Diagram: 06/15/17 0453 06/13/17 0546 Results 24 hrs Laboratory Tests Test 06/15/17 04:53 White Blood Count 12.5 H Red Blood Count 3.21 L Hemoglobin 9.7 L Hematocrit 29.4 L Mean Corpuscular Volume 91.6 Mean Corpuscular Hemoglobin 30.2 Mean Corpuscular Hemoglobin Concent 33.0 Red Cell Distribution Width 15.2 H Platelet Count 369 Mean Platelet Volume 10.6 H Neutrophils % 65.5 Lymphocytes % 20.3 Monocytes % 9.9 Eosinophils % 2.2 Basophils % 0.5 Nucleated Red Blood Cells % 0.0 Neutrophils # 8.2 H Lymphocytes # 2.6 Monocytes # 1.2 H Eosinophils # 0.3 Basophils # 0.1 Nucleated Red Blood Cells # 0.0 Total Bilirubin 0.6 Direct Bilirubin 0.00 # Indirect Bilirubin 0.6 Aspartate Amino Transf (AST/SGOT) 46 Alanine Aminotransferase (ALT/SGPT) 73 H Alkaline Phosphatase 361 H Total Protein 5.8 L Albumin 2.6 L Medications Medications Current Medications Morphine Sulfate (morphine) 2 mg Q4H PRN IV PAIN Last administered on 21:59; Admin Dose 2 MG; Start 05/19/17 at 16:30 Acetaminophen/ Hydrocodone Bitart ([place] (5/325)) 1 tab Q4H PRN PO PAIN Last administered on 06/04/17 00:23; Admin Dose 1 TAB; Start 05/19/17 at 16:30 Ondansetron HCl (Zofran Inj) 4 mg Q6H PRN IV NAUSEA AND/OR VOMITING; Start at 16:30 Trimethobenzamide HCl (Tigan) 200 mg Q6H PRN IM NAUSEA AND/OR VOMITING; Start 05/20/17 at 12:30 Enoxaparin Sodium (Lovenox) 40 mg DAILY SC Last administered on 06/14/17 09: 00; Admin Dose 40 MG; Start 05/20/17 at 13:00; Status Future hold Polyethylene Glycol (Miralax) 17 gm DAILY PO Last administered on 06/14/17 08 :50; Admin Dose 17 GM; Start 05/21/17 at 10:30 Hydroxyzine HCl (Atarax) 50 mg Q6H PRN PO ITCHING Last administered on 21:16; Admin Dose 50 MG; Start 05/21/17 at 10:30 Docusate Sodium (Colace) 100 mg BID PO Last administered on 06/14/17 21:15; Admin Dose 100 MG; Start 05/27/17 at 12:30 Cholestyramine Resin (Questran) 1 pkt TID PO Last administered on 06/14/17 21 :15; Admin Dose 1 PKT; Start 05/28/17 at 21:00 Ursodiol (Actigall) 300 mg BID PO Last administered on 06/14/17 21:15; Admin Dose 300 MG; Start 05/30/17 at 09:00 Zolpidem Tartrate (Ambien) 10 mg HS PRN PO INSOMNIA Last administered on 23:05; Admin Dose 10 MG; Start 05/30/17 at 23:00 HERMAN MCNULTY Jun 15, 2017 10:36
--- NOTE | 2017-06-15 13:15 | PN ---
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 Dalal Subjective: Course reviewed with nursing staff Patient interviewed and examined All labs, imaging and other results reviewed The patient appears comfortable family at bedside Plan for laparoscopic surgery today No complaints at this time Bilirubin now within normal limits LFTs stable Exam: General: well developed, well nourished, alert and oriented x3 , in no acute distress Skin: Less icteric, no lesions, no stigmata chronic liver disease, no evidence of bleeding diathesis Lymphatic: No palpable lymphadenopathy HEENT: No lesions Cardiovascular: Heart: Regular rate and rhhthm, no murmurs, gallops or rubs. Peripheral pulses present within normal limits, no cyanosis, clubbing or edemas. No pulsatile abdominal mass Respiratory: Lungs clear to auscultation and percussion, no wheezing, no rubs Gastrointestinal and Liver: Abdomen: Soft, non tender, non-distended, no hernias , no masses, no organomegaly, no ascites, no guarding, no rebound tenderness, normoactive bowel sounds. Extremities: No cyanosis, clubbing, or edema. [Neurologic: Cranial nerves II-XII intact, motor within normal limits, sensory within normal limits. Reflexes within normal limits.] [Psychiatric: Alert and oriented x3, mood/affect/judgment adequate] Diagnostic Studies: Available data and images were reviewed personally. See reports. Significant results and findings are addressed here or in the assessment and plan. Problems: Exam/Review of Systems Vital Signs Vitals Vital Signs Date Time Temp Pulse Resp B/P Pulse Ox O2 Delivery O2 Flow Rate FiO2 06/15/17 07:26 98.3 79 20 104/52 100 Intake and Output 06/14/17 06/14/17 06/15/17 15:00 23:00 07:00 Intake Total 1280 ml 1200 ml Balance 1280 ml 1200 ml Results Result Diagram: 06/15/17 0453 06/13/17 0546 Results 24 hrs Laboratory Tests Test 06/15/17 04:53 White Blood Count 12.5 H Red Blood Count 3.21 L Hemoglobin 9.7 L Hematocrit 29.4 L Mean Corpuscular Volume 91.6 Mean Corpuscular Hemoglobin 30.2 Mean Corpuscular Hemoglobin Concent 33.0 Red Cell Distribution Width 15.2 H Platelet Count 369 Mean Platelet Volume 10.6 H Neutrophils % 65.5 Lymphocytes % 20.3 Monocytes % 9.9 Eosinophils % 2.2 Basophils % 0.5 Nucleated Red Blood Cells % 0.0 Neutrophils # 8.2 H Lymphocytes # 2.6 Monocytes # 1.2 H Eosinophils # 0.3 Basophils # 0.1 Nucleated Red Blood Cells # 0.0 Total Bilirubin 0.6 Direct Bilirubin 0.00 # Indirect Bilirubin 0.6 Aspartate Amino Transf (AST/SGOT) 46 Alanine Aminotransferase (ALT/SGPT) 73 H Alkaline Phosphatase 361 H Total Protein 5.8 L Albumin 2.6 L Medications Medications Current Medications Morphine Sulfate (morphine) 2 mg Q4H PRN IV PAIN Last administered on 21:59; Admin Dose 2 MG; Start 05/19/17 at 16:30 Acetaminophen/ Hydrocodone Bitart ([place] (5/325)) 1 tab Q4H PRN PO PAIN Last administered on 06/04/17 00:23; Admin Dose 1 TAB; Start 05/19/17 at 16:30 Ondansetron HCl (Zofran Inj) 4 mg Q6H PRN IV NAUSEA AND/OR VOMITING; Start at 16:30 Trimethobenzamide HCl (Tigan) 200 mg Q6H PRN IM NAUSEA AND/OR VOMITING; Start 05/20/17 at 12:30 Enoxaparin Sodium (Lovenox) 40 mg DAILY SC Last administered on 06/14/17 09: 00; Admin Dose 40 MG; Start 05/20/17 at 13:00; Status Future hold Polyethylene Glycol (Miralax) 17 gm DAILY PO Last administered on 06/14/17 08 :50; Admin Dose 17 GM; Start 05/21/17 at 10:30 Hydroxyzine HCl (Atarax) 50 mg Q6H PRN PO ITCHING Last administered on 21:16; Admin Dose 50 MG; Start 05/21/17 at 10:30 Docusate Sodium (Colace) 100 mg BID PO Last administered on 06/14/17 21:15; Admin Dose 100 MG; Start 05/27/17 at 12:30 Cholestyramine Resin (Questran) 1 pkt TID PO Last administered on 06/14/17 21 :15; Admin Dose 1 PKT; Start 05/28/17 at 21:00 Ursodiol (Actigall) 300 mg BID PO Last administered on 06/14/17 21:15; Admin Dose 300 MG; Start 05/30/17 at 09:00 Zolpidem Tartrate (Ambien) 10 mg HS PRN PO INSOMNIA Last administered on 23:05; Admin Dose 10 MG; Start 05/30/17 at 23:00 KAHLIL MARSHALL Jun 15, 2017 13:15
[2017-06-15 13:42] VITALS: BP 108/71; RESP 18
--- NOTE | 2017-06-15 15:27 | HPN ---
Date/Time of Note Date/Time of Note DATE: 06/15/17 TIME: 15:27 Interval H&P Admission Note Pt. seen H&P reviewed: No system changes Pt. seen H&P reviewed. No system changes (I attest that I have seen and examined the patient and reviewed the operation in detail, as well as its risks , benefits and alternatives of the operation). I attest that I have seen and examined the patient and reviewed in detail the operation, and its associated risks, benefits and alternative. I have answered all the patient's questions to the best of my ability and the patient wishes to proceed. Please refer to rest of electronic medical record for additional updates. ABBY ROMAN M.D. Jun 15, 2017 15:27
[2017-06-15] MEDS ORDERED: SUCCINYLCHOLINE CHLORIDE 100 MG/5 ML SYG IV ONE (15:52)
[2017-06-15] MEDS ORDERED: PROPOFOL 20 ML ONE (15:52)
[2017-06-15] MEDS ORDERED: MEPERIDINE 100 MG INJ ONE (15:52)
[2017-06-15] MEDS ORDERED: NEOSTIGMINE 3 MG/3 ML SYRINGE ONE (15:52)
[2017-06-15] MEDS ORDERED: GLYCOPYRROLATE 0.4 MG INJ ONE ×2 (15:52→17:08)
[2017-06-15] MEDS ORDERED: ROCURONIUM 50 MG INJ ONE (15:52)
[2017-06-15] MEDS ORDERED: LIDOCAINE 2% (SDV) 5 ML INJ ONE (15:52)
[2017-06-15] MEDS ORDERED: HYDROmorphONE (0.2 MG/ML) 10ML SYG IV PRN ×3 (16:30)
[2017-06-15] MEDS ORDERED: MIDAZOLAM 1 MG/ML 2 ML INJ IV PRN (16:30)
[2017-06-15] MEDS ORDERED: METOCLOPRAMIDE 10 MG INJ IV PRN (16:30)
[2017-06-15] MEDS ORDERED: MEPERIDINE 25 MG INJ IV PRN (16:30)
[2017-06-15] MEDS ORDERED: OXYCODONE/ACETAMINOPHEN (5/325) TAB PO PRN ×2 (16:30)
[2017-06-15] MEDS ORDERED: EPHEDrine SULFATE 50 MG/5 ML SYG IV PRN (16:30)
[2017-06-15] MEDS ORDERED: LABETALOL HCL 20MG INJ IV PRN (16:30)
[2017-06-15] MEDS ORDERED: FENTAnyl 50 MCG/ML VIAL IV PRN ×3 (16:30)
[2017-06-15] MEDS ORDERED: hydrALAzine 20 MG INJ IV PRN (16:30)
[2017-06-15] MEDS ORDERED: ONDANSETRON 4 MG INJ IV PRN (16:30)
[2017-06-15] MEDS ORDERED: CEFAZOLIN 1 GM INJ ONE (16:44)
[2017-06-15] MEDS ORDERED: ONDANSETRON 4 MG INJ ONE (17:08)
[2017-06-15] MEDS ORDERED: METOCLOPRAMIDE 10 MG INJ ONE (17:08)
[2017-06-15 17:30] VITALS: BP 123/67; PULSE 107; RESP 18
[2017-06-15] MEDS ORDERED: BISACODYL 10 MG SUPP PR PRN (17:30)
[2017-06-15] MEDS ORDERED: DOCUSATE SODIUM 100 MG CAP PO PRN (17:30)
[2017-06-15] MEDS ORDERED: NA PHOSPHATE/BIPHOS 133 ML ENEMA PR PRN (17:30)
[2017-06-15] MEDS ORDERED: HYDROmorphONE 1 MG/ML SYG IV PRN (17:30)
--- NOTE | 2017-06-15 17:46 | OPR ---
Date/Time of Note Date/Time of Note DATE: 06/15/17 TIME: 17:28 Operative Report Preoperative Diagnosis n Postoperative Diagnosis n Surgeon see signature line Housekeeping/Laundry n Anesthesia Type: other Estimated Blood Loss: other Transfusion none Specimen n Grafts/Implants none Complications none Procedure Description [facility] INPATIENT OPER[facility]IVE NOTE PLACE OF SERVICE: [facility] DATE OF SURGERY: 06/15/2017 PREOPERATIVE DIAGNOSIS: 1. Hilar cholangiocarcinoma, s/p ERCP with stenting x2 with biopsy (second one with spyglass), but negative x2 for malignancy 2. BMI 25 3. Status post left breast biopsy 4. 5. Hypercholesterolemia POSTOPERATIVE DIAGNOSIS: 1. Hilar cholangiocarcinoma, s/p ERCP with stenting x2 with biopsy (second one with spyglass), but negative x2 for malignancy; carcinoma, widely spread throughout the liver 2. BMI 25 3. Status post left breast biopsy 4. 5. Hypercholesterolemia OPERATION: 1. Laparoscopic wedge liver biopsy SURGEON: Abby Roman M.D. PUBLIC RELATIONS WRITER: None ANESTHESIA: General endotracheal tube anesthesia ANESTHESIOLOGIST: Lisa Mercado M.D. BRIEF SUMMARY: An otherwise uncomplicated laparoscopic exploration with liver wedge biopsy was performed with findings of widely spread malignancy throughout the liver. Updated clinical summary: A very-pleasant but unfortunate 52-year-old lady without significant other major comorbidities, presenting with a central hilar cholangiocarcinoma which unfortunately involves the first and perhaps even the second branches of both the left and right biliary systems, not amenable to surgical resection. S/p ERCP with stenting x2 with biopsy (second one with spyglass). Because there were no other good options of biopsying her (included two separate discussions with IR with Dr. Schroeder, and the mentioned ERCP attempts x2 with Dr. Dalal), I worked with the team to get her scheduled for an operative laparoscopic attempt at biopsying her lesion. Comorbidities: 1. Hilar cholangiocarcinoma, s/p ERCP with stenting x2 with biopsy (second one with spyglass), but negative x2 for malignancy 2. BMI 25 3. Status post left breast biopsy 4. 5. Hypercholesterolemia BRIEF HISTORY: The patient is a very pleasant but unfortunate 52-year-old lady without significant other major comorbidities, presenting with a central hilar cholangiocarcinoma which unfortunately involves the first and perhaps even the second branches of both the left and right biliary systems, not amenable to surgical resection. S/p ERCP with stenting x2 with biopsy (second one with spyglass). Because there were no other good options of biopsying her (included two separate discussions with IR with Dr. Schroeder, and the mentioned ERCP attempts x2 with Dr. Dalal), I worked with the team to get her scheduled for an operative laparoscopic attempt at biopsying her lesion. We held a multidisciplinary discussion about her care and the consensus of the group was to stay aggressive with surgical attempt at biopsy. I met with the patient and family and counseled them regarding the possible options of treatment, and I strongly suggested a laparoscopic evaluation of the liver and attempt at biopsy. We reviewed the operation in detail as well as the risks, benefits, alternatives, and expected outcomes of this operation. After careful consideration of all the risks, benefits, and alternatives, the patient and family appeared to understand those risks and wished to proceed with surgery. For a detailed report of my consultation with patient and family, please refer to my separate consultation note. STATEMENT OF THE INFORMED CONSENT: The patient and family appeared to understand the risks of the operation to include, but not be limited to risk of postoperative pain and scar tissue, possible infection or bleeding requiring other interventions such as opening the wound, placement of drainage catheters, or other operative interventions; possible injury to surrounding to structures including bowel, bladder, bile duct, or blood vessels, or solid organs such as liver, kidney, or pancreas requiring other interventions or procedures; possible leakage of bile from anastomotic sites or suture lines causing significant increase in morbidity and mortality and requiring multiple interventions including but not limited to, placement of drainage catheters, imaging studies, as well as operative interventions; possible other source of sepsis such as urinary tract infections or pneumonias, or other sources of potentially life threatening problems such as deep venous thrombus formation causing pulmonary embolism, myocardial arrhythmias and infarctions, and even . We also briefly discussed the potential need to receive blood products and their potential complications of blood transfusion reactions, transmission of infections, or other complications. After careful consideration of all their options, the patient and family appeared to understand and wished to proceed with surgery. DESCRIPTION OF PROCEDURE: After obtaining informed consent, the patient was brought into the operating room and was placed in a normal supine position, where successful general endotracheal tube anesthesia was performed. Intravenous access was already in place and intravenous antimicrobials had been appropriately chosen and dosed prior to the operation. The patient's abdominal skin was prepped and draped from the nipple line down to the level of the upper thighs in the usual sterile fashion. We then called a surgical time-out where the patient's identification, date of , nature of the operation, allergies , presence of intravenous antimicrobials, presence of needed equipment, and any other concerns were reviewed and agreed upon by all members of the operating room team. We then started the operation by placing a 5 mm skin incision in the right upper quadrant midclavicular subcostal region and placed a 5 mm applied medical trocar into the peritoneal space visualizing all the layers of the abdominal wall as we entered using direct entry technique. We were able to visualize both the surface of the left lobe of the liver as well as the right lobe of the liver and could see widely metastatic malignant process on the anterior and posterior surfaces of the liver. Interestingly, there were no obvious other metastatic process on the visible peritoneal or bowel surfaces. There was a spot on the gallbladder serosal wall. I then went ahead and injected the other 5 mm trocar site in the upper midline subxiphoid area with 1/2 percent Marcaine with epi and inserted another applied medical trocar through a 5 mm skin incision under direct visualization. I then did a wedge liver resection with cold scissors on a union representative portion of wedge of segment 4B of liver and sent the specimen for frozen section, which unfortunately returned as malignancy. We then ensured adequate hemostasis and bile stasis, ensured that we had removed all her equipment from the abdominal cavity prior to closure of the skin using 4-0 Monocryl suture. Light dressing was then applied. At the end of the operation, both the sponge count and needle count were reportedly correct x2. The patient tolerated the procedure without any reported complications. ESTIMATED BLOOD LOSS: 5 mL BLOOD OR BLOOD PRODUCT TRANSFUSIONS: None to my knowledge. SPECIMENS: 1. Segment 4b of liver wedge liver biopsy COMPLICATIONS: None. DISPOSITION: Recovery area. Disclaimers: 1. Inadvertent spelling and grammatical errors are likely due to electronic health record (EHR)/dictation software used and do not reflect on the quality of delivered patient care. 2. The electronic timestamp recorded on this note does not necessarily reflect the actual date and time of the visit or the service. 3. Portions of this note may have been created through electronic templates and computer algorithms that might bring in information either from the system or from other physicians and providers. Please note that such information may or may not contain errors, the occurrence of which are outside of my control. In general (but not always) this happens either in the beginning or at the end of the note. The portion of the note that I have created are generally done in 1 continuous block of text, flanked at the beginning and at the end by " ", and entered into one field in the EHR. 4. There may be other unanticipated errors in the note that are outside of my control. I can only attest to the portions of the note that I have created. ABBY ROMAN M.D. Jun 15, 2017 17:45
[2017-06-15 18:24] VITALS: BP 125/70; PULSE 108; RESP 18
[2017-06-15 19:23] VITALS: BP 112/65; RESP 16
[2017-06-15] MEDS: HYDROCODONE/APAP (5/325) TAB PO PRN (19:45)
[2017-06-15] MEDS: hydrOXYzine HCL 25 MG TAB PO PRN (21:51)
[2017-06-16] MEDS: HYDROCODONE/APAP (5/325) TAB PO PRN (03:04)
[2017-06-16 05:42] LABS: BASOPHILS % 0.3 % (0.0-2.0); EOSINOPHILS # 0.2 10^3/ul (0.0-0.5); EOSINOPHILS % 1.4 % (0.0-7.0); HEMATOCRIT 27.8 % (37.0-47.0); HEMOGLOBIN 9.4 g/dl (12.0-16.0); LYMPHOCYTES # 1.8 10^3/ul (0.8-2.9); LYMPHOCYTES % 13.4 % (15.0-51.0); MEAN CORPUSCULAR HEMOGLOBIN 30.8 pg (29.0-33.0); MEAN CORPUSCULAR HGB CONC 33.8 g/dl (32.0-37.0); MEAN CORPUSCULAR VOLUME 91.1 fl (82.0-101.0); MEAN PLATELET VOLUME 10.3 fl (7.4-10.4); MONOCYTE # 1.2 10^3/ul (0.3-0.9); MONOCYTES % 9.1 % (0.0-11.0); NEUTROPHIL # 10.2 10^3/ul (1.6-7.5); NEUTROPHILS % 74.1 % (39.0-77.0); PLATELET COUNT 375 10^3/UL (140-415); RED BLOOD COUNT 3.05 10^6/ul (4.20-5.40); WHITE BLOOD COUNT 13.7 10^3/ul (4.8-10.8)
[2017-06-16 06:22] LABS: ALBUMIN 2.7 g/dl (3.3-4.9); BILIRUBIN,DIRECT 0.2 mg/dl (0.00-0.20); BILIRUBIN,INDIRECT 0.8 mg/dl (0-1.1); TOTAL PROTEIN 6.3 g/dl (6.1-8.1)
[2017-06-16 07:55] VITALS: BP 102/58; RESP 16
[2017-06-16] MEDS: DOCUSATE SODIUM 100 MG CAP PO SCH ×2 (09:34→21:02)
[2017-06-16] MEDS: URSODIOL 300 MG CAP PO SCH ×2 (09:34→21:02)
[2017-06-16] MEDS: CHOLESTYRAMINE 4 GM PACKET PO SCH ×3 (09:34→23:14)
[2017-06-16] MEDS: POLYETHYLENE GLYCOL 17 GM PACKET PO SCH (09:34)
[2017-06-16] MEDS: ENOXAPARIN 40 MG/0.4 ML SYG SC SCH (09:47)
--- NOTE | 2017-06-16 10:04 | PN ---
Date/Time of Note Date/Time of Note DATE: 06/16/17 TIME: 10:02 Assessment/Plan VTE Prophylaxis VTE Prophylaxis Intervention: LMWH Lines/Catheters IV C[facility]ter Type (from [facility]): Peripheral IV Urinary Cath still in place: No Assessment/Plan Chief Complaint/Hosp Course Assessment/Plan: 52-year-old F presented with abdominal pain, scleral icterus, found to have hyperbilirubinemia, and hepatic mass concerning for cholangiocarcinoma with possible tumor thrombus in intrahepatic portal vein though repeat imaging more consistent with external compression from tumor 1. hepatic mass thought likely to be cholangiocarcinoma: However, pathology from June 08 again has come back negative for malignancy. gen surg, GI, onc all following sp ERCP with stent placement ., repeat ERCP with stent removal/sphincterotomy /balloon dilatation of the biliary tree/cholangioscopy with biopsies plus stent placement 2 on 06/08/17. Again patient is status post laparoscopic exploration of abdomen with biopsy performed yesterday. -Pain control, diet per surgery recommendations, follow-up postop recommendations - follow-up biopsy results 2. ?portal vein thrombus? repeat imaging more consistent with external compression-monitor for now 3. Obstructive jaundice with hyperbilirubinemia secondary to above. - Monitor LFTs, they are trending down nicely Lovenox for DVT prophylaxis Problems: Subjective 24 Hr Interval Summary Free Text/Dictation Patient had laparoscopic surgery with biopsy performed yesterday. Complaining of some right upper quadrant pain at surgical site today. Tolerating liquid diet presently. Exam/Review of Systems Vital Signs Vitals Vital Signs Date Time Temp Pulse Resp B/P Pulse Ox O2 Delivery O2 Flow Rate FiO2 06/16/17 07:55 98.2 96 16 102/58 98 06/15/17 18:24 Nasal Cannula 2.0 Intake and Output 06/15/17 06/15/17 06/16/17 15:00 23:00 07:00 Intake Total 400 ml Output Total 5 ml Balance 395 ml Exam nad, lying in bed, alert resp nonlabored S1, S2 heard + abd pain RUQ, no R or G no edema Less +jaundice Results Result Diagram: 06/16/17 0509 06/13/17 0546 Results 24 hrs Laboratory Tests Test 06/16/17 05:09 White Blood Count 13.7 H Red Blood Count 3.05 L Hemoglobin 9.4 L Hematocrit 27.8 L Mean Corpuscular Volume 91.1 Mean Corpuscular Hemoglobin 30.8 Mean Corpuscular Hemoglobin Concent 33.8 Red Cell Distribution Width 15.0 H Platelet Count 375 Mean Platelet Volume 10.3 Neutrophils % 74.1 Lymphocytes % 13.4 L Monocytes % 9.1 Eosinophils % 1.4 Basophils % 0.3 Nucleated Red Blood Cells % 0.0 Neutrophils # 10.2 H Lymphocytes # 1.8 Monocytes # 1.2 H Eosinophils # 0.2 Basophils # 0.0 Nucleated Red Blood Cells # 0.0 Total Bilirubin 1.0 Direct Bilirubin 0.20 # Indirect Bilirubin 0.8 Aspartate Amino Transf (AST/SGOT) 76 H Alanine Aminotransferase (ALT/SGPT) 84 H Alkaline Phosphatase 382 H Total Protein 6.3 Albumin 2.7 L Medications Medications Current Medications Morphine Sulfate (morphine) 2 mg Q4H PRN IV PAIN Last administered on 21:59; Admin Dose 2 MG; Start 05/19/17 at 16:30 Acetaminophen/ Hydrocodone Bitart ([place] (5/325)) 1 tab Q4H PRN PO PAIN Last administered on 06/04/17 00:23; Admin Dose 1 TAB; Start 05/19/17 at 16:30 Ondansetron HCl (Zofran Inj) 4 mg Q6H PRN IV NAUSEA AND/OR VOMITING; Start at 16:30 Trimethobenzamide HCl (Tigan) 200 mg Q6H PRN IM NAUSEA AND/OR VOMITING; Start 05/20/17 at 12:30 Enoxaparin Sodium (Lovenox) 40 mg DAILY SC Last administered on 06/16/17 09: 47; Admin Dose 40 MG; Start 05/20/17 at 13:00; Status Future hold Polyethylene Glycol (Miralax) 17 gm DAILY PO Last administered on 06/16/17 09 :34; Admin Dose 17 GM; Start 05/21/17 at 10:30 Hydroxyzine HCl (Atarax) 50 mg Q6H PRN PO ITCHING Last administered on 21:51; Admin Dose 50 MG; Start 05/21/17 at 10:30 Docusate Sodium (Colace) 100 mg BID PO Last administered on 06/16/17 09:34; Admin Dose 100 MG; Start 05/27/17 at 12:30 Cholestyramine Resin (Questran) 1 pkt TID PO Last administered on 06/16/17 09 :34; Admin Dose 1 PKT; Start 05/28/17 at 21:00 Ursodiol (Actigall) 300 mg BID PO Last administered on 06/16/17 09:34; Admin Dose 300 MG; Start 05/30/17 at 09:00 Zolpidem Tartrate (Ambien) 10 mg HS PRN PO INSOMNIA Last administered on 23:05; Admin Dose 10 MG; Start 05/30/17 at 23:00 Acetaminophen/ Hydrocodone Bitart ([place] (5/325)) 1 tab Q4H PRN PO PAIN LEVEL 4 -7; Start 06/15/17 at 17:30 Acetaminophen/ Hydrocodone Bitart ([place] (5/325)) 2 tab Q4H PRN PO PAIN LEVEL 7 -10 Last administered on 06/16/17 03:04; Admin Dose 2 TAB; Start 06/15/17 at 17:30 Hydromorphone HCl (Dilaudid) 0.5 mg Q2 PRN IV PAIN; Start 06/15/17 at 17:30 Hydromorphone HCl (Dilaudid) 1 mg Q2 PRN IV PAIN; Start 06/15/17 at 17:30 Docusate Sodium (Colace) 100 mg BID PRN PO CONSTIPATION; Start 06/15/17 at 17: 30 Bisacodyl (Dulcolax Supp) 10 mg BID PRN ND CONSTIPATION; Start 06/15/17 at 17: 30 Sodium Biphosphate/ Sodium Phosphate (Fleet Enema) 133 ml BID PRN ND CONSTIPATION; Start 06/15/17 at 17:30 HERMAN MCNULTY Jun 16, 2017 10:04
[2017-06-16] MEDS: HYDROmorphONE 0.5 MG/0.5 ML SYG IV PRN ×2 (10:18→21:03)
[2017-06-16] MEDS: hydrOXYzine HCL 25 MG TAB PO PRN ×2 (10:19→21:02)
[2017-06-16 14:10] VITALS: BP 102/61; RESP 16
--- NOTE | 2017-06-16 16:00 | RADRPT ---
Vent Rate: 86 bpm RR Interval: 0 msec [place] Interval: 134 msec QRS Duration: 72 msec QT Interval: 356 msec QTC Interval: 426 msec P-R-T [place]: 60 - 57 - 71 degrees Normal sinus rhythm Normal ECG Electronically Signed By: Naren Roach [id number]
--- NOTE | 2017-06-16 17:26 | PN ---
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 Dalal Subjective: Course reviewed with nursing staff Patient interviewed and examined All labs, imaging and other results reviewed The patient appears comfortable resting in bed and son C/o some gas improved after ambulation and son at bedside Status post laparoscopic surgery with liver biopsy No complaints at this time Bilirubin now within normal limits Minimal change in LFTs status post surgery (to be expected) Exam: General: well developed, well nourished, alert and oriented x3 , in no acute distress Skin: Less icteric, no lesions, no stigmata chronic liver disease, no evidence of bleeding diathesis Lymphatic: No palpable lymphadenopathy HEENT: No lesions Cardiovascular: Heart: Regular rate and rhhthm, no murmurs, gallops or rubs. Peripheral pulses present within normal limits, no cyanosis, clubbing or edemas. No pulsatile abdominal mass Respiratory: Lungs clear to auscultation and percussion, no wheezing, no rubs Gastrointestinal and Liver: Abdomen: Soft, non tender, non-distended, no hernias , no masses, no organomegaly, no ascites, no guarding, no rebound tenderness, normoactive bowel sounds. Extremities: No cyanosis, clubbing, or edema. [Neurologic: Cranial nerves II-XII intact, motor within normal limits, sensory within normal limits. Reflexes within normal limits.] [Psychiatric: Alert and oriented x3, mood/affect/judgment adequate] Diagnostic Studies: Available data and images were reviewed personally. See reports. Significant results and findings are addressed here or in the assessment and plan. Problems: Exam/Review of Systems Vital Signs Vitals Vital Signs Date Time Temp Pulse Resp B/P Pulse Ox O2 Delivery O2 Flow Rate FiO2 06/16/17 14:10 98.1 93 16 102/61 96 06/15/17 18:24 Nasal Cannula 2.0 Intake and Output 06/15/17 06/15/17 06/16/17 15:00 23:00 07:00 Intake Total 400 ml Output Total 5 ml Balance 395 ml Results Result Diagram: 06/16/17 0509 06/13/17 0546 Results 24 hrs Laboratory Tests Test 06/16/17 05:09 White Blood Count 13.7 H Red Blood Count 3.05 L Hemoglobin 9.4 L Hematocrit 27.8 L Mean Corpuscular Volume 91.1 Mean Corpuscular Hemoglobin 30.8 Mean Corpuscular Hemoglobin Concent 33.8 Red Cell Distribution Width 15.0 H Platelet Count 375 Mean Platelet Volume 10.3 Neutrophils % 74.1 Lymphocytes % 13.4 L Monocytes % 9.1 Eosinophils % 1.4 Basophils % 0.3 Nucleated Red Blood Cells % 0.0 Neutrophils # 10.2 H Lymphocytes # 1.8 Monocytes # 1.2 H Eosinophils # 0.2 Basophils # 0.0 Nucleated Red Blood Cells # 0.0 Total Bilirubin 1.0 Direct Bilirubin 0.20 # Indirect Bilirubin 0.8 Aspartate Amino Transf (AST/SGOT) 76 H Alanine Aminotransferase (ALT/SGPT) 84 H Alkaline Phosphatase 382 H Total Protein 6.3 Albumin 2.7 L Medications Medications Current Medications Morphine Sulfate (morphine) 2 mg Q4H PRN IV PAIN Last administered on 21:59; Admin Dose 2 MG; Start 05/19/17 at 16:30 Acetaminophen/ Hydrocodone Bitart ([place] (5/325)) 1 tab Q4H PRN PO PAIN Last administered on 06/04/17 00:23; Admin Dose 1 TAB; Start 05/19/17 at 16:30 Ondansetron HCl (Zofran Inj) 4 mg Q6H PRN IV NAUSEA AND/OR VOMITING; Start at 16:30 Trimethobenzamide HCl (Tigan) 200 mg Q6H PRN IM NAUSEA AND/OR VOMITING; Start 05/20/17 at 12:30 Enoxaparin Sodium (Lovenox) 40 mg DAILY SC Last administered on 06/16/17 09: 47; Admin Dose 40 MG; Start 05/20/17 at 13:00; Status Future hold Polyethylene Glycol (Miralax) 17 gm DAILY PO Last administered on 06/16/17 09 :34; Admin Dose 17 GM; Start 05/21/17 at 10:30 Hydroxyzine HCl (Atarax) 50 mg Q6H PRN PO ITCHING Last administered on 10:19; Admin Dose 50 MG; Start 05/21/17 at 10:30 Docusate Sodium (Colace) 100 mg BID PO Last administered on 06/16/17 09:34; Admin Dose 100 MG; Start 05/27/17 at 12:30 Cholestyramine Resin (Questran) 1 pkt TID PO Last administered on 06/16/17 13 :22; Admin Dose 1 PKT; Start 05/28/17 at 21:00 Ursodiol (Actigall) 300 mg BID PO Last administered on 06/16/17 09:34; Admin Dose 300 MG; Start 05/30/17 at 09:00 Zolpidem Tartrate (Ambien) 10 mg HS PRN PO INSOMNIA Last administered on 23:05; Admin Dose 10 MG; Start 05/30/17 at 23:00 Acetaminophen/ Hydrocodone Bitart ([place] (5/325)) 1 tab Q4H PRN PO PAIN LEVEL 4 -7; Start 06/15/17 at 17:30 Acetaminophen/ Hydrocodone Bitart ([place] (5/325)) 2 tab Q4H PRN PO PAIN LEVEL 7 -10 Last administered on 06/16/17 03:04; Admin Dose 2 TAB; Start 06/15/17 at 17:30 Hydromorphone HCl (Dilaudid) 0.5 mg Q2 PRN IV PAIN Last administered on 10:18; Admin Dose 0.5 MG; Start 06/15/17 at 17:30 Hydromorphone HCl (Dilaudid) 1 mg Q2 PRN IV PAIN; Start 06/15/17 at 17:30 Docusate Sodium (Colace) 100 mg BID PRN PO CONSTIPATION; Start 06/15/17 at 17: 30 Bisacodyl (Dulcolax Supp) 10 mg BID PRN [place] CONSTIPATION; Start 06/15/17 at 17: 30 Sodium Biphosphate/ Sodium Phosphate (Fleet Enema) 133 ml BID PRN [place] CONSTIPATION; Start 06/15/17 at 17:30 KAHLIL MARSHALL Jun 16, 2017 17:26
[2017-06-16 20:10] VITALS: BP 123/74; RESP 18
--- NOTE | 2017-06-16 20:39 | PN ---
Date/Time of Note Date/Time of Note DATE: 06/16/17 TIME: 20:39 Assessment/Plan Lines/Catheters IV Catheter Type (from [facility]): Peripheral IV [place] in Place (from [facility]): No Assessment/Plan Assessment/Plan [facility] Progress Note Date of Service: 06/16/2017 Place of service: [place] [id number] [address] Today's Assessment & Plan: Overall stable and doing relatively well without any obvious postoperative complications. Discussed findings with the patient and family and answered multiple questions. Patient and family appear to understand and agreed with plans. With above assessment, I've recommended the followin. Set up for internal metallic stenting of the common bile duct 2. Set up for outpatient chemotherapy 3. Multidisciplinary tumor board presentation Thank you very much for having me involved in the care of this very pleasant patient and wonderful family. If you have any questions, please feel free to contact me at [phone]. Nature of presenting problem: High severity Please note that, given the extensive number of diagnoses or management options , the extensive amount and/or complexity of data needed to be reviewed, and high risk of complications and/or morbidity or mortality, this qualifies as high complexity type of decision-making. Disclaimer: Inadvertent spelling and grammatical errors are likely due to EHR/ dictation software use and do not reflect on the quality of delivered patient care. Also, please note that the electronic time recorded on this node does not necessarily reflect the actual time of the visit. Updated clinical summary: A very-pleasant but unfortunate 52-year-old lady without significant other major comorbidities, presenting with a central hilar cholangiocarcinoma which unfortunately involves the first and perhaps even the second branches of both the left and right biliary systems, not amenable to surgical resection. S/p ERCP with stenting x2 with biopsy (second one with spyglass). Because there were no other good options of biopsying her (included two separate discussions with IR with Dr. Schroeder, and the mentioned ERCP attempts x2 with Dr. Dalal), I worked with the team to get her scheduled for an operative laparoscopic attempt at biopsying her lesion. Comorbidities: 1. Hilar cholangiocarcinoma, s/p ERCP with stenting x2 with biopsy (second one with spyglass), but negative x2 for malignancy; carcinoma, widely spread throughout the liver. 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 2. BMI 25 3. Status post left breast biopsy 4. 5. Hypercholesterolemia Subjective: No major events or complaints the operation; feels bloated but otherwise no other major complaints;; no major abd pain and under control with medications; no n/v/d; no sob or cp; - flatus; - BM; + activity Objective: Vitals: See below I's & O's: See below Exam: GENERAL: On exam, the patient was laying in bed and appeared to be comfortable and in no acute distress. Eyes appear jaundiced, but less than before. ABDOMEN: Soft, nontender and nondistended. There are no peritoneal signs or guarding. Incision dressings clean, dry, and intact without any obvious evidence of underlying edema, erythema, discharge, or hernia. SKIN: Skin appears to be pink with a hint of yellow and feels warm to touch. NEUROLOGIC: Patient is awake, alert, and follows commands appropriately. Labs: See below Exam/Review of Systems Vital Signs Vitals Vital Signs Date Time Temp Pulse Resp B/P Pulse Ox O2 Delivery O2 Flow Rate FiO2 06/16/17 20:10 98.3 97 18 123/74 95 06/15/17 18:24 Nasal Cannula 2.0 Intake and Output 06/15/17 06/15/17 06/16/17 15:00 23:00 07:00 Intake Total 400 ml Output Total 5 ml Balance 395 ml Results Result Diagram: 06/16/17 0509 06/13/17 0546 ABBY ROMAN M.D. Jun 16, 2017 20:39
[2017-06-17 02:21] VITALS: BP 120/69; RESP 18
[2017-06-17] MEDS: HYDROmorphONE 0.5 MG/0.5 ML SYG IV PRN ×3 (04:40→18:08)
[2017-06-17 05:34] LABS: BASOPHILS % 0.4 % (0.0-2.0); EOSINOPHILS # 0.2 10^3/ul (0.0-0.5); EOSINOPHILS % 1.8 % (0.0-7.0); HEMATOCRIT 27.1 % (37.0-47.0); HEMOGLOBIN 9.1 g/dl (12.0-16.0); LYMPHOCYTES # 1.8 10^3/ul (0.8-2.9); LYMPHOCYTES % 18.4 % (15.0-51.0); MEAN CORPUSCULAR HEMOGLOBIN 30.7 pg (29.0-33.0); MEAN CORPUSCULAR HGB CONC 33.6 g/dl (32.0-37.0); MEAN CORPUSCULAR VOLUME 91.6 fl (82.0-101.0); MONOCYTES % 10.1 % (0.0-11.0); NEUTROPHIL # 6.8 10^3/ul (1.6-7.5); NEUTROPHILS % 68.4 % (39.0-77.0); PLATELET COUNT 356 10^3/UL (140-415); RED BLOOD COUNT 2.96 10^6/ul (4.20-5.40); RED CELL DISTRIBUTION WIDTH 15.1 % (11.5-14.5)
[2017-06-17] MEDS: hydrOXYzine HCL 25 MG TAB PO PRN (07:45)
[2017-06-17 08:00] LABS: ALBUMIN 2.9 g/dl (3.3-4.9); BILIRUBIN,INDIRECT 0.9 mg/dl (0-1.1); BILIRUBIN,TOTAL 0.9 mg/dl (0.2-1.3); TOTAL PROTEIN 6.1 g/dl (6.1-8.1)
[2017-06-17 08:12] VITALS: BP 122/76; RESP 16
--- NOTE | 2017-06-17 08:46 | PN ---
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 Dalal Subjective: Course reviewed with nursing staff Patient interviewed and examined All labs, imaging and other results reviewed The patient sitting up in chair Continues to c/o gas encourage ambulation ans will start simethicone PRN Status post laparoscopic surgery with liver biopsy Exam: General: well developed, well nourished, alert and oriented x3 , in no acute distress Skin: Less icteric, no lesions, no stigmata chronic liver disease, no evidence of bleeding diathesis Lymphatic: No palpable lymphadenopathy HEENT: No lesions Cardiovascular: Heart: Regular rate and rhhthm, no murmurs, gallops or rubs. Peripheral pulses present within normal limits, no cyanosis, clubbing or edemas. No pulsatile abdominal mass Respiratory: Lungs clear to auscultation and percussion, no wheezing, no rubs Gastrointestinal and Liver: Abdomen: Soft, non tender, non-distended, no hernias , no masses, no organomegaly, no ascites, no guarding, no rebound tenderness, normoactive bowel sounds. Extremities: No cyanosis, clubbing, or edema. [Neurologic: Cranial nerves II-XII intact, motor within normal limits, sensory within normal limits. Reflexes within normal limits.] [Psychiatric: Alert and oriented x3, mood/affect/judgment adequate] Diagnostic Studies: Available data and images were reviewed personally. See reports. Significant results and findings are addressed here or in the assessment and plan. Problems: Subjective 24 Hr Interval Summary Constitutional: no complaints Exam/Review of Systems Vital Signs Vitals Vital Signs Date Time Temp Pulse Resp B/P Pulse Ox O2 Delivery O2 Flow Rate FiO2 06/17/17 08:12 98.3 99 16 122/76 95 06/15/17 18:24 Nasal Cannula 2.0 Intake and Output 06/16/17 06/16/17 06/17/17 15:00 23:00 07:00 Intake Total 350 ml 1600 ml 750 ml Balance 350 ml 1600 ml 750 ml Results Result Diagram: 06/17/17 0459 06/13/17 0546 Results 24 hrs Laboratory Tests Test 06/17/17 04:59 White Blood Count 10.0 # Red Blood Count 2.96 L Hemoglobin 9.1 L Hematocrit 27.1 L Mean Corpuscular Volume 91.6 Mean Corpuscular Hemoglobin 30.7 Mean Corpuscular Hemoglobin Concent 33.6 Red Cell Distribution Width 15.1 H Platelet Count 356 Mean Platelet Volume 10.0 Neutrophils % 68.4 Lymphocytes % 18.4 Monocytes % 10.1 Eosinophils % 1.8 Basophils % 0.4 Nucleated Red Blood Cells % 0.0 Neutrophils # 6.8 Lymphocytes # 1.8 Monocytes # 1.0 H Eosinophils # 0.2 Basophils # 0.0 Nucleated Red Blood Cells # 0.0 Total Bilirubin 0.9 Direct Bilirubin 0.00 # Indirect Bilirubin 0.9 Aspartate Amino Transf (AST/SGOT) 76 H Alanine Aminotransferase (ALT/SGPT) 89 H Alkaline Phosphatase 374 H Total Protein 6.1 Albumin 2.9 L Medications Medications Current Medications Morphine Sulfate (morphine) 2 mg Q4H PRN IV PAIN Last administered on 21:59; Admin Dose 2 MG; Start 05/19/17 at 16:30 Acetaminophen/ Hydrocodone Bitart ([place] (5/325)) 1 tab Q4H PRN PO PAIN Last administered on 06/04/17 00:23; Admin Dose 1 TAB; Start 05/19/17 at 16:30 Ondansetron HCl (Zofran Inj) 4 mg Q6H PRN IV NAUSEA AND/OR VOMITING; Start at 16:30 Trimethobenzamide HCl (Tigan) 200 mg Q6H PRN IM NAUSEA AND/OR VOMITING; Start 05/20/17 at 12:30 Enoxaparin Sodium (Lovenox) 40 mg DAILY SC Last administered on 06/16/17 09: 47; Admin Dose 40 MG; Start 05/20/17 at 13:00; Status Future hold Polyethylene Glycol (Miralax) 17 gm DAILY PO Last administered on 06/16/17 09 :34; Admin Dose 17 GM; Start 05/21/17 at 10:30 Hydroxyzine HCl (Atarax) 50 mg Q6H PRN PO ITCHING Last administered on 07:45; Admin Dose 50 MG; Start 05/21/17 at 10:30 Docusate Sodium (Colace) 100 mg BID PO Last administered on 06/16/17 21:02; Admin Dose 100 MG; Start 05/27/17 at 12:30 Cholestyramine Resin (Questran) 1 pkt TID PO Last administered on 06/16/17 23 :14; Admin Dose 1 PKT; Start 05/28/17 at 21:00 Ursodiol (Actigall) 300 mg BID PO Last administered on 06/16/17 21:02; Admin Dose 300 MG; Start 05/30/17 at 09:00 Zolpidem Tartrate (Ambien) 10 mg HS PRN PO INSOMNIA Last administered on 23:05; Admin Dose 10 MG; Start 05/30/17 at 23:00 Acetaminophen/ Hydrocodone Bitart ([place] (5/325)) 1 tab Q4H PRN PO PAIN LEVEL 4 -7; Start 06/15/17 at 17:30 Acetaminophen/ Hydrocodone Bitart ([place] (5/325)) 2 tab Q4H PRN PO PAIN LEVEL 7 -10 Last administered on 06/16/17 03:04; Admin Dose 2 TAB; Start 06/15/17 at 17:30 Hydromorphone HCl (Dilaudid) 0.5 mg Q2 PRN IV PAIN Last administered on 07:45; Admin Dose 0.5 MG; Start 06/15/17 at 17:30 Hydromorphone HCl (Dilaudid) 1 mg Q2 PRN IV PAIN; Start 06/15/17 at 17:30 Docusate Sodium (Colace) 100 mg BID PRN PO CONSTIPATION; Start 06/15/17 at 17: 30 Bisacodyl (Dulcolax Supp) 10 mg BID PRN [place] CONSTIPATION; Start 06/15/17 at 17: 30 Sodium Biphosphate/ Sodium Phosphate (Fleet Enema) 133 ml BID PRN [place] CONSTIPATION; Start 06/15/17 at 17:30 KAHLIL MARSHALL Jun 17, 2017 08:46
[2017-06-17] MEDS: CHOLESTYRAMINE 4 GM PACKET PO SCH ×3 (09:28→23:43)
[2017-06-17] MEDS: POLYETHYLENE GLYCOL 17 GM PACKET PO SCH (09:28)
[2017-06-17] MEDS: URSODIOL 300 MG CAP PO SCH ×2 (09:29→21:49)
[2017-06-17] MEDS: DOCUSATE SODIUM 100 MG CAP PO SCH ×2 (09:29→21:49)
[2017-06-17] MEDS: ENOXAPARIN 40 MG/0.4 ML SYG SC SCH (09:37)
--- NOTE | 2017-06-17 11:12 | PN ---
Date/Time of Note Date/Time of Note DATE: 06/17/17 TIME: 11:06 Assessment/Plan VTE Prophylaxis VTE Prophylaxis Intervention: LMWH Lines/Catheters IV Catheter Type (from [facility]): Saline Lock Urinary Cath still in place: No Assessment/Plan Chief Complaint/Hosp Course Assessment/Plan: 52-year-old F presented with abdominal pain, scleral icterus, found to have hyperbilirubinemia, and hepatic mass concerning for cholangiocarcinoma with possible tumor thrombus in intrahepatic portal vein though repeat imaging more consistent with external compression from tumor 1. hepatic mass thought likely to be cholangiocarcinoma: However, pathology from June 08 again has come back negative for malignancy. gen surg, GI, onc all following sp ERCP with stent placement ., repeat ERCP with stent removal/sphincterotomy /balloon dilatation of the biliary tree/cholangioscopy with biopsies plus stent placement 2 on 06/08/17. Again patient is status post laparoscopic exploration of abdomen with biopsy performed 2 days ago. -Pain control, diet per surgery recommendations, follow-up postop recommendations - follow-up biopsy results -results are still pending -Depending on results of biopsy, will likely need metallic biliary stent which GI is trying to locate, and possibly place this admission versus outpatient. 2. ?portal vein thrombus? repeat imaging more consistent with external compression-monitor for now 3. Obstructive jaundice with hyperbilirubinemia secondary to above. - Monitor LFTs, they are trending down nicely Lovenox for DVT prophylaxis Problems: Subjective 24 Hr Interval Summary Free Text/Dictation Patient tolerating soft diet. Seen by GI team earlier today. No acute events overnight. Exam/Review of Systems Vital Signs Vitals Vital Signs Date Time Temp Pulse Resp B/P Pulse Ox O2 Delivery O2 Flow Rate FiO2 06/17/17 08:12 98.3 99 16 122/76 95 06/15/17 18:24 Nasal Cannula 2.0 Intake and Output 06/16/17 06/16/17 06/17/17 15:00 23:00 07:00 Intake Total 350 ml 1600 ml 750 ml Balance 350 ml 1600 ml 750 ml Exam nad, lying in bed, alert resp nonlabored S1, S2 heard + abd pain RUQ, no R or G no edema Less +jaundice Results Result Diagram: 06/17/17 0459 06/13/17 0546 Results 24 hrs Laboratory Tests Test 06/17/17 04:59 White Blood Count 10.0 # Red Blood Count 2.96 L Hemoglobin 9.1 L Hematocrit 27.1 L Mean Corpuscular Volume 91.6 Mean Corpuscular Hemoglobin 30.7 Mean Corpuscular Hemoglobin Concent 33.6 Red Cell Distribution Width 15.1 H Platelet Count 356 Mean Platelet Volume 10.0 Neutrophils % 68.4 Lymphocytes % 18.4 Monocytes % 10.1 Eosinophils % 1.8 Basophils % 0.4 Nucleated Red Blood Cells % 0.0 Neutrophils # 6.8 Lymphocytes # 1.8 Monocytes # 1.0 H Eosinophils # 0.2 Basophils # 0.0 Nucleated Red Blood Cells # 0.0 Total Bilirubin 0.9 Direct Bilirubin 0.00 # Indirect Bilirubin 0.9 Aspartate Amino Transf (AST/SGOT) 76 H Alanine Aminotransferase (ALT/SGPT) 89 H Alkaline Phosphatase 374 H Total Protein 6.1 Albumin 2.9 L Medications Medications Current Medications Morphine Sulfate (morphine) 2 mg Q4H PRN IV PAIN Last administered on 21:59; Admin Dose 2 MG; Start 05/19/17 at 16:30 Acetaminophen/ Hydrocodone Bitart ([place] (5/325)) 1 tab Q4H PRN PO PAIN Last administered on 06/04/17 00:23; Admin Dose 1 TAB; Start 05/19/17 at 16:30 Ondansetron HCl (Zofran Inj) 4 mg Q6H PRN IV NAUSEA AND/OR VOMITING; Start at 16:30 Trimethobenzamide HCl (Tigan) 200 mg Q6H PRN IM NAUSEA AND/OR VOMITING; Start 05/20/17 at 12:30 Enoxaparin Sodium (Lovenox) 40 mg DAILY SC Last administered on 06/17/17 09: 37; Admin Dose 40 MG; Start 05/20/17 at 13:00; Status Future hold Polyethylene Glycol (Miralax) 17 gm DAILY PO Last administered on 06/17/17 09 :28; Admin Dose 17 GM; Start 05/21/17 at 10:30 Hydroxyzine HCl (Atarax) 50 mg Q6H PRN PO ITCHING Last administered on 07:45; Admin Dose 50 MG; Start 05/21/17 at 10:30 Docusate Sodium (Colace) 100 mg BID PO Last administered on 06/17/17 09:29; Admin Dose 100 MG; Start 05/27/17 at 12:30 Cholestyramine Resin (Questran) 1 pkt TID PO Last administered on 06/17/17 09 :28; Admin Dose 1 PKT; Start 05/28/17 at 21:00 Ursodiol (Actigall) 300 mg BID PO Last administered on 06/17/17 09:29; Admin Dose 300 MG; Start 05/30/17 at 09:00 Zolpidem Tartrate (Ambien) 10 mg HS PRN PO INSOMNIA Last administered on 23:05; Admin Dose 10 MG; Start 05/30/17 at 23:00 Acetaminophen/ Hydrocodone Bitart ([place] (5/325)) 1 tab Q4H PRN PO PAIN LEVEL 4 -7; Start 06/15/17 at 17:30 Acetaminophen/ Hydrocodone Bitart ([place] (5/325)) 2 tab Q4H PRN PO PAIN LEVEL 7 -10 Last administered on 06/16/17 03:04; Admin Dose 2 TAB; Start 06/15/17 at 17:30 Hydromorphone HCl (Dilaudid) 0.5 mg Q2 PRN IV PAIN Last administered on 07:45; Admin Dose 0.5 MG; Start 06/15/17 at 17:30 Hydromorphone HCl (Dilaudid) 1 mg Q2 PRN IV PAIN; Start 06/15/17 at 17:30 Docusate Sodium (Colace) 100 mg BID PRN PO CONSTIPATION; Start 06/15/17 at 17: 30 Bisacodyl (Dulcolax Supp) 10 mg BID PRN [place] CONSTIPATION; Start 06/15/17 at 17: 30 Sodium Biphosphate/ Sodium Phosphate (Fleet Enema) 133 ml BID PRN [place] CONSTIPATION; Start 06/15/17 at 17:30 Simethicone (Mylicon) 80 mg Q6H PRN GTB DISTENSION/GAS/BLOATING Last administered on 06/17/17 09:29; Admin Dose 80 MG; Start 06/17/17 at 09:30 HERMAN MCNULTY Jun 17, 2017 11:11
[2017-06-17 14:20] VITALS: BP 120/70; RESP 16
[2017-06-17 19:34] VITALS: BP 109/70; RESP 20
[2017-06-18] MEDS: HYDROCODONE/APAP (5/325) TAB PO PRN ×2 (02:11→16:32)
[2017-06-18 02:16] VITALS: BP 93/54; PULSE 102; RESP 20
[2017-06-18 06:05] LABS: BASOPHILS % 0.4 % (0.0-2.0); EOSINOPHILS # 0.2 10^3/ul (0.0-0.5); EOSINOPHILS % 1.8 % (0.0-7.0); HEMATOCRIT 26.4 % (37.0-47.0); HEMOGLOBIN 8.6 g/dl (12.0-16.0); LYMPHOCYTES # 2.3 10^3/ul (0.8-2.9); LYMPHOCYTES % 24.2 % (15.0-51.0); MEAN CORPUSCULAR HEMOGLOBIN 30.1 pg (29.0-33.0); MEAN CORPUSCULAR HGB CONC 32.6 g/dl (32.0-37.0); MEAN CORPUSCULAR VOLUME 92.3 fl (82.0-101.0); MEAN PLATELET VOLUME 10.4 fl (7.4-10.4); MONOCYTES % 10.6 % (0.0-11.0); NEUTROPHILS % 62.2 % (39.0-77.0); PLATELET COUNT 356 10^3/UL (140-415); RED BLOOD COUNT 2.86 10^6/ul (4.20-5.40); RED CELL DISTRIBUTION WIDTH 15.1 % (11.5-14.5); WHITE BLOOD COUNT 9.6 10^3/ul (4.8-10.8)
[2017-06-18 06:32] LABS: ALBUMIN 2.7 g/dl (3.3-4.9); BILIRUBIN,INDIRECT 0.7 mg/dl (0-1.1); BILIRUBIN,TOTAL 0.7 mg/dl (0.2-1.3); TOTAL PROTEIN 5.7 g/dl (6.1-8.1)
[2017-06-18 08:26] VITALS: BP 118/58; RESP 20
--- NOTE | 2017-06-18 08:45 | PN ---
Date/Time of Note Date/Time of Note DATE: 06/18/17 TIME: 08:44 Assessment/Plan VTE Prophylaxis VTE Prophylaxis Intervention: LMWH Lines/Catheters IV Catheter Type (from [facility]): Saline Lock Urinary Cath still in place: No Assessment/Plan Chief Complaint/Hosp Course Assessment/Plan: 52-year-old F presented with abdominal pain, scleral icterus, found to have hyperbilirubinemia, and hepatic mass concerning for cholangiocarcinoma with possible tumor thrombus in intrahepatic portal vein though repeat imaging more consistent with external compression from tumor 1. hepatic mass thought likely to be cholangiocarcinoma: However, pathology from June 08 again has come back negative for malignancy. gen surg, GI, onc all following sp ERCP with stent placement ., repeat ERCP with stent removal/sphincterotomy /balloon dilatation of the biliary tree/cholangioscopy with biopsies plus stent placement 2 on 06/08/17. Again patient is status post laparoscopic exploration of abdomen with biopsy performed 2 days ago. -Pain control, diet per surgery recommendations, follow-up postop recommendations -follow-up biopsy results -results again are still pending -Depending on results of biopsy, will likely need metallic biliary stent which GI is trying to locate to find, and possibly place this admission versus outpatient. 2. ?portal vein thrombus? repeat imaging more consistent with external compression -monitor for now 3. Obstructive jaundice with hyperbilirubinemia secondary to above. - Monitor LFTs, they are trending down Lovenox for DVT prophylaxis Problems: Subjective 24 Hr Interval Summary Free Text/Dictation No acute events overnight, tolerating diet. Exam/Review of Systems Vital Signs Vitals Vital Signs Date Time Temp Pulse Resp B/P Pulse Ox O2 Delivery O2 Flow Rate FiO2 06/18/17 08:26 98.4 83 20 118/58 99 06/18/17 02:16 Room Air 06/15/17 18:24 2.0 Intake and Output 06/17/17 06/17/17 06/18/17 15:00 23:00 07:00 Intake Total 1820 ml 1500 ml Balance 1820 ml 1500 ml Exam nad, lying in bed, alert resp nonlabored S1, S2 heard + abd pain RUQ, no R or G no edema Less +jaundice Constitutional: alert, oriented, well developed Results Result Diagram: 06/18/17 0505 Results 24 hrs Laboratory Tests Test 06/18/17 05:00 06/18/17 05:05 Total Bilirubin 0.7 Direct Bilirubin 0.00 Indirect Bilirubin 0.7 Aspartate Amino Transf (AST/SGOT) 63 H Alanine Aminotransferase (ALT/SGPT) 82 H Alkaline Phosphatase 335 H Total Protein 5.7 L Albumin 2.7 L White Blood Count 9.6 Red Blood Count 2.86 L Hemoglobin 8.6 L Hematocrit 26.4 L Mean Corpuscular Volume 92.3 Mean Corpuscular Hemoglobin 30.1 Mean Corpuscular Hemoglobin Concent 32.6 Red Cell Distribution Width 15.1 H Platelet Count 356 Mean Platelet Volume 10.4 Neutrophils % 62.2 Lymphocytes % 24.2 Monocytes % 10.6 Eosinophils % 1.8 Basophils % 0.4 Nucleated Red Blood Cells % 0.0 Neutrophils # 6.0 Lymphocytes # 2.3 Monocytes # 1.0 H Eosinophils # 0.2 Basophils # 0.0 Nucleated Red Blood Cells # 0.0 Medications Medications Current Medications Morphine Sulfate (morphine) 2 mg Q4H PRN IV PAIN Last administered on 21:59; Admin Dose 2 MG; Start 05/19/17 at 16:30 Acetaminophen/ Hydrocodone Bitart ([place] (5/325)) 1 tab Q4H PRN PO PAIN Last administered on 06/04/17 00:23; Admin Dose 1 TAB; Start 05/19/17 at 16:30 Ondansetron HCl (Zofran Inj) 4 mg Q6H PRN IV NAUSEA AND/OR VOMITING; Start at 16:30 Trimethobenzamide HCl (Tigan) 200 mg Q6H PRN IM NAUSEA AND/OR VOMITING; Start 05/20/17 at 12:30 Enoxaparin Sodium (Lovenox) 40 mg DAILY SC Last administered on 06/17/17 09: 37; Admin Dose 40 MG; Start 05/20/17 at 13:00; Status Future hold Polyethylene Glycol (Miralax) 17 gm DAILY PO Last administered on 06/17/17 09 :28; Admin Dose 17 GM; Start 05/21/17 at 10:30 Hydroxyzine HCl (Atarax) 50 mg Q6H PRN PO ITCHING Last administered on 07:45; Admin Dose 50 MG; Start 05/21/17 at 10:30 Docusate Sodium (Colace) 100 mg BID PO Last administered on 06/17/17 21:49; Admin Dose 100 MG; Start 05/27/17 at 12:30 Cholestyramine Resin (Questran) 1 pkt TID PO Last administered on 06/17/17 23 :43; Admin Dose 1 PKT; Start 05/28/17 at 21:00 Ursodiol (Actigall) 300 mg BID PO Last administered on 06/17/17 21:49; Admin Dose 300 MG; Start 05/30/17 at 09:00 Zolpidem Tartrate (Ambien) 10 mg HS PRN PO INSOMNIA Last administered on 23:05; Admin Dose 10 MG; Start 05/30/17 at 23:00 Acetaminophen/ Hydrocodone Bitart ([place] (5/325)) 1 tab Q4H PRN PO PAIN LEVEL 4 -7; Start 06/15/17 at 17:30 Acetaminophen/ Hydrocodone Bitart ([place] (5/325)) 2 tab Q4H PRN PO PAIN LEVEL 7 -10 Last administered on 06/18/17 02:11; Admin Dose 2 TAB; Start 06/15/17 at 17:30 Hydromorphone HCl (Dilaudid) 0.5 mg Q2 PRN IV PAIN Last administered on 18:08; Admin Dose 0.5 MG; Start 06/15/17 at 17:30 Hydromorphone HCl (Dilaudid) 1 mg Q2 PRN IV PAIN; Start 06/15/17 at 17:30 Docusate Sodium (Colace) 100 mg BID PRN PO CONSTIPATION; Start 06/15/17 at 17: 30 Bisacodyl (Dulcolax Supp) 10 mg BID PRN [place] CONSTIPATION; Start 06/15/17 at 17: 30 Sodium Biphosphate/ Sodium Phosphate (Fleet Enema) 133 ml BID PRN [place] CONSTIPATION; Start 06/15/17 at 17:30 Simethicone (Mylicon) 80 mg Q6H PRN GTB DISTENSION/GAS/BLOATING Last administered on 06/17/17 23:46; Admin Dose 80 MG; Start 06/17/17 at 09:30 HERMAN MCNULTY Jun 18, 2017 08:45
[2017-06-18] MEDS: CHOLESTYRAMINE 4 GM PACKET PO SCH ×3 (09:14→22:29)
[2017-06-18] MEDS: POLYETHYLENE GLYCOL 17 GM PACKET PO SCH (09:14)
[2017-06-18] MEDS: DOCUSATE SODIUM 100 MG CAP PO SCH ×2 (09:14→19:48)
[2017-06-18] MEDS: URSODIOL 300 MG CAP PO SCH ×2 (09:14→19:48)
[2017-06-18] MEDS: ENOXAPARIN 40 MG/0.4 ML SYG SC SCH (09:23)
--- NOTE | 2017-06-18 13:58 | PN ---
Date/Time of Note Date/Time of Note DATE: 06/18/17 TIME: 13:55 Assessment/Plan VTE Prophylaxis VTE Prophylaxis Intervention: ambulation, SCD's Lines/Catheters [facility] Saline Lock Urinary Cath still in place: No Assessment/Plan Chief Complaint/Hosp Course Assessment: * Obstructive jaundice * Laparoscopic surgery with liver biopsy * Cholangiocarcinoma by cholangioscopy however path negative/repeat path negative for malignancy * Post repeat ERCP/Spyglass with multiple biopsies and bilateral stenting with Frisian 10, 9 cm plastic biliary stents * Stent accomplishing adequate decompression Plan: * Status post laparoscopic wedge liver biopsy * pathology remains pending * Plan for ERCP with metal stent placement pending results of pathology * Pending results pt will also need to follow up with oncology * Pt seen in collaboration with Dr. Dalal Subjective: Course reviewed with nursing staff Patient interviewed and examined All labs, imaging and other results reviewed The patient resting in bed no complaints at this time Gas pain has improved Status post laparoscopic surgery with liver biopsy Pathology pending Exam: General: well developed, well nourished, alert and oriented x3 , in no acute distress Skin: Less icteric, no lesions, no stigmata chronic liver disease, no evidence of bleeding diathesis Lymphatic: No palpable lymphadenopathy HEENT: No lesions Cardiovascular: Heart: Regular rate and rhhthm, no murmurs, gallops or rubs. Peripheral pulses present within normal limits, no cyanosis, clubbing or edemas. No pulsatile abdominal mass Respiratory: Lungs clear to auscultation and percussion, no wheezing, no rubs Gastrointestinal and Liver: Abdomen: Soft, non tender, non-distended, no hernias , no masses, no organomegaly, no ascites, no guarding, no rebound tenderness, normoactive bowel sounds. Extremities: No cyanosis, clubbing, or edema. [Neurologic: Cranial nerves II-XII intact, motor within normal limits, sensory within normal limits. Reflexes within normal limits.] [Psychiatric: Alert and oriented x3, mood/affect/judgment adequate] Diagnostic Studies: Available data and images were reviewed personally. See reports. Significant results and findings are addressed here or in the assessment and plan. Problems: Exam/Review of Systems Vital Signs Vitals Vital Signs Date Time Temp Pulse Resp B/P Pulse Ox O2 Delivery O2 Flow Rate FiO2 06/18/17 08:26 98.4 83 20 118/58 99 06/18/17 02:16 Room Air 06/15/17 18:24 2.0 Intake and Output 06/17/17 06/17/17 06/18/17 15:00 23:00 07:00 Intake Total 1820 ml 1500 ml Balance 1820 ml 1500 ml Results Result Diagram: 06/18/17 0505 Results 24 hrs Laboratory Tests Test 06/18/17 05:00 06/18/17 05:05 Total Bilirubin 0.7 Direct Bilirubin 0.00 Indirect Bilirubin 0.7 Aspartate Amino Transf (AST/SGOT) 63 H Alanine Aminotransferase (ALT/SGPT) 82 H Alkaline Phosphatase 335 H Total Protein 5.7 L Albumin 2.7 L White Blood Count 9.6 Red Blood Count 2.86 L Hemoglobin 8.6 L Hematocrit 26.4 L Mean Corpuscular Volume 92.3 Mean Corpuscular Hemoglobin 30.1 Mean Corpuscular Hemoglobin Concent 32.6 Red Cell Distribution Width 15.1 H Platelet Count 356 Mean Platelet Volume 10.4 Neutrophils % 62.2 Lymphocytes % 24.2 Monocytes % 10.6 Eosinophils % 1.8 Basophils % 0.4 Nucleated Red Blood Cells % 0.0 Neutrophils # 6.0 Lymphocytes # 2.3 Monocytes # 1.0 H Eosinophils # 0.2 Basophils # 0.0 Nucleated Red Blood Cells # 0.0 Medications Medications Current Medications Morphine Sulfate (morphine) 2 mg Q4H PRN IV PAIN Last administered on 21:59; Admin Dose 2 MG; Start 05/19/17 at 16:30 Acetaminophen/ Hydrocodone Bitart ([place] (5/325)) 1 tab Q4H PRN PO PAIN Last administered on 06/04/17 00:23; Admin Dose 1 TAB; Start 05/19/17 at 16:30 Ondansetron HCl (Zofran Inj) 4 mg Q6H PRN IV NAUSEA AND/OR VOMITING; Start at 16:30 Trimethobenzamide HCl (Tigan) 200 mg Q6H PRN IM NAUSEA AND/OR VOMITING; Start 05/20/17 at 12:30 Enoxaparin Sodium (Lovenox) 40 mg DAILY SC Last administered on 06/18/17 09: 23; Admin Dose 40 MG; Start 05/20/17 at 13:00; Status Future hold Polyethylene Glycol (Miralax) 17 gm DAILY PO Last administered on 06/18/17 09 :14; Admin Dose 17 GM; Start 05/21/17 at 10:30 Hydroxyzine HCl (Atarax) 50 mg Q6H PRN PO ITCHING Last administered on 07:45; Admin Dose 50 MG; Start 05/21/17 at 10:30 Docusate Sodium (Colace) 100 mg BID PO Last administered on 06/18/17 09:14; Admin Dose 100 MG; Start 05/27/17 at 12:30 Cholestyramine Resin (Questran) 1 pkt TID PO Last administered on 06/18/17 13 :09; Admin Dose 1 PKT; Start 05/28/17 at 21:00 Ursodiol (Actigall) 300 mg BID PO Last administered on 06/18/17 09:14; Admin Dose 300 MG; Start 05/30/17 at 09:00 Zolpidem Tartrate (Ambien) 10 mg HS PRN PO INSOMNIA Last administered on 23:05; Admin Dose 10 MG; Start 05/30/17 at 23:00 Acetaminophen/ Hydrocodone Bitart ([place] (5/325)) 1 tab Q4H PRN PO PAIN LEVEL 4 -7; Start 06/15/17 at 17:30 Acetaminophen/ Hydrocodone Bitart ([place] (5/325)) 2 tab Q4H PRN PO PAIN LEVEL 7 -10 Last administered on 06/18/17 02:11; Admin Dose 2 TAB; Start 06/15/17 at 17:30 Hydromorphone HCl (Dilaudid) 0.5 mg Q2 PRN IV PAIN Last administered on 18:08; Admin Dose 0.5 MG; Start 06/15/17 at 17:30 Hydromorphone HCl (Dilaudid) 1 mg Q2 PRN IV PAIN; Start 06/15/17 at 17:30 Docusate Sodium (Colace) 100 mg BID PRN PO CONSTIPATION; Start 06/15/17 at 17: 30 Bisacodyl (Dulcolax Supp) 10 mg BID PRN [place] CONSTIPATION; Start 06/15/17 at 17: 30 Sodium Biphosphate/ Sodium Phosphate (Fleet Enema) 133 ml BID PRN [place] CONSTIPATION; Start 06/15/17 at 17:30 Simethicone (Mylicon) 80 mg Q6H PRN GTB DISTENSION/GAS/BLOATING Last administered on 06/18/17t 09:25; Admin Dose 80 MG; Start 06/17/17 at 09:30 KAHLIL MARSHALL Jun 18, 2017 13:58
[2017-06-18 15:11] VITALS: BP 101/56; RESP 18
[2017-06-18 19:36] VITALS: BP 118/64; RESP 20
[2017-06-18] MEDS: hydrOXYzine HCL 25 MG TAB PO PRN (19:48)
[2017-06-19 02:00] VITALS: BP 114/67; RESP 20
[2017-06-19] MEDS: HYDROmorphONE 0.5 MG/0.5 ML SYG IV PRN (05:13)
[2017-06-19 05:56] LABS: BASOPHIL # 0.1 10^3/ul (0.0-0.1); BASOPHILS % 0.4 % (0.0-2.0); EOSINOPHILS # 0.2 10^3/ul (0.0-0.5); EOSINOPHILS % 1.8 % (0.0-7.0); HEMATOCRIT 30.4 % (37.0-47.0); HEMOGLOBIN 9.9 g/dl (12.0-16.0); LYMPHOCYTES # 2.1 10^3/ul (0.8-2.9); LYMPHOCYTES % 18.6 % (15.0-51.0); MEAN CORPUSCULAR HEMOGLOBIN 30.1 pg (29.0-33.0); MEAN CORPUSCULAR HGB CONC 32.6 g/dl (32.0-37.0); MEAN CORPUSCULAR VOLUME 92.4 fl (82.0-101.0); MONOCYTES % 8.6 % (0.0-11.0); NEUTROPHIL # 7.8 10^3/ul (1.6-7.5); NEUTROPHILS % 69.9 % (39.0-77.0); PLATELET COUNT 408 10^3/UL (140-415); RED BLOOD COUNT 3.29 10^6/ul (4.20-5.40); RED CELL DISTRIBUTION WIDTH 15.1 % (11.5-14.5); WHITE BLOOD COUNT 11.1 10^3/ul (4.8-10.8)
[2017-06-19 06:16] LABS: ALBUMIN 2.8 g/dl (3.3-4.9); BILIRUBIN,INDIRECT 0.9 mg/dl (0-1.1); BILIRUBIN,TOTAL 0.9 mg/dl (0.2-1.3); TOTAL PROTEIN 6.4 g/dl (6.1-8.1)
[2017-06-19 07:36] VITALS: BP 105/55; RESP 16
[2017-06-19] MEDS: CHOLESTYRAMINE 4 GM PACKET PO SCH ×3 (09:10→20:21)
[2017-06-19] MEDS: POLYETHYLENE GLYCOL 17 GM PACKET PO SCH (09:10)
[2017-06-19] MEDS: DOCUSATE SODIUM 100 MG CAP PO SCH ×2 (09:10→20:21)
[2017-06-19] MEDS: URSODIOL 300 MG CAP PO SCH ×2 (09:10→20:21)
[2017-06-19] MEDS: ENOXAPARIN 40 MG/0.4 ML SYG SC SCH (09:17)
[2017-06-19] MEDS: hydrOXYzine HCL 25 MG TAB PO PRN (10:06)
--- NOTE | 2017-06-19 10:57 | CONS ---
Date/Time of Note Date/Time of Note DATE: 06/19/17 TIME: 10:57 Assessment/Plan Assessment/Plan Chief Complaint/Hosp Course metastatic cholangiocarcinoma associated with PAINLESS JAUNDICE ASSOCIATED WITH Liver mass with enlarged lymph nodes pancreas protocol triple phase CT scan of the abdomen and pelvis WITH CONTRAST - Poorly defined hypovascular mass occupying the left medial lobe of the liver and caudate lobe with upstream severe left greater intrahepatic bile duct dilatation, highly suspicious for cholangiocarcinoma. Filling defect identified in intrahepatic portal vein, concerning for tumor thrombus. Metastatic retroperitoneal lymphadenopathy. CA 19-9- 1930 AFP- P coag N, HEPATITIS PANEL- NEG GI EVAL- ERCP plus Spyglass cholangioscopy with targeted biopsies and possible stent placement. Post balloon dilatation, Cholangioscopy with evidence of neoplastic infiltration consistent with cholangiocarcinoma multiple direct targeted biopsies obtained Post placement of a Cuban 10 x 9 cm stent with adequate drainage PATH -Biliary bifurcation, biopsy: Minute fragment of ductal mucosa showing crush artifact. No evidence of dysplasia or malignancy. RE- LAPAROSCOPIC BX, WITHOUT HISTOLOGICAL CONFORMATION WE CAN NOT PROCEED WITH TREATMENT OR METALLIC STENT PLACEMENT PER GI - May consider exchanging current stent which is small Cuban 7 for possibly 2 Cuban 10 long plastic stents, this may allow another opportunity to evaluate with cholangioscopy or at least brushing trying to secure a definitive diagnosis to proceed with adequate treatment ERCP possible Spyglass cholangioscopy with direct biopsies, brushings and stent placement liver bx- adenoca PLAN- CHEMO OUTPT Abnormal liver enzymes, jaundice- 2 TO ABOVE DYSLIPIDEMIA Problems: Consultation Date/Type/Reason Admit Date/Time May 19, 2017 at 04:18 Initial Consult Date 05/19/17 Type of Consultation: [facility] Referring Provider: HERMAN MCNULTY 24 HR Interval Summary Free Text/Dictation all noted path- reviewed Exam/Review of Systems Vital Signs Vitals Vital Signs Date Time Temp Pulse Resp B/P Pulse Ox O2 Delivery O2 Flow Rate FiO2 06/19/17 07:36 97.4 86 16 105/55 97 06/18/17 02:16 Room Air 06/15/17 18:24 2.0 Intake and Output 06/18/17 06/18/17 06/19/17 15:00 23:00 07:00 Intake Total 1120 ml 500 ml Balance 1120 ml 500 ml Exam Const: No acute distress.+ Jaundice Head: Atraumatic. Eyes: Icteric Conjunctiva. ENT: Normal External Ears, Nose and Mouth. Neck: Full range of motion. No meningismus. Resp: Clear to auscultation bilaterally. Cardio: Regular rate and rhythm. Abd: Soft, non distended, normal bowel sounds, Diffuse abdominal tenderness, more tenderness at the right upper quadrant Skin: No petechiae or rashes. Back: No midline or flank tenderness. Ext: No cyanosis, or edema. Neur: Awake and alert. No focal deficit Psych: Normal Mood and Affect. NO PATH LN- ERIC Results Result Diagram: 06/19/1717 Results 24 hrs Laboratory Tests Test 06/19/17 05:17 White Blood Count 11.1 H Red Blood Count 3.29 L Hemoglobin 9.9 L Hematocrit 30.4 L Mean Corpuscular Volume 92.4 Mean Corpuscular Hemoglobin 30.1 Mean Corpuscular Hemoglobin Concent 32.6 Red Cell Distribution Width 15.1 H Platelet Count 408 Mean Platelet Volume 10.0 Neutrophils % 69.9 Lymphocytes % 18.6 Monocytes % 8.6 Eosinophils % 1.8 Basophils % 0.4 Nucleated Red Blood Cells % 0.0 Neutrophils # 7.8 H Lymphocytes # 2.1 Monocytes # 1.0 H Eosinophils # 0.2 Basophils # 0.1 Nucleated Red Blood Cells # 0.0 Total Bilirubin 0.9 Direct Bilirubin 0.00 Indirect Bilirubin 0.9 Aspartate Amino Transf (AST/SGOT) 52 H Alanine Aminotransferase (ALT/SGPT) 83 H Alkaline Phosphatase 354 H Total Protein 6.4 Albumin 2.8 L Medications Medications Current Medications Morphine Sulfate (morphine) 2 mg Q4H PRN IV PAIN Last administered on 21:59; Admin Dose 2 MG; Start 05/19/17 at 16:30 Acetaminophen/ Hydrocodone Bitart ([place] (5/325)) 1 tab Q4H PRN PO PAIN Last administered on 06/04/17 00:23; Admin Dose 1 TAB; Start 05/19/17 at 16:30 Ondansetron HCl (Zofran Inj) 4 mg Q6H PRN IV NAUSEA AND/OR VOMITING; Start at 16:30 Trimethobenzamide HCl (Tigan) 200 mg Q6H PRN IM NAUSEA AND/OR VOMITING; Start 05/20/17 at 12:30 Enoxaparin Sodium (Lovenox) 40 mg DAILY SC Last administered on 06/19/17 09: 17; Admin Dose 40 MG; Start 05/20/17 at 13:00; Status Future hold Polyethylene Glycol (Miralax) 17 gm DAILY PO Last administered on 06/19/17 09 :10; Admin Dose 17 GM; Start 05/21/17 at 10:30 Hydroxyzine HCl (Atarax) 50 mg Q6H PRN PO ITCHING Last administered on 10:06; Admin Dose 50 MG; Start 05/21/17 at 10:30 Docusate Sodium (Colace) 100 mg BID PO Last administered on 06/19/17 09:10; Admin Dose 100 MG; Start 05/27/17 at 12:30 Cholestyramine Resin (Questran) 1 pkt TID PO Last administered on 06/19/17 09 :10; Admin Dose 1 PKT; Start 05/28/17 at 21:00 Ursodiol (Actigall) 300 mg BID PO Last administered on 06/19/17 09:10; Admin Dose 300 MG; Start 05/30/17 at 09:00 Zolpidem Tartrate (Ambien) 10 mg HS PRN PO INSOMNIA Last administered on 23:05; Admin Dose 10 MG; Start 05/30/17 at 23:00 Acetaminophen/ Hydrocodone Bitart ([place] (5/325)) 1 tab Q4H PRN PO PAIN LEVEL 4 -7; Start 06/15/17 at 17:30 Acetaminophen/ Hydrocodone Bitart ([place] (5/325)) 2 tab Q4H PRN PO PAIN LEVEL 7 -10 Last administered on 06/18/17 16:32; Admin Dose 2 TAB; Start 06/15/17 at 17:30 Hydromorphone HCl (Dilaudid) 0.5 mg Q2 PRN IV PAIN Last administered on 05:13; Admin Dose 0.5 MG; Start 06/15/17 at 17:30 Hydromorphone HCl (Dilaudid) 1 mg Q2 PRN IV PAIN; Start 06/15/17 at 17:30 Docusate Sodium (Colace) 100 mg BID PRN PO CONSTIPATION; Start 06/15/17 at 17: 30 Bisacodyl (Dulcolax Supp) 10 mg BID PRN [place] CONSTIPATION; Start 06/15/17 at 17: 30 Sodium Biphosphate/ Sodium Phosphate (Fleet Enema) 133 ml BID PRN [place] CONSTIPATION; Start 06/15/17 at 17:30 Simethicone (Mylicon) 80 mg Q6H PRN GTB DISTENSION/GAS/BLOATING Last administered on 06/18/17t 22:32; Admin Dose 80 MG; Start 06/17/17 at 09:30 Procedures Procedures [facility] a non-profit [facility] asset [address] [place] [address] ; Lab No: [id number] Date: 06/15/2017 FROZEN SECTION EXAM: - Adenocarcinoma (FSx1)/CH (06/15/17; 5:12 p.m.) SPECIMEN: Liver biopsy CLINICAL: Liver cancer GROSS EXAMINATION: Received fresh from the surgical suite is a segment of hepatic tissue measuring 1.2 x 0.5 x 0.4 cm. Used for frozen section and totally submitted in one cassette. MICROSCOPIC DESCRIPTION: Sections of the liver biopsy show adenocarcinoma with tumor cells forming glands. The nuclei of the tumor cells are small to intermediate with mild pleomorphism. Abundant lacy cytoplasm is present. A mucicarmine stain with appropriate positive control is positive in tumor cells. The block is forwarded to [facility] for the performance of immunohistochemical stains to characterize the tumor cells. The stains came with appropriate positive and negative controls which work correctly. CK7: Positive, membranous CK20: Focally positive, membranous CDX2: Negative TTF-1: Negative CK17: Focally positive, membranous CK19: Diffuse and strongly positive, membranous GCDFP-15: Negative. Mammaglobin: Negative PAX8: Negative MICROSCOPIC DIAGNOSIS: Liver, wedge biopsy: -- Adenocarcinoma. COMMENT: The immunohistochemical staining pattern rules out lung, breast, ovarian and colon primaries. There is no specific immunohistochemical staining pattern for cholangiocarcinoma. However, the staining pattern of this tumor can be seen in cholangiocarcinoma. This case was reviewed by Dr. Izaiah Peña who concurs. MP/DARWIN/db/tm Date of Service: 06/16/17; Date Received: 06/16/17 Dictated: 06/19/17; Transcribed: 06/19/17; Sent by Fax: 06/19/17; Reviewed: WS COMMENT: The immunoperoxidase stains reported above were developed and its performance characteristics determined by [facility]. It has not been cleared or approved by the U.S. Food and Drug Administration, although such approval is not required for analyte-specific reagents of this type. Jesi Pnia M.D. Pathologist Electronically Signed 06/19/2017 GAYE WILKS M.D. PATIENT: PABLITO MOSS [employer] [facility] AGE/SEX/: 52/F 1965 MR NO: [id number] VISIT: [id number] ROOM NO: [id number] PHYSICIAN: Chani WARREN, JOAN ROMAN M.D., [facility] TISSUE EXAMINATION REPORT Chani CRONIN, SONA CARLSON MD Jun 19, 2017 10:57
--- NOTE | 2017-06-19 13:36 | DS ---
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 -- No evidence of dysplasia or malignancy. 10.5 ERCP plus stent removal plus sphincterotomy plus balloon dilatation of the biliary tree plus Spyglass cholangioscopy with biopsies plus stent placement 2 MICROSCOPIC DIAGNOSIS: Hepatic duct biopsy: -- Strips of ductal mucosa showing focal mild atypia. -- A fragment of crushed epithelial and stromal tissue. -- No evidence of malignancy in the material submitted. (Please see comment) COMMENT: The marked crush artifact precludes definitive diagnosis. Multiple deeper levels are examined. 10.12 Segment 4b of liver wedge liver biopsy path prelim with adenocarcinoma, further stains in process IMAGING 10.6 CT AP wwo contrast IMPRESSION: Interval stability to mild size decrease of ill-defined mass occupying the central liver, compatible with cholangiocarcinoma. There is stable moderate to severe left greater than right intrahepatic biliary duct dilatation, encasement of the left greater than right portal veins, and abutment of the IVC with mild mass effect and possible tumor infiltration. Interval placement of an additional stent extending from the common bile duct into the right intrahepatic biliary system. Stable retroperitoneal lymphadenopathy, likely metastatic. 9.25 CT AP wwo contrast IMPRESSION: 1. Ill-defined hypovascular central mass measuring 4.8 x 5.2 cm centered in the medial left hepatic lobe extending into the caudate and right anterior hepatic lobe concerning for cholangiocarcinoma. 2. Encasement of the proximal aspect of the left portal vein with severe luminal narrowing. Patent more peripheral left portal vein and segmental portal vein branches. 3. Infiltration into the hepatic IVC. Abutment of the inferior aspect of the middle hepatic vein. 4. Interval placement of a biliary stent draining the right anterior sectoral ducts. Marked intrahepatic biliary ductal dilatation in the left hepatic lobe and posterior right hepatic lobe. 5. Retroperitoneal lymphadenopathy. 9.16 CT AP wwo contrast IMPRESSION: Poorly defined hypovascular mass occupying the left medial lobe of the liver and caudate lobe with upstream severe left greater intrahepatic bile duct dilatation, highly suspicious for cholangiocarcinoma. Filling defect identified in intrahepatic portal vein, concerning for tumor thrombus. Metastatic retroperitoneal lymphadenopathy. 9.15 NCCT AP IMPRESSION: Marked intrahepatic biliary dilatation greater in the left lobe. Evaluation of the liver is limited without intravenous contrast. There is the suggestion of approximate 3.3 x 2.7 cm hypoattenuating mass in the balaji hepatis region suspicious for malignancy. There is the appearance of likely enlarged periportal lymph node measuring approximately 1.6 cm short axis suspicious for metastasis. There is an approximate 1 cm short axis left periaortic retroperitoneal lymph node with smaller additional left periaortic retroperitoneal lymph nodes. There is an approximate 1 cm short axis left common iliac lymph node. These are nonspecific. Contracted gallbladder. Please see above. Discussed with Dr. Gary at 03:48 a.m. on 05/19/2017. Hx of Present Illness The patient is a 52-year-old female with a history of dyslipidemia who presented to the ER coming of abdominal pain, yellowish eyes dark urine and itching. Her symptoms started over 6 months ago with dark urine. About a month or so ago, she started noticing itching, abdominal pain, yellowish eyes and constipation. For the having slightly decreased appetite but denied weight loss. He also denied fever, chills, chest pain, shortness of breath. CT abdomen/pelvis done in the ER showed Marked intrahepatic biliary dilatation greater in the left lobe, 3.3 x 2.7 cm hypoattenuating mass in the balaji hepatis region suspicious for malignancy. Also enlarged lymph nodes, suspicious for metastasis. Labs shows elevated transaminases, as well as total bilirubin of 7.5 and alk phos of about 900. . Hospital Course Pt admitted for work up of biliary mass. Had ERCP x 2 with stenting for compression-->path from both procedures nondiagnostic. Pt had liver biopsy 06.15 with prelim result as adenocarcinoma. Home Meds Active Scripts Ursodiol* (Actigall*) 300 Mg Cap, 300 MG PO BID for 30 Days, #60 CAP Prov:AIMEE CRONIN MD 06/19/17 Hydroxyzine Hcl* (Atarax*) 25 Mg Tab, 50 MG PO Q6H Y for ITCHING for 14 Days, # 60 TAB Prov:AIMEE CRONIN MD 06/19/17 Cholestyramine* (Questran*) 1 Pkt Susp, 1 PKT PO TID for 30 Days, #90 TAB Prov:AIMEE CRONIN MD 06/19/17 Follow-up Plan [facility] within 2 days to obtain an oncology referral Primary Care Provider Care Physician No Primary Time spent on discharge: > 30 minutes Pending Labs Laboratory Tests Test 06/19/17 05:17 White Blood Count 11.110^3/ul (4.8-10.8) Red Blood Count 3.2910^6/ul (4.20-5.40) Hemoglobin 9.9g/dl (12.0-16.0) Hematocrit 30.4% (37.0-47.0) Mean Corpuscular Volume 92.4fl (82.0-101.0) Mean Corpuscular Hemoglobin 30.1pg (29.0-33.0) Mean Corpuscular Hemoglobin Concent 32.6g/dl (32.0-37.0) Red Cell Distribution Width 15.1% (11.5-14.5) Platelet Count 07605^3/UL (140-415) Mean Platelet Volume 10.0fl (7.4-10.4) Neutrophils % 69.9% (39.0-77.0) Lymphocytes % 18.6% (15.0-51.0) Monocytes % 8.6% (0.0-11.0) Eosinophils % 1.8% (0.0-7.0) Basophils % 0.4% (0.0-2.0) Nucleated Red Blood Cells % 0.0/100WBC (0.0-0.0) Neutrophils # 7.810^3/ul (1.6-7.5) Lymphocytes # 2.110^3/ul (0.8-2.9) Monocytes # 1.010^3/ul (0.3-0.9) Eosinophils # 0.210^3/ul (0.0-0.5) Basophils # 0.110^3/ul (0.0-0.1) Nucleated Red Blood Cells # 0.010^3/ul (0.0-0.0) Total Bilirubin 0.9mg/dl (0.2-1.3) Direct Bilirubin 0.00mg/dl (0.00-0.20) Indirect Bilirubin 0.9mg/dl (0-1.1) Aspartate Amino Transf (AST/SGOT) 52IU/L (15-46) Alanine Aminotransferase (ALT/SGPT) 83IU/L (13-69) Alkaline Phosphatase 354IU/L (42-121) Total Protein 6.4g/dl (6.1-8.1) Albumin 2.8g/dl (3.3-4.9) AIMEE CRNOIN MD Jun 19, 2017 13:36
[2017-06-19] MEDS ORDERED: URSO300C21 PO (13:51)
[2017-06-19] MEDS ORDERED: HYDR-842 PO (13:51)
[2017-06-19] MEDS ORDERED: QUESTRAN PO (13:51)
[2017-06-19 14:15] VITALS: BP 119/74; RESP 18
--- NOTE | 2017-06-19 17:56 | PN ---
Date/Time of Note Date/Time of Note DATE: 06/19/17 TIME: 17:54 Assessment/Plan VTE Prophylaxis VTE Prophylaxis Intervention: SCD's Lines/Catheters IV [facility]from [facility] Saline Lock Urinary Cath still in place: No Assessment/Plan Chief Complaint/Hosp Course 52 yo F admitted for painless jaundice, found to have hepatobiliary mass with resultant biliary obstruction. sp ERCP with stenting, liver biopsy last week now + for adeno. PLAN dc in AM, will need oncology f/uMelissa Toledo unable to schedule pt without in person evaluation. Will attempt to call [facility] in the AM for biliary stents, have reached out to GI to schedule stent exchange POC dw pt and son in both [place] and [place] Problems: Subjective 24 Hr Interval Summary Free Text/Dictation Pt feeling ok Exam/Review of Systems Vital Signs Vitals Vital Signs Date Time Temp Pulse Resp B/P Pulse Ox O2 Delivery O2 Flow Rate FiO2 06/19/17 14:15 98.0 112 18 119/74 98 06/18/17 02:16 Room Air 06/15/17 18:24 2.0 Intake and Output 06/18/17 06/18/17 06/19/17 15:00 23:00 07:00 Intake Total 1120 ml 500 ml Balance 1120 ml 500 ml Exam nad no mrg lungs clear abd soft no rashes liver biopsy path with adenoCa Results Result Diagram: 06/19/17 0517 Results 24 hrs Laboratory Tests Test 06/19/17 05:17 White Blood Count 11.1 H Red Blood Count 3.29 L Hemoglobin 9.9 L Hematocrit 30.4 L Mean Corpuscular Volume 92.4 Mean Corpuscular Hemoglobin 30.1 Mean Corpuscular Hemoglobin Concent 32.6 Red Cell Distribution Width 15.1 H Platelet Count 408 Mean Platelet Volume 10.0 Neutrophils % 69.9 Lymphocytes % 18.6 Monocytes % 8.6 Eosinophils % 1.8 Basophils % 0.4 Nucleated Red Blood Cells % 0.0 Neutrophils # 7.8 H Lymphocytes # 2.1 Monocytes # 1.0 H Eosinophils # 0.2 Basophils # 0.1 Nucleated Red Blood Cells # 0.0 Total Bilirubin 0.9 Direct Bilirubin 0.00 Indirect Bilirubin 0.9 Aspartate Amino Transf (AST/SGOT) 52 H Alanine Aminotransferase (ALT/SGPT) 83 H Alkaline Phosphatase 354 H Total Protein 6.4 Albumin 2.8 L Medications Medications Current Medications Morphine Sulfate (morphine) 2 mg Q4H PRN IV PAIN Last administered on 21:59; Admin Dose 2 MG; Start 05/19/17 at 16:30 Acetaminophen/ Hydrocodone Bitart ([place] (5/325)) 1 tab Q4H PRN PO PAIN Last administered on 06/04/17 00:23; Admin Dose 1 TAB; Start 05/19/17 at 16:30 Ondansetron HCl (Zofran Inj) 4 mg Q6H PRN IV NAUSEA AND/OR VOMITING; Start at 16:30 Enoxaparin Sodium (Lovenox) 40 mg DAILY SC Last administered on 06/19/17 09: 17; Admin Dose 40 MG; Start 05/20/17 at 13:00; Status Future hold Polyethylene Glycol (Miralax) 17 gm DAILY PO Last administered on 06/19/17 09 :10; Admin Dose 17 GM; Start 05/21/17 at 10:30 Hydroxyzine HCl (Atarax) 50 mg Q6H PRN PO ITCHING Last administered on 10:06; Admin Dose 50 MG; Start 05/21/17 at 10:30 Docusate Sodium (Colace) 100 mg BID PO Last administered on 06/19/17 09:10; Admin Dose 100 MG; Start 05/27/17 at 12:30 Cholestyramine Resin (Questran) 1 pkt TID PO Last administered on 06/19/17 12 :28; Admin Dose 1 PKT; Start 05/28/17 at 21:00 Ursodiol (Actigall) 300 mg BID PO Last administered on 06/19/17 09:10; Admin Dose 300 MG; Start 05/30/17 at 09:00 Acetaminophen/ Hydrocodone Bitart ([place] (5/325)) 1 tab Q4H PRN PO PAIN LEVEL 4 -7; Start 06/15/17 at 17:30 Acetaminophen/ Hydrocodone Bitart ([place] (5/325)) 2 tab Q4H PRN PO PAIN LEVEL 7 -10 Last administered on 06/18/17 16:32; Admin Dose 2 TAB; Start 06/15/17 at 17:30 Hydromorphone HCl (Dilaudid) 0.5 mg Q2 PRN IV PAIN Last administered on 05:13; Admin Dose 0.5 MG; Start 06/15/17 at 17:30 Simethicone (Mylicon) 80 mg Q6H PRN GTB DISTENSION/GAS/BLOATING Last administered on 06/18/17 22:32; Admin Dose 80 MG; Start 06/17/17 at 09:30 AIMEE CRONIN MD Jun 19, 2017 17:56
[2017-06-19 20:14] VITALS: BP 115/68; RESP 20
--- NOTE | 2017-06-19 20:40 | PN ---
Date/Time of Note Date/Time of Note DATE: 06/19/17 TIME: 20:37 Assessment/Plan VTE Prophylaxis VTE Prophylaxis Intervention: SCD's Lines/Catheters IV C[facility]ter Type (from [facility]): Saline Lock Urinary Cath still in place: No Assessment/Plan Chief Complaint/Hosp Course Assessment: * Obstructive jaundice * Laparoscopic surgery with liver biopsy/adenocarcinoma * Cholangiocarcinoma by cholangioscopy however path negative/repeat path negative for malignancy * Post repeat ERCP/Spyglass with multiple biopsies and bilateral stenting with [place] 10, 9 cm plastic biliary stents * Stent accomplishing adequate decompression Plan: * Status post laparoscopic wedge liver biopsy * pathology adenocarcinoma * Plan for ERCP with metal stent placement Monday * Pending results pt will also need to follow up with oncology Subjective: Course reviewed with nursing staff Patient interviewed and examined All labs, imaging and other results reviewed The patient resting in bed no complaints at this time Pathology positive for adenocarcinoma Even though the patient is currently stented and draining The patient and the family would rather have metal stents placed prior to her discharge We will make plans for Monday ERCP with stent placement Exam: General: well developed, well nourished, alert and oriented x3 , in no acute distress Skin: Less icteric, no lesions, no stigmata chronic liver disease, no evidence of bleeding diathesis Lymphatic: No palpable lymphadenopathy HEENT: No lesions Cardiovascular: Heart: Regular rate and rhhthm, no murmurs, gallops or rubs. Peripheral pulses present within normal limits, no cyanosis, clubbing or edemas. No pulsatile abdominal mass Respiratory: Lungs clear to auscultation and percussion, no wheezing, no rubs Gastrointestinal and Liver: Abdomen: Soft, non tender, non-distended, no hernias , no masses, no organomegaly, no ascites, no guarding, no rebound tenderness, normoactive bowel sounds. Extremities: No cyanosis, clubbing, or edema. [Neurologic: Cranial nerves II-XII intact, motor within normal limits, sensory within normal limits. Reflexes within normal limits.] [Psychiatric: Alert and oriented x3, mood/affect/judgment adequate] Diagnostic Studies: Available data and images were reviewed personally. See reports. Significant results and findings are addressed here or in the assessment and plan. Problems: Problems: Exam/Review of Systems Vital Signs Vitals Vital Signs Date Time Temp Pulse Resp B/P Pulse Ox O2 Delivery O2 Flow Rate FiO2 06/19/17 20:14 98.0 105 20 115/68 99 06/18/17 02:16 Room Air 06/15/17 18:24 2.0 Intake and Output 06/18/17 06/18/17 06/19/17 15:00 23:00 07:00 Intake Total 1120 ml 500 ml Balance 1120 ml 500 ml Results Result Diagram: 06/19/17 0517 Results 24 hrs Laboratory Tests Test 06/19/17 05:17 White Blood Count 11.1 H Red Blood Count 3.29 L Hemoglobin 9.9 L Hematocrit 30.4 L Mean Corpuscular Volume 92.4 Mean Corpuscular Hemoglobin 30.1 Mean Corpuscular Hemoglobin Concent 32.6 Red Cell Distribution Width 15.1 H Platelet Count 408 Mean Platelet Volume 10.0 Neutrophils % 69.9 Lymphocytes % 18.6 Monocytes % 8.6 Eosinophils % 1.8 Basophils % 0.4 Nucleated Red Blood Cells % 0.0 Neutrophils # 7.8 H Lymphocytes # 2.1 Monocytes # 1.0 H Eosinophils # 0.2 Basophils # 0.1 Nucleated Red Blood Cells # 0.0 Total Bilirubin 0.9 Direct Bilirubin 0.00 Indirect Bilirubin 0.9 Aspartate Amino Transf (AST/SGOT) 52 H Alanine Aminotransferase (ALT/SGPT) 83 H Alkaline Phosphatase 354 H Total Protein 6.4 Albumin 2.8 L Medications Medications Current Medications Morphine Sulfate (morphine) 2 mg Q4H PRN IV PAIN Last administered on 21:59; Admin Dose 2 MG; Start 05/19/17 at 16:30 Acetaminophen/ Hydrocodone Bitart ([place] (5/325)) 1 tab Q4H PRN PO PAIN Last administered on 06/04/17 00:23; Admin Dose 1 TAB; Start 05/19/17 at 16:30 Ondansetron HCl (Zofran Inj) 4 mg Q6H PRN IV NAUSEA AND/OR VOMITING; Start at 16:30 Enoxaparin Sodium (Lovenox) 40 mg DAILY SC Last administered on 06/19/17 09: 17; Admin Dose 40 MG; Start 05/20/17 at 13:00; Status Future hold Polyethylene Glycol (Miralax) 17 gm DAILY PO Last administered on 06/19/17 09 :10; Admin Dose 17 GM; Start 05/21/17 at 10:30 Hydroxyzine HCl (Atarax) 50 mg Q6H PRN PO ITCHING Last administered on 10:06; Admin Dose 50 MG; Start 05/21/17 at 10:30 Docusate Sodium (Colace) 100 mg BID PO Last administered on 06/19/17 20:21; Admin Dose 100 MG; Start 05/27/17 at 12:30 Cholestyramine Resin (Questran) 1 pkt TID PO Last administered on 06/19/17 20 :21; Admin Dose 1 PKT; Start 05/28/17 at 21:00 Ursodiol (Actigall) 300 mg BID PO Last administered on 06/19/17 20:21; Admin Dose 300 MG; Start 05/30/17 at 09:00 Acetaminophen/ Hydrocodone Bitart ([place] (5/325)) 1 tab Q4H PRN PO PAIN LEVEL 4 -7; Start 06/15/17 at 17:30 Acetaminophen/ Hydrocodone Bitart ([place] (5/325)) 2 tab Q4H PRN PO PAIN LEVEL 7 -10 Last administered on 06/18/17 16:32; Admin Dose 2 TAB; Start 06/15/17 at 17:30 Hydromorphone HCl (Dilaudid) 0.5 mg Q2 PRN IV PAIN Last administered on 05:13; Admin Dose 0.5 MG; Start 06/15/17 at 17:30 Simethicone (Mylicon) 80 mg Q6H PRN GTB DISTENSION/GAS/BLOATING Last administered on 06/18/17 22:32; Admin Dose 80 MG; Start 06/17/17 at 09:30 RODERICK JACKSON MD Jun 19, 2017 20:40
[2017-06-20] MEDS: HYDROCODONE/APAP (5/325) TAB PO PRN ×2 (02:26→20:20)
[2017-06-20 02:31] VITALS: BP 109/56; RESP 18
[2017-06-20 05:38] LABS: BASOPHILS % 0.3 % (0.0-2.0); EOSINOPHILS # 0.2 10^3/ul (0.0-0.5); EOSINOPHILS % 1.5 % (0.0-7.0); HEMATOCRIT 29.7 % (37.0-47.0); HEMOGLOBIN 9.9 g/dl (12.0-16.0); LYMPHOCYTES # 2.5 10^3/ul (0.8-2.9); MEAN CORPUSCULAR HEMOGLOBIN 30.4 pg (29.0-33.0); MEAN CORPUSCULAR HGB CONC 33.3 g/dl (32.0-37.0); MEAN CORPUSCULAR VOLUME 91.1 fl (82.0-101.0); MEAN PLATELET VOLUME 9.6 fl (7.4-10.4); MONOCYTE # 1.1 10^3/ul (0.3-0.9); MONOCYTES % 8.3 % (0.0-11.0); NEUTROPHIL # 8.7 10^3/ul (1.6-7.5); PLATELET COUNT 408 10^3/UL (140-415); RED BLOOD COUNT 3.26 10^6/ul (4.20-5.40); RED CELL DISTRIBUTION WIDTH 15.2 % (11.5-14.5); WHITE BLOOD COUNT 12.6 10^3/ul (4.8-10.8)
[2017-06-20 07:44] VITALS: BP 119/74; RESP 16
[2017-06-20] MEDS: ENOXAPARIN 40 MG/0.4 ML SYG SC SCH (08:54)
[2017-06-20] MEDS: DOCUSATE SODIUM 100 MG CAP PO SCH ×2 (08:55→20:17)
[2017-06-20] MEDS: POLYETHYLENE GLYCOL 17 GM PACKET PO SCH (08:55)
[2017-06-20] MEDS: URSODIOL 300 MG CAP PO SCH ×2 (08:55→20:17)
[2017-06-20] MEDS: CHOLESTYRAMINE 4 GM PACKET PO SCH ×3 (08:55→20:17)
--- NOTE | 2017-06-20 13:13 | PN ---
Date/Time of Note Date/Time of Note DATE: 06/20/17 TIME: 13:04 Assessment/Plan VTE Prophylaxis VTE Prophylaxis Intervention: ambulation Lines/Catheters IV C[facility]ter Type (from [facility]): Saline Lock Urinary Cath still in place: No Assessment/Plan Chief Complaint/Hosp Course Assessment: * Obstructive jaundice * Laparoscopic surgery with liver biopsy/adenocarcinoma * Cholangiocarcinoma by cholangioscopy however path negative/repeat path negative for malignancy * Post repeat ERCP/Spyglass with multiple biopsies and bilateral stenting with [place] 10, 9 cm plastic biliary stents * Stent accomplishing adequate decompression Plan: * Plan for ERCP with metal stent placement Tomorrow * NPO after midnight * Pt will also need to follow up with oncology Subjective: Course reviewed with nursing staff Patient interviewed and examined All labs, imaging and other results reviewed The patient doing well family at bedside Pathology positive for adenocarcinoma Even though the patient is currently stented and draining The patient and the family would rather have metal stents placed prior to her discharge We will make plans for tomorrow ERCP with metal stent placement Exam: General: well developed, well nourished, alert and oriented x3 , in no acute distress Skin: Less icteric, no lesions, no stigmata chronic liver disease, no evidence of bleeding diathesis Lymphatic: No palpable lymphadenopathy HEENT: No lesions Cardiovascular: Heart: Regular rate and rhhthm, no murmurs, gallops or rubs. Peripheral pulses present within normal limits, no cyanosis, clubbing or edemas. No pulsatile abdominal mass Respiratory: Lungs clear to auscultation and percussion, no wheezing, no rubs Gastrointestinal and Liver: Abdomen: Soft, non tender, non-distended, no hernias , no masses, no organomegaly, no ascites, no guarding, no rebound tenderness, normoactive bowel sounds. Extremities: No cyanosis, clubbing, or edema. [Neurologic: Cranial nerves II-XII intact, motor within normal limits, sensory within normal limits. Reflexes within normal limits.] [Psychiatric: Alert and oriented x3, mood/affect/judgment adequate] Diagnostic Studies: Available data and images were reviewed personally. See reports. Significant results and findings are addressed here or in the assessment and plan. Problems: Problems: Exam/Review of Systems Vital Signs Vitals Vital Signs Date Time Temp Pulse Resp B/P Pulse Ox O2 Delivery O2 Flow Rate FiO2 06/20/17 07:44 98.0 87 16 119/74 96 06/18/17 02:16 Room Air Intake and Output 06/19/17 06/19/17 06/20/17 15:00 23:00 07:00 Intake Total 1200 ml Balance 1200 ml Results Result Diagram: 06/20/17 0517 Results 24 hrs Laboratory Tests Test 06/20/17 05:17 White Blood Count 12.6 H Red Blood Count 3.26 L Hemoglobin 9.9 L Hematocrit 29.7 L Mean Corpuscular Volume 91.1 Mean Corpuscular Hemoglobin 30.4 Mean Corpuscular Hemoglobin Concent 33.3 Red Cell Distribution Width 15.2 H Platelet Count 408 Mean Platelet Volume 9.6 Neutrophils % 69.0 Lymphocytes % 20.0 Monocytes % 8.3 Eosinophils % 1.5 Basophils % 0.3 Nucleated Red Blood Cells % 0.0 Neutrophils # 8.7 H Lymphocytes # 2.5 Monocytes # 1.1 H Eosinophils # 0.2 Basophils # 0.0 Nucleated Red Blood Cells # 0.0 Medications Medications Current Medications Morphine Sulfate (morphine) 2 mg Q4H PRN IV PAIN Last administered on 21:59; Admin Dose 2 MG; Start 05/19/17 at 16:30 Acetaminophen/ Hydrocodone Bitart ([place] (5/325)) 1 tab Q4H PRN PO PAIN Last administered on 06/04/17 00:23; Admin Dose 1 TAB; Start 05/19/17 at 16:30 Ondansetron HCl (Zofran Inj) 4 mg Q6H PRN IV NAUSEA AND/OR VOMITING; Start at 16:30 Enoxaparin Sodium (Lovenox) 40 mg DAILY SC Last administered on 06/20/17 08: 54; Admin Dose 40 MG; Start 05/20/17 at 13:00; Status Future hold Polyethylene Glycol (Miralax) 17 gm DAILY PO Last administered on 06/20/17 08 :55; Admin Dose 17 GM; Start 05/21/17 at 10:30 Hydroxyzine HCl (Atarax) 50 mg Q6H PRN PO ITCHING Last administered on 10:06; Admin Dose 50 MG; Start 05/21/17 at 10:30 Docusate Sodium (Colace) 100 mg BID PO Last administered on 06/20/17 08:55; Admin Dose 100 MG; Start 05/27/17 at 12:30 Cholestyramine Resin (Questran) 1 pkt TID PO Last administered on 06/20/17 12 :26; Admin Dose 1 PKT; Start 05/28/17 at 21:00 Ursodiol (Actigall) 300 mg BID PO Last administered on 06/20/17 08:55; Admin Dose 300 MG; Start 05/30/17 at 09:00 Acetaminophen/ Hydrocodone Bitart ([place] (5/325)) 1 tab Q4H PRN PO PAIN LEVEL 4 -7 Last administered on 06/20/17 02:26; Admin Dose 1 TAB; Start 06/15/17 at 17:30 Acetaminophen/ Hydrocodone Bitart ([place] (5/325)) 2 tab Q4H PRN PO PAIN LEVEL 7 -10 Last administered on 06/18/17 16:32; Admin Dose 2 TAB; Start 06/15/17 at 17:30 Hydromorphone HCl (Dilaudid) 0.5 mg Q2 PRN IV PAIN Last administered on 05:13; Admin Dose 0.5 MG; Start 06/15/17 at 17:30 Simethicone (Mylicon) 80 mg Q6H PRN GTB DISTENSION/GAS/BLOATING Last administered on 06/18/17 22:32; Admin Dose 80 MG; Start 06/17/17 at 09:30 KAHLIL MARSHALL Jun 20, 2017 13:13
[2017-06-20] MEDS ORDERED: CEFAZOLIN 1 GM/50 ML (PMX) 50 ML IVPB ONE (13:30)
[2017-06-20] MEDS ORDERED: INDOMETHACIN 50 MG SUPP PR ONE (13:30)
[2017-06-20 14:35] VITALS: BP 94/51; RESP 14
--- NOTE | 2017-06-20 19:19 | PN ---
Date/Time of Note Date/Time of Note DATE: 06/20/17 TIME: 19:18 Assessment/Plan VTE Prophylaxis VTE Prophylaxis Intervention: SCD's Lines/Catheters IV Catheter Type (from [facility]): Saline Lock Urinary Cath still in place: No Assessment/Plan Chief Complaint/Hosp Course 52 yo F admitted for painless jaundice, found to have hepatobiliary mass with resultant biliary obstruction. sp ERCP with stenting, liver biopsy last week now + for adeno. PLAN metal biliary stents in AM onc f/u with [facility] possibly dc in AM Problems: Subjective 24 Hr Interval Summary Free Text/Dictation GI to place stents tomorrow Exam/Review of Systems Vital Signs Vitals Vital Signs Date Time Temp Pulse Resp B/P Pulse Ox O2 Delivery O2 Flow Rate FiO2 06/20/17 14:35 97.4 70 14 94/51 96 06/18/17 02:16 Room Air Intake and Output 06/19/17 06/19/17 06/20/17 15:00 23:00 07:00 Intake Total 1200 ml Balance 1200 ml Exam nad no mrg lungs clear abd soft no rashes Results Result Diagram: 06/20/17 0517 Results 24 hrs Laboratory Tests Test 06/20/17 05:17 White Blood Count 12.6 H Red Blood Count 3.26 L Hemoglobin 9.9 L Hematocrit 29.7 L Mean Corpuscular Volume 91.1 Mean Corpuscular Hemoglobin 30.4 Mean Corpuscular Hemoglobin Concent 33.3 Red Cell Distribution Width 15.2 H Platelet Count 408 Mean Platelet Volume 9.6 Neutrophils % 69.0 Lymphocytes % 20.0 Monocytes % 8.3 Eosinophils % 1.5 Basophils % 0.3 Nucleated Red Blood Cells % 0.0 Neutrophils # 8.7 H Lymphocytes # 2.5 Monocytes # 1.1 H Eosinophils # 0.2 Basophils # 0.0 Nucleated Red Blood Cells # 0.0 Medications Medications Current Medications Morphine Sulfate (morphine) 2 mg Q4H PRN IV PAIN Last administered on 21:59; Admin Dose 2 MG; Start 05/19/17 at 16:30 Acetaminophen/ Hydrocodone Bitart ([place] (5/325)) 1 tab Q4H PRN PO PAIN Last administered on 06/04/17 00:23; Admin Dose 1 TAB; Start 05/19/17 at 16:30 Ondansetron HCl (Zofran Inj) 4 mg Q6H PRN IV NAUSEA AND/OR VOMITING; Start at 16:30 Enoxaparin Sodium (Lovenox) 40 mg DAILY SC Last administered on 06/20/17 08: 54; Admin Dose 40 MG; Start 05/20/17 at 13:00; Status Future hold Polyethylene Glycol (Miralax) 17 gm DAILY PO Last administered on 06/20/17 08 :55; Admin Dose 17 GM; Start 05/21/17 at 10:30 Hydroxyzine HCl (Atarax) 50 mg Q6H PRN PO ITCHING Last administered on 10:06; Admin Dose 50 MG; Start 05/21/17 at 10:30 Docusate Sodium (Colace) 100 mg BID PO Last administered on 06/20/17 08:55; Admin Dose 100 MG; Start 05/27/17 at 12:30 Cholestyramine Resin (Questran) 1 pkt TID PO Last administered on 06/20/17 12 :26; Admin Dose 1 PKT; Start 05/28/17 at 21:00 Ursodiol (Actigall) 300 mg BID PO Last administered on 06/20/17 08:55; Admin Dose 300 MG; Start 05/30/17 at 09:00 Acetaminophen/ Hydrocodone Bitart ([place] (5/325)) 1 tab Q4H PRN PO PAIN LEVEL 4 -7 Last administered on 06/20/17 02:26; Admin Dose 1 TAB; Start 06/15/17 at 17:30 Acetaminophen/ Hydrocodone Bitart ([place] (5/325)) 2 tab Q4H PRN PO PAIN LEVEL 7 -10 Last administered on 06/18/17 16:32; Admin Dose 2 TAB; Start 06/15/17 at 17:30 Hydromorphone HCl (Dilaudid) 0.5 mg Q2 PRN IV PAIN Last administered on 05:13; Admin Dose 0.5 MG; Start 06/15/17 at 17:30 Simethicone (Mylicon) 80 mg Q6H PRN GTB DISTENSION/GAS/BLOATING Last administered on 06/18/17 22:32; Admin Dose 80 MG; Start 06/17/17 at 09:30 AIMEE CRONIN MD Jun 20, 2017 19:19
[2017-06-20 20:14] VITALS: BP 110/59; RESP 18
--- NOTE | 2017-06-20 20:41 | CONS ---
Date/Time of Note Date/Time of Note DATE: 06/20/17 TIME: 20:41 Assessment/Plan Assessment/Plan Chief Complaint/Hosp Course metastatic cholangiocarcinoma associated with PAINLESS JAUNDICE ASSOCIATED WITH Liver mass with enlarged lymph nodes pancreas protocol triple phase CT scan of the abdomen and pelvis WITH CONTRAST - Poorly defined hypovascular mass occupying the left medial lobe of the liver and caudate lobe with upstream severe left greater intrahepatic bile duct dilatation, highly suspicious for cholangiocarcinoma. Filling defect identified in intrahepatic portal vein, concerning for tumor thrombus. Metastatic retroperitoneal lymphadenopathy. CA 19-9- 1930 AFP- P coag N, HEPATITIS PANEL- NEG GI EVAL- ERCP plus Spyglass cholangioscopy with targeted biopsies and possible stent placement. Post balloon dilatation, Cholangioscopy with evidence of neoplastic infiltration consistent with cholangiocarcinoma multiple direct targeted biopsies obtained Post placement of a [place] 10 x 9 cm stent with adequate drainage PATH -Biliary bifurcation, biopsy: Minute fragment of ductal mucosa showing crush artifact. No evidence of dysplasia or malignancy. RE- LAPAROSCOPIC BX, WITHOUT HISTOLOGICAL CONFORMATION WE CAN NOT PROCEED WITH TREATMENT OR METALLIC STENT PLACEMENT PER GI - May consider exchanging current stent which is small [place] 7 for possibly 2 Indonesian 10 long plastic stents, this may allow another opportunity to evaluate with cholangioscopy or at least brushing trying to secure a definitive diagnosis to proceed with adequate treatment ERCP possible Spyglass cholangioscopy with direct biopsies, brushings and stent placement liver bx- adenoca PLAN- CHEMO OUTPT Abnormal liver enzymes, jaundice- 2 TO ABOVE DYSLIPIDEMIA Problems: Consultation Date/Type/Reason Admit Date/Time May 19, 2017 at 04:18 Initial Consult Date 05/19/17 Type of Consultation: [facility] Referring Provider: HERMAN MCNULTY 24 HR Interval Summary Free Text/Dictation ALL NOTED D/W FAMILY Exam/Review of Systems Vital Signs Vitals Vital Signs Date Time Temp Pulse Resp B/P Pulse Ox O2 Delivery O2 Flow Rate FiO2 06/20/17 20:14 98.1 101 18 110/59 100 06/18/17 02:16 Room Air Intake and Output 06/19/17 06/19/17 06/20/17 15:00 23:00 07:00 Intake Total 1200 ml Balance 1200 ml Exam nad, lying in bed, alert resp nonlabored S1, S2 heard no abd distension no edema Less +jaundice Results Result Diagram: 06/20/1717 Results 24 hrs Laboratory Tests Test 06/20/17 05:17 White Blood Count 12.6 H Red Blood Count 3.26 L Hemoglobin 9.9 L Hematocrit 29.7 L Mean Corpuscular Volume 91.1 Mean Corpuscular Hemoglobin 30.4 Mean Corpuscular Hemoglobin Concent 33.3 Red Cell Distribution Width 15.2 H Platelet Count 408 Mean Platelet Volume 9.6 Neutrophils % 69.0 Lymphocytes % 20.0 Monocytes % 8.3 Eosinophils % 1.5 Basophils % 0.3 Nucleated Red Blood Cells % 0.0 Neutrophils # 8.7 H Lymphocytes # 2.5 Monocytes # 1.1 H Eosinophils # 0.2 Basophils # 0.0 Nucleated Red Blood Cells # 0.0 Medications Medications Current Medications Morphine Sulfate (morphine) 2 mg Q4H PRN IV PAIN Last administered on 21:59; Admin Dose 2 MG; Start 05/19/17 at 16:30 Acetaminophen/ Hydrocodone Bitart ([place] (5/325)) 1 tab Q4H PRN PO PAIN Last administered on 06/04/17 00:23; Admin Dose 1 TAB; Start 05/19/17 at 16:30 Ondansetron HCl (Zofran Inj) 4 mg Q6H PRN IV NAUSEA AND/OR VOMITING; Start at 16:30 Enoxaparin Sodium (Lovenox) 40 mg DAILY SC Last administered on 06/20/17 08: 54; Admin Dose 40 MG; Start 05/20/17 at 13:00; Status Future hold Polyethylene Glycol (Miralax) 17 gm DAILY PO Last administered on 06/20/17 08 :55; Admin Dose 17 GM; Start 05/21/17 at 10:30 Hydroxyzine HCl (Atarax) 50 mg Q6H PRN PO ITCHING Last administered on 10:06; Admin Dose 50 MG; Start 05/21/17 at 10:30 Docusate Sodium (Colace) 100 mg BID PO Last administered on 06/20/17 20:17; Admin Dose 100 MG; Start 05/27/17 at 12:30 Cholestyramine Resin (Questran) 1 pkt TID PO Last administered on 06/20/17 20 :17; Admin Dose 1 PKT; Start 05/28/17 at 21:00 Ursodiol (Actigall) 300 mg BID PO Last administered on 06/20/17 20:17; Admin Dose 300 MG; Start 05/30/17 at 09:00 Acetaminophen/ Hydrocodone Bitart ([place] (5/325)) 1 tab Q4H PRN PO PAIN LEVEL 4 -7 Last administered on 06/20/17 20:20; Admin Dose 1 TAB; Start 06/15/17 at 17:30 Acetaminophen/ Hydrocodone Bitart ([place] (5/325)) 2 tab Q4H PRN PO PAIN LEVEL 7 -10 Last administered on 06/18/17 16:32; Admin Dose 2 TAB; Start 06/15/17 at 17:30 Hydromorphone HCl (Dilaudid) 0.5 mg Q2 PRN IV PAIN Last administered on 05:13; Admin Dose 0.5 MG; Start 06/15/17 at 17:30 Simethicone (Mylicon) 80 mg Q6H PRN GTB DISTENSION/GAS/BLOATING Last administered on 06/18/17 22:32; Admin Dose 80 MG; Start 06/17/17 at 09:30 SONA WEEKS MD Jun 20, 2017 20:41
[2017-06-21] VITALS (11 sets, daily range): BP systolic 101–129; BP diastolic 58–79; PULSE 96–103; RESP 16–29
[2017-06-21 05:38] LABS: BASOPHILS % 0.3 % (0.0-2.0); EOSINOPHILS # 0.2 10^3/ul (0.0-0.5); EOSINOPHILS % 1.6 % (0.0-7.0); HEMATOCRIT 29.4 % (37.0-47.0); HEMOGLOBIN 9.8 g/dl (12.0-16.0); LYMPHOCYTES % 17.8 % (15.0-51.0); MEAN CORPUSCULAR HEMOGLOBIN 30.2 pg (29.0-33.0); MEAN CORPUSCULAR HGB CONC 33.3 g/dl (32.0-37.0); MEAN CORPUSCULAR VOLUME 90.7 fl (82.0-101.0); MEAN PLATELET VOLUME 9.8 fl (7.4-10.4); MONOCYTE # 0.9 10^3/ul (0.3-0.9); MONOCYTES % 7.9 % (0.0-11.0); NEUTROPHIL # 8.2 10^3/ul (1.6-7.5); NEUTROPHILS % 71.4 % (39.0-77.0); PLATELET COUNT 398 10^3/UL (140-415); RED BLOOD COUNT 3.24 10^6/ul (4.20-5.40); RED CELL DISTRIBUTION WIDTH 15.2 % (11.5-14.5); WHITE BLOOD COUNT 11.4 10^3/ul (4.8-10.8)
[2017-06-21 06:11] LABS: INR 0.93; PROTIME 12.5 Sec (12.2-14.2)
[2017-06-21 06:12] LABS: PARTIAL THROMBOPLASTIN TIME 27.7 Sec (25.0-35.0)
[2017-06-21 06:35] LABS: ALBUMIN 2.9 g/dl (3.3-4.9); ALBUMIN/GLOBULIN RATIO 0.87; BILIRUBIN,INDIRECT 0.7 mg/dl (0-1.1); BILIRUBIN,TOTAL 0.7 mg/dl (0.2-1.3); CREATININE 0.59 mg/dl (0.44-1.00); POTASSIUM 4.1 mmol/L (3.5-5.1); TOTAL PROTEIN 6.2 g/dl (6.1-8.1)
[2017-06-21] MEDS ORDERED: FLUMAZENIL 0.5 MG INJ ONE (07:00)
[2017-06-21] MEDS: DOCUSATE SODIUM 100 MG CAP PO SCH ×2 (09:00→20:59)
[2017-06-21] MEDS: POLYETHYLENE GLYCOL 17 GM PACKET PO SCH (09:00)
[2017-06-21] MEDS: CHOLESTYRAMINE 4 GM PACKET PO SCH ×3 (09:00→23:09)
[2017-06-21] MEDS: URSODIOL 300 MG CAP PO SCH ×2 (09:00→20:59)
[2017-06-21] MEDS: ENOXAPARIN 40 MG/0.4 ML SYG SC SCH (09:00)
--- NOTE | 2017-06-21 10:23 | PN ---
Date/Time of Note Date/Time of Note DATE: 06/21/17 TIME: :22 Assessment/Plan VTE Prophylaxis VTE Prophylaxis Intervention: ambulation Lines/Catheters IV [facility] Saline Lock Urinary Cath still in place: No Assessment/Plan Chief Complaint/Hosp Course Assessment: * Obstructive jaundice * Laparoscopic surgery with liver biopsy/adenocarcinoma * Cholangiocarcinoma by cholangioscopy however path negative/repeat path negative for malignancy * Post repeat ERCP/Spyglass with multiple biopsies and bilateral stenting with [place] 10, 9 cm plastic biliary stents * Stent accomplishing adequate decompression Plan: * Plan for ERCP with metal stent placement today * Remain NPO for procedure * Pt will also need to follow up with oncology Subjective: Course reviewed with nursing staff Patient interviewed and examined All labs, imaging and other results reviewed The patient feels well no complaints at this time Pathology positive for adenocarcinoma Even though the patient is currently stented and draining We will make plans for ERCP with metal stent placement today Exam: General: well developed, well nourished, alert and oriented x3 , in no acute distress Skin: Less icteric, no lesions, no stigmata chronic liver disease, no evidence of bleeding diathesis Lymphatic: No palpable lymphadenopathy HEENT: No lesions Cardiovascular: Heart: Regular rate and rhhthm, no murmurs, gallops or rubs. Peripheral pulses present within normal limits, no cyanosis, clubbing or edemas. No pulsatile abdominal mass Respiratory: Lungs clear to auscultation and percussion, no wheezing, no rubs Gastrointestinal and Liver: Abdomen: Soft, non tender, non-distended, no hernias , no masses, no organomegaly, no ascites, no guarding, no rebound tenderness, normoactive bowel sounds. Extremities: No cyanosis, clubbing, or edema. [Neurologic: Cranial nerves II-XII intact, motor within normal limits, sensory within normal limits. Reflexes within normal limits.] [Psychiatric: Alert and oriented x3, mood/affect/judgment adequate] Diagnostic Studies: Available data and images were reviewed personally. See reports. Significant results and findings are addressed here or in the assessment and plan. Problems: Problems: Exam/Review of Systems Vital Signs Vitals Vital Signs Date Time Temp Pulse Resp B/P Pulse Ox O2 Delivery O2 Flow Rate FiO2 06/21/17 07:32 97.7 85 18 103/58 100 06/18/17 02:16 Room Air Intake and Output 06/20/17 06/20/17 06/21/17 15:00 23:00 07:00 Intake Total 120 ml 700 ml 120 ml Balance 120 ml 700 ml 120 ml Results Result Diagram: 06/21/17 0521 06/21/17 0521 Results 24 hrs Laboratory Tests Test 06/21/17 05:21 White Blood Count 11.4 H Red Blood Count 3.24 L Hemoglobin 9.8 L Hematocrit 29.4 L Mean Corpuscular Volume 90.7 Mean Corpuscular Hemoglobin 30.2 Mean Corpuscular Hemoglobin Concent 33.3 Red Cell Distribution Width 15.2 H Platelet Count 398 Mean Platelet Volume 9.8 Neutrophils % 71.4 Lymphocytes % 17.8 Monocytes % 7.9 Eosinophils % 1.6 Basophils % 0.3 Nucleated Red Blood Cells % 0.0 Neutrophils # 8.2 H Lymphocytes # 2.0 Monocytes # 0.9 Eosinophils # 0.2 Basophils # 0.0 Nucleated Red Blood Cells # 0.0 Prothrombin Time 12.5 Prothrombin Time Ratio 1.0 INR International Normalized Ratio 0.93 Activated Partial Thromboplast Time 27.7 Mix PTT Normal Plasma Immediate Pending Sodium Level 140 Potassium Level 4.1 Chloride Level 105 Carbon Dioxide Level 29 Anion Gap 10 Blood Urea Nitrogen 6 L Creatinine 0.59 Glucose Level 81 Calcium Level 9.0 Total Bilirubin 0.7 Direct Bilirubin 0.00 Indirect Bilirubin 0.7 Aspartate Amino Transf (AST/SGOT) 52 H Alanine Aminotransferase (ALT/SGPT) 62 Alkaline Phosphatase 343 H Total Protein 6.2 Albumin 2.9 L Globulin 3.30 H Albumin/Globulin Ratio 0.87 Medications Medications Current Medications Morphine Sulfate (morphine) 2 mg Q4H PRN IV PAIN Last administered on 21:59; Admin Dose 2 MG; Start 05/19/17 at 16:30 Acetaminophen/ Hydrocodone Bitart ([place] (5/325)) 1 tab Q4H PRN PO PAIN Last administered on 06/04/17 00:23; Admin Dose 1 TAB; Start 05/19/17 at 16:30 Ondansetron HCl (Zofran Inj) 4 mg Q6H PRN IV NAUSEA AND/OR VOMITING; Start at 16:30 Enoxaparin Sodium (Lovenox) 40 mg DAILY SC Last administered on 06/20/17 08: 54; Admin Dose 40 MG; Start 05/20/17 at 13:00; Status Future hold Polyethylene Glycol (Miralax) 17 gm DAILY PO Last administered on 06/20/17 08 :55; Admin Dose 17 GM; Start 05/21/17 at 10:30 Hydroxyzine HCl (Atarax) 50 mg Q6H PRN PO ITCHING Last administered on 10:06; Admin Dose 50 MG; Start 05/21/17 at 10:30 Docusate Sodium (Colace) 100 mg BID PO Last administered on 06/20/17 20:17; Admin Dose 100 MG; Start 05/27/17 at 12:30 Cholestyramine Resin (Questran) 1 pkt TID PO Last administered on 06/20/17 20 :17; Admin Dose 1 PKT; Start 05/28/17 at 21:00 Ursodiol (Actigall) 300 mg BID PO Last administered on 06/20/17 20:17; Admin Dose 300 MG; Start 05/30/17 at 09:00 Acetaminophen/ Hydrocodone Bitart ([place] (5/325)) 1 tab Q4H PRN PO PAIN LEVEL 4 -7 Last administered on 06/20/17 20:20; Admin Dose 1 TAB; Start 06/15/17 at 17:30 Acetaminophen/ Hydrocodone Bitart ([place] (5/325)) 2 tab Q4H PRN PO PAIN LEVEL 7 -10 Last administered on 06/18/17 16:32; Admin Dose 2 TAB; Start 06/15/17 at 17:30 Hydromorphone HCl (Dilaudid) 0.5 mg Q2 PRN IV PAIN Last administered on 05:13; Admin Dose 0.5 MG; Start 06/15/17 at 17:30 Simethicone (Mylicon) 80 mg Q6H PRN GTB DISTENSION/GAS/BLOATING Last administered on 06/18/17 22:32; Admin Dose 80 MG; Start 06/17/17 at 09:30 KAHLIL MARSHALL Jun 21, 2017 10:23
--- NOTE | 2017-06-21 14:34 | DS ---
Date/Time of Note Date/Time of Note DATE: 06/21/17 TIME: 14:33 Discharge Summary Admission/Discharge Info Admit Date/Time May 19, 2017 at 04:18 Discharge Date/Time Discharge Diagnosis biliary adenocarcinoma Patient Condition: Stable Consults oncology, GI, general surgery, vascular surgery Procedures TUMOR MARKERS 9.19.17 CA19-9: 9330 AFP 1.7, CEA 4, CA125 13 PROCEDURES 9.19: ERCP (Plus sphincterotomy plus balloon dilatation plus Spyglass cholangioscopy plus biopsies plus stent placement) PATH: MICROSCOPIC DIAGNOSIS: Biliary bifurcation, biopsy: -- Minute fragment of ductal mucosa showing crush artifact. -- No evidence of dysplasia or malignancy. 10.5 ERCP plus stent removal plus sphincterotomy plus balloon dilatation of the biliary tree plus Spyglass cholangioscopy with biopsies plus stent placement 2 MICROSCOPIC DIAGNOSIS: Hepatic duct biopsy: -- Strips of ductal mucosa showing focal mild atypia. -- A fragment of crushed epithelial and stromal tissue. -- No evidence of malignancy in the material submitted. (Please see comment) COMMENT: The marked crush artifact precludes definitive diagnosis. Multiple deeper levels are examined. 10.12 Segment 4b of liver wedge liver biopsy Liver, wedge biopsy: -- Adenocarcinoma. COMMENT: The immunohistochemical staining pattern rules out lung, breast, ovarian and colon primaries. There is no specific immunohistochemical staining pattern for cholangiocarcinoma. However, the staining pattern of this tumor can be seen in cholangiocarcinoma. 10.18 ERCP with replacement of pt's plastic biliary stents with metal stents IMAGING 10.6 CT AP wwo contrast IMPRESSION: Interval stability to mild size decrease of ill-defined mass occupying the central liver, compatible with cholangiocarcinoma. There is stable moderate to severe left greater than right intrahepatic biliary duct dilatation, encasement of the left greater than right portal veins, and abutment of the IVC with mild mass effect and possible tumor infiltration. Interval placement of an additional stent extending from the common bile duct into the right intrahepatic biliary system. Stable retroperitoneal lymphadenopathy, likely metastatic. 9.25 CT AP wwo contrast IMPRESSION: 1. Ill-defined hypovascular central mass measuring 4.8 x 5.2 cm centered in the medial left hepatic lobe extending into the caudate and right anterior hepatic lobe concerning for cholangiocarcinoma. 2. Encasement of the proximal aspect of the left portal vein with severe luminal narrowing. Patent more peripheral left portal vein and segmental portal vein branches. 3. Infiltration into the hepatic IVC. Abutment of the inferior aspect of the middle hepatic vein. 4. Interval placement of a biliary stent draining the right anterior sectoral ducts. Marked intrahepatic biliary ductal dilatation in the left hepatic lobe and posterior right hepatic lobe. 5. Retroperitoneal lymphadenopathy. 9.16 CT AP wwo contrast IMPRESSION: Poorly defined hypovascular mass occupying the left medial lobe of the liver and caudate lobe with upstream severe left greater intrahepatic bile duct dilatation, highly suspicious for cholangiocarcinoma. Filling defect identified in intrahepatic portal vein, concerning for tumor thrombus. Metastatic retroperitoneal lymphadenopathy. 9.15 NCCT AP IMPRESSION: Marked intrahepatic biliary dilatation greater in the left lobe. Evaluation of the liver is limited without intravenous contrast. There is the suggestion of approximate 3.3 x 2.7 cm hypoattenuating mass in the balaji hepatis region suspicious for malignancy. There is the appearance of likely enlarged periportal lymph node measuring approximately 1.6 cm short axis suspicious for metastasis. There is an approximate 1 cm short axis left periaortic retroperitoneal lymph node with smaller additional left periaortic retroperitoneal lymph nodes. There is an approximate 1 cm short axis left common iliac lymph node. These are nonspecific. Contracted gallbladder. Please see above. Discussed with Dr. Gary at 03:48 a.m. on 05/19/2017. Hx of Present Illness The patient is a 52-year-old female with a history of dyslipidemia who presented to the ER coming of abdominal pain, yellowish eyes dark urine and itching. Her symptoms started over 6 months ago with dark urine. About a month or so ago, she started noticing itching, abdominal pain, yellowish eyes and constipation. For the having slightly decreased appetite but denied weight loss. He also denied fever, chills, chest pain, shortness of breath. CT abdomen/pelvis done in the ER showed Marked intrahepatic biliary dilatation greater in the left lobe, 3.3 x 2.7 cm hypoattenuating mass in the balaji hepatis region suspicious for malignancy. Also enlarged lymph nodes, suspicious for metastasis. Labs shows elevated transaminases, as well as total bilirubin of 7.5 and alk phos of about 900. . Hospital Course Pt admitted for work up of biliary mass. Had ERCP x 2 with stenting for compression-->path from both procedures nondiagnostic. Pt had liver biopsy 10.12 with prelim result as adenocarcinoma. Concern initially on imaging that pt had tumor thrombus, though repeat imaging more consistent with extrinsic compression of portal vasculature of mass. Pt had ERCP with replacement of her plastic biliary stents with metal stents. Home Meds Active Scripts Ursodiol* (Actigall*) 300 Mg Cap, 300 MG PO BID for 30 Days, #60 CAP Prov:AIMEE CRONIN MD 06/19/17 Hydroxyzine Hcl* (Atarax*) 25 Mg Tab, 50 MG PO Q6H Y for ITCHING for 14 Days, # 60 TAB Prov:AIMEE CRONIN MD 06/19/17 Cholestyramine* (Questran*) 1 Pkt Susp, 1 PKT PO TID for 30 Days, #90 TAB Prov:AIMEE CRONIN MD 06/19/17 Follow-up Plan Vasan within 3 weeks for onc Primary Care Provider Care Physician No Primary Time spent on discharge: > 30 minutes Pending Labs Laboratory Tests Test 06/21/17 05:21 White Blood Count 11.410^3/ul (4.8-10.8) Red Blood Count 3.2410^6/ul (4.20-5.40) Hemoglobin 9.8g/dl (12.0-16.0) Hematocrit 29.4% (37.0-47.0) Mean Corpuscular Volume 90.7fl (82.0-101.0) Mean Corpuscular Hemoglobin 30.2pg (29.0-33.0) Mean Corpuscular Hemoglobin Concent 33.3g/dl (32.0-37.0) Red Cell Distribution Width 15.2% (11.5-14.5) Platelet Count 59412^3/UL (140-415) Mean Platelet Volume 9.8fl (7.4-10.4) Neutrophils % 71.4% (39.0-77.0) Lymphocytes % 17.8% (15.0-51.0) Monocytes % 7.9% (0.0-11.0) Eosinophils % 1.6% (0.0-7.0) Basophils % 0.3% (0.0-2.0) Nucleated Red Blood Cells % 0.0/100WBC (0.0-0.0) Neutrophils # 8.210^3/ul (1.6-7.5) Lymphocytes # 2.010^3/ul (0.8-2.9) Monocytes # 0.910^3/ul (0.3-0.9) Eosinophils # 0.210^3/ul (0.0-0.5) Basophils # 0.010^3/ul (0.0-0.1) Nucleated Red Blood Cells # 0.010^3/ul (0.0-0.0) Prothrombin Time 12.5Sec (12.2-14.2) Prothrombin Time Ratio 1.0 INR International Normalized Ratio 0.93 Activated Partial Thromboplast Time 27.7Sec (25.0-35.0) Mix PTT Normal Plasma Immediate Sec Sodium Level 140mmol/L (135-144) Potassium Level 4.1mmol/L (3.5-5.1) Chloride Level 105mmol/L (97-110) Carbon Dioxide Level 29mmol/L (21-31) Anion Gap 10 (8-16) Blood Urea Nitrogen 6mg/dl (7-20) Creatinine 0.59mg/dl (0.44-1.00) Glucose Level 81mg/dl (70-220) Calcium Level 9.0mg/dl (8.4-10.2) Total Bilirubin 0.7mg/dl (0.2-1.3) Direct Bilirubin 0.00mg/dl (0.00-0.20) Indirect Bilirubin 0.7mg/dl (0-1.1) Aspartate Amino Transf (AST/SGOT) 52IU/L (15-46) Alanine Aminotransferase (ALT/SGPT) 62IU/L (13-69) Alkaline Phosphatase 343IU/L (42-121) Total Protein 6.2g/dl (6.1-8.1) Albumin 2.9g/dl (3.3-4.9) Globulin 3.30g/dl (1.3-3.2) Albumin/Globulin Ratio 0.87 Copies To: CC: ROB JANE M.D., ELLEN MD Jun 21, 2017 14:34 Alanine Aminotransferase (ALT/SGPT) 62IU/L (13-69) Alkaline Phosphatase 343IU/L (42-121) Total Protein 6.2g/dl (6.1-8.1) Albumin 2.9g/dl (3.3-4.9) Globulin 3.30g/dl (1.3-3.2) Albumin/Globulin Ratio 0.87 AIMEE CRONIN MD Jun 21, 2017 14:34
--- NOTE | 2017-06-21 16:21 | PDOCDIS ---
Discharge Instructions DIAGNOSIS Discharge Diagnosis biliary adenocarcinoma CONDITION Patient Condition: Stable HOME CARE INSTRUCTIONS: Special Diet: NPO FOLLOW UP/APPOINTMENTS Follow-up Plan Your new oncologist is Dr Nieto. Please call her office to schedule an appointment. Office Address [address] [place] [id number] Office AIMEE CRONIN MD Jun 21, 2017 16:21
--- NOTE | 2017-06-21 19:13 | OPPN ---
Date/Time of Note Date/Time of Note DATE: 06/21/17 TIME: 19:07 Proc Note GI Procedure Date 06/21/17 Indication: other (Metal stent placement) Pre-procedure Diagnosis Cholangiocarcinoma with obstruction Metal stent placement Post-procedure Diagnosis Impression: High-grade biliary obstruction at the level of bifurcation. Post Wallstent placement bilaterally 10 x 80 and 10 x 60 mm stents Plan: Observe postprocedure Advance diet as tolerated Oncology management . Procedure Performed: ERCP (Stent exchange) Surgeon RODERICK JACKSON MD See signature line Fudge Candy Maker none Anesthesia Type: general, other Anesthesiologist: JUAN MEJÍA DO Tourniquet Time none EBL none Transfusion required none Biopsy 1: None Grafts/Implants 10 x 80 mm uncovered metal stent 10 x 60 mm uncovered metal stent Tubes/Drains none Complication(s) none Disposition: PACU Procedure Description After informed consent, with the patient/relatives understanding the procedure, its indications, potential risks and complications, including but not limited to : allergic reaction, bleeding, perforation or infection, and after all pertinent questions were answered to the patients satisfaction, the patient/ relatives signed witnessed informed consent. Following this, premedication was administered slowly IV push under careful cardiovascular and respiratory monitoring with pulse oximetry, automatic blood pressure, and radiation monitor. Once the sedative effect was achieved the patient was place in the prone position in the radiology special procedures suite; the side viewing panendoscope was introduced and advanced under visual control. Careful examination of the upper gastrointestinal tract, both on insertion as well as withdrawal of the instrument disclosed the following findings: Esophagus: The mucosa of the entire appears within normal limits. There is no evidence of esophagitis, varices, neoplasm or stricture. No Hiatal Hernia identified. Stomach: Upon entrance to the stomach air was insufflated, the gastric lino distended normally, the mucosa of the fundus, body and antrum of the stomach was carefully examined both head-on and on retroflexion, and shows no abnormalities. There is no evidence of gastritis, ulcers, or neoplasm. Pylorus: The pylorus appears patent and within normal limits, with no evidence of gastric outlet obstruction. Duodenum: The duodenal mucosa was carefully examined in the duodenal bulb as well as the second portion of the duodenum and appears unremarkable with no evidence of duodenitis, ulcer or neoplasm. Ampulla of vater: The ampulla of Vater was identified to plastic stents previously placed are identified there were removed one by one with a polypectomy snare without difficulty Cannulation: At this point cannulation was accomplished with the following fluoroscopic findings: Pancreatogram: Not obtained Cholangiogram: High-grade obstruction at the level of the bifurcation. 2 guidewires were placed in both right and left intrahepatic systems. Following this a 10 x 80 mm uncovered Wallstent was placed in the left intrahepatic system and subsequently a 10 x 60 mm uncovered Wallstent was placed in the right intrahepatic system The instrument was then withdrawn the patient tolerated the procedure well and was transfer out of the endoscopy suite awake, and in good condition to continue to recover under observation. Copies To: CC: RODERICK JACKSON MD, MORDO MD Jun 21, 2017 19:13
[2017-06-21] MEDS: HYDROmorphONE 0.5 MG/0.5 ML SYG IV PRN (21:00)
--- NOTE | 2017-06-21 22:22 | RADRPT ---
PROCEDURE: Intraoperative imaging for ERCP with fluoroscopy. CLINICAL INDICATION: Right upper quadrant pain. Intraoperative. TECHNIQUE: 9 images of the right upper quadrant of the abdomen were obtained in the operating room with an image intensifier. No radiologist was in attendance. 246 seconds of fluoroscopy time was used. COMPARISON: 06/08/2017. FINDINGS: The initial image demonstrates 2 stents in the common bile duct. The subsequent images demonstrate r emoval of the plastic stents and contrast injection into the common bile duct. There are filling def ects consistent with gas bubbles or stones. The final image demonstrates placement of 2 metallic johan nts in the common bile duct. IMPRESSION: 1. ERCP as described above. RPTAT: QQ .Solis Schroeder MD, MD Date Time Electronically viewed and signed by .Solis Schroeder MD, on 06/21/2017 22:22 .R/
--- NOTE | 2017-06-21 23:10 | CONS ---
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 Filling defect identified in intrahepatic portal vein, concerning for tumor thrombus. Metastatic retroperitoneal lymphadenopathy. CA 19-9- 1930 AFP- P coag N, HEPATITIS PANEL- NEG GI EVAL- ERCP plus Spyglass cholangioscopy with targeted biopsies and possible stent placement. Post balloon dilatation, Cholangioscopy with evidence of neoplastic infiltration consistent with cholangiocarcinoma multiple direct targeted biopsies obtained Post placement of a Y[place]ut 10 x 9 cm stent with adequate drainage PATH -Biliary bifurcation, biopsy: Minute fragment of ductal mucosa showing crush artifact. No evidence of dysplasia or malignancy. RE- LAPAROSCOPIC BX, WITHOUT HISTOLOGICAL CONFORMATION WE CAN NOT PROCEED WITH TREATMENT OR METALLIC STENT PLACEMENT PER GI - May consider exchanging current stent which is small Y[place]ut 7 for possibly 2 Yakut 10 long plastic stents, this may allow another opportunity to evaluate with cholangioscopy or at least brushing trying to secure a definitive diagnosis to proceed with adequate treatment ERCP possible Spyglass cholangioscopy with direct biopsies, brushings and stent placement liver bx- adenoca PLAN- CHEMO OUTPT Abnormal liver enzymes, jaundice- 2 TO ABOVE DYSLIPIDEMIA Problems: Consultation Date/Type/Reason Admit Date/Time May 19, 2017 at 04:18 Initial Consult Date 05/19/17 Type of Consultation: [facility] Referring Provider: HERMAN MCNULTY 24 HR Interval Summary Free Text/Dictation ALL NOTED D/W PT AND FAMILY Exam/Review of Systems Vital Signs Vitals Vital Signs Date Time Temp Pulse Resp B/P Pulse Ox O2 Delivery O2 Flow Rate FiO2 06/21/17 20:21 98.3 95 20 129/77 96 06/21/17 19:52 Room Air Intake and Output 06/20/17 06/20/17 06/21/17 15:00 23:00 07:00 Intake Total 120 ml 700 ml 120 ml Balance 120 ml 700 ml 120 ml Exam nad, lying in bed, alert resp nonlabored S1, S2 heard + abd pain RUQ, no R or G no edema Less jaundice Constitutional: alert, oriented, well developed Results Result Diagram: 06/21/17 0521 06/21/17 0521 Results 24 hrs Laboratory Tests Test 06/21/17 05:21 White Blood Count 11.4 H Red Blood Count 3.24 L Hemoglobin 9.8 L Hematocrit 29.4 L Mean Corpuscular Volume 90.7 Mean Corpuscular Hemoglobin 30.2 Mean Corpuscular Hemoglobin Concent 33.3 Red Cell Distribution Width 15.2 H Platelet Count 398 Mean Platelet Volume 9.8 Neutrophils % 71.4 Lymphocytes % 17.8 Monocytes % 7.9 Eosinophils % 1.6 Basophils % 0.3 Nucleated Red Blood Cells % 0.0 Neutrophils # 8.2 H Lymphocytes # 2.0 Monocytes # 0.9 Eosinophils # 0.2 Basophils # 0.0 Nucleated Red Blood Cells # 0.0 Prothrombin Time 12.5 Prothrombin Time Ratio 1.0 INR International Normalized Ratio 0.93 Activated Partial Thromboplast Time 27.7 Mix PTT Normal Plasma Immediate Sodium Level 140 Potassium Level 4.1 Chloride Level 105 Carbon Dioxide Level 29 Anion Gap 10 Blood Urea Nitrogen 6 L Creatinine 0.59 Glucose Level 81 Calcium Level 9.0 Total Bilirubin 0.7 Direct Bilirubin 0.00 Indirect Bilirubin 0.7 Aspartate Amino Transf (AST/SGOT) 52 H Alanine Aminotransferase (ALT/SGPT) 62 Alkaline Phosphatase 343 H Total Protein 6.2 Albumin 2.9 L Globulin 3.30 H Albumin/Globulin Ratio 0.87 Medications Medications Current Medications Morphine Sulfate (morphine) 2 mg Q4H PRN IV PAIN Last administered on 21:59; Admin Dose 2 MG; Start 05/19/17 at 16:30 Acetaminophen/ Hydrocodone Bitart ([place] (5/325)) 1 tab Q4H PRN PO PAIN Last administered on 06/04/17 00:23; Admin Dose 1 TAB; Start 05/19/17 at 16:30 Ondansetron HCl (Zofran Inj) 4 mg Q6H PRN IV NAUSEA AND/OR VOMITING; Start at 16:30 Enoxaparin Sodium (Lovenox) 40 mg DAILY SC Last administered on 06/20/17 08: 54; Admin Dose 40 MG; Start 05/20/17 at 13:00; Status Future hold Polyethylene Glycol (Miralax) 17 gm DAILY PO Last administered on 06/20/17 08 :55; Admin Dose 17 GM; Start 05/21/17 at 10:30 Hydroxyzine HCl (Atarax) 50 mg Q6H PRN PO ITCHING Last administered on 10:06; Admin Dose 50 MG; Start 05/21/17 at 10:30 Docusate Sodium (Colace) 100 mg BID PO Last administered on 06/21/17 20:59; Admin Dose 100 MG; Start 05/27/17 at 12:30 Cholestyramine Resin (Questran) 1 pkt TID PO Last administered on 06/20/17 20 :17; Admin Dose 1 PKT; Start 05/28/17 at 21:00 Ursodiol (Actigall) 300 mg BID PO Last administered on 06/21/17 20:59; Admin Dose 300 MG; Start 05/30/17 at 09:00 Acetaminophen/ Hydrocodone Bitart ([place] (5/325)) 1 tab Q4H PRN PO PAIN LEVEL 4 -7 Last administered on 06/20/17 20:20; Admin Dose 1 TAB; Start 06/15/17 at 17:30 Acetaminophen/ Hydrocodone Bitart ([place] (5/325)) 2 tab Q4H PRN PO PAIN LEVEL 7 -10 Last administered on 06/18/17 16:32; Admin Dose 2 TAB; Start 06/15/17 at 17:30 Hydromorphone HCl (Dilaudid) 0.5 mg Q2 PRN IV PAIN Last administered on 21:00; Admin Dose 0.5 MG; Start 06/15/17 at 17:30 Simethicone (Mylicon) 80 mg Q6H PRN GTB DISTENSION/GAS/BLOATING Last administered on 06/18/17 22:32; Admin Dose 80 MG; Start 06/17/17 at 09:30 SONA WEEKS MD Jun 21, 2017 23:10
[2017-06-22] MEDS: HYDROCODONE/APAP (5/325) TAB PO PRN ×2 (00:39→12:37)
[2017-06-22 01:54] VITALS: BP 143/86; RESP 20
[2017-06-22] MEDS: HYDROmorphONE 0.5 MG/0.5 ML SYG IV PRN ×2 (03:43→06:30)
[2017-06-22 06:30] LABS: BASOPHILS % 0.2 % (0.0-2.0); EOSINOPHILS % 0.1 % (0.0-7.0); HEMATOCRIT 31.7 % (37.0-47.0); HEMOGLOBIN 10.6 g/dl (12.0-16.0); LYMPHOCYTES # 1.5 10^3/ul (0.8-2.9); LYMPHOCYTES % 8.8 % (15.0-51.0); MEAN CORPUSCULAR HEMOGLOBIN 30.1 pg (29.0-33.0); MEAN CORPUSCULAR HGB CONC 33.4 g/dl (32.0-37.0); MEAN CORPUSCULAR VOLUME 90.1 fl (82.0-101.0); MONOCYTE # 1.1 10^3/ul (0.3-0.9); MONOCYTES % 6.6 % (0.0-11.0); NEUTROPHILS % 83.5 % (39.0-77.0); PLATELET COUNT 462 10^3/UL (140-415); RED BLOOD COUNT 3.52 10^6/ul (4.20-5.40); RED CELL DISTRIBUTION WIDTH 15.1 % (11.5-14.5); WHITE BLOOD COUNT 16.7 10^3/ul (4.8-10.8)
[2017-06-22 07:34] VITALS: BP 142/77; RESP 18
[2017-06-22] MEDS: ONDANSETRON 4 MG INJ IV PRN ×2 (07:40→12:36)
[2017-06-22] MEDS: URSODIOL 300 MG CAP PO SCH (08:33)
[2017-06-22] MEDS: POLYETHYLENE GLYCOL 17 GM PACKET PO SCH (08:34)
[2017-06-22] MEDS: DOCUSATE SODIUM 100 MG CAP PO SCH (08:34)
[2017-06-22] MEDS: CHOLESTYRAMINE 4 GM PACKET PO SCH ×2 (08:34→12:36)
[2017-06-22] MEDS: ENOXAPARIN 40 MG/0.4 ML SYG SC SCH (09:02)
[2017-06-22 14:17] VITALS: BP 125/67; RESP 18
== END 2017-06-22 16:10 | disposition home or self-care (01) | DRG 420 ==
LOC: E/R 00:23 → MS2 04:18
PROVIDERS: ADMIT Internal Medicine; ATTEND Internal Medicine
PROC: 0F778ZZ Dilation of Common Hepatic Duct, Via Natural or Artificial Opening Endoscopic (ICD-10-PCS; 2017-05-23)
PROC: 0F758DZ Dilation of Right Hepatic Duct with Intraluminal Device, Via Natural or Artificial Opening Endoscopic (ICD-10-PCS; 2017-05-23)
PROC: 0F768DZ Dilation of Left Hepatic Duct with Intraluminal Device, Via Natural or Artificial Opening Endoscopic (ICD-10-PCS; 2017-05-23)
PROC: 0FB78ZX Excision of Common Hepatic Duct, Via Natural or Artificial Opening Endoscopic, Diagnostic (ICD-10-PCS; 2017-05-23)
PROC: 0F778ZZ Dilation of Common Hepatic Duct, Via Natural or Artificial Opening Endoscopic (ICD-10-PCS; 2017-06-08)
PROC: 0F758DZ Dilation of Right Hepatic Duct with Intraluminal Device, Via Natural or Artificial Opening Endoscopic (ICD-10-PCS; 2017-06-08)
PROC: 0F768DZ Dilation of Left Hepatic Duct with Intraluminal Device, Via Natural or Artificial Opening Endoscopic (ICD-10-PCS; 2017-06-08)
PROC: 0FPB8DZ Removal of Intraluminal Device from Hepatobiliary Duct, Via Natural or Artificial Opening Endoscopic (ICD-10-PCS; 2017-06-08)
PROC: 0FB78ZX Excision of Common Hepatic Duct, Via Natural or Artificial Opening Endoscopic, Diagnostic (ICD-10-PCS; 2017-06-08)
PROC: 0FB24ZX Excision of Left Lobe Liver, Percutaneous Endoscopic Approach, Diagnostic (ICD-10-PCS; principal; 2017-06-15 13:00)
PROC: 0FPB8DZ Removal of Intraluminal Device from Hepatobiliary Duct, Via Natural or Artificial Opening Endoscopic (ICD-10-PCS; 2017-06-21)
PROC: 0F768DZ Dilation of Left Hepatic Duct with Intraluminal Device, Via Natural or Artificial Opening Endoscopic (ICD-10-PCS; 2017-06-21)
PROC: 0F758DZ Dilation of Right Hepatic Duct with Intraluminal Device, Via Natural or Artificial Opening Endoscopic (ICD-10-PCS; 2017-06-21)
DX: C78.7 Secondary malignant neoplasm of liver and intrahepatic bile duct (principal); K83.1 Obstruction of bile duct; E78.5 Hyperlipidemia, unspecified; R74.8 Abnormal levels of other serum enzymes
CPT/HCPCS: 36415; 71020; 74176; 74178; 74330; 76705; 80048; 80053; 80076; 81003; 82105; 82150; 82310; 82378; 83605; 83690; 83735; 84100; 85025; 85335; 85610; 85730; 86301; 86304; 86704; 86709; 86803; 87040; 87340; 88305; 88307; 88313; 88331; 88341; 88342; 93005; 96374; 96375; C2617; J0690; J1170; J1200; J1650; J2175; J2250; J2270; J2405; J2543; J2710; J2765; J3010; J7040; Q9967